=== PATIENT | male | born 1950 | race Caucasian/White ===

== ENCOUNTER 2017-07-24 17:47 | Outpatient (CLI) | payer MEDICARE, OTHER, MEDICAID | END 2017-07-24 17:48 | disposition critical access hospital (66) | LOC: EMS 17:47 | PROVIDERS: ATTEND Surgery | DX: R40.20 Unspecified coma (principal); S01.111A Laceration without foreign body of right eyelid and periocular area, initial encounter; M54.2 Cervicalgia; W19.XXXA Unspecified fall, initial encounter; Y92.009 Unspecified place in unspecified non-institutional (private) residence as the place of occurrence of the external cause | CPT/HCPCS: A0425; A0427 ==

== ENCOUNTER 2017-07-24 18:22 | Emergency (ER) | payer MEDICARE, OTHER, MEDICAID ==
--- NOTE | 2017-07-24 18:46 | ED Physician Documentation ---
PD HPI HEAD INJURY - Stated complaint Stated Complaint: OD - Chief complaint Chief Complaint: Trauma Hd/Nk - History obtained from History obtained from: Patient - History of Present Illness Mechanism of head injury: Fell (he had a friend inject him with heroin (this was first time used this way, had smoked it in the past and was clean off drugs for several months, then started back up this past week). He got very sedated with the IV dose, was standing up at the time, and passed out, falling forward. He did not stop breathing but was unresponsive. 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 No: Nausea / vomiting, Neck pain, Paresthesias Contributing factors: No: Anticoagulated Similar symptoms before: Has not had sx before Recently seen: Not recently seen Review of Systems Constitutional: denies: Fever, Chills Nose: denies: Rhinorrhea / runny nose, Congestion Throat: denies: Sore throat Respiratory: denies: Cough GI: denies: Vomiting, Diarrhea Skin: reports: Laceration (s) (upper lip and forehead) Musculoskeletal: denies: Neck pain, Back pain Neurologic: reports: Head injury. denies: Headache Psychiatric: denies: Depressed, Suicidal PD PAST MEDICAL HISTORY - Past Medical History Cardiovascular: High cholesterol Respiratory: COPD, Sleep apnea, CPAP use Endocrine/Autoimmune: None GI: None : None HEENT: Chronic hearing loss Psych: None Musculoskeletal: None Derm: Other - Past Surgical History Past Surgical History: Yes Ortho: Other - Present Medications Home Medications: Ambulatory Orders Medication Instructions Recorded Confirmed No Known Home Medications [No 07/24/17 07/24/17 Known Home Medications] - Allergies Allergies/Adverse Reactions: Allergies Allergy/AdvReac Type Severity Reaction Status Date / Time No Known Drug Allergies Allergy Verified 07/24/17 18:31 - Social History Does the pt smoke?: No Smoking Status: Never smoker Does the pt drink ETOH?: No Does the pt have substance abuse?: Yes Substance Use and Type: Heroin - Immunizations Immunizations are current?: Yes PD ED PE NORMAL - Vitals Vital signs reviewed: Yes - General General: Well developed/nourished, Other (partial thickness lac left upper lip not crossing francis border. Teeth intact. Forehead with superficial lac as well. 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 ) PD MEDICAL DECISION MAKING - ED course Complexity details: reviewed results, re-evaluated patient (he is still alert and conversant after CT and time in the ED. The peak effect of the heroin is over and should not have further deep sedation. Discharged home. He says he has info on drug treatment programs and NA groups. ), considered differential, d/w patient Departure - Departure Disposition: 01 Home, Self Care Clinical Impression: Fall Qualifiers: Encounter type: initial encounter Qualified Code(s): W19.XXXA - Unspecified fall, initial encounter Facial laceration Qualifiers: Encounter type: initial encounter Qualified Code(s): S01.81XA - Laceration without foreign body of other part of head, initial encounter Accidental heroin overdose Qualifiers: Encounter type: initial encounter Qualified Code(s): T40.1X1A - Poisoning by heroin, accidental (unintentional), initial encounter Condition: Stable Record reviewed to determine appropriate education?: Yes Instructions: ED Laceration Facial Sutr Tape Follow-Up: Sli Montenegro ARNP [Primary Care Provider] - Comments: No recreational drugs and avoid heroin. Resume your narcotic anonymous meetings and seek help at drug treatment programs. For the facial lacerations, allow the Steri-Strips to stay on and dry and fall off on their own after 5 or 6 days. Tylenol or ibuprofen if needed for pains. Recheck if signs of infection. There are no signs of fractures or bleeding on your head and neck CAT scans. He will be sore and stiff through those areas. Discharge Date/Time: 07/24/17 20:35
[2017-07-24] MEDS ORDERED: KETOROLAC 60 MG/2 ML VIAL IVP STA (19:07)
--- NOTE | 2017-07-24 19:47 | CT Report ---
EXAM: CT HEAD EXAM DATE: 07/24/2017 07:30 PM. CLINICAL HISTORY: Fall with head/neck pain. COMPARISON: None. TECHNIQUE: Multiaxial CT images were obtained from the foramen magnum to the vertex. Reformats: Coron al. IV contrast: None. In accordance with CT protocol optimization, one or more of the following dose reduction techniques w ere utilized for this exam: automated exposure control, adjustment of mA and/or KV based on patient s ize, or use of iterative reconstructive technique. FINDINGS: Parenchyma: No intraparenchymal hemorrhage. No evidence of mass, midline shift, or CT findings of inf arction. Chun-white differentiation is distinct. Extraaxial Spaces: Normal for age. No subdural or epidural collections identified. Ventricles: Normal in size and position. Sinuses and Orbits: Imaged paranasal sinuses, orbits, and mastoids show no significant abnormality. Bones: No evidence of fracture or calvarial defect. Other: None. IMPRESSION: Negative head CT. [facility] Referring Provider Line: [phone] SITE ID: [id number]
--- NOTE | 2017-07-24 19:47 | CT Preliminary Report ---
Exam: CT HEAD W/O IMPRESSION: Negative head CT. [facility] SITE ID: [id number]
--- NOTE | 2017-07-24 19:54 | CT Preliminary Report ---
Exam: CT CERVICAL SPINE W/O IMPRESSION: 1. Negative for an acute fracture and subluxation. 2. Multilevel whde-kj-tjqrytcb degenerative disk disease in the lower lumbar spine. C5-C6 vertebral b royer fusion. [facility] SITE ID: [id number]
--- NOTE | 2017-07-24 19:54 | CT Report ---
EXAM: CT CERVICAL SPINE WITHOUT CONTRAST DATE: 07/24/2017 07:31 PM. HISTORY: Fall with face injury. COMPARISONS: None. TECHNIQUE: Thin-section axial images were acquired of the cervical spine without contrast. Post-proce ssing: Coronal and sagittal reformats. Other: None. In accordance with CT protocol optimization, one or more of the following dose reduction techniques w ere utilized for this exam: automated exposure control, adjustment of mA and/or KV based on patient s ize, or use of iterative reconstructive technique. FINDINGS: Alignment: No scoliosis or spondylolisthesis. Bones: Negative for an acute fracture. There is bony bridging of the C5 and C6 vertebral bodies. Ther e is a corticated ossification located anterior to the C7 superior endplate. Interspace Levels/Facets: There is mild disk height loss at C6-C7 and capm-rx-sjbqheew disk height loss at C7-T1. The facet pamela nts appear in satisfactory alignment with mild degenerative disease. No significant central spinal ca nal stenosis. There is degenerative disease and spurring of the anterior C1 and C2 articulation. Musculature: Normal. No fatty atrophy. Other: The paravertebral and prevertebral soft tissues are unremarkable. No apical pneumothorax. Ther e is bilateral apical pleural-parenchymal scarring. IMPRESSION: 1. Negative for an acute fracture and subluxation. 2. Multilevel ykwv-vq-flekfson degenerative disk disease in the lower lumbar spine. C5-C6 vertebral b royer fusion. [facility] Referring Provider Line: [phone] SITE ID: [id number]
[2017-07-24 20:36] VITALS: BP 126/70
== END 2017-07-24 20:35 | disposition home or self-care (01) ==
LOC: EDUNIT# → ED 18:22
DX: S01.81XA Laceration without foreign body of other part of head, initial encounter (principal); S01.511A Laceration without foreign body of lip, initial encounter; W19.XXXA Unspecified fall, initial encounter; T40.1X1A Poisoning by heroin, accidental (unintentional), initial encounter; E78.00 Pure hypercholesterolemia, unspecified
CPT/HCPCS: 70450; 72125; 96374; 99283; 99284

== ENCOUNTER 2017-08-09 09:49 | Emergency (ER) | payer MEDICARE, OTHER, MEDICAID ==
[2017-08-09] MEDS ORDERED: SODIUM CHLORIDE 0.9% 1,000 ML IV ONE (10:05)
--- NOTE | 2017-08-09 10:58 | XRAY Report ---
EXAM: CHEST RADIOGRAPHY EXAM DATE: 08/09/2017 10:51 AM. CLINICAL HISTORY: Cough tachycardia. COMPARISON: 04/05/2015. TECHNIQUE: 2 views. FINDINGS: Lungs/Pleura: Infiltrate or atelectasis right lung base. New small bilateral pleural effusions. Chron ic parenchymal reticular densities in the bilateral upper lung hickey right greater than left and rig ht lower lobe. 8 mm nodular density in the left upper lung laterally. Mediastinum: Mild cardiomegaly Other: None. IMPRESSION: 1. Infiltrate or atelectasis right lung base. 2. New small bilateral effusions. 3. 8mm nodule left upper lobe further evaluation could be with CT. 4. Chronic parenchymal changes bilateral upper lungs, right lower lung [facility] Referring Provider Line: [phone] SITE ID: [id number]
[2017-08-09 11:01] LABS: BASOPHILS # (AUTO) 0.1 10^3/uL (0.0-0.1); BASOPHILS % (AUTO) 0.5 %; EOSINOPHILS # (AUTO) 0.1 10^3/uL (0.0-0.7); EOSINOPHILS % (AUTO) 0.7 %; HGB - HEMOGLOBIN 15.6 g/dL (14.0-18.0); LYMPHOCYTES # (AUTO) 1.2 10^3/uL (1.5-3.5); LYMPHOCYTES % (AUTO) 11.2 %; MEAN CORPUSCULAR HEMOGLOBIN 31.3 pg (27.0-31.0); MEAN CORPUSCULAR HGB CONC 33.8 g/dL (32.0-36.0); MEAN CORPUSCULAR VOLUME 92.7 fL (80.0-94.0); MEAN PLATELET VOLUME 9.5 fL (7.4-11.4); MONOCYTES # (AUTO) 1.1 10^3/uL (0.0-1.0); MONOCYTES % (AUTO) 10.1 %; NEUTROPHILS # (AUTO) 8.6 10^3/uL (1.5-6.6); NEUTROPHILS % (AUTO) 77.5 %; PLT - PLATELET COUNT 314 10^3/uL (130-450); RED BLOOD COUNT 4.97 10^6/uL (4.70-6.10); RED CELL DISTRIBUTION WIDTH 13.7 % (12.0-15.0); WHITE BLOOD COUNT 11.1 x10^3/uL (4.8-10.8)
[2017-08-09 11:03] LABS: CALCIUM 9.1 mg/dL (8.5-10.3); CREATININE 0.9 mg/dL (0.6-1.2)
--- NOTE | 2017-08-09 11:43 | ED Physician Documentation ---
History of Present Illness - Stated complaint Stated Complaint: BODY ACHES,COUGH,SWEATING - Chief complaint Chief Complaint: General - Additonal information Additional information: hx from pt 67 male mostly healthy hx drug use but sober now prior smoker has COPD and freq pna has been sick for a week with cough SOA sweats fatigue no GI sx Review of Systems Constitutional: reports: Myalgias, Sweats. denies: Fever, Chills Cardiac: denies: Chest pain / pressure Respiratory: reports: Dyspnea, Cough GI: denies: Vomiting, Diarrhea Endocrine: denies: Easy bruising / bleeding Immunocompromised: denies: Immunocompromised PD PAST MEDICAL HISTORY - Past Medical History Cardiovascular: High cholesterol Respiratory: COPD, Sleep apnea, CPAP use Endocrine/Autoimmune: None GI: None : None HEENT: Chronic hearing loss Psych: None Musculoskeletal: None Derm: Other - Past Surgical History Past Surgical History: Yes Ortho: Other - Present Medications Home Medications: Ambulatory Orders Medication Instructions Recorded Confirmed Azithromycin [Zithromax] 250 mg PO DAILY #4 tablet 08/09/17 Benzonatate [Tessalon] 100 mg PO TID PRN #20 capsule 08/09/17 guaiFENesin/DEXTROMETHORPHAN 10 ml PO Q6H PRN #120 ml 08/09/17 [Robitussin Dm] - Allergies Allergies/Adverse Reactions: Allergies Allergy/AdvReac Type Severity Reaction Status Date / Time No Known Drug Allergies Allergy Verified 07/24/17 18:31 - Social History Does the pt smoke?: No Smoking Status: Never smoker Does the pt drink ETOH?: No Does the pt have substance abuse?: Yes - Immunizations Immunizations are current?: Yes PD ED PE NORMAL - Vitals Vital signs reviewed: Yes - General General: Alert and oriented X 3 - HEENT HEENT: PERRL - Neck Neck: Supple, no meningeal sign - Cardiac Cardiac: RRR - Respiratory Respiratory: Other (slightly coarse vern no wheeze) - Abdomen Abdomen: Soft, Non tender - Extremities Extremities: No deformity - Neuro Neuro: Alert and oriented X 3 Results - Vitals Vitals: Vital Signs - 24 hr 08/09/17 08/09/17 09:55 11:50 Temperature 36.4 C L Heart Rate 133 H 121 H Respiratory 17 18 Rate Blood Pressure 119/94 H 135/111 H O2 Saturation 98 100 Oxygen O2 Source Room air - Labs Labs: Laboratory Tests 08/09/17 08/09/17 08/09/17 10:25 10:25 10:59 WBC 11.1 H RBC 4.97 Hgb 15.6 Hct 46.1 MCV 92.7 MCH 31.3 H MCHC 33.8 RDW 13.7 Plt Count 314 MPV 9.5 Neut # 8.6 H Lymph # 1.2 L Forrest # 1.1 H Eos # 0.1 Baso # 0.1 Absolute Nucleated RBC 0.00 Nucleated RBC % 0.0 Sodium 136 Potassium 4.0 Chloride 96 L Carbon Dioxide 29 Anion Gap 11.0 BUN 19 Creatinine 0.9 Estimated GFR (MDRD) 84 L Glucose 100 Lactic Acid Calcium 9.1 Influenza A (Rapid) Negative Influenza B (Rapid) Negative Influenza Types A,B Ag - 08/09/17 11:10 WBC RBC Hgb Hct MCV MCH MCHC RDW Plt Count MPV Neut # Lymph # Forrest # Eos # Baso # Absolute Nucleated RBC Nucleated RBC % Sodium Potassium Chloride Carbon Dioxide Anion Gap BUN Creatinine Estimated GFR (MDRD) Glucose Lactic Acid 1.2 Calcium Influenza A (Rapid) Influenza B (Rapid) Influenza Types A,B Ag - Rads (name of study) CXR Radiology: See rad report (infiltrate R lung base, vern small effusions, 8 [address] nodule rec CT) PD MEDICAL DECISION MAKING - ED course ED course: after IVF resting HR is < 100 but 120s with exertion lactate neg blood c pending advised pt I recommend admit he states he cannot be admitted today though he understands my concerns so will dc and pt promises to return to see me tomorrow for a recheck (since he has no PMD) and sooner if worse Departure - Departure Disposition: 01 Home, Self Care Clinical Impression: Pneumonia Condition: Good Instructions: ED Pneumonia Adult Prescriptions: Azithromycin [Zithromax] 250 mg PO DAILY #4 tablet Benzonatate [Tessalon] 100 mg PO TID PRN #20 capsule PRN Reason: to ease cough guaiFENesin/DEXTROMETHORPHAN [Robitussin Dm] 10 ml PO Q6H PRN #120 ml PRN Reason: Cough Comments: You have a right sided pneumonia and a small amount of fluid in both lungs. The radiologist also saw a small nodule in your upper left lung and recommends that you get a CT scan to further evaluate that. We cannot do the CT today in the ER - you will need to follow up with a local clinic to get that arranged. I recommend that you stay in the hospital for this pneumonia but you have declined for today because you have other business to take care of Please please come back and see me for a recheck tomorrow -return sooner if you are worse or change your mind In the mean time take the antibiotics as prescribed and the cough medications as needed.
[2017-08-09] MEDS ORDERED: cefTRIAXone 1 GM in SODIUM CHLORIDE 0.9% MINIBAG 100 ML IV STA (11:47)
[2017-08-09] MEDS ORDERED: AZITHROMYCIN 250 MG TABLET PO STA (11:47)
[2017-08-09 12:36] VITALS: BP 159/99
== END 2017-08-09 12:37 | disposition home or self-care (01) ==
LOC: ED 09:49
DX: J18.9 Pneumonia, unspecified organism (principal); R91.1 Solitary pulmonary nodule; J44.9 Chronic obstructive pulmonary disease, unspecified; E78.00 Pure hypercholesterolemia, unspecified; G47.30 Sleep apnea, unspecified; Z87.891 Personal history of nicotine dependence
CPT/HCPCS: 36415; 71046; 80048; 83605; 85025; 87040; 87275; 87276; 96361; 96365; 99283; 99284; A9270

== ENCOUNTER 2017-08-10 12:31 | Inpatient (IN) | payer MEDICARE, OTHER, MEDICAID ==
[2017-08-10] MEDS ORDERED: SODIUM CHLORIDE 0.9% 1,000 ML IV ONE (12:55)
[2017-08-10] MEDS ORDERED: AZITHROMYCIN 250 MG TABLET PO STA (12:55)
[2017-08-10] MEDS ORDERED: cefTRIAXone 1 GM in SODIUM CHLORIDE 0.9% MINIBAG 100 ML IV STA (12:55)
--- NOTE | 2017-08-10 13:03 | ED Physician Documentation ---
History of Present Illness - Stated complaint Stated Complaint: COUGH - Chief complaint Chief Complaint: Resp - Additonal information Additional information: pt seen yesterday dx with pna and small pleural effusion was persistently tachycardic and admission was recommended but he declined admit 2/2 having business to attend to was given IV ab and dc with precautions feels worse - more sweats severe body aches profound fatigue, continued coughing also some diarrhea so returned to be admitted after all arrives tachy and hypoxic Review of Systems Constitutional: reports: Fever, Chills, Sweats Throat: denies: Sore throat Cardiac: denies: Chest pain / pressure Respiratory: reports: Dyspnea, Cough GI: reports: Diarrhea. denies: Nausea : denies: Dysuria Musculoskeletal: denies: Extremity pain, Extremity swelling Endocrine: denies: Easy bruising / bleeding Immunocompromised: denies: Immunocompromised PD PAST MEDICAL HISTORY - Past Medical History Past Medical History: Yes Cardiovascular: High cholesterol Respiratory: COPD, Pneumonia, Sleep apnea, CPAP use Endocrine/Autoimmune: None GI: None : None HEENT: Chronic hearing loss Psych: None Musculoskeletal: None Derm: Other - Past Surgical History Past Surgical History: Yes Ortho: Other - Present Medications Home Medications: Ambulatory Orders Medication Instructions Recorded Confirmed Multivitamin [Theragran] 1 tab PO DAILY 08/10/17 08/10/17 - Allergies Allergies/Adverse Reactions: Allergies Allergy/AdvReac Type Severity Reaction Status Date / Time No Known Drug Allergies Allergy Verified 07/24/17 18:31 - Social History Does the pt smoke?: No Smoking Status: Never smoker Does the pt drink ETOH?: No Does the pt have substance abuse?: Yes - Immunizations Immunizations are current?: Yes PD ED PE NORMAL - Vitals Vital signs reviewed: Yes - General General: Alert and oriented X 3 - HEENT HEENT: PERRL - Neck Neck: Supple, no meningeal sign - Cardiac Cardiac: RRR (tachy) - Respiratory Respiratory: No respiratory distress, Other (coarse vern) - Abdomen Abdomen: Soft, Non tender - Derm Derm: Other (small abscess posterior L neck and a small subcut nodule l ant neck that feels like a lipoma) - Extremities Extremities: No deformity, No edema, No calf tenderness / cord - Neuro Neuro: Alert and oriented X 3, No motor deficit, No sensory deficit Results - Vitals Vitals: Vital Signs - 24 hr 08/10/17 12:34 Temperature 36.2 C L Heart Rate 121 H Respiratory 24 Rate Blood Pressure 116/79 O2 Saturation 90 L Oxygen O2 Source Room air - EKG (time done) 1419 Rate: Rate (enter#) (122) Rhythm: Atrial fibrillation Rhome: Normal Intervals: RBBB Ischemia: Non specific changes (ST depression laterally) - Labs Labs: Laboratory Tests 08/10/17 08/10/17 08/10/17 13:05 13:05 13:05 WBC 10.9 H RBC 4.42 L Hgb 13.8 L Hct 40.4 L MCV 91.5 MCH 31.1 H MCHC 34.0 RDW 13.3 Plt Count 296 MPV 8.9 Neut # 8.5 H Lymph # 1.2 L Craig # 1.1 H Eos # 0.1 Baso # 0.1 Absolute Nucleated RBC 0.00 Nucleated RBC % 0.0 D-Dimer Sodium 138 Potassium 3.8 Chloride 97 L Carbon Dioxide 28 Anion Gap 13.0 BUN 17 Creatinine 0.9 Estimated GFR (MDRD) 84 L Glucose 100 Lactic Acid 1.3 Calcium 8.8 Troponin I 08/10/17 08/10/17 13:05 13:05 WBC RBC Hgb Hct MCV MCH MCHC RDW Plt Count MPV Neut # Lymph # Craig # Eos # Baso # Absolute Nucleated RBC Nucleated RBC % D-Dimer 423.1 H Sodium Potassium Chloride Carbon Dioxide Anion Gap BUN Creatinine Estimated GFR (MDRD) Glucose Lactic Acid Calcium Troponin I < 0.04 PD MEDICAL DECISION MAKING - ED course ED course: pt retuerned as requested for pna and was hypoxic and tachy - given IV ab and fluids EKG ordered per protocol and I was ot aware and EKG was given to other EMP on duty - I am not given the EKG and it shows a fib RBB - will advise hospitalist also pt has the small abscess on his l nbeck that i was going to drain for him in the ER but I got pulled away for another critical pt and so it did not get lanced in ER - defer to hospitalist as well Departure - Departure Disposition: 66 [facility] DC/Xfer Clinical Impression: Hypoxia, Atrial fibrillation, RBBB Pneumonia Qualifiers: Pneumonia type: due to unspecified organism Laterality: right Lung location: unspecified part of lung Qualified Code(s): J18.9 - Pneumonia, unspecified organism Condition: Fair Discharge Date/Time: 08/10/17 15:15
[2017-08-10 13:23] LABS: BASOPHILS # (AUTO) 0.1 10^3/uL (0.0-0.1); BASOPHILS % (AUTO) 1.1 %; EOSINOPHILS # (AUTO) 0.1 10^3/uL (0.0-0.7); EOSINOPHILS % (AUTO) 0.6 %; HGB - HEMOGLOBIN 13.8 g/dL (14.0-18.0); LYMPHOCYTES # (AUTO) 1.2 10^3/uL (1.5-3.5); LYMPHOCYTES % (AUTO) 10.7 %; MEAN CORPUSCULAR HEMOGLOBIN 31.1 pg (27.0-31.0); MEAN CORPUSCULAR VOLUME 91.5 fL (80.0-94.0); MEAN PLATELET VOLUME 8.9 fL (7.4-11.4); MONOCYTES # (AUTO) 1.1 10^3/uL (0.0-1.0); MONOCYTES % (AUTO) 9.9 %; NEUTROPHILS # (AUTO) 8.5 10^3/uL (1.5-6.6); NEUTROPHILS % (AUTO) 77.7 %; PLT - PLATELET COUNT 296 10^3/uL (130-450); RED BLOOD COUNT 4.42 10^6/uL (4.70-6.10); RED CELL DISTRIBUTION WIDTH 13.3 % (12.0-15.0); WHITE BLOOD COUNT 10.9 x10^3/uL (4.8-10.8)
[2017-08-10 13:34] LABS: CALCIUM 8.8 mg/dL (8.5-10.3); CREATININE 0.9 mg/dL (0.6-1.2)
[2017-08-10] MEDS ORDERED: ONDANSETRON 4 MG/2 ML VIAL IVP PRN (14:21)
--- NOTE | 2017-08-10 14:33 | HISTORY & PHYSICAL EXAMINATION ---
Chief Complaint - Chief Complaint Chief Complaint: cough, fever History of Present Illness - Admitted From Admitted From:: ER - History Obtained From History obtained from: Pt - History of Present Illness HPI Comment/Other: is 67-year-old male with a past medical history of recurrent pneumonia, drug abuse, COPD, Sleep Apnea with CPAP, hyperlipidemia, who present ER complaint of fever, chill, night sweating. Pt state he came yesterday but had some business to go. He report he fever, cough, and night sweating on last night. Pt report he had 15 times of pneumonia recently. He smoked cigarette for 35 years, and quit cigarette smoking for 8 years. Today pt is afebrile, with tachycardia at ER. EKG reveals Afib with RVR. Pt denies chest pain, headache, abdominal pain, nausea, vomiting, vision changing. The lab test reveals slight elevated WBC, and elevated D-Dimer. CXR on 08/09/17 reveals infiltrate or atelectasis right lung base, new small bilateral effusion, 8 mm nodule left upper lobe, chronic parenchymal changes bilateral upper lungs and right lower lung. The radiologist call pt had PE on CT chest today. History - Past Medical History Cardiovascular: reports: High cholesterol Respiratory: reports: COPD, Pneumonia, Sleep apnea, CPAP use Endocrine/Autoimmune: reports: None GI: reports: None : reports: None HEENT: reports: Chronic hearing loss Psych: reports: None Musculoskeletal: reports: None Derm: reports: Other MRSA Hx?: No - Past Surgical History Ortho: reports: Other - Family & Social History Family History Comment/Other: pt is living [facility], single with girlfriend. Pt is working for [employer] business. Living arrangement: At home Living Situation: With spouse/s.o. - Substance History Use: Uses substance without health or social issues: Tobacco Abuse: Recurrent use of substance despite neg consequences: NONE Dependence: Experiences withdrawal or developed tolerances: NONE - POLST Patient has POLST: No POLST Status: Full Code Meds/Allgy - Home Medications Home Medications: Ambulatory Orders Medication Instructions Recorded Confirmed Multivitamin [Theragran] 1 tab PO DAILY 08/10/17 08/10/17 - Allergies Allergies/Adverse Reactions: Allergies Allergy/AdvReac Type Severity Reaction Status Date / Time No Known Drug Allergies Allergy Verified 07/24/17 18:31 Review of Systems - Constitutional Constitutional: reports: Fatigue, Fever, Chills, Night sweats. denies: Malaise , Poor appetite, Diaphoresis, Weight gain, Weight loss - Eyes Eyes: denies: Pain, Irritation, Amaurosis, Blurred vision, Spots in vision, Field loss, Vision loss, Dipolpia - Ears, Nose & Throat Ears, Nose & Throat: denies: Ear pain, Hearing loss, Hearing aids, Tinnitus, Nasal pain, Nosebleeds, Nasal congestion, Sore throat, Bleeding gums - Cardiovascular Cariovascular: denies: Irregular heart rate, Palpitations, Chest pain, Edema, Lightheadedness, Syncope, Exertional dyspnea, Decr. exercise tolerance - Respiratory Respiratory: reports: Cough, Sputum production, SOB with exertion. denies: Wheezing, Snoring, Hemoptysis, Orthopnea, SOB at rest, Apnea, Pleuritic pain - Gastrointestinal Gastrointestinal: denies: Abdominal pain, Abdominal distention, Constipation, Diarrhea, Change in bowel habits, Rectal bleeding, Black stools, Bloody stools, Nausea, Vomiting, Bile emesis, Coffee grounds emesis - Genitourinary Genitourinary: denies: Dysuria, Frequency, Urgency, Hematuria, Incontinence, Flank pain, Nocturia, Urethral discharge - Musculoskeletal Musculoskeletal: denies: Muscle pain, Back pain, Muscle aches, Stiffness, Limited range of motion, Muscle weakness, Gout, Joint pain - Integumentary Integumentary: denies: Rash, Pruritis, Lesions, Dryness, Lumps, Acne, Pigment changes, Nail changes - Neurological Neurological: denies: General weakness, Focal weakness, Headache, Dizziness, Numbness, Memory problems, Pre-existing deficit, Abnormal gait, Seizures, Incoordination, Slurred speech - Psychiatric Psychiatric: denies: Depression, Anxiety, Suicidal, Delusions, Hallucinations, Homicidal - Endocrine Endocrine: denies: Polyuria, Polydypsia, Polyphagia, Intolerance to cold - Hematologic/Lymphatic Hematologic/Lymphatic: denies: Anemia, Bruising, Petechiae, Blood clots, Lymphadenopathy, Bleeding tendencies, Recurrent infections Exam - Vital Signs Reviewed Vital Signs: Yes Vital Signs: Vital Signs x48h Temp Pulse Resp BP Pulse Ox 08/10/17 14:29 114 H 115/83 H 100 08/10/17 12:34 36.2 C L 121 H 24 116/79 90 L - Physical Exam General Appearance: positive: No acute distress, Alert. negative: Lethargic Eyes Bilateral: positive: Normal inspection, PERRL, No lid inflammation, Conjunctivae nml ENT: positive: ENT inspection nml, Pharynx nml, No signs of dehydration. negative: Purulent nasal drainage, Pharyngeal erythema, Oral lesions Neck: positive: Nml inspection, Thyroid nml, No JVD, Trachea midline. negative : Thyromegaly, Lymphadenopathy (R), Lymphadenopathy (L), Stiff neck, Carotid bruit, Swelling/bruising, Tracheal deviation Respiratory: positive: Chest non-tender, No respiratory distress, Breath sounds nml. negative: Wheezes, Rales, Rhonchi Cardiovascular: positive: Regular rate & rhythm, No murmur, No gallop, Tachycardia. negative: Irregularly irregular, Extrasystoles, Bradycardia, JVD present, Systolic murmur, Diastolic murmur Peripheral Pulses: positive: 2+ Abdomen: positive: Non-tender, No organomegaly, Nml bowel sounds, No distention. negative: Tenderness, Guarding, Rebound Back: positive: Nml inspection. negative: CVA tenderness (R), CVA tenderness (L ) Skin: positive: Color nml, No rash, Warm, Dry. negative: Cyanosis, Diaphoresis , Pallor Extremities: positive: Non-tender, Full ROM, Nml appearance. negative: Calf tenderness, Joint swelling, Dolly's sign/cords Neurologic/Psychiatric: positive: Oriented x3, Motor nml, Sensation nml, Mood/ affect nml. negative: Sensory loss, Facial droop, Slurred/abnml speech, Depressed mood/affect Conclusion/Plan - Problem List (1) Pneumonia Conclusion/Plan: CXR reveals pneumonia, clinically pt complains of fever, cough, night sweating. Lab test reveals slight elevated WBC. 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 Treat with Rocephin Azithyromycine sputum culture, blood culture tele, vital monitor Qualifiers: Pneumonia type: due to unspecified organism Laterality: right Lung location: unspecified part of lung Qualified Code(s): J18.9 - Pneumonia, unspecified organism (2) Pulmonary thromboembolism Conclusion/Plan: Radiologist call pt had PE bilateral on tele Lovenox 90mg Bid will switch PO meds, to Coumadin check PT/INR (3) Afib Conclusion/Plan: pt is afib with RVR at HR 120, denies chest pain, palpitation, pre-syncope/ syncope. Pt is unknown afib. Pt's CHADS2 was lower until today is 2, because of new diagnosis of PE. Cardizem control tele monitor vital monitor (4) History of COPD Conclusion/Plan: stable, no shortness of breathing. Duoneb PRN O2 supplement PRN (5) Hyperlipidemia Conclusion/Plan: pt did not have any statin or meds at home meds list check lipid panel, follow up (6) DVT prophylaxis Conclusion/Plan: SCD, pt is on Lovenox Bid (7) Full code status Conclusion/Plan: pt request a full code status - Lab Results Fish Bones: 08/10/17 13:05 08/10/17 13:05 Core Measures - Anticipated LOS I expect patient to be DC'd or transferred within 96 hours.: Yes - DVT/VTE - Prophylaxis VTE/DVT Device ordered at admit?: Yes VTE/DVT Prophylaxis med ordered at admit?: Yes - Stroke - Rehab Assessment Rehab services assessment to be ordered?: No - AMI - Statin at Admit Aspirin Prescribed on Admit: No
[2017-08-10] MEDS ORDERED: IOPAMIDOL-300 100 ML VIAL ONE ×2 (14:56→14:57)
[2017-08-10] MEDS ORDERED: IOPAMIDOL-300 100 ML VIAL IVP ONE ×3 (15:20→15:36)
[2017-08-10] MEDS ORDERED: ENOXAPARIN 80 MG/0.8 ML SYRINGE SUBQ SCH (16:00)
[2017-08-10] MEDS: SODIUM CHLORIDE 0.9% 1,000 ML IV SCH (16:18)
[2017-08-10] MEDS: SODIUM CHLORIDE FLUSH 0.9% 10 ML SYRINGE IVP PRN (16:19)
[2017-08-10] MEDS: ENOXAPARIN 100 MG/ML SYRINGE SUBQ SCH (16:19)
[2017-08-10] MEDS: SODIUM CHLORIDE FLUSH 0.9% 10 ML SYRINGE IVP SCH (16:51)
[2017-08-10] MEDS: diltiaZEM 30 MG TABLET PO SCH ×2 (17:05→22:11)
[2017-08-10] MEDS ORDERED: IPRATROPIUM/ALBUTEROL 3 ML NEB INH PRN (19:00)
--- NOTE | 2017-08-10 19:27 | CT Report ---
DATE OF SERVICE: 08/10/2017 CT CHEST WITH CONTRAST: 08/10/2017 CLINICAL INDICATION: Left lung nodule, smoking history, weakness, tired. TECHNIQUE: Axial CT images of the chest were obtained with 80 mL Isovue 300 intravenously. In accordance with CT protocol optimization, one or more of the following dose reduction techniques were utilized for this exam: Automated exposure control, adjustment of mA and/or KV based on patient size, or use of iterative reconstructive technique. COMPARISON: Chest x-ray 08/09/2017. FINDINGS: The heart and great vessels demonstrate minimal atherosclerotic calcification. There are filling defects in bilateral lower lobe segmental and subsegmental pulmonary arteries as well as subsegmental upper lobe pulmonary arteries, compatible with small pulmonary emboli. No hilar or mediastinal lymphadenopathy is appreciated. The nodule noted on the plain film in the lateral left upper lobe is calcified, compatible with an old granuloma. The lungs also demonstrate patchy bilateral infiltrates, worse in the anterior right middle lobe and lingula, and small pleural effusions with associated basilar atelectasis. Limited evaluation of upper abdominal structures demonstrates normal adrenal glands. Osseous structures demonstrate degenerative changes. IMPRESSION: BILATERAL SEGMENTAL AND SUBSEGMENTAL PULMONARY EMBOLI. PATCHY BILATERAL INFILTRATES AND EFFUSIONS. CALCIFIED GRANULOMA IN THE LEFT UPPER LOBE, ACCOUNTING FOR THE PLAIN FILM NODULE. CRITICAL RESULT: Results called to JOE Rice on 08/10/2017 at 1535 hours. TD: 08/10/2017 19:25
[2017-08-11] MEDS ORDERED: SODIUM CHLORIDE 0.9% 300 ML IV ONE (03:55)
[2017-08-11] MEDS: diltiaZEM 30 MG TABLET PO SCH ×4 (04:10→21:55)
[2017-08-11] MEDS: SODIUM CHLORIDE 0.9% 1,000 ML IV SCH ×2 (04:12→14:22)
[2017-08-11] MEDS: SODIUM CHLORIDE FLUSH 0.9% 10 ML SYRINGE IVP SCH ×3 (04:14→20:10)
[2017-08-11 06:26] LABS: BASOPHILS # (AUTO) 0.1 10^3/uL (0.0-0.1); BASOPHILS % (AUTO) 0.9 %; EOSINOPHILS # (AUTO) 0.1 10^3/uL (0.0-0.7); EOSINOPHILS % (AUTO) 0.6 %; HGB - HEMOGLOBIN 13.1 g/dL (14.0-18.0); LYMPHOCYTES # (AUTO) 1.3 10^3/uL (1.5-3.5); LYMPHOCYTES % (AUTO) 12.3 %; MEAN CORPUSCULAR HEMOGLOBIN 30.4 pg (27.0-31.0); MONOCYTES # (AUTO) 1.1 10^3/uL (0.0-1.0); MONOCYTES % (AUTO) 10.2 %; NEUTROPHILS # (AUTO) 8.3 10^3/uL (1.5-6.6); PLT - PLATELET COUNT 292 10^3/uL (130-450); RED BLOOD COUNT 4.32 10^6/uL (4.70-6.10); RED CELL DISTRIBUTION WIDTH 13.5 % (12.0-15.0); WHITE BLOOD COUNT 10.9 x10^3/uL (4.8-10.8)
[2017-08-11 06:32] LABS: INR 1.5 (0.8-1.2); PT - PROTHROMBIN TIME 16.8 secs (9.9-12.6)
[2017-08-11 06:35] LABS: ALBUMIN 2.9 g/dL (3.2-5.5); ALBUMIN/GLOBULIN RATIO 0.9 (1.0-2.2); BILIRUBIN,TOTAL 0.8 mg/dL (0.2-1.0); CALCIUM 8.3 mg/dL (8.5-10.3); CREATININE 0.8 mg/dL (0.6-1.2); MAGNESIUM 1.9 mg/dL (1.7-2.8)
[2017-08-11 06:39] LABS: CHOL/HDL RATIO 3.6 (<5.0); CHOLESTEROL 116 mg/dL; HDL CHOLESTEROL 32 mg/dL; LDL CHOLESTEROL,CALCULATED 75 mg/dL; LDL/HDL RATIO 2.3 (<3.6); VLDL CHOLESTEROL 9 mg/dL
[2017-08-11] MEDS: ENOXAPARIN 100 MG/ML SYRINGE SUBQ SCH ×2 (08:57→20:10)
[2017-08-11] MEDS: cefTRIAXone 1 GM in SODIUM CHLORIDE 0.9% MINIBAG 100 ML IV SCH (08:57)
[2017-08-11] MEDS: POLYETHYLENE GLYCOL 3350 17 GM PACKET PO SCH (08:58)
[2017-08-11] MEDS: FAMOTIDINE 20 MG TABLET PO SCH (08:58)
[2017-08-11] MEDS: WARFARIN 5 MG TABLET PO SCH (08:58)
[2017-08-11] MEDS ORDERED: cefTRIAXone 1 GM VIAL IVP SCH (09:00)
[2017-08-11] MEDS ORDERED: ENOXAPARIN 40 MG/0.4 ML SYRINGE SUBQ SCH (09:00)
[2017-08-11] MEDS: ACETAMINOPHEN 325 MG TABLET PO PRN ×2 (09:02→21:59)
[2017-08-11] MEDS: AZITHROMYCIN INJ 500 MG in SODIUM CHLORIDE 0.9% 250 ML IV SCH (10:32)
[2017-08-11] MEDS ORDERED: IPRATROPIUM 0.2 MG/ML NEB INH PRN (12:16)
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
[2017-08-11 16:09] LABS: AMPHETAMINE SCREEN,URINE NEGATIVE (NEGATIVE); BENZODIAZEPINES SCREEN, URINE NEGATIVE (NEGATIVE); COCAINE SCREEN URINE NEGATIVE (NEGATIVE); METHADONE SCREEN, URINE NEGATIVE (NEGATIVE); METHAMPHETAMINES SCREEN, URINE NEGATIVE (NEGATIVE); MUDS CUTOFF CONCENTRATIONS CUTOFF CONC BELOW:; OPIATE SCREEN, URINE NEGATIVE (NEGATIVE); OXYCODONE SCREEN, URINE NEGATIVE (NEGATIVE); PROPOXYPHENE SCREEN, URINE NEGATIVE (NEGATIVE); TRICYCLIC ANTIDEPRESSANT,URINE NEGATIVE (NEGATIVE)
[2017-08-11] MEDS: LEVALBUTEROL 1.25 MG/3 ML NEB INH PRN (17:59)
[2017-08-12] MEDS: SODIUM CHLORIDE 0.9% 1,000 ML IV SCH (01:52)
[2017-08-12] MEDS: LEVALBUTEROL 1.25 MG/3 ML NEB INH PRN (03:05)
[2017-08-12] MEDS: diltiaZEM 30 MG TABLET PO SCH (05:03)
[2017-08-12] MEDS: SODIUM CHLORIDE FLUSH 0.9% 10 ML SYRINGE IVP SCH ×3 (05:09→20:00)
[2017-08-12 05:30] LABS: BASOPHILS # (AUTO) 0.1 10^3/uL (0.0-0.1); BASOPHILS % (AUTO) 0.9 %; EOSINOPHILS # (AUTO) 0.1 10^3/uL (0.0-0.7); EOSINOPHILS % (AUTO) 0.6 %; HGB - HEMOGLOBIN 12.8 g/dL (14.0-18.0); LYMPHOCYTES # (AUTO) 1.4 10^3/uL (1.5-3.5); LYMPHOCYTES % (AUTO) 15.8 %; MEAN CORPUSCULAR HEMOGLOBIN 30.7 pg (27.0-31.0); MEAN CORPUSCULAR HGB CONC 33.7 g/dL (32.0-36.0); MEAN CORPUSCULAR VOLUME 91.1 fL (80.0-94.0); MEAN PLATELET VOLUME 8.3 fL (7.4-11.4); MONOCYTES # (AUTO) 0.9 10^3/uL (0.0-1.0); MONOCYTES % (AUTO) 10.4 %; NEUTROPHILS # (AUTO) 6.4 10^3/uL (1.5-6.6); NEUTROPHILS % (AUTO) 72.3 %; PLT - PLATELET COUNT 276 10^3/uL (130-450); RED BLOOD COUNT 4.18 10^6/uL (4.70-6.10); RED CELL DISTRIBUTION WIDTH 13.5 % (12.0-15.0); WHITE BLOOD COUNT 8.9 x10^3/uL (4.8-10.8)
[2017-08-12 05:34] LABS: INR 1.6 (0.8-1.2); PT - PROTHROMBIN TIME 17.9 secs (9.9-12.6)
[2017-08-12 05:38] LABS: ALBUMIN 2.9 g/dL (3.2-5.5); ALBUMIN/GLOBULIN RATIO 0.9 (1.0-2.2); BILIRUBIN,TOTAL 0.7 mg/dL (0.2-1.0); CALCIUM 8.1 mg/dL (8.5-10.3); CREATININE 0.7 mg/dL (0.6-1.2)
[2017-08-12] MEDS ORDERED: SODIUM CHLORIDE 0.9% 1,000 ML IV SCH (07:42)
[2017-08-12] MEDS: ENOXAPARIN 100 MG/ML SYRINGE SUBQ SCH ×2 (10:48→19:59)
[2017-08-12] MEDS: ACETAMINOPHEN 325 MG TABLET PO PRN ×2 (10:48→22:44)
[2017-08-12] MEDS: diltiaZEM CD 120 MG CAPSULE PO SCH (10:49)
[2017-08-12] MEDS: WARFARIN 5 MG TABLET PO SCH (10:49)
[2017-08-12] MEDS: cefTRIAXone 1 GM in SODIUM CHLORIDE 0.9% MINIBAG 100 ML IV SCH (10:49)
[2017-08-12] MEDS: FAMOTIDINE 20 MG TABLET PO SCH (10:49)
[2017-08-12] MEDS: POLYETHYLENE GLYCOL 3350 17 GM PACKET PO SCH (10:49)
[2017-08-12] MEDS: AZITHROMYCIN INJ 500 MG in SODIUM CHLORIDE 0.9% 250 ML IV SCH (11:26)
--- NOTE | 2017-08-12 14:22 | PROVIDER PROGRESS NOTE ---
Subjective - Prog Note Date Prog Note Date: 08/12/17 - Subjective Pt reports feeling: Improved Subjective: pt state he feel better. No fever, chill, cough, chest pain, shortness of breath , headache. Current Medications - Current Medications Current Medications: Active Medications Acetaminophen (Tylenol) 650 mg PO Q4HR PRN PRN Reason: Pain 1 to 4 Last Admin: 08/12/17 10:48 Dose: 650 mg Diltiazem HCl (Cardizem Cd) 120 mg PO DAILY [facility] Last Admin: 08/12/17 10:49 Dose: 120 mg Enoxaparin Sodium (Lovenox) 90 mg SUBQ BID [facility] Last Admin: 08/12/17 10:48 Dose: 90 mg Famotidine (Pepcid) 20 mg PO DAILY [facility] Last Admin: 08/12/17 10:49 Dose: 20 mg Guaifenesin (Robitussin Dm) 10 ml PO Q6HR PRN PRN Reason: Cough Azithromycin 500 mg/ Sodium (Chloride) 250 mls @ 250 mls/hr IV DAILY@1000 [facility] Last Infusion: 08/12/17 13:14 Dose: Infused Ceftriaxone Sodium 1 gm/ (Sodium Chloride) 100 mls @ 200 mls/hr IV DAILY [facility] Last Infusion: 08/12/17 11:26 Dose: Infused Ipratropium [place] (Atrovent) 0.5 mg INH RTQ4H PRN PRN Reason: Wheezing Levalbuterol HCl (Xopenex) 1.25 mg INH RTQ4H PRN PRN Reason: SHORTNESS OF AIR Last Admin: 08/12/17 03:05 Dose: 1.25 mg Ondansetron HCl (Zofran Inj) 4 mg IVP Q6HR PRN PRN Reason: Nausea / Vomiting Polyethylene Glycol (Miralax) 17 gm PO DAILY [facility] Last Admin: 08/12/17 10:49 Dose: Not Given Sodium Chloride (Normal Saline Flush 0.9%) 10 ml IVP PRN PRN PRN Reason: NEEDED PER PROVIDER ORDERS Last Admin: 08/10/17 16:19 Dose: 10 ml Sodium Chloride (Normal Saline Flush 0.9%) 10 ml IVP Q8HR [facility] Last Admin: 08/12/17 11:47 Dose: Not Given Warfarin Sodium (Coumadin) 5 mg PO DAILY [facility] Last Admin: 08/12/17 10:49 Dose: 5 mg Multivitamin [Theragran] 1 tab PO DAILY 08/10/17 Objective - Vital Signs/Intake & Output Reviewed Vital Signs: Yes Vital Signs: Vital Signs x48h Temp Pulse Resp BP Pulse Ox 08/12/17 07:44 36.9 C 52 L 18 130/103 H 92 Intake & Output: Intake & Output 08/09/17 08/10/17 08/11/17 08/12/17 23:59 23:59 23:59 23:59 Intake Total 2300 4644.916 2797.5 Balance 2300 4644.916 2797.5 - Objective General Appearance: positive: No acute distress, Alert, Moderate distress, Severe distress Eyes Bilateral: positive: Normal inspection, PERRL, No lid inflammation, Conjunctivae nml ENT: positive: ENT inspection nml, Pharynx nml, No signs of dehydration. negative: Purulent nasal drainage, Pharyngeal erythema, Oral lesions Neck: positive: Nml inspection, Thyroid nml, No JVD, Trachea midline. negative : Thyromegaly, Lymphadenopathy (R), Lymphadenopathy (L), Stiff neck, Carotid bruit, Swelling/bruising, Tracheal deviation Respiratory: positive: Chest non-tender, No respiratory distress, Breath sounds nml. negative: Wheezes, Rales, Rhonchi Cardiovascular: positive: Regular rate & rhythm, No murmur, No gallop. negative : Irregularly irregular, Extrasystoles, Tachycardia, Bradycardia, Systolic murmur, Diastolic murmur Peripheral Pulses: 2+ Radial (R), 2+ Radial (L), 2+ Dorsalis pedis (R), 2+ Dorsalis pedis (L) Abdomen: positive: Non-tender, No organomegaly, Nml bowel sounds, No distention. negative: Tenderness, Guarding, Rebound Back: positive: Nml inspection. negative: CVA tenderness (R), CVA tenderness (L ) Skin: positive: Color nml, No rash, Warm, Dry. negative: Cyanosis, Diaphoresis , Pallor Extremities: positive: Non-tender, Full ROM, Nml appearance. negative: Calf tenderness, Joint swelling, Dolly's sign/cords Neurologic/Psychiatric: positive: Oriented x3, Motor nml, Sensation nml, Mood/ affect nml. negative: Sensory loss, Facial droop, Slurred/abnml speech - Lab Results Fish Bones: 08/12/17 05:20 08/12/17 05:20 Other Labs: Lab Results x24hrs 08/12/17 08/12/17 08/12/17 Range/Units 05:20 05:20 05:20 WBC 8.9 (4.8-10.8) x10^3/uL RBC 4.18 L (4.70-6.10) 10^6/uL Hgb 12.8 L (14.0-18.0) g/dL Hct 38.1 L (42.0-52.0) % MCV 91.1 (80.0-94.0) fL MCH 30.7 (27.0-31.0) pg MCHC 33.7 (32.0-36.0) g/dL RDW 13.5 (12.0-15.0) % Plt Count 276 (130-450) 10^3/uL MPV 8.3 (7.4-11.4) fL Neut # 6.4 (1.5-6.6) 10^3/uL Lymph # 1.4 L (1.5-3.5) 10^3/uL Person # 0.9 (0.0-1.0) 10^3/uL Eos # 0.1 (0.0-0.7) 10^3/uL Baso # 0.1 (0.0-0.1) 10^3/uL Absolute Nucleated RBC 0.00 x10^3/uL Nucleated RBC % 0.0 /100WBC PT 17.9 H (9.9-12.6) secs INR 1.6 H (0.8-1.2) Sodium 139 (135-145) mmol/L Potassium 3.5 (3.5-5.0) mmol/L Chloride 107 (101-111) mmol/L Carbon Dioxide 25 (21-32) mmol/L Anion Gap 7.0 (6-13) BUN 14 (6-20) mg/dL Creatinine 0.7 (0.6-1.2) mg/dL Estimated GFR (MDRD) 113 (>89) Glucose 105 H (70-100) mg/dL Calcium 8.1 L (8.5-10.3) mg/dL Total Bilirubin 0.7 (0.2-1.0) mg/dL AST 27 (10-42) IU/L ALT 24 (10-60) IU/L Alkaline Phosphatase 89 (42-121) IU/L Total Protein 6.0 L (6.7-8.2) g/dL Albumin 2.9 L (3.2-5.5) g/dL Globulin 3.1 (2.1-4.2) g/dL Albumin/Globulin Ratio 0.9 L (1.0-2.2) Urine Opiates Screen (NEGATIVE) Ur Oxycodone Screen (NEGATIVE) Urine Methadone Screen (NEGATIVE) Ur Propoxyphene Screen (NEGATIVE) Ur Barbiturates Screen (NEGATIVE) Ur Tricyclics Screen (NEGATIVE) Ur Phencyclidine Scrn (NEGATIVE) Ur Amphetamine Screen (NEGATIVE) U Methamphetamines Scrn (NEGATIVE) U Benzodiazepines Scrn (NEGATIVE) Urine Cocaine Screen (NEGATIVE) U Cannabinoids Screen (NEGATIVE) 08/11/17 Range/Units 15:30 WBC (4.8-10.8) x10^3/uL RBC (4.70-6.10) 10^6/uL Hgb (14.0-18.0) g/dL Hct (42.0-52.0) % MCV (80.0-94.0) fL MCH (27.0-31.0) pg MCHC (32.0-36.0) g/dL RDW (12.0-15.0) % Plt Count (130-450) 10^3/uL MPV (7.4-11.4) fL Neut # (1.5-6.6) 10^3/uL Lymph # (1.5-3.5) 10^3/uL Person # (0.0-1.0) 10^3/uL Eos # (0.0-0.7) 10^3/uL Baso # (0.0-0.1) 10^3/uL Absolute Nucleated RBC x10^3/uL Nucleated RBC % /100WBC PT (9.9-12.6) secs INR (0.8-1.2) Sodium (135-145) mmol/L Potassium (3.5-5.0) mmol/L Chloride (101-111) mmol/L Carbon Dioxide (21-32) mmol/L Anion Gap (6-13) BUN (6-20) mg/dL Creatinine (0.6-1.2) mg/dL Estimated GFR (MDRD) (>89) Glucose (70-100) mg/dL Calcium (8.5-10.3) mg/dL Total Bilirubin (0.2-1.0) mg/dL AST (10-42) IU/L ALT (10-60) IU/L Alkaline Phosphatase (42-121) IU/L Total Protein (6.7-8.2) g/dL Albumin (3.2-5.5) g/dL Globulin (2.1-4.2) g/dL Albumin/Globulin Ratio (1.0-2.2) Urine Opiates Screen NEGATIVE (NEGATIVE) Ur Oxycodone Screen NEGATIVE (NEGATIVE) Urine Methadone Screen NEGATIVE (NEGATIVE) Ur Propoxyphene Screen NEGATIVE (NEGATIVE) Ur Barbiturates Screen NEGATIVE (NEGATIVE) Ur Tricyclics Screen NEGATIVE (NEGATIVE) Ur Phencyclidine Scrn NEGATIVE (NEGATIVE) Ur Amphetamine Screen NEGATIVE (NEGATIVE) U Methamphetamines Scrn NEGATIVE (NEGATIVE) U Benzodiazepines Scrn NEGATIVE (NEGATIVE) Urine Cocaine Screen NEGATIVE (NEGATIVE) U Cannabinoids Screen POSITIVE H (NEGATIVE) Assessment/Plan - Problem List (1) Pneumonia Impression: (1) Pneumonia Conclusion/Plan: blood culture preliminary negative sputum preliminary many bacterial, few yeast continue antibiotics continue vital, tele monitor blood and sputum culture are pending continue antibiotics continue vital, tele monitor CXR reveals pneumonia, clinically pt complains of fever, cough, night sweating. Lab test reveals slight elevated WBC. Pt is with hx of recurrent pneumonia, with correction cigarette smoking. Treat with Rocephin Azithyromycine sputum culture, blood culture tele, vital monitor (2) Pulmonary thromboembolism Conclusion/Plan: INR 1.6 today continue Coumadin continue check PT/INR continue Lovenox add Coumadin check PT/INR daily Radiologist call pt had PE bilateral on tele Lovenox 90mg Bid will switch PO meds, to Coumadin check PT/INR (3) Afib Conclusion/Plan: switch daily 120 mg Cardizem tele, and vital monitor pt's HR 73, pt tolerate the new meds continue Cardizem vital, tele monitor pt has Coumadin and Lovenox for PE now pt is afib with RVR at HR 120, denies chest pain, palpitation, pre-syncope/ syncope. Pt is unknown afib. Pt's CHADS2 was lower until today is 2, because of new diagnosis of PE. Cardizem control tele monitor vital monitor (4) History of COPD Conclusion/Plan: D/C Duoneb, switch to Xopenex and IPR PRN stable, no shortness of breathing. Duoneb PRN O2 supplement PRN (5) Hyperlipidemia Conclusion/Plan: test Lipid panel is unremarkable pt did not have any statin or meds at home meds list check lipid panel, follow up (6) accidence of illicit drug usage UDS is positive for Marijuana, advise pt avoid illicit drug order ECHO, R/O Endocarditis check UDS (7) impaired systolic and diastolic heart failure discuss with pt's finding, advise pt's life style change, reduce the salt intake , closely watch fluid overload D/C IVF will consider beta-black, TOLU inhibitor and Dig if pt's pause is still under control (8) elevated RVSP RVSP is 67 in ECHO, this can explain pt state he consistently feel some kind of shortness of breath vital monitor, closely monitor pt's fluid loaded, support Qualifiers: Pneumonia type: due to unspecified organism Laterality: right Lung location: unspecified part of lung Qualified Code(s): J18.9 - Pneumonia, unspecified organism
[2017-08-12] MEDS: guaiFENesin/DEXTROMETHORPHAN 10 ML UDC PO PRN (22:44)
[2017-08-13] MEDS: LEVALBUTEROL 1.25 MG/3 ML NEB INH PRN ×2 (04:40→11:01)
[2017-08-13] MEDS: SODIUM CHLORIDE FLUSH 0.9% 10 ML SYRINGE IVP SCH ×3 (05:25→20:14)
[2017-08-13] MEDS ORDERED: LORazepam 0.5 MG TABLET PO SCH (06:00)
[2017-08-13 06:46] LABS: BASOPHILS # (AUTO) 0.1 10^3/uL (0.0-0.1); BASOPHILS % (AUTO) 0.5 %; EOSINOPHILS # (AUTO) 0.1 10^3/uL (0.0-0.7); EOSINOPHILS % (AUTO) 0.6 %; HGB - HEMOGLOBIN 12.6 g/dL (14.0-18.0); LYMPHOCYTES # (AUTO) 0.9 10^3/uL (1.5-3.5); LYMPHOCYTES % (AUTO) 9.2 %; MEAN CORPUSCULAR HEMOGLOBIN 30.7 pg (27.0-31.0); MEAN CORPUSCULAR HGB CONC 33.4 g/dL (32.0-36.0); MEAN CORPUSCULAR VOLUME 91.7 fL (80.0-94.0); MONOCYTES # (AUTO) 0.9 10^3/uL (0.0-1.0); MONOCYTES % (AUTO) 9.3 %; NEUTROPHILS # (AUTO) 7.7 10^3/uL (1.5-6.6); NEUTROPHILS % (AUTO) 80.4 %; PLT - PLATELET COUNT 284 10^3/uL (130-450); RED BLOOD COUNT 4.12 10^6/uL (4.70-6.10); RED CELL DISTRIBUTION WIDTH 13.4 % (12.0-15.0); WHITE BLOOD COUNT 9.5 x10^3/uL (4.8-10.8)
[2017-08-13 06:50] LABS: INR 1.7 (0.8-1.2); PT - PROTHROMBIN TIME 19.2 secs (9.9-12.6)
[2017-08-13 06:54] LABS: ALBUMIN 2.9 g/dL (3.2-5.5); BILIRUBIN,TOTAL 1.1 mg/dL (0.2-1.0); CALCIUM 8.3 mg/dL (8.5-10.3); CREATININE 0.7 mg/dL (0.6-1.2); TOTAL PROTEIN 5.9 g/dL (6.7-8.2)
[2017-08-13] MEDS ORDERED: METOPROLOL SUCCINATE 25 MG TABLET PO SCH (08:00)
[2017-08-13] MEDS: diltiaZEM CD 120 MG CAPSULE PO SCH (09:44)
[2017-08-13] MEDS: cefTRIAXone 1 GM in SODIUM CHLORIDE 0.9% MINIBAG 100 ML IV SCH (09:44)
[2017-08-13] MEDS: ENOXAPARIN 100 MG/ML SYRINGE SUBQ SCH ×2 (09:44→20:14)
[2017-08-13] MEDS: FAMOTIDINE 20 MG TABLET PO SCH (09:45)
[2017-08-13] MEDS: WARFARIN 5 MG TABLET PO SCH (09:45)
[2017-08-13] MEDS: POLYETHYLENE GLYCOL 3350 17 GM PACKET PO SCH (09:45)
[2017-08-13] MEDS: AZITHROMYCIN INJ 500 MG in SODIUM CHLORIDE 0.9% 250 ML IV SCH (10:49)
[2017-08-13] MEDS ORDERED: LORazepam 2 MG/ML VIAL IVP PRN (11:42)
--- NOTE | 2017-08-13 13:42 | PROVIDER PROGRESS NOTE ---
Subjective - Prog Note Date Prog Note Date: 08/13/17 - Subjective Pt reports feeling: Improved Subjective: pt state he is doing fine. No chest pain, fever, chill, cough, shortness of breath. plan to be d/c tomorrow if INR reach the therapeutic level, and HR is better controlled Current Medications - Current Medications Current Medications: Active Medications Acetaminophen (Tylenol) 650 mg PO Q4HR PRN PRN Reason: Pain 1 to 4 Last Admin: 08/12/17 22:44 Dose: 650 mg Diltiazem HCl (Cardizem Cd) 120 mg PO DAILY [facility] Last Admin: 08/13/17 09:44 Dose: 120 mg Enoxaparin Sodium (Lovenox) 90 mg SUBQ BID [facility] Last Admin: 08/13/17 09:44 Dose: 90 mg Famotidine (Pepcid) 20 mg PO DAILY [facility] Last Admin: 08/13/17 09:45 Dose: 20 mg Guaifenesin (Robitussin Dm) 10 ml PO Q6HR PRN PRN Reason: Cough Last Admin: 08/12/17 22:44 Dose: 10 ml Azithromycin 500 mg/ Sodium (Chloride) 250 mls @ 250 mls/hr IV DAILY@1000 [facility] Last Infusion: 08/13/17 11:12 Dose: Infused Ceftriaxone Sodium 1 gm/ (Sodium Chloride) 100 mls @ 200 mls/hr IV DAILY [facility] Last Admin: 08/13/17 09:44 Dose: 200 mls/hr Levalbuterol HCl (Xopenex) 1.25 mg INH RTQ4H PRN PRN Reason: SHORTNESS OF AIR Last Admin: 08/13/17 11:01 Dose: 1.25 mg Lorazepam (Ativan Inj (Vial)) 0.5 mg IVP Q2H PRN PRN Reason: Anxiety Metoprolol Succinate (Toprol Xl) 25 mg PO DAILY [facility] Last Admin: 08/13/17 09:44 Dose: 25 mg Ondansetron HCl (Zofran Inj) 4 mg IVP Q6HR PRN PRN Reason: Nausea / Vomiting Polyethylene Glycol (Miralax) 17 gm PO DAILY [facility] Last Admin: 08/13/17 09:45 Dose: Not Given Sodium Chloride (Normal Saline Flush 0.9%) 10 ml IVP PRN PRN PRN Reason: NEEDED PER PROVIDER ORDERS Last Admin: 08/10/17 16:19 Dose: 10 ml Sodium Chloride (Normal Saline Flush 0.9%) 10 ml IVP Q8HR [facility] Last Admin: 08/13/17 05:25 Dose: 10 ml Warfarin Sodium (Coumadin) 5 mg PO DAILY [facility] Last Admin: 08/13/17 09:45 Dose: 5 mg Multivitamin [Theragran] 1 tab PO DAILY 08/10/17 Objective - Vital Signs/Intake & Output Reviewed Vital Signs: Yes Vital Signs: Vital Signs x48h Temp Pulse Pulse Resp BP Pulse Ox 08/13/17 13:09 36.6 C 70 20 117/90 H 98 08/13/17 11:01 76 20 08/13/17 10:02 36.6 C 139 H 24 108/94 H 95 Intake & Output: Intake & Output 08/10/17 08/11/17 08/12/17 08/13/17 23:59 23:59 23:59 23:59 Intake Total 2300 4644.916 4847.5 950 Balance 2300 4644.916 4847.5 950 - Objective General Appearance: positive: No acute distress, Alert. negative: Lethargic Eyes Bilateral: positive: Normal inspection, PERRL, No lid inflammation, Conjunctivae nml ENT: positive: ENT inspection nml, Pharynx nml, No signs of dehydration. negative: Purulent nasal drainage, Pharyngeal erythema, Oral lesions Neck: positive: Nml inspection, Thyroid nml, No JVD, Trachea midline. negative : Thyromegaly, Lymphadenopathy (R), Lymphadenopathy (L), Stiff neck, Carotid bruit, Swelling/bruising, Tracheal deviation Cardiovascular: positive: Regular rate & rhythm, No murmur, No gallop. negative : Irregularly irregular, Extrasystoles, Tachycardia, Bradycardia, Systolic murmur, Diastolic murmur Peripheral Pulses: 2+ Radial (R), 2+ Radial (L), 2+ Dorsalis pedis (R), 2+ Dorsalis pedis (L) Abdomen: positive: Non-tender, No organomegaly, Nml bowel sounds, No distention. negative: Tenderness, Guarding, Rebound Back: positive: Nml inspection. negative: CVA tenderness (R), CVA tenderness (L ) Skin: positive: Color nml, No rash, Warm, Dry. negative: Cyanosis, Diaphoresis , Pallor Extremities: positive: Non-tender, Full ROM, Nml appearance. negative: Calf tenderness, Joint swelling, Dolly's sign/cords Neurologic/Psychiatric: positive: Oriented x3, Motor nml, Sensation nml. negative: Sensory loss, Facial droop, Slurred/abnml speech, Depressed mood/ affect - Lab Results Fish Bones: 08/13/17 06:08 08/13/17 06:08 Other Labs: Lab Results x24hrs 08/13/17 08/13/17 08/13/17 Range/Units 06:08 06:08 06:08 WBC 9.5 (4.8-10.8) x10^3/uL RBC 4.12 L (4.70-6.10) 10^6/uL Hgb 12.6 L (14.0-18.0) g/dL Hct 37.7 L (42.0-52.0) % MCV 91.7 (80.0-94.0) fL MCH 30.7 (27.0-31.0) pg MCHC 33.4 (32.0-36.0) g/dL RDW 13.4 (12.0-15.0) % Plt Count 284 (130-450) 10^3/uL MPV 9.0 (7.4-11.4) fL Neut # 7.7 H (1.5-6.6) 10^3/uL Lymph # 0.9 L (1.5-3.5) 10^3/uL [place] # 0.9 (0.0-1.0) 10^3/uL Eos # 0.1 (0.0-0.7) 10^3/uL Baso # 0.1 (0.0-0.1) 10^3/uL Absolute Nucleated RBC 0.00 x10^3/uL Nucleated RBC % 0.0 /100WBC PT 19.2 H (9.9-12.6) secs INR 1.7 H (0.8-1.2) Sodium 139 (135-145) mmol/L Potassium 3.6 (3.5-5.0) mmol/L Chloride 104 (101-111) mmol/L Carbon Dioxide 25 (21-32) mmol/L Anion Gap 10.0 (6-13) BUN 16 (6-20) mg/dL Creatinine 0.7 (0.6-1.2) mg/dL Estimated GFR (MDRD) 113 (>89) Glucose 105 H (70-100) mg/dL Calcium 8.3 L (8.5-10.3) mg/dL Total Bilirubin 1.1 H (0.2-1.0) mg/dL AST 36 (10-42) IU/L ALT 30 (10-60) IU/L Alkaline Phosphatase 94 (42-121) IU/L Total Protein 5.9 L (6.7-8.2) g/dL Albumin 2.9 L (3.2-5.5) g/dL Globulin 3.0 (2.1-4.2) g/dL Albumin/Globulin Ratio 1.0 (1.0-2.2) Assessment/Plan - Problem List (1) Pneumonia Impression: (1) Pneumonia Conclusion/Plan: blood culture preliminary negative sputum preliminary many bacterial, few yeast continue antibiotics continue vital, tele monitor blood and sputum culture are pending continue antibiotics continue vital, tele monitor CXR reveals pneumonia, clinically pt complains of fever, cough, night sweating. Lab test reveals slight elevated WBC. 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 Treat with Rocephin Azithyromycine sputum culture, blood culture tele, vital monitor (2) Pulmonary thromboembolism Conclusion/Plan: INR 1.7 today, continue Coumadin continue check PT/INR INR 1.6 today continue Coumadin continue check PT/INR continue Lovenox add Coumadin check PT/INR daily Radiologist call pt had PE bilateral on tele Lovenox 90mg Bid will switch PO meds, to Coumadin check PT/INR (3) Afib Conclusion/Plan: add Metoprolol, consideration of afib RVR better control, and CHF switch daily 120 mg Cardizem tele, and vital monitor pt's HR 73, pt tolerate the new meds continue Cardizem vital, tele monitor pt has Coumadin and Lovenox for PE now pt is afib with RVR at HR 120, denies chest pain, palpitation, pre-syncope/ syncope. Pt is unknown afib. Pt's CHADS2 was lower until today is 2, because of new diagnosis of PE. Cardizem control tele monitor vital monitor (4) History of COPD Conclusion/Plan: D/C Ipr, because pt state he is allergy for that continue Xopenex PRN D/C Duoneb, switch to Xopenex and IPR PRN stable, no shortness of breathing. Duoneb PRN O2 supplement PRN (5) Hyperlipidemia Conclusion/Plan: test Lipid panel is unremarkable pt did not have any statin or meds at home meds list check lipid panel, follow up (6) accidence of illicit drug usage UDS is positive for Marijuana, advise pt avoid illicit drug order ECHO, R/O Endocarditis check UDS (7) impaired systolic and diastolic heart failure add Metoprolol continue tele, vital monitor discuss with pt's finding, advise pt's life style change, reduce the salt intake , closely watch fluid overload D/C IVF will consider beta-black, TOLU inhibitor and Dig if pt's pause is still under control (8) elevated RVSP RVSP is 67 in ECHO, this can explain pt state he consistently feel some kind of shortness of breath vital monitor, closely monitor pt's fluid loaded, support Qualifiers: Pneumonia type: due to unspecified organism Laterality: right Lung location: unspecified part of lung Qualified Code(s): J18.9 - Pneumonia, unspecified organism
[2017-08-13] MEDS: SODIUM CHLORIDE FLUSH 0.9% 10 ML SYRINGE IVP PRN ×2 (16:19→17:42)
[2017-08-13] MEDS ORDERED: METOPROLOL 5 MG/5 ML VIAL IVP SCH (17:34)
[2017-08-13] MEDS: ACETAMINOPHEN 325 MG TABLET PO PRN (17:51)
[2017-08-13] MEDS ORDERED: METOPROLOL SUCCINATE 50 MG TABLET PO SCH (21:00)
[2017-08-14] MEDS: ACETAMINOPHEN 325 MG TABLET PO PRN (00:26)
[2017-08-14] MEDS: SODIUM CHLORIDE FLUSH 0.9% 10 ML SYRINGE IVP SCH ×3 (05:11→18:18)
[2017-08-14] MEDS: guaiFENesin/DEXTROMETHORPHAN 10 ML UDC PO PRN ×2 (05:11→17:59)
[2017-08-14 05:45] LABS: BASOPHILS % (AUTO) 0.7 %; EOSINOPHILS # (AUTO) 0.1 10^3/uL (0.0-0.7); EOSINOPHILS % (AUTO) 0.8 %; HGB - HEMOGLOBIN 13.3 g/dL (14.0-18.0); LYMPHOCYTES # (AUTO) 0.9 10^3/uL (1.5-3.5); MEAN CORPUSCULAR HEMOGLOBIN 30.4 pg (27.0-31.0); MEAN CORPUSCULAR HGB CONC 32.9 g/dL (32.0-36.0); MEAN CORPUSCULAR VOLUME 92.4 fL (80.0-94.0); MEAN PLATELET VOLUME 9.1 fL (7.4-11.4); MONOCYTES # (AUTO) 0.8 10^3/uL (0.0-1.0); MONOCYTES % (AUTO) 12.7 %; NEUTROPHILS # (AUTO) 4.5 10^3/uL (1.5-6.6); NEUTROPHILS % (AUTO) 71.8 %; PLT - PLATELET COUNT 304 10^3/uL (130-450); RED BLOOD COUNT 4.37 10^6/uL (4.70-6.10); RED CELL DISTRIBUTION WIDTH 13.7 % (12.0-15.0); WHITE BLOOD COUNT 6.3 x10^3/uL (4.8-10.8)
[2017-08-14 05:55] LABS: ALBUMIN 3.2 g/dL (3.2-5.5); BILIRUBIN,TOTAL 0.8 mg/dL (0.2-1.0); CALCIUM 8.4 mg/dL (8.5-10.3); CREATININE 0.8 mg/dL (0.6-1.2); TOTAL PROTEIN 6.5 g/dL (6.7-8.2)
[2017-08-14 05:58] LABS: INR 1.8 (0.8-1.2); PT - PROTHROMBIN TIME 19.6 secs (9.9-12.6)
--- NOTE | 2017-08-14 07:17 | PROVIDER PROGRESS NOTE ---
Subjective - Prog Note Date Prog Note Date: 08/14/17 Prog Note Time: 07:17 - Subjective Pt reports feeling: No change Subjective: Blake complains about his continued cough and increased need for CPAP use. He denies chest pain, N/V or dizziness. Current Medications - Current Medications Current Medications: Active Medications Acetaminophen (Tylenol) 650 mg PO Q4HR PRN PRN Reason: Pain 1 to 4 Last Admin: 08/14/17 00:26 Dose: 650 mg Diltiazem HCl (Cardizem Cd) 360 mg PO DAILY [facility] Last Admin: 08/14/17 08:16 Dose: 360 mg Enoxaparin Sodium (Lovenox) 90 mg SUBQ BID [facility] Last Admin: 08/14/17 08:17 Dose: 90 mg Famotidine (Pepcid) 20 mg PO DAILY [facility] Last Admin: 08/14/17 08:17 Dose: 20 mg Guaifenesin (Robitussin Dm) 10 ml PO Q6HR PRN PRN Reason: Cough Last Admin: 08/14/17 05:11 Dose: 10 ml Ceftriaxone Sodium 2 gm/ (Sodium Chloride) 100 mls @ 200 mls/hr IV DAILY [facility] Levofloxacin (Levaquin 500 Mg/100 Ml) 500 mg in 100 mls @ 100 mls/hr IV Q24H [facility] Levalbuterol HCl (Xopenex) 1.25 mg INH RTQ4H PRN PRN Reason: SHORTNESS OF AIR Last Admin: 08/13/17 11:01 Dose: 1.25 mg Levalbuterol HCl (Xopenex) 1.25 mg INH BID [facility] Lorazepam (Ativan Inj (Vial)) 0.5 mg IVP Q2H PRN PRN Reason: Anxiety Last Admin: 08/13/17 16:19 Dose: 0.5 mg Methylprednisolone (Solu-Medrol (40mg Vial)) 40 mg IVP TID [facility] Metoprolol Succinate (Toprol Xl) 100 mg PO BID [facility] Last Admin: 08/14/17 09:17 Dose: 100 mg Ondansetron HCl (Zofran Inj) 4 mg IVP Q6HR PRN PRN Reason: Nausea / Vomiting Polyethylene Glycol (Miralax) 17 gm PO DAILY [facility] Last Admin: 08/14/17 08:19 Dose: 17 gm Sodium Chloride (Normal Saline Flush 0.9%) 10 ml IVP PRN PRN PRN Reason: NEEDED PER PROVIDER ORDERS Last Admin: 08/14/17 09:27 Dose: 10 ml Sodium Chloride (Normal Saline Flush 0.9%) 10 ml IVP Q8HR [facility] Last Admin: 08/14/17 05:11 Dose: 10 ml Warfarin Sodium (Coumadin) 5 mg PO DAILY [facility] Last Admin: 08/14/17 08:17 Dose: 5 mg Multivitamin [Theragran] 1 tab PO DAILY 08/10/17 Objective - Vital Signs/Intake & Output Reviewed Vital Signs: Yes Vital Signs: Vital Signs x48h Temp Pulse Resp BP Pulse Ox 08/14/17 05:48 36.6 C 137 H 20 129/93 H 98 08/14/17 00:17 37.2 C 132 H 20 122/101 H 93 Intake & Output: Intake & Output 08/11/17 08/12/17 08/13/17 08/14/17 23:59 23:59 23:59 23:59 Intake Total 4644.916 4847.5 1890 250 Balance 4644.916 4847.5 1890 250 - Objective General Appearance: positive: Alert, Moderate distress, Anxious Eyes Bilateral: positive: Normal inspection, PERRL ENT: positive: ENT inspection nml, Pharynx nml, Dry mucous membranes Neck: positive: Nml inspection, Thyroid nml, No JVD, Stiff neck Respiratory: positive: Chest non-tender, No respiratory distress, Wheezes, Rhonchi Cardiovascular: positive: No gallop, Tachycardia, Systolic murmur, Decreased pulse(s) Peripheral Pulses: 2+ Radial (R), 2+ Radial (L) Abdomen: positive: Non-tender, No organomegaly, Nml bowel sounds, No distention Back: positive: Nml inspection Skin: positive: No rash, Warm, Dry Extremities: positive: Non-tender, Full ROM, Nml appearance, No pedal edema Neurologic/Psychiatric: positive: Oriented x3, CN's nml (2-12), Motor nml, Sensation nml, Depressed mood/affect Reflexes: Bicep (R): 3+, Bicep (L): 3+ - Lab Results Fish Bones: 08/14/17 05:20 08/14/17 05:20 Other Labs: Lab Results x24hrs 08/14/17 08/14/17 08/14/17 Range/Units 05:20 05:20 05:20 WBC 6.3 (4.8-10.8) x10^3/uL RBC 4.37 L (4.70-6.10) 10^6/uL Hgb 13.3 L (14.0-18.0) g/dL Hct 40.4 L (42.0-52.0) % MCV 92.4 (80.0-94.0) fL MCH 30.4 (27.0-31.0) pg MCHC 32.9 (32.0-36.0) g/dL RDW 13.7 (12.0-15.0) % Plt Count 304 (130-450) 10^3/uL MPV 9.1 (7.4-11.4) fL Neut # 4.5 (1.5-6.6) 10^3/uL Lymph # 0.9 L (1.5-3.5) 10^3/uL [place] # 0.8 (0.0-1.0) 10^3/uL Eos # 0.1 (0.0-0.7) 10^3/uL Baso # 0.0 (0.0-0.1) 10^3/uL Absolute Nucleated RBC 0.00 x10^3/uL Nucleated RBC % 0.1 /100WBC PT 19.6 H (9.9-12.6) secs INR 1.8 H (0.8-1.2) Sodium 135 (135-145) mmol/L Potassium 3.5 (3.5-5.0) mmol/L Chloride 100 L (101-111) mmol/L Carbon Dioxide 27 (21-32) mmol/L Anion Gap 8.0 (6-13) BUN 19 (6-20) mg/dL Creatinine 0.8 (0.6-1.2) mg/dL Estimated GFR (MDRD) 97 (>89) Glucose 113 H (70-100) mg/dL Calcium 8.4 L (8.5-10.3) mg/dL Total Bilirubin 0.8 (0.2-1.0) mg/dL AST 67 H (10-42) IU/L ALT 53 (10-60) IU/L Alkaline Phosphatase 103 (42-121) IU/L Total Protein 6.5 L (6.7-8.2) g/dL Albumin 3.2 (3.2-5.5) g/dL Globulin 3.3 (2.1-4.2) g/dL Albumin/Globulin Ratio 1.0 (1.0-2.2) - Diagnostic Imaging Diagnostic Imaging Results: positive: Final report reviewed Diagnostic Imaging Comments: FINDINGS: The heart and great vessels demonstrate minimal atherosclerotic calcification. There are filling defects in bilateral lower lobe segmental and subsegmental pulmonary arteries as well as subsegmental upper lobe pulmonary arteries, compatible with small pulmonary emboli. No hilar or mediastinal lymphadenopathy is appreciated. The nodule noted on the plain film in the lateral left upper lobe is calcified, compatible with an old granuloma. The lungs also demonstrate patchy bilateral infiltrates, worse in the anterior right middle lobe and lingula, and small pleural effusions with associated basilar atelectasis. Limited evaluation of upper abdominal structures demonstrates normal adrenal glands. Osseous structures demonstrate degenerative changes. IMPRESSION: BILATERAL SEGMENTAL AND SUBSEGMENTAL PULMONARY EMBOLI. PATCHY BILATERAL INFILTRATES AND EFFUSIONS. CALCIFIED GRANULOMA IN THE LEFT UPPER LOBE , ACCOUNTING FOR THE PLAIN FILM NODULE. Assessment/Plan - Problem List (1) Afib Impression: Patient was found to be in uncontrolled atrial fibrillation upon presentation to ED. He denies chest pain, palpitations, pre-syncope/syncope. Patient cannot recall a history of previous arrhythmias. Patient will require life- long anticoagulation for this point forward. Patient has recieved low dose diltiazem, with little effect. Today, dose was increased from 120mg to 360mg CD daily. An afternoon dose was added for a total of 480mg (max daily dose). Metoprolol PO was also doubled from 50mg BID to 100mg BID. Patient has been monitored on telemetry and staying well above 100. Plan: Continue to monitor and make medication adjustments as needed. (2) Pneumonia Impression: A chest x-ray was completed followed by a chest CT and revealed pneumonia. Plan: Continue with IV antibiotics, nebulizers. IV steroids started today due to impaired airway clearance. Qualifiers: Pneumonia type: due to unspecified organism Laterality: right Lung location: unspecified part of lung Qualified Code(s): J18.9 - Pneumonia, unspecified organism (3) Pulmonary thromboembolism Impression: A chest CT was completed at the time of admission and showed +PE. Plan: Lovenox BID 1mg/1kg dosing per pharmacy, then plan on termite control representative anticoagulation due to increased CHADS vasc score. (4) History of COPD Impression: Patient as a remote history of tobacco, marijuana and crack cocaine use. Patient demonstrates poor airway clearance upon exam today and later in the day by continuous CPAP use, productive cough and the need for supplemental O2, so patient was placed on IV steroids- low dose scheduled. Plan: RT per home CPAP management and nebulizer treatments using Xopenex. (5) Hyperlipidemia Impression: Patient is noted to have a low HDL upon lipid panel check, all other labs normal. Plan: Consider starting statin to be prescribed upon discharge home. (6) KATIE on CPAP Impression: Patient brought in home CPAP and has been utilizing this. RT was asked to evaluate for cleanliness. Plan: Patient can continue to use home unit with necessary oxygen bleed in.
[2017-08-14] MEDS: diltiaZEM CD 120 MG CAPSULE PO SCH (08:16)
[2017-08-14] MEDS: WARFARIN 5 MG TABLET PO SCH (08:17)
[2017-08-14] MEDS: ENOXAPARIN 100 MG/ML SYRINGE SUBQ SCH ×2 (08:17→20:25)
[2017-08-14] MEDS: FAMOTIDINE 20 MG TABLET PO SCH (08:17)
[2017-08-14] MEDS: POLYETHYLENE GLYCOL 3350 17 GM PACKET PO SCH (08:19)
[2017-08-14] MEDS: cefTRIAXone 1 GM in SODIUM CHLORIDE 0.9% MINIBAG 100 ML IV SCH (09:15)
[2017-08-14] MEDS: METOPROLOL SUCCINATE 50 MG TABLET PO SCH ×2 (09:17→20:26)
[2017-08-14] MEDS: SODIUM CHLORIDE FLUSH 0.9% 10 ML SYRINGE IVP PRN ×3 (09:27→21:04)
[2017-08-14] MEDS: AZITHROMYCIN INJ 500 MG in SODIUM CHLORIDE 0.9% 250 ML IV SCH (10:19)
[2017-08-14] MEDS ORDERED: diltiaZEM CD 120 MG CAPSULE PO ONE (16:39)
[2017-08-14] MEDS ORDERED: cefTRIAXone 2 GM in SODIUM CHLORIDE 0.9% MINIBAG 100 ML IV SCH (16:45)
[2017-08-14] MEDS ORDERED: levoFLOXacin 500 MG/100 ML 500 MG/100 ML BAG IV SCH (17:00)
[2017-08-14] MEDS: methylPREDNISolone SUCCINATE 40 MG/ML VIAL IVP SCH ×2 (17:04→21:05)
[2017-08-14] MEDS: LEVALBUTEROL 1.25 MG/3 ML NEB INH SCH (17:26)
[2017-08-15] MEDS: methylPREDNISolone SUCCINATE 40 MG/ML VIAL IVP SCH (04:52)
[2017-08-15] MEDS: SODIUM CHLORIDE FLUSH 0.9% 10 ML SYRINGE IVP SCH (04:53)
[2017-08-15 05:05] LABS: BASOPHILS % (AUTO) 1.1 %; HGB - HEMOGLOBIN 13.2 g/dL (14.0-18.0); LYMPHOCYTES # (AUTO) 0.5 10^3/uL (1.5-3.5); LYMPHOCYTES % (AUTO) 13.2 %; MEAN CORPUSCULAR HEMOGLOBIN 30.3 pg (27.0-31.0); MEAN CORPUSCULAR HGB CONC 33.2 g/dL (32.0-36.0); MEAN CORPUSCULAR VOLUME 91.2 fL (80.0-94.0); MEAN PLATELET VOLUME 9.2 fL (7.4-11.4); MONOCYTES # (AUTO) 0.1 10^3/uL (0.0-1.0); MONOCYTES % (AUTO) 3.7 %; NEUTROPHILS # (AUTO) 3.3 10^3/uL (1.5-6.6); PLT - PLATELET COUNT 255 10^3/uL (130-450); RED BLOOD COUNT 4.34 10^6/uL (4.70-6.10); RED CELL DISTRIBUTION WIDTH 13.3 % (12.0-15.0)
[2017-08-15 05:16] LABS: ALBUMIN 2.9 g/dL (3.2-5.5); ALBUMIN/GLOBULIN RATIO 0.9 (1.0-2.2); BILIRUBIN,TOTAL 0.6 mg/dL (0.2-1.0); CALCIUM 8.3 mg/dL (8.5-10.3); CREATININE 0.7 mg/dL (0.6-1.2); TOTAL PROTEIN 6.1 g/dL (6.7-8.2)
[2017-08-15 05:41] LABS: INR 2.4 (0.8-1.2)
[2017-08-15] MEDS: FAMOTIDINE 20 MG TABLET PO SCH (09:40)
[2017-08-15] MEDS: diltiaZEM CD 120 MG CAPSULE PO SCH (09:40)
[2017-08-15] MEDS: SODIUM CHLORIDE FLUSH 0.9% 10 ML SYRINGE IVP PRN (09:40)
[2017-08-15] MEDS: POLYETHYLENE GLYCOL 3350 17 GM PACKET PO SCH (09:41)
[2017-08-15] MEDS: METOPROLOL SUCCINATE 50 MG TABLET PO SCH (09:41)
[2017-08-15] MEDS: LEVALBUTEROL 1.25 MG/3 ML NEB INH SCH (09:45)
[2017-08-15] MEDS ORDERED: diltiaZEM CD 120 MG CAPSULE PO ONE (11:47)
--- NOTE | 2017-08-15 12:03 | Discharge Plan ---
Discharge Plan Disposition: Home, Self Care Condition: Good Prescriptions: Albuterol Sulfate [Proventil Hfa Inhaler] 1 - 2 puffs INH Q4H PRN #1 inhaler PRN Reason: Shortness Of Air/Wheezing Apixaban [Eliquis] 10 mg PO BID 7 Days #28 tablet Budesonide/Formoterol Fumarate [Symbicort 80-4.5 Mcg Inhaler] 10.2 gm IH BID #3 hfa.aer.ad diltiaZEM CD [Cardizem Cd] 480 mg PO DAILY #60 capsule Inhaler, Assist Devices [Optichamber Alexia] 1 each MC BID #1 spacer Levofloxacin [Levaquin] 750 mg PO DAILY 10 Days #10 tablet Metoprolol Succinate [Toprol Xl] 200 mg PO DAILY #30 tab.er.24h Prednisone 10 mg PO DAILY 6 Days #18 tab.ds.pk Saccharomyces Boulardii [Florastor] 250 mg PO BID 20 Days #40 capsule Diet: Cardiac Activity Restrictions: No Restrictions Shower Restrictions: No Driving Restrictions: No Instruction Topics: Warfarin tablets, Embolism Pulmonary, ED Pneumonia Adult Additional Instructions or Follow Up instructions: You were admitted to the hospital and found to have pulmonary emboli, which you were given blood thinners that were injectable, and changed to pill for on the day of discharge. You need to keep taking this medication at a higher dose for the next 7 days, then decrease the dose by 1/2. Your heart rates were very high and you also had an arrhythmia called atrial fibrillation which means there is an interruption in the electrical system of your heart muscle. This is the second reason you will need to be on a blood thinner. You also need help with controlling the rate, so you need to take 2 different kinds of rate control medications until you follow up with a admission nurse coordinator. [facility] comes to our out patient [facility] clinic each week , so this may be more convenient for you. Your breathing should improve slowly, but in the mean time, you need to continue a small dose of steroids and take a daily long acting inhaler. Please rest when you are tired. One of your first priorities is to set up a PCP. He or she needs to see you within a week of this hospital stay to ensure your body is doing well with your recent illness and new medications. As your pulmonary emboli improve, your heart will likely need less medication! It is imperative that you follow up as indicated. Follow-Up Care: [facility] - Pulmonary No Smoking: If you smoke, Please STOP! Call for help.
[2017-08-15 12:15] VITALS: BP 112/88
--- NOTE | 2017-08-15 12:25 | DISCHARGE SUMMARY ---
Discharge Summary Admit Date: 08/10/17 Discharge Date: 08/15/17 Discharging Provider: JOE Krishnamurthy Primary Care Provider: none Code Status: Attempt Resuscitation Condition at Discharge: Good Discharge Disposition: 01 Home, Self Care - DIAGNOSES Admission Diagnoses: Pneumonia, unspecified organism (J18.9) Other pulmonary embolism without acute cor pulmonale (I26.99) Unspecified atrial fibrillation (I48.91) Tachycardia, unspecified (R00.0) Hyperlipidemia, unspecified (E78.5) Discharge Diagnoses with Status of Each Condition: Pneumonia (J18.9) ongoing, treatment to continue. Pulmonary thromboembolism (I26.99) ongoing, improved. Afib (I48.91) new on this admit, ongoing treatment. Hyperlipidemia (E78.5) chronic,stable. KATIE on CPAP (G47.33) chronic, stable. History of COPD (Z87.09) chronic, stable. - HPI History of Present Illness: Blake Hoffman is 67-year-old white male with a past medical history of recurrent pneumonia, drug abuse, COPD, KATIE with CPAP, and hyperlipidemia. He presented to the ER with a primary complaint of fever, chills, and night sweating. Patient states that he came yesterday, "but had some business to go to". Patient admits to at least 15 times of pneumonia recently. He has smoked cigarettes for 35 years, claims that he quit smoking x 8 years. Today patient is noted to be afebrile, with tachycardia, EKG reveals Afib with RVR. Patient denies chest pain, headache, abdominal pain, nausea, vomiting, vision changes. Lab tests reveal a slightly elevated WBC, and elevated D-Dimer. A chest x-ray completed on 08/09/17 reveals infiltrates or atelectasis right lung base, new small bilateral effusion, 8 mm nodule left upper lobe, chronic parenchymal changes to bilateral upper lungs and right lower lung. A chest CT to rule out PE is still in process. Patient will be admitted to inpatient for further treatment of pneumonia. - HOSPITAL COURSE Hospital Course: The following problems/diagnoses were prevalent during this stay: (1) Afib- Patient was found to be in uncontrolled atrial fibrillation upon presentation to ED. He denies chest pain, palpitations, pre-syncope/syncope. Patient cannot recall a history of previous arrhythmias. Patient will require life-long anticoagulation for this point forward. Patient has recieved low dose diltiazem, with little effect. The dose was increased from 120mg to 360mg CD, and finally to 480mg CD on the day of discharge. Metoprolol PO was also doubled from 50mg BID to 100mg BID. Patient was monitored on telemetry and staying well above 100. Patient was continuously monitored for his stay. (2) Pneumonia- A chest x-ray was completed followed by a chest CT and revealed pneumonia. Patient was continued on IV antibiotics, nebulizers, and IV steroids were started due to impaired airway clearance. Patient was placed on a steroid taper and continuing antibiotics at the time of discharge. (3) Pulmonary thromboembolism- A chest CT was completed at the time of admission and showed +PE. Patient was started on coumadin, then changed to Apixiban at the time of discharge due to the patient's history of lack of healthcare, as he would likely not allow for frequent INR checks. He will need to stay on blood thinners for the remainder of his life for +PE, and atrial fibrillation. (4) History of COPD- Patient as a remote history of tobacco, marijuana and crack cocaine use. Patient demonstrates poor airway clearance upon exam today and later in the day by continuous CPAP use, productive cough and the need for supplemental O2, so patient was placed on IV steroids- low dose scheduled. Patient continued to have respiratory care, the use of his home CPAP management and nebulizer treatments using Xopenex during his stay. (5) Hyperlipidemia- Patient is noted to have a low HDL upon lipid panel check, all other labs normal. Patient may benefit from a statin to be prescribed in the future. (6) KATIE on CPAP- Patient brought in home CPAP and has been utilizing this. RT was asked to evaluate for cleanliness. Patient continued to use his home unit with necessary oxygen bleed in. Disposition: Patient was transported home via private car, requiring no oxygen. Prescriptions were sent to desired pharmacy. Patient was counseled on the necessity of obtaining a PCP given his complex medical conditions and to see him/her within a week. - ALLERGIES Allergies/Adverse Reactions: Allergies Allergy/AdvReac Type Severity Reaction Status Date / Time No Known Drug Allergies Allergy Verified 07/24/17 18:31 - MEDICATIONS Home Medications: Ambulatory Orders Medication Instructions Recorded Confirmed Multivitamin [Theragran] 1 tab PO DAILY 08/10/17 08/10/17 Albuterol Sulfate [Proventil Hfa 1 - 2 puffs INH Q4H PRN #1 inhaler 08/15/17 Inhaler] Apixaban [Eliquis] 10 mg PO BID 7 Days #28 tablet 08/15/17 Budesonide/Formoterol Fumarate 10.2 gm IH BID #3 hfa.aer.ad 08/15/17 [Symbicort 80-4.5 Mcg Inhaler] Inhaler, Assist Devices 1 each MC BID #1 spacer 08/15/17 [Optichamber Alexia] Levofloxacin [Levaquin] 750 mg PO DAILY 10 Days #10 tablet 08/15/17 Metoprolol Succinate [Toprol Xl] 200 mg PO DAILY #30 tab.er.24h 08/15/17 Prednisone 10 mg PO DAILY 6 Days #18 tab.ds.pk 08/15/17 Saccharomyces Boulardii [Florastor] 250 mg PO BID 20 Days #40 capsule 08/15/17 diltiaZEM CD [Cardizem Cd] 480 mg PO DAILY #60 capsule 08/15/17 - PHYSICAL EXAM AT DISCHARGE General Appearance: positive: No acute distress, Alert Eyes Bilateral: positive: Normal inspection, PERRL ENT: positive: ENT inspection nml, Pharynx nml, No signs of dehydration Neck: positive: Nml inspection, Thyroid nml, No JVD Respiratory: positive: Chest non-tender, No respiratory distress, Wheezes, Other (diminished with crackles.) Cardiovascular: positive: No gallop, Irregularly irregular, Tachycardia, Systolic murmur, Decreased pulse(s) Peripheral Pulses: positive: 1+ Abdomen: positive: Non-tender, No organomegaly, Nml bowel sounds, No distention Back: positive: Nml inspection Skin: positive: No rash, Warm, Dry Extremities: positive: Non-tender, Full ROM, Nml appearance, No pedal edema Neurologic/Psychiatric: positive: Oriented x3, CN's nml (2-12), Motor nml, Sensation nml, Depressed mood/affect Reflexes: Bicep (R): 2+, Bicep (L): 2+ - LABS Result Diagrams: 08/15/17 04:45 08/15/17 04:45 - DIAGNOSTIC IMAGING Diagnostic Imaging Results: Prelim report reviewed, Final report reviewed Diagnostic Imaging Results Comments: Head CT: FINDINGS: Parenchyma: No intraparenchymal hemorrhage. No evidence of mass, midline shift, or CT findings of infarction. Chun-white differentiation is distinct. Extraaxial Spaces: Normal for age. No subdural or epidural collections identified. Ventricles: Normal in size and position. Sinuses and Orbits: Imaged paranasal sinuses, orbits, and mastoids show no significant abnormality. Bones: No evidence of fracture or calvarial defect. Other: None. IMPRESSION: Negative head CT. Cervical spine CT: FINDINGS: Alignment: No scoliosis or spondylolisthesis. Bones: Negative for an acute fracture. There is bony bridging of the C5 and C6 vertebral bodies. There is a corticated ossification located anterior to the C7 superior endplate. Interspace Levels/Facets: There is mild disk height loss at C6-C7 and mild-to- moderate disk height loss at C7-T1. The facet joints appear in satisfactory alignment with mild degenerative disease. No significant central spinal canal stenosis. There is degenerative disease and spurring of the anterior C1 and C2 articulation. Musculature: Normal. No fatty atrophy. Other: The paravertebral and prevertebral soft tissues are unremarkable. No apical pneumothorax. There is bilateral apical pleural-parenchymal scarring. IMPRESSION: 1. Negative for an acute fracture and subluxation. 2. Multilevel ania-za-zywhtykg degenerative disk disease in the lower lumbar spine. C5-C6 vertebral body fusion. Chest x-ray: FINDINGS: Lungs/Pleura: Infiltrate or atelectasis right lung base. New small bilateral pleural effusions. Chronic parenchymal reticular densities in the bilateral upper lung hickey right greater than left and right lower lobe. 8 mm nodular density in the left upper lung laterally. Mediastinum: Mild cardiomegaly Other: None. IMPRESSION: 1. Infiltrate or atelectasis right lung base. 2. New small bilateral effusions. 3. 8mm nodule left upper lobe further evaluation could be with CT. 4. Chronic parenchymal changes bilateral upper lungs, right lower lung Chest CT: FINDINGS: The heart and great vessels demonstrate minimal atherosclerotic calcification. There are filling defects in bilateral lower lobe segmental and subsegmental pulmonary arteries as well as subsegmental upper lobe pulmonary arteries, compatible with small pulmonary emboli. No hilar or mediastinal lymphadenopathy is appreciated. The nodule noted on the plain film in the lateral left upper lobe is calcified, compatible with an old granuloma. The lungs also demonstrate patchy bilateral infiltrates, worse in the anterior right middle lobe and lingula, and small pleural effusions with associated basilar atelectasis. Limited evaluation of upper abdominal structures demonstrates normal adrenal glands. Osseous structures demonstrate degenerative changes. IMPRESSION: BILATERAL SEGMENTAL AND SUBSEGMENTAL PULMONARY EMBOLI. PATCHY BILATERAL INFILTRATES AND EFFUSIONS. CALCIFIED GRANULOMA IN THE LEFT UPPER LOBE , ACCOUNTING FOR THE PLAIN FILM NODULE. - FOLLOW UP Follow Up: Disposition: 01 Home, Self Care Condition: Good Prescriptions: Albuterol Sulfate [Proventil Hfa Inhaler] 1 - 2 puffs INH Q4H PRN #1 inhaler PRN Reason: Shortness Of Air/Wheezing Apixaban [Eliquis] 10 mg PO BID 7 Days #28 tablet Budesonide/Formoterol Fumarate [Symbicort 80-4.5 Mcg Inhaler] 10.2 gm IH BID #3 hfa.aer.ad diltiaZEM CD [Cardizem Cd] 480 mg PO DAILY #60 capsule Inhaler, Assist Devices [Optichamber Alexia] 1 each MC BID #1 spacer Levofloxacin [Levaquin] 750 mg PO DAILY 10 Days #10 tablet Metoprolol Succinate [Toprol Xl] 200 mg PO DAILY #30 tab.er.24h Prednisone 10 mg PO DAILY 6 Days #18 tab.ds.pk Saccharomyces Boulardii [Florastor] 250 mg PO BID 20 Days #40 capsule Diet: Cardiac Activity Restrictions: No Restrictions Shower Restrictions: No Driving Restrictions: No Instruction Topics: Warfarin tablets, Embolism Pulmonary, ED Pneumonia Adult Additional Instructions or Follow Up instructions: You were admitted to the hospital and found to have pulmonary emboli, which you were given blood thinners that were injectable, and changed to pill for on the day of discharge. You need to keep taking this medication at a higher dose for the next 7 days, then decrease the dose by 1/2. Your heart rates were very high and you also had an arrhythmia called atrial fibrillation which means there is an interruption in the electrical system of your heart muscle. This is the second reason you will need to be on a blood thinner. You also need help with controlling the rate, so you need to take 2 different kinds of rate control medications until you follow up with a manager philosophy. [facility] comes to our out patient [facility] clinic each week , so this may be more convenient for you. Your breathing should improve slowly, but in the mean time, you need to continue a small dose of steroids and take a daily long acting inhaler. Please rest when you are tired. One of your first priorities is to set up a PCP. He or she needs to see you within a week of this hospital stay to ensure your body is doing well with your recent illness and new medications. As your pulmonary emboli improve, your heart will likely need less medication! It is imperative that you follow up as indicated. - TIME SPENT Time Spent in Discharge (Minutes): 45
[2017-08-15] MEDS ORDERED: APIXABAN 2.5 MG TABLET PO SCH (21:00)
[2017-08-22] MEDS ORDERED: APIXABAN 2.5 MG TABLET PO SCH (21:00)
== END 2017-08-15 14:35 | disposition home or self-care (01) | DRG 193 ==
LOC: ED 12:31 → MS2 14:21
PROVIDERS: ADMIT Nurse Practitioner Gerontology; ATTEND Nurse Practitioner
DX: J18.9 Pneumonia, unspecified organism (principal); I26.99 Other pulmonary embolism without acute cor pulmonale; J44.0 Chronic obstructive pulmonary disease with (acute) lower respiratory infection; I45.10 Unspecified right bundle-branch block; R09.02 Hypoxemia; L02.11 Cutaneous abscess of neck; G47.30 Sleep apnea, unspecified; I50.40 Unspecified combined systolic (congestive) and diastolic (congestive) heart failure; I48.91 Unspecified atrial fibrillation; E78.5 Hyperlipidemia, unspecified; G47.33 Obstructive sleep apnea (adult) (pediatric); Z88.8 Allergy status to other drugs, medicaments and biological substances; Z87.891 Personal history of nicotine dependence
CPT/HCPCS: 36415; 71260; 80048; 80053; 80061; 80306; 80307; 80320; 83605; 83721; 83735; 84484; 85025; 85379; 85610; 87040; 87070; 87205; 93306; 94640; 94664; 96365; 99283; 99284

== ENCOUNTER 2017-09-13 12:03 | Inpatient (IN) | payer MEDICARE, OTHER, MEDICAID ==
[2017-09-13 12:45] LABS: BASOPHILS # (AUTO) 0.1 10^3/uL (0.0-0.1); BASOPHILS % (AUTO) 0.6 %; EOSINOPHILS # (AUTO) 0.2 10^3/uL (0.0-0.7); HGB - HEMOGLOBIN 12.7 g/dL (14.0-18.0); LYMPHOCYTES # (AUTO) 1.2 10^3/uL (1.5-3.5); LYMPHOCYTES % (AUTO) 6.5 %; MEAN CORPUSCULAR HEMOGLOBIN 29.9 pg (27.0-31.0); MEAN CORPUSCULAR HGB CONC 33.9 g/dL (32.0-36.0); MEAN CORPUSCULAR VOLUME 88.3 fL (80.0-94.0); MEAN PLATELET VOLUME 7.7 fL (7.4-11.4); MONOCYTES # (AUTO) 1.5 10^3/uL (0.0-1.0); NEUTROPHILS # (AUTO) 15.2 10^3/uL (1.5-6.6); NEUTROPHILS % (AUTO) 83.9 %; PLT - PLATELET COUNT 549 10^3/uL (130-450); RED BLOOD COUNT 4.26 10^6/uL (4.70-6.10); RED CELL DISTRIBUTION WIDTH 13.9 % (12.0-15.0); WHITE BLOOD COUNT 18.2 x10^3/uL (4.8-10.8)
[2017-09-13 12:53] LABS: ALBUMIN 2.6 g/dL (3.2-5.5); ALBUMIN/GLOBULIN RATIO 0.7 (1.0-2.2); BILIRUBIN,TOTAL 0.5 mg/dL (0.2-1.0); CALCIUM 8.2 mg/dL (8.5-10.3); CREATININE 0.7 mg/dL (0.6-1.2); TOTAL PROTEIN 6.6 g/dL (6.7-8.2)
--- NOTE | 2017-09-13 13:11 | XRAY Report ---
EXAM: CHEST RADIOGRAPHY EXAM DATE: 09/13/2017 12:56 PM. CLINICAL HISTORY: Productive cough. COMPARISON: 08/09/2017. TECHNIQUE: 2 views. FINDINGS: Lungs/Pleura: There is increased blunting of the left costophrenic angle consistent with an enlarging pleural effusion. There is a left lower lobe retrocardiac density which obscures the contour of the left hemidiaphragm. There are bilateral interstitial densities which appear similar. Mediastinum: Heart size is borderline. Trachea is midline. Other: None. IMPRESSION: 1. Small to moderate left pleural effusion has increased in size. 2. New left lower lobe atelectasis versus pneumonia. [facility] Referring Provider Line: [phone] SITE ID: [id number]
--- NOTE | 2017-09-13 13:11 | XRAY Preliminary Report ---
Exam: XR CHEST 2 VIEW X-RAY IMPRESSION: 1. Small to moderate left pleural effusion has increased in size. 2. New left lower lobe atelectasis versus pneumonia. [facility] SITE ID: [id number]
[2017-09-13] MEDS ORDERED: cefTRIAXone 1 GM in SODIUM CHLORIDE 0.9% MINIBAG 100 ML IV STA (15:07)
[2017-09-13] MEDS ORDERED: AZITHROMYCIN 250 MG TABLET PO STA (15:07)
[2017-09-13] MEDS ORDERED: guaiFENesin/DEXTROMETHORPHAN 10 ML UDC PO STA (15:08)
[2017-09-13] MEDS ORDERED: BENZONATATE 100 MG CAPSULE PO STA (15:08)
--- NOTE | 2017-09-13 15:17 | ED Physician Documentation ---
History of Present Illness - Stated complaint Stated Complaint: COUGH/FATIGUE/WEAK - Chief complaint Chief Complaint: Resp - Additonal information Additional information: hx from pt and friend 67 male admitetd a month ago for pna PE and new a fib was txed with levaquin and now on eliquis was better for 2 weeks now worsening for two weeks wekaness fatigue myalgias cough soa is exhausted by a car ride now which is unusual as he normally quite energetic and vibrant to weak to walk to the bathroom so urinates in a bucket at night some hemotptysis fell against a wall a week ago no head injury Review of Systems Constitutional: reports: Chills, Myalgias, Fatigue Throat: denies: Sore throat Cardiac: reports: Chest pain / pressure (where fell vs wall, l side) Respiratory: reports: Dyspnea, Cough, Hemoptysis GI: denies: Abdominal Pain, Nausea, Vomiting Neurologic: reports: Generalized weakness Endocrine: reports: Easy bruising / bleeding Immunocompromised: denies: Immunocompromised PD PAST MEDICAL HISTORY - Past Medical History Cardiovascular: High cholesterol Respiratory: COPD, Pneumonia, Sleep apnea, CPAP use Neuro: None Endocrine/Autoimmune: None GI: None : None HEENT: Chronic hearing loss Psych: None Musculoskeletal: None Derm: Other - Past Surgical History Past Surgical History: Yes Ortho: Other - Present Medications Home Medications: Ambulatory Orders Medication Instructions Recorded Confirmed Multivitamin [Theragran] 1 tab PO DAILY 08/10/17 09/13/17 Albuterol Sulfate [Proventil Hfa 1 - 2 puffs INH Q4H PRN #1 inhaler 08/15/1706/21 Inhaler] diltiaZEM CD [Cardizem Cd] 480 mg PO DAILY #60 capsule 08/15/17 09/13/17 Apixaban [Eliquis] 5 mg PO BID 09/13/17 09/13/17 Budesonide/Formoterol Fumarate 1 puffs INH BID 09/13/17 09/13/17 [Symbicort 80-4.5 Mcg Inhaler] Metoprolol Succinate [Toprol Xl] 100 mg PO DAILY 09/13/17 09/13/17 - Allergies Allergies/Adverse Reactions: Allergies Allergy/AdvReac Type Severity Reaction Status Date / Time No Known Drug Allergies Allergy Verified 09/13/17 12:20 - Social History Does the pt smoke?: No Smoking Status: Never smoker Does the pt drink ETOH?: No Does the pt have substance abuse?: Yes - Immunizations Immunizations are current?: Yes - POLST Patient has POLST: No POLST Status: Full Code PD ED PE NORMAL - Vitals Vital signs reviewed: Yes - General General: Alert and oriented X 3 - Neck Neck: Supple, no meningeal sign - Cardiac Cardiac: RRR, Other (no vis bruising to L chest wall) - Respiratory Respiratory: Other (coarse vern) - Abdomen Abdomen: Soft - Derm Derm: Normal color - Extremities Extremities: No edema, No calf tenderness / cord - Neuro Neuro: Alert and oriented X 3 Results - Vitals Vitals: Vital Signs - 24 hr 09/13/17 09/13/17 09/13/17 12:13 16:52 17:26 Temperature 37.7 C H Heart Rate 91 73 69 Respiratory 20 16 20 Rate Blood Pressure 106/68 96/67 96/71 O2 Saturation 95 94 97 Oxygen O2 Source Room air - Labs Labs: Laboratory Tests 09/13/17 09/13/17 09/13/17 12:35 12:35 15:25 WBC 18.2 H RBC 4.26 L Hgb 12.7 L Hct 37.6 L MCV 88.3 MCH 29.9 MCHC 33.9 RDW 13.9 Plt Count 549 H MPV 7.7 Neut # 15.2 H Lymph # 1.2 L [place] # 1.5 H Eos # 0.2 Baso # 0.1 Absolute Nucleated RBC 0.00 Nucleated RBC % 0.0 Sodium 132 L Potassium 3.2 L Chloride 90 L Carbon Dioxide 30 Anion Gap 12.0 BUN 16 Creatinine 0.7 Estimated GFR (MDRD) 113 Glucose 143 H Calcium 8.2 L Total Bilirubin 0.5 AST 30 ALT 27 Alkaline Phosphatase 125 H Total Protein 6.6 L Albumin 2.6 L Globulin 4.0 Albumin/Globulin Ratio 0.7 L Lipase 25 Urine Color Urine Clarity Urine pH Ur Specific [place] Urine Protein Urine Glucose (UA) Urine Ketones Urine Occult Blood Urine Nitrite Urine Bilirubin Urine Urobilinogen Ur Leukocyte Esterase Ur Microscopic Review Urine Culture Comments Influenza A (Rapid) Negative Influenza B (Rapid) Negative Influenza Types A,B Ag - 09/13/17 16:30 WBC RBC Hgb Hct MCV MCH MCHC RDW Plt Count MPV Neut # Lymph # [place] # Eos # Baso # Absolute Nucleated RBC Nucleated RBC % Sodium Potassium Chloride Carbon Dioxide Anion Gap BUN Creatinine Estimated GFR (MDRD) Glucose Calcium Total Bilirubin AST ALT Alkaline Phosphatase Total Protein Albumin Globulin Albumin/Globulin Ratio Lipase Urine Color YELLOW Urine Clarity CLEAR Urine pH 5.0 Ur Specific [place] 1.010 Urine Protein TRACE Urine Glucose (UA) NEGATIVE Urine Ketones NEGATIVE Urine Occult Blood NEGATIVE Urine Nitrite NEGATIVE Urine Bilirubin NEGATIVE Urine Urobilinogen 0.2 (NORMAL) Ur Leukocyte Esterase NEGATIVE Ur Microscopic Review NOT INDICATED Urine Culture Comments NOT INDICATED Influenza A (Rapid) Influenza B (Rapid) Influenza Types A,B Ag - Rads (name of study) CXR Radiology: See rad report (pna and effusion) CTPA Radiology: See rad report (no PE, multifocal LLL consolidation, inc mild patchy right lower lobe consolidation, dec RUL and UZAIR consolidation from prior, improved R pleural effusion, worse L pleural effusion, suhhests infection, adenopathy and cardiomegaly as before) PD MEDICAL DECISION MAKING - ED course ED course: given rocpehin and zmax and sympotmatic meds CTPA to be sure not another PE no PE but shows vern pna despite tx pt is very weak, BP < 100 HR > 100 with ambulation, describes being too weak to safely walk even to the bathroom at home and falling agianst monsalve while on eliquis will admit note prior echo did not show valve vegetations Departure - Departure Disposition: 67 [facility] DC/Xfer Clinical Impression: Bilateral pneumonia Qualifiers: Pneumonia type: due to unspecified organism Lung location: unspecified part of lung Qualified Code(s): J18.9 - Pneumonia, unspecified organism Condition: Good Discharge Date/Time: 09/13/17 18:19
[2017-09-13] MEDS ORDERED: POTASSIUM CHLORIDE 20 MEQ TABLET PO STA (15:18)
[2017-09-13] MEDS ORDERED: IOPAMIDOL-300 100 ML VIAL ONE ×2 (15:38→15:48)
[2017-09-13] MEDS ORDERED: IOPAMIDOL-300 100 ML VIAL IVP ONE (15:59)
[2017-09-13] MEDS ORDERED: ACETAMINOPHEN 325 MG TABLET PO STA (16:07)
--- NOTE | 2017-09-13 16:33 | CT Report ---
EXAM: CT ANGIOGRAM CHEST EXAM DATE: 09/13/2017 03:59 PM. CLINICAL HISTORY: Shortness of breath, recent hx PE. COMPARISON: Chest radiograph today, CT chest 08/10/2017. TECHNIQUE: Routine helical imaging was performed through the chest in the pulmonary arterial phase. I V Contrast: 80 cc Isovue 300. Reconstructions: Coronal 3-D MIP reconstructions.Sagittal and coronal. In accordance with CT protocol optimization, one or more of the following dose reduction techniques w ere utilized for this exam: automated exposure control, adjustment of mA and/or KV based on patient s ize, or use of iterative reconstructive technique. FINDINGS: Pulmonary Arteries: Diagnostic quality: Adequate through the segmental arteries. No pulmonary arterial filling defects, e jorge truncation, or wall thickening. RV/LV is within normal limits. There is no interventricular septal bowing. There is no reflux of cont rast material in the IVC. Lungs/Pleura: Tiny right pleural effusion, decreased from before. Moderate left pleural effusion, inc reased from before. Mild patchy peripheral right upper lobe airspace opacities, decreased from before . Increased patchy mild peribronchial consolidation in the right lower lobe greatest anterolaterally. Mild patchy peripheral densities in the left upper lobe which may be atelectatic, mildly increased f rom before. Marked multifocal consolidation in the left lower lobe, increased from before. Mediastinum: Mild generalized cardiomegaly, as before. Lower thyroid gland and esophagus unremarkable . Mild left hilar lymphadenopathy, unchanged. Shotty mediastinal lymph nodes, unchanged. Lower thyroi d gland unremarkable. Thoracic Aorta: Unopacified but unremarkable. Upper Abdomen: Unremarkable. Other: Moderate to severe multilevel cervical degenerative disk disease. No lytic or sclerotic lesion s are identified. Chest wall is unremarkable. IMPRESSION: 1. No pulmonary embolism. 2. Increased marked multifocal left lower lobe consolidation. Increased mild patchy right lower lobe consolidation. Decreased mild patchy right upper lobe consolidation. Near-complete resolution of cons olidation seen before medially in the anterior segment right upper lobe and left upper lobe. Near-com plete resolution of right pleural effusion. Increased moderate left pleural effusion. The appearance is unusual but suggesting waxing and waning areas of infectious pneumonitis. A noninfectious inflamma tory process seems less likely given the rapid evolution. 3. Mild right hilar lymphadenopathy, unchanged. 4. Mild cardiomegaly, as before. [facility] Referring Provider Line: [phone] SITE ID: [id number]
[2017-09-13 16:37] LABS: BILIRUBIN,URINE NEGATIVE (NEGATIVE); GLUCOSE, URINE (UA) NEGATIVE (NEGATIVE); KETONES,URINE (UA) NEGATIVE (NEGATIVE); LEUKOCYTE ESTERASE, URINE NEGATIVE (NEGATIVE); NITRITE,URINE NEGATIVE (NEGATIVE); OCCULT BLOOD,URINE NEGATIVE (NEGATIVE); PROTEIN,URINE TRACE mg/dL (NEGATIVE); UROBILINOGEN,URINE 0.2 (NORMAL) E.U./dL (NORMAL)
[2017-09-13 16:38] LABS: CLARITY,URINE CLEAR (CLEAR)
[2017-09-13] MEDS ORDERED: SODIUM CHLORIDE 0.9% 1,000 ML IV ONE (17:02)
[2017-09-13] MEDS ORDERED: ONDANSETRON ODT 4 MG TABLET TL PRN (17:29)
[2017-09-13] MEDS ORDERED: ONDANSETRON 4 MG/2 ML VIAL IVP PRN (17:29)
[2017-09-13] MEDS ORDERED: SODIUM CHLORIDE FLUSH 0.9% 10 ML SYRINGE IVP PRN (17:29)
[2017-09-13] MEDS ORDERED: LEVALBUTEROL 1.25 MG/3 ML NEB INH PRN (17:33)
[2017-09-13] MEDS ORDERED: SODIUM CHLORIDE 0.9% 1,000 ML IV SCH (18:00)
[2017-09-13] MEDS: PIPERACILLIN/TAZOBACTAM 3.375 GM in SODIUM CHLORIDE 0.9% MINIBAG 100 ML IV SCH (19:31)
[2017-09-13] MEDS: SACCHAROMYCES BOULARDII 250 MG CAPSULE PO SCH (19:48)
[2017-09-13] MEDS: APIXABAN 2.5 MG TABLET PO SCH (20:53)
[2017-09-13] MEDS: levoFLOXacin 750 MG/150 ML 750 MG/150 ML BAG IV SCH (20:53)
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
[2017-09-14] MEDS: NS W/20 MEQ KCL 1,000 ML IV SCH ×3 (00:01→17:43)
[2017-09-14] MEDS: PIPERACILLIN/TAZOBACTAM 3.375 GM in SODIUM CHLORIDE 0.9% MINIBAG 100 ML IV SCH ×4 (00:08→18:28)
[2017-09-14 06:05] LABS: HGB - HEMOGLOBIN 12.5 g/dL (14.0-18.0); MEAN CORPUSCULAR HEMOGLOBIN 29.1 pg (27.0-31.0); MEAN CORPUSCULAR HGB CONC 32.8 g/dL (32.0-36.0); MEAN CORPUSCULAR VOLUME 88.9 fL (80.0-94.0); RED BLOOD COUNT 4.28 10^6/uL (4.70-6.10); RED CELL DISTRIBUTION WIDTH 13.8 % (12.0-15.0); WHITE BLOOD COUNT 17.7 x10^3/uL (4.8-10.8)
[2017-09-14 06:19] LABS: CREATININE 0.6 mg/dL (0.6-1.2)
[2017-09-14] MEDS: SODIUM CHLORIDE FLUSH 0.9% 10 ML SYRINGE IVP SCH ×3 (06:23→18:28)
[2017-09-14] MEDS: METOPROLOL SUCCINATE 50 MG TABLET PO SCH (08:39)
[2017-09-14] MEDS: MULTIVITAMIN TABLET PO SCH (08:40)
[2017-09-14] MEDS: diltiaZEM CD 240 MG CAPSULE PO SCH (08:40)
[2017-09-14] MEDS: SACCHAROMYCES BOULARDII 250 MG CAPSULE PO SCH ×2 (08:40→18:27)
[2017-09-14] MEDS: APIXABAN 2.5 MG TABLET PO SCH ×2 (08:40→21:37)
[2017-09-14] MEDS: POLYETHYLENE GLYCOL 3350 17 GM PACKET PO SCH (09:05)
--- NOTE | 2017-09-14 12:13 | PROVIDER PROGRESS NOTE ---
Subjective - Prog Note Date Prog Note Date: 09/14/17 Prog Note Time: 10:00 - Subjective Pt reports feeling: Improved (The patient is breathing easier. He is not requiring supplemental oxygen all the time, and is having less dyspnea with exertion. He is sleeping on and off throughout the day and night, and denies any significant pain.) Subjective: The patient is breathing easier. His dyspnea on exertion is less and he is able to spend time on room air. He denies any fever or chills or new pain. Current Medications - Current Medications Current Medications: Acetaminophen, apixaban, diltiazem, Xopenex, Levaquin, metoprolol, metoprolol multivitamin, Zofran, oxycodone,Zosyn, polyethylene glycol, Florastor, normal saline Objective - Vital Signs/Intake & Output Reviewed Vital Signs: Yes Vital Signs: Vital Signs x48h Temp Pulse Pulse Pulse Resp BP BP 09/14/17 11:45 82 18 09/14/17 10:20 105 H 133/71 H 09/14/17 08:00 37.6 C H 61 18 133/71 H Pulse Ox 09/14/17 11:45 09/14/17 10:20 09/14/17 08:00 93 Intake & Output: Intake & Output 09/11/17 09/12/17 09/13/17 09/14/17 22:59 23:59 23:59 23:59 Intake Total 750 1910.000 Output Total 550 Balance 750 1360.000 - Objective General Appearance: positive: No acute distress, Alert Eyes Bilateral: positive: Normal inspection, PERRL, EOMI, No lid inflammation, Conjunctivae nml, No scleral icterus ENT: positive: ENT inspection nml, Pharynx nml, No signs of dehydration Neck: positive: Nml inspection, Thyroid nml, No JVD, Trachea midline. negative : Thyromegaly Respiratory: positive: Chest non-tender, No respiratory distress, Rales. negative: Wheezes, Rhonchi Cardiovascular: positive: Regular rate & rhythm, No murmur, No gallop Abdomen: positive: Non-tender, No organomegaly, Nml bowel sounds, No distention. negative: Guarding, Rebound Back: positive: Nml inspection. negative: CVA tenderness (R), CVA tenderness (L ) Skin: positive: Color nml, No rash, Warm, Dry. negative: Cyanosis Extremities: positive: Non-tender, Full ROM, Nml appearance Neurologic/Psychiatric: positive: Oriented x3, CN's nml (2-12), Motor nml, Sensation nml, Mood/affect nml - Lab Results Fish Bones: 09/14/17 05:38 09/14/17 05:38 Other Labs: Lab Results x24hrs 09/14/17 09/14/17 Range/Units 05:38 05:38 WBC 17.7 H (4.8-10.8) x10^3/uL RBC 4.28 L (4.70-6.10) 10^6/uL Hgb 12.5 L (14.0-18.0) g/dL Hct 38.0 L (42.0-52.0) % MCV 88.9 (80.0-94.0) fL MCH 29.1 (27.0-31.0) pg MCHC 32.8 (32.0-36.0) g/dL RDW 13.8 (12.0-15.0) % Plt Count 582 H (130-450) 10^3/uL MPV 8.0 (7.4-11.4) fL Sodium 134 L (135-145) mmol/L Potassium 3.3 L (3.5-5.0) mmol/L Chloride 93 L (101-111) mmol/L Carbon Dioxide 31 (21-32) mmol/L Anion Gap 10.0 (6-13) BUN 12 (6-20) mg/dL Creatinine 0.6 (0.6-1.2) mg/dL Estimated GFR (MDRD) 135 (>89) Glucose 103 H (70-100) mg/dL Calcium 8.0 L (8.5-10.3) mg/dL - Diagnostic Imaging Diagnostic Imaging Results: positive: Final report reviewed Diagnostic Imaging Comments: EXAM: CT ANGIOGRAM CHEST EXAM DATE: 09/13/2017 03:59 PM. CLINICAL HISTORY: Shortness of breath, recent hx PE. COMPARISON: Chest radiograph today, CT chest 08/10/2017. TECHNIQUE: Routine helical imaging was performed through the chest in the pulmonary arterial phase. IV Contrast: 80 cc Isovue 300. Reconstructions: Coronal 3-D MIP reconstructions.Sagittal and coronal. In accordance with CT protocol optimization, one or more of the following dose reduction techniques were utilized for this exam: automated exposure control, adjustment of mA and/or KV based on patient size, or use of iterative reconstructive technique. FINDINGS: Pulmonary Arteries: Diagnostic quality: Adequate through the segmental arteries. No pulmonary arterial filling defects , early truncation, or wall thickening. RV/LV is within normal limits. There is no interventricular septal bowing. There is no reflux of contrast material in the IVC. Lungs/Pleura: Tiny right pleural effusion, decreased from before. Moderate left pleural effusion, increased from before. Mild patchy peripheral right upper lobe airspace opacities, decreased from before. Increased patchy mild peribronchial consolidation in the right lower lobe greatest anterolaterally. Mild patchy peripheral densities in the left upper lobe which may be atelectatic, mildly increased from before. Marked multifocal consolidation in the left lower lobe, increased from before. Mediastinum: Mild generalized cardiomegaly, as before. Lower thyroid gland and esophagus unremarkable. Mild left hilar lymphadenopathy, unchanged. Shotty mediastinal lymph nodes, unchanged. Lower thyroid gland unremarkable. Thoracic Aorta: Unopacified but unremarkable. Upper Abdomen: Unremarkable. Other: Moderate to severe multilevel cervical degenerative disk disease. No lytic or sclerotic lesions are identified. Chest wall is unremarkable. IMPRESSION: 1. No pulmonary embolism. 2. Increased marked multifocal left lower lobe consolidation. Increased mild patchy right lower lobe consolidation. Decreased mild patchy right upper lobe consolidation. Near- complete resolution of consolidation seen before medially in the anterior segment right upper lobe and left upper lobe. Near-complete resolution of right pleural effusion. Increased moderate left pleural effusion. The appearance is unusual but suggesting waxing and waning areas of infectious pneumonitis. A noninfectious inflammatory process seems less likely given the rapid evolution. 3. Mild right hilar lymphadenopathy, unchanged. 4. Mild cardiomegaly, as before. Assessment/Plan - Problem List (1) Bilateral pneumonia Impression: A CT angiogram shows resolving areas with newly evolving areas as well. I will Continue the patient on Zosyn and Levaquin. Patient's white blood cell count has come down marginally from 18,000-17,000. Qualifiers: Pneumonia type: due to unspecified organism Lung location: unspecified part of lung Qualified Code(s): J18.9 - Pneumonia, unspecified organism (2) Chronic systolic (congestive) heart failure Impression: No evidence that this is an acute exacerbation at this time. Continue Cardizem and metoprolol. (3) Sleep apnea Impression: The patient has brought in his home CPAP machine will continue to use it while he is in the hospital. (4) History of COPD Impression: Well-managed, continue Xopenex as needed. (5) Chronic atrial fibrillation Impression: Continue apixaban.
[2017-09-14] MEDS: ACETAMINOPHEN 325 MG TABLET PO PRN (15:46)
[2017-09-14] MEDS: levoFLOXacin 750 MG/150 ML 750 MG/150 ML BAG IV SCH (20:47)
[2017-09-15] MEDS: FORMOTEROL FUMARATE NEB 20 MCG/2 ML INH SCH ×4 (00:09→20:01)
[2017-09-15] MEDS: BUDESONIDE 0.5 MG/2 ML NEB INH SCH ×4 (00:09→20:01)
[2017-09-15] MEDS: oxyCODONE 5 MG TABLET PO PRN ×2 (01:09→18:40)
[2017-09-15] MEDS: ACETAMINOPHEN 325 MG TABLET PO PRN ×4 (01:09→19:20)
[2017-09-15] MEDS: PIPERACILLIN/TAZOBACTAM 3.375 GM in SODIUM CHLORIDE 0.9% MINIBAG 100 ML IV SCH ×4 (01:10→18:23)
[2017-09-15] MEDS: NS W/20 MEQ KCL 1,000 ML IV SCH ×3 (04:36→14:14)
[2017-09-15 05:27] LABS: HGB - HEMOGLOBIN 12.4 g/dL (14.0-18.0); MEAN CORPUSCULAR HEMOGLOBIN 29.5 pg (27.0-31.0); MEAN CORPUSCULAR HGB CONC 33.2 g/dL (32.0-36.0); MEAN CORPUSCULAR VOLUME 88.9 fL (80.0-94.0); RED BLOOD COUNT 4.21 10^6/uL (4.70-6.10); RED CELL DISTRIBUTION WIDTH 13.9 % (12.0-15.0); WHITE BLOOD COUNT 17.8 x10^3/uL (4.8-10.8)
[2017-09-15 05:45] LABS: CREATININE 0.7 mg/dL (0.6-1.2)
[2017-09-15] MEDS: SODIUM CHLORIDE FLUSH 0.9% 10 ML SYRINGE IVP SCH ×3 (06:05→16:39)
[2017-09-15] MEDS: APIXABAN 2.5 MG TABLET PO SCH ×2 (08:20→21:11)
[2017-09-15] MEDS: SACCHAROMYCES BOULARDII 250 MG CAPSULE PO SCH ×2 (08:20→15:59)
[2017-09-15] MEDS: METOPROLOL SUCCINATE 50 MG TABLET PO SCH (08:20)
[2017-09-15] MEDS: POLYETHYLENE GLYCOL 3350 17 GM PACKET PO SCH (08:21)
[2017-09-15] MEDS: diltiaZEM CD 240 MG CAPSULE PO SCH (08:21)
[2017-09-15] MEDS: MULTIVITAMIN TABLET PO SCH (08:21)
--- NOTE | 2017-09-15 14:16 | PROVIDER PROGRESS NOTE ---
Subjective - Prog Note Date Prog Note Date: 09/15/17 Prog Note Time: 11:00 - Subjective Pt reports feeling: Improved (The patient feels a little better today. His breathing continues to improve slightly daily. He is not showing any signs of any discomfort and denies any pain. He says he is sleeping better and eating better. He denies any fever or chills. He last moved his bowels yesterday.) Current Medications - Current Medications Current Medications: Acetaminophen, apixaban, diltiazem, Xopenex, Levaquin, metoprolol, metoprolol multivitamin, Zofran, oxycodone,Zosyn, polyethylene glycol, Florastor, normal saline Objective - Vital Signs/Intake & Output Reviewed Vital Signs: Yes Vital Signs: Vital Signs x48h Temp Pulse Pulse Resp BP Pulse Ox 09/15/17 08:42 115 H 20 09/15/17 07:38 36.4 C L 71 16 132/74 H 98 Intake & Output: Intake & Output 09/12/17 09/13/17 09/14/17 09/15/17 23:59 23:59 23:59 23:59 Intake Total 750 3810.000 2407.500 Output Total 1150 1000 Balance 750 2660.000 1407.500 - Objective General Appearance: positive: No acute distress, Alert Eyes Bilateral: positive: Normal inspection, PERRL, EOMI, No lid inflammation, Conjunctivae nml, No scleral icterus ENT: positive: ENT inspection nml, Pharynx nml, No signs of dehydration Neck: positive: Nml inspection, Thyroid nml, No JVD, Trachea midline. negative : Thyromegaly Respiratory: positive: Chest non-tender, No respiratory distress, Breath sounds nml. negative: Wheezes, Rales, Rhonchi Cardiovascular: positive: Regular rate & rhythm, No murmur, No gallop Abdomen: positive: Non-tender, No organomegaly, Nml bowel sounds, No distention. negative: Guarding, Rebound Back: positive: Nml inspection. negative: CVA tenderness (R), CVA tenderness (L ) Skin: positive: Color nml, No rash, Warm, Dry. negative: Cyanosis Extremities: positive: Non-tender, Full ROM, Nml appearance, No pedal edema Neurologic/Psychiatric: positive: Oriented x3, CN's nml (2-12), Motor nml, Sensation nml, Mood/affect nml - Lab Results Fish Bones: 09/15/17 04:37 09/15/17 04:37 Other Labs: Lab Results x24hrs 09/15/17 09/15/17 Range/Units 04:37 04:37 WBC 17.8 H (4.8-10.8) x10^3/uL RBC 4.21 L (4.70-6.10) 10^6/uL Hgb 12.4 L (14.0-18.0) g/dL Hct 37.5 L (42.0-52.0) % MCV 88.9 (80.0-94.0) fL MCH 29.5 (27.0-31.0) pg MCHC 33.2 (32.0-36.0) g/dL RDW 13.9 (12.0-15.0) % Plt Count 544 H (130-450) 10^3/uL MPV 8.0 (7.4-11.4) fL Sodium 134 L (135-145) mmol/L Potassium 3.7 (3.5-5.0) mmol/L Chloride 95 L (101-111) mmol/L Carbon Dioxide 29 (21-32) mmol/L Anion Gap 10.0 (6-13) BUN 11 (6-20) mg/dL Creatinine 0.7 (0.6-1.2) mg/dL Estimated GFR (MDRD) 113 (>89) Glucose 115 H (70-100) mg/dL Calcium 8.0 L (8.5-10.3) mg/dL - Diagnostic Imaging Diagnostic Imaging Results: positive: Final report reviewed Diagnostic Imaging Comments: EXAM: CT ANGIOGRAM CHEST EXAM DATE: 09/13/2017 03:59 PM. CLINICAL HISTORY: Shortness of breath, recent hx PE. COMPARISON: Chest radiograph today, CT chest 08/10/2017. TECHNIQUE: Routine helical imaging was performed through the chest in the pulmonary arterial phase. IV Contrast: 80 cc Isovue 300. Reconstructions: Coronal 3-D MIP reconstructions.Sagittal and coronal. In accordance with CT protocol optimization, one or more of the following dose reduction techniques were utilized for this exam: automated exposure control, adjustment of mA and/or KV based on patient size, or use of iterative reconstructive technique. FINDINGS: Pulmonary Arteries: Diagnostic quality: Adequate through the segmental arteries. No pulmonary arterial filling defects , early truncation, or wall thickening. RV/LV is within normal limits. There is no interventricular septal bowing. There is no reflux of contrast material in the IVC. Lungs/Pleura: Tiny right pleural effusion, decreased from before. Moderate left pleural effusion, increased from before. Mild patchy peripheral right upper lobe airspace opacities, decreased from before. Increased patchy mild peribronchial consolidation in the right lower lobe greatest anterolaterally. Mild patchy peripheral densities in the left upper lobe which may be atelectatic, mildly increased from before. Marked multifocal consolidation in the left lower lobe, increased from before. Mediastinum: Mild generalized cardiomegaly, as before. Lower thyroid gland and esophagus unremarkable. Mild left hilar lymphadenopathy, unchanged. Shotty mediastinal lymph nodes, unchanged. Lower thyroid gland unremarkable. Thoracic Aorta: Unopacified but unremarkable. Upper Abdomen: Unremarkable. Other: Moderate to severe multilevel cervical degenerative disk disease. No lytic or sclerotic lesions are identified. Chest wall is unremarkable. IMPRESSION: 1. No pulmonary embolism. 2. Increased marked multifocal left lower lobe consolidation. Increased mild patchy right lower lobe consolidation. Decreased mild patchy right upper lobe consolidation. Near- complete resolution of consolidation seen before medially in the anterior segment right upper lobe and left upper lobe. Near-complete resolution of right pleural effusion. Increased moderate left pleural effusion. The appearance is unusual but suggesting waxing and waning areas of infectious pneumonitis. A noninfectious inflammatory process seems less likely given the rapid evolution. 3. Mild right hilar lymphadenopathy, unchanged. 4. Mild cardiomegaly, as before. Assessment/Plan - Problem List (1) Bilateral pneumonia Impression: The patient is improving clinically however still has an elevated leukocyte count at 17.8 thousand. He is on 2 different inhaled steroids and one oral steroid which explains the elevated leukocytes however we will continue to monitor the patient closely. Qualifiers: Pneumonia type: due to unspecified organism Lung location: unspecified part of lung Qualified Code(s): J18.9 - Pneumonia, unspecified organism (2) Chronic systolic (congestive) heart failure Impression: No evidence that this is an acute exacerbation at this time. Continue Cardizem and metoprolol. (3) Sleep apnea Impression: The patient has brought in his home CPAP machine will continue to use it while he is in the hospital. (4) History of COPD Impression: Well-managed, no evidence of COPD component to this hospitalization. Continue Xopenex as needed. (5) Chronic atrial fibrillation Impression: Rate controlled, continue apixaban daily.
[2017-09-15] MEDS: levoFLOXacin 750 MG/150 ML 750 MG/150 ML BAG IV SCH (19:21)
[2017-09-16] MEDS: ACETAMINOPHEN 325 MG TABLET PO PRN (00:06)
[2017-09-16] MEDS: PIPERACILLIN/TAZOBACTAM 3.375 GM in SODIUM CHLORIDE 0.9% MINIBAG 100 ML IV SCH ×3 (00:06→13:08)
[2017-09-16] MEDS: SODIUM CHLORIDE FLUSH 0.9% 10 ML SYRINGE IVP SCH ×2 (00:13→09:15)
[2017-09-16] MEDS: NS W/20 MEQ KCL 1,000 ML IV SCH ×2 (01:35→10:23)
[2017-09-16 05:19] LABS: HGB - HEMOGLOBIN 12.4 g/dL (14.0-18.0); MEAN CORPUSCULAR HEMOGLOBIN 29.4 pg (27.0-31.0); MEAN CORPUSCULAR HGB CONC 32.9 g/dL (32.0-36.0); MEAN CORPUSCULAR VOLUME 89.5 fL (80.0-94.0); MEAN PLATELET VOLUME 7.6 fL (7.4-11.4); RED BLOOD COUNT 4.21 10^6/uL (4.70-6.10); RED CELL DISTRIBUTION WIDTH 14.1 % (12.0-15.0)
[2017-09-16 05:25] LABS: CALCIUM 8.2 mg/dL (8.5-10.3); CREATININE 0.6 mg/dL (0.6-1.2)
[2017-09-16] MEDS: FORMOTEROL FUMARATE NEB 20 MCG/2 ML INH SCH (08:22)
[2017-09-16] MEDS: BUDESONIDE 0.5 MG/2 ML NEB INH SCH (08:22)
[2017-09-16 08:34] VITALS: BP 153/77
[2017-09-16] MEDS: METOPROLOL SUCCINATE 50 MG TABLET PO SCH (09:14)
[2017-09-16] MEDS: APIXABAN 2.5 MG TABLET PO SCH (09:14)
[2017-09-16] MEDS: SACCHAROMYCES BOULARDII 250 MG CAPSULE PO SCH (09:15)
[2017-09-16] MEDS: diltiaZEM CD 240 MG CAPSULE PO SCH (09:15)
[2017-09-16] MEDS: POLYETHYLENE GLYCOL 3350 17 GM PACKET PO SCH (09:15)
[2017-09-16] MEDS: MULTIVITAMIN TABLET PO SCH (09:15)
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
--- NOTE | 2017-09-16 10:43 | Discharge Plan ---
Discharge Plan Disposition: 01 Home, Self Care Condition: Good Prescriptions: Levofloxacin [Levaquin] 500 mg PO DAILY #7 tablet No Smoking: If you smoke, Please STOP! Call for help. Follow-up with: Letty Geronimo ARNP [Primary Care Provider] -
== END 2017-09-16 14:29 | disposition home or self-care (01) | DRG 194 ==
LOC: ED 12:03 → MS2 17:29
PROVIDERS: ADMIT Specialist; ATTEND Hospitalist
DX: J18.9 Pneumonia, unspecified organism (principal); I50.22 Chronic systolic (congestive) heart failure; G47.30 Sleep apnea, unspecified; E78.00 Pure hypercholesterolemia, unspecified; J44.9 Chronic obstructive pulmonary disease, unspecified; G47.33 Obstructive sleep apnea (adult) (pediatric); I48.2 Chronic atrial fibrillation; H91.90 Unspecified hearing loss, unspecified ear; F11.11 Opioid abuse, in remission; F10.11 Alcohol abuse, in remission; I08.1 Rheumatic disorders of both mitral and tricuspid valves; E78.5 Hyperlipidemia, unspecified; H90.A21 Sensorineural hearing loss, unilateral, right ear, with restricted hearing on the contralateral side; L72.3 Sebaceous cyst; Z99.81 Dependence on supplemental oxygen; Z79.01 Long term (current) use of anticoagulants; Z79.51 Long term (current) use of inhaled steroids; Z79.899 Other long term (current) drug therapy; Z87.828 Personal history of other (healed) physical injury and trauma; Z87.01 Personal history of pneumonia (recurrent); Z86.12 Personal history of poliomyelitis; Z91.419 Personal history of unspecified adult abuse; Z86.711 Personal history of pulmonary embolism; Z87.891 Personal history of nicotine dependence
CPT/HCPCS: 36415; 71046; 71275; 80048; 80053; 81001; 81003; 83690; 85025; 87040; 87070; 87086; 87205; 87275; 87276; 94640; 96365; 99283; 99284

== ENCOUNTER 2017-10-25 13:50 | Outpatient (CLI) | payer MEDICAID, MEDICARE, OTHER ==
[2017-10-25 17:31] LABS: BASOPHILS # (AUTO) 0.1 10^3/uL (0.0-0.1); BASOPHILS % (AUTO) 0.4 %; CALCIUM 8.1 mg/dL (8.5-10.3); CREATININE 0.7 mg/dL (0.6-1.2); EOSINOPHILS % (AUTO) 0.2 %; HGB - HEMOGLOBIN 10.4 g/dL (14.0-18.0); LYMPHOCYTES # (AUTO) 1.2 10^3/uL (1.5-3.5); LYMPHOCYTES % (AUTO) 8.1 %; MEAN CORPUSCULAR HEMOGLOBIN 27.4 pg (27.0-31.0); MEAN CORPUSCULAR VOLUME 85.5 fL (80.0-94.0); MEAN PLATELET VOLUME 8.3 fL (7.4-11.4); MONOCYTES # (AUTO) 1.1 10^3/uL (0.0-1.0); MONOCYTES % (AUTO) 7.3 %; NEUTROPHILS # (AUTO) 12.3 10^3/uL (1.5-6.6); PLT - PLATELET COUNT 765 10^3/uL (130-450); RED CELL DISTRIBUTION WIDTH 15.9 % (12.0-15.0); WHITE BLOOD COUNT 14.6 x10^3/uL (4.8-10.8)
== END 2017-10-25 13:51 | disposition home or self-care (01) ==
LOC: LAB.R 13:50
DX: E87.1 Hypo-osmolality and hyponatremia (principal); D72.829 Elevated white blood cell count, unspecified
CPT/HCPCS: 80048; 85025

== ENCOUNTER 2017-11-18 10:39 | Outpatient (CLI) | payer MEDICARE, OTHER, MEDICAID ==
[2017-11-18 18:10] LABS: BASOPHILS # (AUTO) 0.1 10^3/uL (0.0-0.1); BASOPHILS % (AUTO) 0.7 %; EOSINOPHILS # (AUTO) 0.2 10^3/uL (0.0-0.7); EOSINOPHILS % (AUTO) 1.8 %; LYMPHOCYTES # (AUTO) 1.3 10^3/uL (1.5-3.5); LYMPHOCYTES % (AUTO) 10.4 %; MEAN CORPUSCULAR HEMOGLOBIN 26.7 pg (27.0-31.0); MEAN CORPUSCULAR HGB CONC 31.9 g/dL (32.0-36.0); MEAN CORPUSCULAR VOLUME 83.7 fL (80.0-94.0); MEAN PLATELET VOLUME 7.9 fL (7.4-11.4); MONOCYTES # (AUTO) 1.1 10^3/uL (0.0-1.0); MONOCYTES % (AUTO) 8.4 %; NEUTROPHILS # (AUTO) 9.9 10^3/uL (1.5-6.6); NEUTROPHILS % (AUTO) 78.7 %; PLT - PLATELET COUNT 496 10^3/uL (130-450); RED BLOOD COUNT 3.76 10^6/uL (4.70-6.10); RED CELL DISTRIBUTION WIDTH 17.2 % (12.0-15.0); WHITE BLOOD COUNT 12.6 x10^3/uL (4.8-10.8)
[2017-11-18 20:24] LABS: BUN - BLOOD UREA NITROGEN 19 mg/dL (6-20); CALCIUM 8.8 mg/dL (8.5-10.3); CARBON DIOXIDE - CO2 31 mmol/L (21-32); CHLORIDE 95 mmol/L (101-111); CREATININE 0.7 mg/dL (0.6-1.2); GFR - MDRD 113 (>89); GLUCOSE 114 mg/dL (70-100); SODIUM 135 mmol/L (135-145)
[2017-11-18 20:38] LABS: DIGOXIN < 0.2 ng/mL
== END 2017-11-18 10:40 | disposition home or self-care (01) ==
LOC: LAB.F 10:39
PROVIDERS: ATTEND Internal Medicine Cardiovascular Disease
DX: J18.9 Pneumonia, unspecified organism (principal); I50.21 Acute systolic (congestive) heart failure; I26.99 Other pulmonary embolism without acute cor pulmonale; I48.0 Paroxysmal atrial fibrillation
CPT/HCPCS: 36415; 80048; 80162; 85025

== ENCOUNTER 2017-12-13 12:19 | Outpatient (CLI) | payer MEDICARE, OTHER, MEDICAID ==
[2017-12-13 18:30] LABS: BASOPHILS % (AUTO) 0.2 %; EOSINOPHILS # (AUTO) 0.1 10^3/uL (0.0-0.7); EOSINOPHILS % (AUTO) 0.5 %; HGB - HEMOGLOBIN 10.6 g/dL (14.0-18.0); LYMPHOCYTES # (AUTO) 1.1 10^3/uL (1.5-3.5); LYMPHOCYTES % (AUTO) 6.7 %; MEAN CORPUSCULAR HEMOGLOBIN 26.5 pg (27.0-31.0); MEAN CORPUSCULAR HGB CONC 32.2 g/dL (32.0-36.0); MEAN CORPUSCULAR VOLUME 82.4 fL (80.0-94.0); MEAN PLATELET VOLUME 7.5 fL (7.4-11.4); MONOCYTES # (AUTO) 1.2 10^3/uL (0.0-1.0); MONOCYTES % (AUTO) 7.5 %; NEUTROPHILS # (AUTO) 13.7 10^3/uL (1.5-6.6); NEUTROPHILS % (AUTO) 85.1 %; PLT - PLATELET COUNT 548 10^3/uL (130-450); RED BLOOD COUNT 3.99 10^6/uL (4.70-6.10); RED CELL DISTRIBUTION WIDTH 17.3 % (12.0-15.0); WHITE BLOOD COUNT 16.1 x10^3/uL (4.8-10.8)
[2017-12-13 18:51] LABS: CALCIUM 8.9 mg/dL (8.5-10.3); CREATININE 0.7 mg/dL (0.6-1.2)
== END 2017-12-13 12:20 | disposition home or self-care (01) ==
LOC: LAB.S 12:19
PROVIDERS: ATTEND Internal Medicine Cardiovascular Disease
DX: I50.21 Acute systolic (congestive) heart failure (principal); I42.0 Dilated cardiomyopathy; E78.00 Pure hypercholesterolemia, unspecified; I48.0 Paroxysmal atrial fibrillation; Z82.49 Family history of ischemic heart disease and other diseases of the circulatory system; R07.89 Other chest pain; R00.2 Palpitations
CPT/HCPCS: 36415; 80048; 85025

== ENCOUNTER 2017-12-29 17:10 | Inpatient (IN) | payer MEDICARE, OTHER, MEDICAID ==
--- NOTE | 2017-12-29 18:46 | XRAY Report ---
Procedure Date: 12/29/2017 Accession Number: [id number] / [id number] Procedure: XR - Chest 2 View X-Ray CPT Code: 75986 FULL RESULT: EXAM: CHEST RADIOGRAPHY EXAM DATE: 12/29/2017 06:03 PM. CLINICAL HISTORY: Cough, h/o pneumonia. COMPARISON: CHEST 2 VIEW 09/13/2017. TECHNIQUE: 2 views. FINDINGS: Lungs/Pleura: Small left pleural effusion, portions appear loculated laterally. This effusion appears mildly decreased from the prior. Biapical scarring. Right lateral pleural thickening appears unchanged. Probable chronic interstitial markings appear unchanged. No pneumothorax. Mild left base consolidation, decreased. Mediastinum: Heart and mediastinal contours are unremarkable. IMPRESSION: Small left pleural effusion, portions appear loculated laterally. This effusion appears mildly decreased from the prior. Biapical scarring. Right lateral pleural thickening appears unchanged. Probable chronic interstitial markings appear unchanged. No pneumothorax. Mild left base consolidation, decreased. RADIA
[2017-12-29] MEDS ORDERED: levoFLOXacin 250 MG TABLET PO STA (19:53)
--- NOTE | 2017-12-29 20:18 | ED Physician Documentation ---
History of Present Illness - Stated complaint Stated Complaint: GREEN PLEGM/POST PNEUMONIA - Chief complaint Chief Complaint: General - History obtained from History obtained from: Patient - History of Present Illness Timing: How many days ago (3) Pain level max: 0 Pain level now: 0 - Additonal information Additional information: Patient is a 67-year-old male who presents to the emergency department with a cough and subjective fevers for the past 4 days. Has been having chills as well. States has had pneumonia multiple times. Nothing makes it better or worse. No rhinorrhea or congestion. Review of Systems Ten Systems: 10 systems reviewed and negative Constitutional: reports: Fever, Chills Nose: denies: Rhinorrhea / runny nose, Congestion Throat: denies: Sore throat Cardiac: denies: Chest pain / pressure Respiratory: reports: Cough. denies: Dyspnea, Hemoptysis, Wheezing GI: denies: Abdominal Pain, Nausea, Vomiting, Diarrhea Skin: denies: Rash Musculoskeletal: denies: Neck pain, Back pain Neurologic: denies: Headache PD PAST MEDICAL HISTORY - Past Medical History Cardiovascular: High cholesterol Respiratory: COPD, Pneumonia, Sleep apnea, CPAP use Endocrine/Autoimmune: None GI: None : None HEENT: Chronic hearing loss Psych: None Musculoskeletal: None Derm: Other - Past Surgical History Past Surgical History: Yes Ortho: Other - Present Medications Home Medications: Ambulatory Orders Medication Instructions Recorded Confirmed Multivitamin [Theragran] 1 tab PO DAILY 08/10/17 09/13/17 Albuterol Sulfate [Proventil Hfa 1 - 2 puffs INH Q4H PRN #1 inhaler 08/15/1706/21 Inhaler] [id number] CD [Cardizem Cd] 480 mg PO DAILY #60 capsule 08/15/17 09/13/17 Apixaban [Eliquis] 5 mg PO BID 09/13/17 09/13/17 Budesonide/Formoterol Fumarate 1 puffs INH BID 09/13/17 09/13/17 [Symbicort 80-4.5 Mcg Inhaler] Metoprolol Succinate [Toprol Xl] 100 mg PO DAILY 09/13/17 09/13/17 Levofloxacin [Levaquin] 500 mg PO DAILY #7 tablet 09/16/17 - Allergies Allergies/Adverse Reactions: Allergies Allergy/AdvReac Type Severity Reaction Status Date / Time No Known Drug Allergies Allergy Verified 09/13/17 12:20 - Social History Does the pt smoke?: No Smoking Status: Never smoker Does the pt drink ETOH?: No Does the pt have substance abuse?: Yes - Immunizations Immunizations are current?: Yes - POLST Patient has POLST: No POLST Status: Full Code PD ED PE NORMAL - Vitals Vital signs reviewed: Yes - General General: Alert and oriented X 3, No acute distress - HEENT HEENT: Moist mucous membranes - Neck Neck: Supple, no meningeal sign - Cardiac Cardiac: RRR - Respiratory Respiratory: No respiratory distress, Other (Diminished breath sounds in the left lower lung) - Abdomen Abdomen: Soft, Non tender, Non distended - Derm Derm: Warm and dry - Extremities Extremities: No edema, No calf tenderness / cord - Neuro Neuro: Alert and oriented X 3 - Psych Psych: Normal mood, Normal affect Results - Vitals Vitals: Vital Signs - 24 hr 12/29/17 12/29/17 12/29/17 17:37 19:29 19:36 Temperature 36.8 C 37.3 C Heart Rate 82 75 Respiratory 18 17 Rate Blood Pressure 98/55 L 141/61 H O2 Saturation 100 100 Oxygen O2 Source Room air - Labs Labs: Laboratory Tests 12/29/17 12/29/17 12/29/17 20:45 20:45 20:45 WBC 15.7 H RBC 3.86 L Hgb 10.0 L Hct 30.9 L MCV 80.3 MCH 26.0 L MCHC 32.4 RDW 17.1 H Plt Count 621 H MPV 6.6 L Neut # (Auto) 12.9 H Lymph # (Auto) 1.2 L [place] # (Auto) 1.3 H Eos # (Auto) 0.2 Baso # (Auto) 0.1 Absolute Nucleated RBC 0.01 Nucleated RBC % 0.0 Sodium 130 L Potassium 3.6 Chloride 89 L Carbon Dioxide 32 Anion Gap 9.0 BUN 15 Creatinine 0.6 Estimated GFR (MDRD) 135 Glucose 95 Lactic Acid 0.9 Calcium 8.5 Total Bilirubin 0.6 AST 32 ALT 31 Alkaline Phosphatase 194 H Total Protein 7.3 Albumin 2.6 L Globulin 4.7 H Albumin/Globulin Ratio 0.6 L Lipase 27 - Rads (name of study) CXR Radiology: Prelim report reviewed, EMP read contemporaneously, See rad report ( Small left pleural effusion, portions appear loculated laterally. This effusion appears mildly decreased from the prior. Biapical scarring. Right lateral pleural thickening appears unchanged. Probable chronic interstitial markings appear unchanged. No pneumothorax. Mild left base consolidation, decreased. ) CT chest Radiology: Prelim report reviewed, EMP read contemporaneously, See rad report ( There is a peripherally enhancing fluid collection measuring 12 x 6 x 10 cm within the left lung base. This is suspicious for empyema. 2. No evidence of lobar infiltrate. 3. No pneumothorax. ) PD MEDICAL DECISION MAKING - ED course Complexity details: reviewed results, re-evaluated patient, considered differential, d/w patient, d/w [employer] identity management consultant ED course: Patient is a 67-year-old male who presents to the emergency department with coughing for the past 4 days. Chest x-ray obtained which showed a left lower lobe possible effusion. He initially wanted to leave AGAINST MEDICAL ADVICE and states that he just wants antibiotics and will follow up with his doctor in the morning. We had a long discussion and eventually he consented to blood work and a CT of the chest. This revealed leukocytosis and a likely empyema. Discussed the case with Dr. Guerrero, general surgery on-call who will plan to place a chest tube. Also discussed the case with Dr. aPula, hospitalist who accepts. This document was made in part using voice recognition software. While efforts are made to proofread this document, sound alike and grammatical errors may occur. - Sepsis Event Vital Signs: Vital Signs - 24 hr 12/29/17 12/29/17 12/29/17 17:37 19:29 19:36 Temperature 36.8 C 37.3 C Heart Rate 82 75 Respiratory 18 17 Rate Blood Pressure 98/55 L 141/61 H O2 Saturation 100 100 Oxygen O2 Source Room air Departure - Departure Disposition: 67 [facility] DC/Xfer Clinical Impression: Empyema Condition: Stable
[2017-12-29] MEDS ORDERED: SODIUM CHLORIDE 0.9% 1,000 ML IV ONE ×2 (20:29)
[2017-12-29] MEDS ORDERED: IOPAMIDOL-300 100 ML VIAL ONE (20:44)
[2017-12-29 20:57] LABS: BASOPHILS # (AUTO) 0.1 10^3/uL (0.0-0.1); BASOPHILS % (AUTO) 0.7 %; EOSINOPHILS # (AUTO) 0.2 10^3/uL (0.0-0.7); EOSINOPHILS % (AUTO) 1.1 %; LYMPHOCYTES # (AUTO) 1.2 10^3/uL (1.5-3.5); LYMPHOCYTES % (AUTO) 7.5 %; MEAN CORPUSCULAR HGB CONC 32.4 g/dL (32.0-36.0); MEAN CORPUSCULAR VOLUME 80.3 fL (80.0-94.0); MEAN PLATELET VOLUME 6.6 fL (7.4-11.4); MONOCYTES # (AUTO) 1.3 10^3/uL (0.0-1.0); MONOCYTES % (AUTO) 8.5 %; NEUTROPHILS # (AUTO) 12.9 10^3/uL (1.5-6.6); NEUTROPHILS % (AUTO) 82.2 %; PLT - PLATELET COUNT 621 10^3/uL (130-450); RED BLOOD COUNT 3.86 10^6/uL (4.70-6.10); RED CELL DISTRIBUTION WIDTH 17.1 % (12.0-15.0); WHITE BLOOD COUNT 15.7 x10^3/uL (4.8-10.8)
[2017-12-29 21:07] LABS: ALBUMIN 2.6 g/dL (3.2-5.5); ALBUMIN/GLOBULIN RATIO 0.6 (1.0-2.2); BILIRUBIN,TOTAL 0.6 mg/dL (0.2-1.0); CALCIUM 8.5 mg/dL (8.5-10.3); CREATININE 0.6 mg/dL (0.6-1.2); TOTAL PROTEIN 7.3 g/dL (6.7-8.2)
[2017-12-29] MEDS ORDERED: IOPAMIDOL-300 100 ML VIAL IVP ONE (21:35)
--- NOTE | 2017-12-29 22:16 | CT Report ---
Procedure Date: 12/29/2017 Accession Number: [id number] / [id number] Procedure: CT - Chest W/ CPT Code: FULL RESULT: EXAM: CT CHEST EXAM DATE: 12/29/2017 09:37 PM. CLINICAL HISTORY: Pleural effusion COMPARISONS: 09/13/2017. TECHNIQUE: Routine helical CT imaging was performed through the chest. IV contrast: 80 cc Isovue 300. Reconstructions: Coronal and sagittal. In accordance with CT protocol optimization, one or more of the following dose reduction techniques were utilized for this exam: automated exposure control, adjustment of mA and/or KV based on patient size, or use of iterative reconstructive technique. FINDINGS: Lungs/Pleura: There is a peripheral enhancing fluid collection measuring 12 x 6 x 10 cm within the left lung base. There is a small free left pleural effusion. This likely represents empyema. Stable juxtapleural nodular densities within the lung apices. No evidence of lobar infiltrate. There is some architectural distortion within the right lung base. There is no pneumothorax. Mediastinum: Heart size is normal. There are no enlarged axillary, supraclavicular, mediastinal, or hilar lymph nodes. Aortic contour is within normal limits. Bones: Unremarkable. Visualized Abdomen: Unremarkable. Other: None. IMPRESSION: 1. There is a peripherally enhancing fluid collection measuring 12 x 6 x 10 cm within the left lung base. This is suspicious for empyema. 2. No evidence of lobar infiltrate. 3. No pneumothorax. RAD[facility]
[2017-12-29] MEDS ORDERED: IPRATROPIUM 0.2 MG/ML NEB INH PRN (23:26)
[2017-12-29] MEDS ORDERED: ONDANSETRON 4 MG/2 ML VIAL IVP PRN (23:26)
[2017-12-29] MEDS ORDERED: ZOLPIDEM 5 MG TABLET PO PRN (23:26)
[2017-12-29] MEDS ORDERED: oxyCODONE 5 MG TABLET PO PRN ×2 (23:26)
[2017-12-29] MEDS ORDERED: ACETAMINOPHEN 325 MG TABLET PO PRN (23:26)
[2017-12-29] MEDS ORDERED: PROCHLORPERAZINE 10 MG/2 ML VIAL IVP PRN (23:26)
[2017-12-29] MEDS ORDERED: PROMETHAZINE 25 MG/1 ML VIAL IM PRN (23:26)
[2017-12-29] MEDS ORDERED: MORPHINE 2 MG/ML SYRINGE IVP PRN (23:26)
--- NOTE | 2017-12-29 23:34 | HISTORY & PHYSICAL EXAMINATION ---
Chief Complaint - Chief Complaint Chief Complaint: Cough History of Present Illness - Admitted From Admitted From:: Emergency Department - History Obtained From Records Reviewed: Yes History obtained from: Patient Exam Limitations: None - History of Present Illness HPI Comment/Other: Patient is a very pleasant 67-year-old gentleman with a past medical history significant for COPD, obstructive sleep apnea on CPAP, hyperlipidemia, chronic deafness, chronic systolic congestive heart failure, atrial fibrillation, tobacco abuse, recurrent pneumonia and history of crack cocaine and heroin abuse who presented to the emergency department with a chief complaint of cough. The patient states that he was diagnosed with pneumonia in August of this year and was hospitalized for 6 days. He states that at that time he was also found to have a pulmonary embolism and was found to have a decreased ejection fraction down to 25%. The patient states that his pneumonia improved but he continued to have very low energy and was very fatigued. He states that since July he has lost 35 pounds. He states that he was again hospitalized at [facility] in September as he was having shortness of breath. At that time he states he was found to have bilateral pleural effusions the pneumonia and CHF exacerbation. The patient was also in atrial fibrillation with a rapid ventricular rate. He states that he was hospitalized there for 3 weeks. He states that he had fluid removed from both of his lungs by a thoracentesis. He states that after that hospitalization he was so weak that he had to be placed at [facility] for physical therapy and rehab. He states that he did undergo a cardiac cath by his presentation designer which showed clean coronary arteries. The patient states that 10 days ago he went to see his presentation designer and was told to stop all of his medications as his ejection fraction had improved back to normal. He states he was told to continue on his Eliquis but he stopped this as well. He states that he continues to have low energy and over the last 2 days he is began to develop chills, cough with sputum production has become mildly short of breath with continued fatigue and generalized weakness. The patient states that given his cough with sputum production that was progressively getting worse over the last day he decided he needed to come to the emergency department. The patient denies any headaches, blurred vision, runny nose, sore throat, nasal congestion, difficulty swallowing, chest pain, orthopnea, PND, increased lower extremity swelling, abdominal pain, nausea, vomiting, diarrhea, constipation, urinary urgency, urinary frequency, dysuria, joint swelling, joint pain, muscle aches, back pain, neck stiffness, fevers, changes in his appetite, hair loss, skin changes, night sweats or any focal neurologic deficits. On presentation to the emergency department the patient was afebrile and mildly hypotensive with a blood pressure of 98/55. Patient's heart rate was within normal limits and he was not in any respiratory distress and saturating 100% on room air. The patient underwent routine lab work which did reveal a leukocytosis of 15.7 and an anemia with a hemoglobin of 10.0 which appears to be chronic. The patient's sodium was low at 130 and alk phos was elevated at 194. The patient underwent a chest x-ray in the emergency department which revealed small left pleural effusion with portions that appeared loculated laterally. Given this finding the patient then underwent a CT of his chest which revealed a peripherally enhancing fluid collection measuring 12 x 6 x 10 cm within the left lung base suspicious for empyema. The emergency room physician spoke with the surgeon concrete products machine operator who saw the patient in the emergency department and attempted to drain the fluid collection. He was able to get his needle to the fluid collection and appeared to drain pus. The surgeon was concerned for possible empyema and felt that a chest tube was needed. He asked for the patient to be transferred for thoracic surgery however all hospitals were full and therefore patient was admitted to [facility] for IV antibiotics and will be reevaluated by surgery in the morning. History - Past Medical History Cardiovascular: reports: Congestive heart failure, High cholesterol, Atrial fibrillation Respiratory: reports: COPD, Pneumonia, Sleep apnea, CPAP use Endocrine/Autoimmune: reports: None GI: reports: None : reports: None HEENT: reports: Chronic hearing loss Psych: reports: None Musculoskeletal: reports: None Derm: reports: Other MRSA Hx?: No - Past Surgical History Ortho: reports: Other - Family & Social History Family History: Father: CAD (Father had heart attack and in his 50s, grandfather had a heart attack and in his 50s, sister had a heart attack in her 50s.), Sister: CAD, Other family: CAD Living arrangement: At home Living Situation: Alone Social History Notes: Patient states he was born in [place] but grew up in [place] with his mom and stepfather. 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 He states recently he has not been able to participate much in painting due to his illness. He states that he has been living on [facility] for the last 8 years. He has never been and does not have any children. The patient smoked cigarettes for 37 years. He states he smoked about a pack a day. He states that he does drink beer occasionally but is not a heavy drinker. He states that for 15 years he used crack cocaine and quit 8 years ago. He also did use heroin in the past. He states that he was also a heavy user of marijuana but has quit using all illicit drugs. - Substance History Use: Uses substance without health or social issues: Tobacco - POLST Patient has POLST: No POLST Status: Full Code Meds/Allgy - Home Medications Home Medications: Ambulatory Orders Medication Instructions Recorded Confirmed Multivitamin [Theragran] 1 tab PO DAILY 08/10/17 09/13/17 Albuterol Sulfate [Proventil Hfa 1 - 2 puffs INH Q4H PRN #1 inhaler 08/15/1706/21 Inhaler] diltiaZEM CD [Cardizem Cd] 480 mg PO DAILY #60 capsule 08/15/17 09/13/17 Apixaban [Eliquis] 5 mg PO BID 09/13/17 09/13/17 Budesonide/Formoterol Fumarate 1 puffs INH BID 09/13/17 09/13/17 [Symbicort 80-4.5 Mcg Inhaler] Metoprolol Succinate [Toprol Xl] 100 mg PO DAILY 09/13/17 09/13/17 Levofloxacin [Levaquin] 500 mg PO DAILY #7 tablet 09/16/17 - Allergies Allergies/Adverse Reactions: Allergies Allergy/AdvReac Type Severity Reaction Status Date / Time No Known Drug Allergies Allergy Verified 09/13/17 12:20 Review of Systems - Other Findings Other Findings: A comprehensive review of systems was performed the pertinent positives and negatives are stated above in the HPI and the remainder of the review of systems is negative. Exam - Vital Signs Reviewed Vital Signs: Yes Vital Signs: Vital Signs x48h Temp Pulse Resp BP Pulse Ox 12/29/17 19:36 37.3 C 12/29/17 19:29 75 17 141/61 H 100 12/29/17 17:37 36.8 C 82 18 98/55 L 100 - Physical Exam General Appearance: positive: No acute distress, Alert, Other (Cachectic appearing) Eyes Bilateral: positive: Normal inspection, PERRL, EOMI, No lid inflammation, Conjunctivae nml, No scleral icterus ENT: positive: ENT inspection nml, Pharynx nml, Dry mucous membranes. negative : Purulent nasal drainage, Pharyngeal erythema, Oral lesions Neck: positive: Nml inspection, Thyroid nml, No JVD, Trachea midline. negative : Thyromegaly, Lymphadenopathy (R), Lymphadenopathy (L), Stiff neck, Carotid bruit, Tracheal deviation Respiratory: positive: Chest non-tender, Rales (Mild rales the left side of the lung), Rhonchi (Diffuse rhonchi on the left and mild rhonchi of the right), Other (Decreased lung sounds at the left base) Cardiovascular: positive: No murmur, No gallop, Irregularly irregular Peripheral Pulses: positive: 2+ Abdomen: positive: Non-tender, No organomegaly, Nml bowel sounds, No distention. negative: Guarding, Rebound, Hepatomegaly Back: positive: Nml inspection. negative: CVA tenderness (R), CVA tenderness (L ) Skin: positive: Color nml, No rash, Warm. negative: Cyanosis, Diaphoresis, Pallor, Skin rash Extremities: positive: Non-tender, Full ROM, Nml appearance, No pedal edema Neurologic/Psychiatric: positive: Oriented x3, CN's nml (2-12), Motor nml, Sensation nml, Mood/affect nml Conclusion/Plan - Problem List (1) Empyema Conclusion/Plan: Patient has a left lateral empyema which was drained partially by surgery in the emergency department. There is still concern that there is more pus in the lung. Surgery is unsure if they can get to the rest of the pus pocket and recommended that the patient be transferred to a facility with thoracic surgery however no facilities with thoracic surgery had beds tonight. Therefore patient will be admitted to the medical [facility] and placed on IV antibiotics. Surgery will reevaluate the patient in the morning and we may need to consider transfer. Plan: IV Zosyn and clindamycin to treat for empyema Drainage from empyema sent for culture and other studies Blood cultures Consider transfer for thoracic surgery and chest tube placement if general surgery unable to perform Monitor (2) HCAP (healthcare-associated pneumonia) Conclusion/Plan: Patient was hospitalized in September less than 3 months ago therefore needs to be treated for healthcare associated pneumonia. Given that the patient has empyema he will be treated with Zosyn and clindamycin. Plan: IV clindamycin and IV Zosyn Drainage of empyema Surgery consult Follow-up cultures from empyema and blood cultures Consider transfer for thoracic surgery (3) COPD exacerbation Conclusion/Plan: Patient presented with cough and shortness of breath. Found to have pneumonia and empyema. Patient does have wheezing on examination. Patient likely has COPD exacerbation secondary to pneumonia. Plan: Duo nebs around the clock and as needed IV antibiotics We will hold off on treating with steroids given empyema Supplemental oxygen as needed Monitor (4) Chronic atrial fibrillation Conclusion/Plan: Patient is a history of chronic atrial fibrillation. The patient is on Eliquis however has stopped taking it about 10 days ago. Patient is also on metoprolol and diltiazem for rate control which she is also stopped taking 10 days ago. Patient's heart rate is controlled and he is in atrial fibrillation. Plan: We will hold off on restarting Eliquis as patient may need further procedures Patient's rate is controlled so we will hold off placing him back on diltiazem and metoprolol for now. (5) Chronic systolic (congestive) heart failure Conclusion/Plan: Patient has a history of chronic systolic heart failure. Patient's ejection fraction on echocardiogram in August 2017 was 30-35%. Patient states that most recent echo his EF was up to 50%. Patient currently does not appear to be in CHF exacerbation. Plan: We will repeat an echocardiogram Patient stopped taking metoprolol 10 days ago we will hold off on restarting metoprolol for now until we have echocardiogram results. (6) KATIE on CPAP Conclusion/Plan: Patient has his history of obstructive sleep apnea is on CPAP at home. Patient will be continued on his home CPAP machine as needed while he is hospitalized. - Lab Results Lab results reviewed: Yes Fish Bones: 12/29/17 20:45 12/29/17 20:45 Other Lab Results: Laboratory Results WBC 15.7 x10^3/uL (4.8-10.8) H 12/29/17 20:45 RBC 3.86 10^6/uL (4.70-6.10) L 12/29/17 20:45 Hgb 10.0 g/dL (14.0-18.0) L 12/29/17 20:45 Hct 30.9 % (42.0-52.0) L 12/29/17 20:45 MCV 80.3 fL (80.0-94.0) 12/29/17 20:45 MCH 26.0 pg (27.0-31.0) L 12/29/17 20:45 MCHC 32.4 g/dL (32.0-36.0) 12/29/17 20:45 RDW 17.1 % (12.0-15.0) H 12/29/17 20:45 Plt Count 621 10^3/uL (130-450) H 12/29/17 20:45 MPV 6.6 fL (7.4-11.4) L 12/29/17 20:45 Neut # (Auto) 12.9 10^3/uL (1.5-6.6) H 12/29/17 20:45 Lymph # (Auto) 1.2 10^3/uL (1.5-3.5) L 12/29/17 20:45 [place] # (Auto) 1.3 10^3/uL (0.0-1.0) H 12/29/17 20:45 Eos # (Auto) 0.2 10^3/uL (0.0-0.7) 12/29/17 20:45 Baso # (Auto) 0.1 10^3/uL (0.0-0.1) 12/29/17 20:45 Absolute Nucleated RBC 0.01 x10^3/uL 12/29/17 20:45 Nucleated RBC % 0.0 /100WBC 12/29/17 20:45 Sodium 132 mmol/L (135-145) L 12/30/17 04:20 Potassium 3.4 mmol/L (3.5-5.0) L 12/30/17 04:20 Chloride 96 mmol/L (101-111) L 12/30/17 04:20 Carbon Dioxide 29 mmol/L (21-32) 12/30/17 04:20 Anion Gap 7.0 (6-13) 12/30/17 04:20 BUN 14 mg/dL (6-20) 12/30/17 04:20 Creatinine 0.7 mg/dL (0.6-1.2) 12/30/17 04:20 Estimated GFR (MDRD) 113 (>89) 12/30/17 04:20 Glucose 137 mg/dL (70-100) H 12/30/17 04:20 Lactic Acid 0.9 mmol/L (0.5-2.2) 12/29/17 20:45 Calcium 8.2 mg/dL (8.5-10.3) L 12/30/17 04:20 Phosphorus 3.2 mg/dL (2.5-4.6) 12/30/17 04:20 Magnesium 2.0 mg/dL (1.7-2.8) 12/30/17 04:20 Total Bilirubin 0.5 mg/dL (0.2-1.0) 12/30/17 04:20 AST 27 IU/L (10-42) 12/30/17 04:20 ALT 27 IU/L (10-60) 12/30/17 04:20 Alkaline Phosphatase 168 IU/L (42-121) H 12/30/17 04:20 Total Protein 6.1 g/dL (6.7-8.2) L 12/30/17 04:20 Albumin 2.3 g/dL (3.2-5.5) L 12/30/17 04:20 Globulin 3.8 g/dL (2.1-4.2) 12/30/17 04:20 Albumin/Globulin Ratio 0.6 (1.0-2.2) L 12/30/17 04:20 Lipase 27 U/L (22-51) 12/29/17 20:45 - Diagnostic Imaging Results Diagnostic Imaging Results: positive: Final report reviewed Diagnostic Imaging Results Comments: EXAM: [id number] XR/CXR2VW ([id number]) Procedure Date: 12/29/2017 Accession Number: [id number] / [id number] Procedure: XR - Chest 2 View X-Ray CPT Code: 29682 FULL RESULT: EXAM: CHEST RADIOGRAPHY EXAM DATE: 12/29/2017 06:03 PM. CLINICAL HISTORY: Cough, h/o pneumonia. COMPARISON: CHEST 2 VIEW 09/13/2017. TECHNIQUE: 2 views. FINDINGS: Lungs/Pleura: Small left pleural effusion, portions appear loculated laterally. This effusion appears mildly decreased from the prior. Biapical scarring. Right lateral pleural thickening appears unchanged. Probable chronic interstitial markings appear unchanged. No pneumothorax. Mild left base consolidation, decreased. Mediastinum: Heart and mediastinal contours are unremarkable. IMPRESSION: Small left pleural effusion, portions appear loculated laterally. This effusion appears mildly decreased from the prior. Biapical scarring. Right lateral pleural thickening appears unchanged. Probable chronic interstitial markings appear unchanged. No pneumothorax. Mild left base consolidation, decreased. EXAM: [id number] CT/CHTW ([id number]) Procedure Date: 12/29/2017 Accession Number: [id number] / [id number] Procedure: CT - Chest W/ CPT Code: FULL RESULT: EXAM: CT CHEST EXAM DATE: 12/29/2017 09:37 PM. CLINICAL HISTORY: Pleural effusion COMPARISONS: 09/13/2017. TECHNIQUE: Routine helical CT imaging was performed through the chest. IV contrast: 80 cc Isovue 300. Reconstructions: Coronal and sagittal. In accordance with CT protocol optimization, one or more of the following dose reduction techniques were utilized for this exam: automated exposure control, adjustment of mA and/or KV based on patient size, or use of iterative reconstructive technique. FINDINGS: Lungs/Pleura: There is a peripheral enhancing fluid collection measuring 12 x 6 x 10 cm within the left lung base. There is a small free left pleural effusion. This likely represents empyema. Stable juxtapleural nodular densities within the lung apices. No evidence of lobar infiltrate. There is some architectural distortion within the right lung base. There is no pneumothorax. Mediastinum: Heart size is normal. There are no enlarged axillary, supraclavicular, mediastinal, or hilar lymph nodes. Aortic contour is within normal limits. Bones: Unremarkable. Visualized Abdomen: Unremarkable. Other: None. IMPRESSION: 1. There is a peripherally enhancing fluid collection measuring 12 x 6 x 10 cm within the left lung base. This is suspicious for empyema. 2. No evidence of lobar infiltrate. 3. No pneumothorax. EXAM: [id number] XR/CXR1VW ([id number]) Procedure Date: 12/30/2017 Accession Number: [id number] / [id number] Procedure: XR - Chest 1 View X-Ray CPT Code: 31060 FULL RESULT: EXAM: CHEST RADIOGRAPHY EXAM DATE: 12/30/2017 12:55 AM. CLINICAL HISTORY: Status post drainage of empyema. COMPARISON: CHEST 2 VIEW 12/29/2017 CHEST W/ 12/29/2017. TECHNIQUE: 1 view. FINDINGS: Lungs/Pleura: Slight decrease in the loculated left pleural effusion post drainage. No gross pneumothorax seen. Emphysematous lungs with scarring. Mediastinum: Within exam limitations, the cardiomediastinal contour is normal. Other: None. IMPRESSION: 1. Slight decrease in the loculated left pleural effusion post drainage. No gross pneumothorax seen. 2. Emphysematous lungs with scarring. - EKG Results EKG Interpreted Independently: No Core Measures - Anticipated LOS I expect patient to be DC'd or transferred within 96 hours.: Yes - DVT/VTE - Prophylaxis VTE/DVT Device ordered at admit?: Yes
[2017-12-29] MEDS ORDERED: CLINDAMYCIN 900 MG/50 ML 50 ML IV SCH (23:45)
[2017-12-29] MEDS ORDERED: IPRATROPIUM/ALBUTEROL 3 ML NEB INH SCH (23:45)
[2017-12-30] MEDS ORDERED: PIPERACILLIN/TAZOBACTAM 4.5 GM in SODIUM CHLORIDE 0.9% MINIBAG 100 ML IV SCH ×2
--- NOTE | 2017-12-30 01:32 | XRAY Report ---
Procedure Date: 12/30/2017 Accession Number: [id number] / [id number] Procedure: XR - Chest 1 View X-Ray CPT Code: 47780 FULL RESULT: EXAM: CHEST RADIOGRAPHY EXAM DATE: 12/30/2017 12:55 AM. CLINICAL HISTORY: Status post drainage of empyema. COMPARISON: CHEST 2 VIEW 12/29/2017 CHEST W/ 12/29/2017. TECHNIQUE: 1 view. FINDINGS: Lungs/Pleura: Slight decrease in the loculated left pleural effusion post drainage. No gross pneumothorax seen. Emphysematous lungs with scarring. Mediastinum: Within exam limitations, the cardiomediastinal contour is normal. Other: None. IMPRESSION: 1. Slight decrease in the loculated left pleural effusion post drainage. No gross pneumothorax seen. 2. Emphysematous lungs with scarring. RADIA
[2017-12-30] MEDS ORDERED: CLINDAMYCIN 900 MG/50 ML 50 ML IV ONE (02:50)
[2017-12-30] MEDS ORDERED: PANTOPRAZOLE 40 MG VIAL ONE (02:51)
[2017-12-30] MEDS ORDERED: SODIUM CHLORIDE FLUSH 0.9% 10 ML SYRINGE ONE ×3 (02:52→18:03)
[2017-12-30] MEDS: SODIUM CHLORIDE FLUSH 0.9% 10 ML SYRINGE IVP SCH ×3 (04:14→17:57)
[2017-12-30 04:47] LABS: ALBUMIN 2.3 g/dL (3.2-5.5); ALBUMIN/GLOBULIN RATIO 0.6 (1.0-2.2); BILIRUBIN,TOTAL 0.5 mg/dL (0.2-1.0); CALCIUM 8.2 mg/dL (8.5-10.3); CREATININE 0.7 mg/dL (0.6-1.2); PHOSPHORUS 3.2 mg/dL (2.5-4.6); TOTAL PROTEIN 6.1 g/dL (6.7-8.2)
[2017-12-30 04:55] LABS: BASOPHILS # (AUTO) 0.1 10^3/uL (0.0-0.1); BASOPHILS % (AUTO) 0.3 %; EOSINOPHILS # (AUTO) 0.2 10^3/uL (0.0-0.7); EOSINOPHILS % (AUTO) 0.9 %; HGB - HEMOGLOBIN 9.2 g/dL (14.0-18.0); LYMPHOCYTES # (AUTO) 1.1 10^3/uL (1.5-3.5); LYMPHOCYTES % (AUTO) 6.6 %; MEAN CORPUSCULAR HEMOGLOBIN 28.1 pg (27.0-31.0); MEAN CORPUSCULAR VOLUME 80.3 fL (80.0-94.0); MEAN PLATELET VOLUME 7.4 fL (7.4-11.4); MONOCYTES # (AUTO) 1.3 10^3/uL (0.0-1.0); MONOCYTES % (AUTO) 7.3 %; NEUTROPHILS # (AUTO) 14.6 10^3/uL (1.5-6.6); NEUTROPHILS % (AUTO) 84.9 %; PLT - PLATELET COUNT 566 10^3/uL (130-450); RED BLOOD COUNT 3.28 10^6/uL (4.70-6.10); RED CELL DISTRIBUTION WIDTH 17.4 % (12.0-15.0); WHITE BLOOD COUNT 17.2 x10^3/uL (4.8-10.8)
[2017-12-30] MEDS ORDERED: POTASSIUM CHLORIDE 20 MEQ TABLET PO ONE ×2 (05:04→08:18)
[2017-12-30 05:17] LABS: PT - PROTHROMBIN TIME 21.5 secs (9.9-12.6)
[2017-12-30] MEDS: SODIUM CHLORIDE 0.9% 1,000 ML IV SCH ×2 (06:06→17:55)
[2017-12-30] MEDS ORDERED: SODIUM CHLORIDE 0.9% 1,000 ML IV ONE (06:12)
[2017-12-30] MEDS: PANTOPRAZOLE 40 MG VIAL IVP SCH (06:27)
--- NOTE | 2017-12-30 07:57 | PROCEDURE REPORT ---
DATE OF SERVICE: 12/30/2017 Physician: Joel Guerrero MD PREOPERATIVE DIAGNOSIS: Left pleural effusion. POSTOPERATIVE DIAGNOSIS: Left empyema. PROCEDURE: Left thoracentesis. DESCRIPTION OF PROCEDURE: After informed consent was obtained, the patient's left chest was examined with ultrasound. The fluid collection was then localized on ultrasound and the area marked on the skin. This was low posteriorly. I carefully made sure where the spleen was located in order to avoid any injury to intra-abdominal structures. The back area was then prepped and draped in usual sterile fashion. The skin where I had marked was injected with local anesthesia. A small incision was then made in the skin. The thoracentesis needle and catheter was then inserted through this incision over the rib and into the fluid collection. There was aspiration of purulent fluid. The catheter was then advanced into the chest and hooked to the collecting bottle. Approximately 75 mL of purulent fluid was then aspirated. The catheter was then withdrawn. A Band-Aid was then placed upon the incision site. Stat chest x-ray was ordered. No immediate complications. TD: 12/30/2017 07:11
[2017-12-30] MEDS ORDERED: IPRATROPIUM 0.2 MG/ML NEB INH PRN (08:10)
[2017-12-30] MEDS ORDERED: SODIUM CHLORIDE 0.9% 500 ML IV ONE (08:17)
[2017-12-30] MEDS ORDERED: diltiaZEM CD 120 MG CAPSULE PO ONE (08:20)
[2017-12-30] MEDS: IPRATROPIUM/ALBUTEROL 3 ML NEB INH SCH ×4 (08:38→21:38)
[2017-12-30] MEDS ORDERED: diltiaZEM CD 240 MG CAPSULE PO SCH (09:00)
[2017-12-30] MEDS ORDERED: METOPROLOL SUCCINATE 50 MG TABLET PO SCH (09:00)
[2017-12-30] MEDS ORDERED: MULTIVITAMIN TABLET PO SCH (09:00)
--- NOTE | 2017-12-30 09:31 | CONSULTATION NOTE ---
DATE OF SERVICE: 12/29/2017 Physician: Joel Guerrero MD REFERRING PHYSICIAN: Dr. Colvin, Emergency Room. REASON FOR REFERRAL: Left chest fluid. HISTORY OF PRESENT ILLNESS: The patient is a 67-year-old male with a very complicated medical history. He has history of COPD, sleep apnea on CPAP, congestive heart failure, atrial fibrillation, tobacco abuse and drug abuse. He was seen in the hospital in the recent past having a pulmonary embolism. He was then transferred to another facility due to his atrial fibrillation. He underwent a cardiac catheterization, in which the patient states that he had no significant coronary artery disease. He had bilateral pleural effusions and underwent thoracentesis. He was then discharged. He has been having cough and increased sputum production recently, and therefore came to the emergency room to be evaluated. PAST MEDICAL HISTORY 1. Congestive heart failure. 2. Hypercholesterolemia. 3. Atrial fibrillation. 4. COPD. 5. Sleep apnea. 6. Pulmonary embolism. 7. Chronic substance abuse. FAMILY HISTORY: Coronary artery disease. SOCIAL HISTORY: Patient lives alone. HABITS: Patient occasionally uses alcohol, has been a smoker, and used illicit drugs in the past. MEDICATIONS Patient states that he has stopped all of his medications, but in the recent past, he has been on: 1. Levaquin. 2. Toprol. 3. Symbicort. 4. Eliquis. 5. Cardizem. 6. Proventil. ALLERGIES TO MEDICATIONS: NONE. REVIEW OF SYSTEMS PULMONARY: Cough and mild shortness of breath. A 12-point review of systems was obtained, with pertinent positives discussed and all others being negative. PHYSICAL EXAMINATION VITAL SIGNS: Temperature 36.8, pulse 82, respiration 18, blood pressure is 141/ 61. GENERAL: The patient is lying in bed. He is cooperative and hard of hearing. HEENT: Hard of hearing. Eyes nonicteric. NECK: No lymphadenopathy. HEART: Irregular. LUNGS: Diminished, especially on the left side. ABDOMEN: Soft, nontender. EXTREMITIES: No edema or cyanosis. NEUROLOGICAL: Patient appears to be neurologically intact, other than decreased hearing. PSYCHOLOGICAL: Patient is coherent, cooperative, and appears to answer questions fully. DIAGNOSTIC DATA Patient has a chest x-ray and CT scan which show a fluid collection in the left chest, of unknown etiology. White blood cell count of 16, hemoglobin of 10. INR of 2. ASSESSMENT 1. Left chest fluid collection: It is unknown whether this is a pleural effusion versus empyema. He has had recent aspirations in the past without showing any infection. He does have elevated white blood cell count. I have recommended he undergo thoracentesis to identify the type of fluid collection, and then, based on this, make further recommendations. The risks and possible complications of left thoracentesis have been explained to the patient. He accepts the risks and would like to proceed with the procedure. 2. Elevated INR: This is unknown, but could be due to Eliquis. He stated he has stopped his Eliquis more than 5 days ago. I would recommend repeating this. If he has any further procedures, other than the thoracentesis, then this would need to be corrected. 3. History of pulmonary embolism: Has been on Eliquis in the past, but states that he has stopped it. 4. Anemia of unknown etiology: He would need to undergo upper and lower endoscopy at some point in order to try and identify why he is anemic. This could be chronic disease, however. I would also recommend checking his stool for any occult blood. PLAN 1. Left chest thoracentesis. 2. Check stool for occult blood. 3. Correction of his INR, if further intervention is needed. TD: 12/30/2017 07:41 MYLENE
[2017-12-30] MEDS: SACCHAROMYCES BOULARDII 250 MG CAPSULE PO SCH ×2 (09:42→17:47)
[2017-12-30] MEDS: PIPERACILLIN/TAZOBACTAM 4.5 GM in SODIUM CHLORIDE 0.9% MINIBAG 100 ML IV SCH ×2 (09:57→16:20)
[2017-12-30] MEDS: CLINDAMYCIN 900 MG/50 ML 50 ML IV SCH ×2 (11:36→18:48)
[2017-12-30 12:08] LABS: INR 1.7 (0.8-1.2); PT - PROTHROMBIN TIME 19.3 secs (9.9-12.6)
[2017-12-30] MEDS: MULTIVITAMIN TABLET PO SCH (12:23)
[2017-12-30 13:53] LABS: INR 1.8 (0.8-1.2); PT - PROTHROMBIN TIME 19.4 secs (9.9-12.6)
[2017-12-30] MEDS ORDERED: BUPIVACAINE 0.5%-EPI 1:200000 PF 10 ML VIAL ONE (15:29)
[2017-12-30 16:32] LABS: INR 1.8 (0.8-1.2); PT - PROTHROMBIN TIME 19.5 secs (9.9-12.6)
--- NOTE | 2017-12-30 18:36 | PROVIDER PROGRESS NOTE ---
Subjective - Prog Note Date Prog Note Date: 12/30/17 - Subjective Pt reports feeling: Improved Subjective: pt report he feel better, breathing is better, no fever, chill, CP. Dr. Eliud Guerrero state he will try to drainage pt's emphyema on today afternoon, and request FFP to pt to reduce PT/INR to prevent bleeding. Pt report he did not take his metoprolol and cardizem at home for long time per his manager [employer] to tell him, and decline to take these meds. Current Medications - Current Medications Current Medications: Active Medications Generic Name Dose Route Start Last Admin Trade Name Freq PRN Reason Stop Dose Admin Acetaminophen 650 mg 12/29/17 23:26 Tylenol PO Q4HR PRN Pain 1 to 4 Albuterol/Ipratropium 3 ml 12/30/17 11:00 12/30/17 17:05 Duoneb INH 3 ml RTQID DEBORAH Administration Sodium Chloride 1,000 mls @ 100 mls/hr 12/29/17 23:45 12/30/17 17:55 Normal Saline 0.9% IV 12/30/17 19:44 100 mls/hr .Q10H DEBORAH Administration Piperacillin Sod/Tazobactam 100 mls @ 100 mls/hr 12/30/17 04:09 12/30/17 17: 25 Sod 4.5 gm/ Sodium Chloride IV Infused 0400,1000,1600,2200 DEBORAH Infusion Clindamycin Phosphate 50 mls @ 50 mls/hr 12/30/17 04:11 12/30/17 12:35 Cleocin 900 Mg/50 Ml IV Infused 0300,1100,1900 DEBORAH Infusion Ipratropium [place] 0.5 mg 12/30/17 08:10 Atrovent INH Q6HR PRN Wheezing Morphine Sulfate 2 mg 12/29/17 23:26 Morphine IVP Q2H PRN Pain 8 to 10 Multivitamins 1 tab 12/30/17 09:00 12/30/17 12:23 Theragran PO 1 tab DAILY DEBORAH Administration Ondansetron HCl 4 mg 12/29/17 23:26 Zofran Inj IVP Q6HR PRN Nausea / Vomiting Oxycodone HCl 5 mg 12/29/17 23:26 Roxicodone PO Q4HR PRN Pain 5 to 7 Oxycodone HCl 10 mg 12/29/17 23:26 Roxicodone PO Q4HR PRN Pain 8 to 10 Pantoprazole Sodium 40 mg 12/30/17 07:00 12/30/17 06:27 Protonix IVP Not Given QDAC DEBORAH Prochlorperazine Edisylate 10 mg 12/29/17 23:26 Compazine Inj IVP Q6HR PRN Nausea / Vomiting Promethazine HCl 25 mg 12/29/17 23:26 Phenergan Inj IM Q6HR PRN Nausea / Vomiting Saccharomyces Boulardii 250 mg 12/30/17 08:00 12/30/17 17:47 Florastor PO Not Given BIDWM DEBORAH Sodium Chloride 10 ml 12/30/17 01:00 12/30/17 17:57 Normal Saline Flush 0.9% IVP Not Given 0100,0900,1700 DEBORAH Sodium Chloride 10 ml 12/29/17 23:26 Normal Saline Flush 0.9% IVP PRN PRN NEEDED PER PROVIDER ORDERS Zolpidem Tartrate 5 mg 12/29/17 23:26 Ambien PO QPM PRN Insomnia Multivitamin [Theragran] 1 tab PO DAILY 08/10/17 Apixaban [Eliquis] 5 mg PO BID 09/13/17 Albuterol Sulfate [Proventil Hfa Inhaler] 1 - 2 puffs INH Q4H PRN 12/30/17 Amiodarone HCl 200 mg PO DAILY 12/30/17 Digoxin 250 mcg PO DAILY 12/30/17 Furosemide 10 mg PO DAILY 12/30/17 Potassium Chloride 10 meq PO DAILY 12/30/17 Objective - Vital Signs/Intake & Output Reviewed Vital Signs: Yes Vital Signs: Vital Signs x48h Temp Pulse Pulse Resp BP BP Pulse Ox 12/30/17 17:05 70 14 12/30/17 17:00 71 21 100/60 12/30/17 14:30 36.6 C 68 15 106/60 12/30/17 14:15 36.7 C 69 18 99/68 12/30/17 14:00 70 15 99/68 100 12/30/17 13:00 37.1 C 62 12 97/66 12/30/17 12:57 64 14 12/30/17 12:46 73 16 115/61 100 12/30/17 12:45 36.4 C L 62 19 115/61 12/30/17 11:45 36.9 C 62 16 102/54 L 12/30/17 11:30 36.4 C L 68 14 136/83 H 12/30/17 11:14 36.4 C L 68 17 110/64 12/30/17 11:00 36.4 C L 71 16 110/64 100 12/30/17 10:55 36.4 C L 69 16 110/64 12/30/17 10:45 36.6 C 68 17 101/52 L Intake & Output: Intake & Output 12/27/17 12/28/17 12/29/17 12/30/17 23:59 23:59 23:59 23:59 Intake Total 5157 Output Total 1425 Balance 3732 - Objective General Appearance: positive: No acute distress, Alert. negative: Lethargic Eyes Bilateral: positive: Normal inspection, PERRL, No lid inflammation, Conjunctivae nml ENT: positive: ENT inspection nml, Pharynx nml, No signs of dehydration. negative: Oral lesions, Dry mucous membranes Neck: positive: Nml inspection, Thyroid nml, No JVD, Trachea midline. negative : Thyromegaly, Lymphadenopathy (R), Lymphadenopathy (L), Stiff neck, Swelling/ bruising, Tracheal deviation Respiratory: positive: Chest non-tender, No respiratory distress, Rales, Rhonchi. negative: Wheezes Cardiovascular: positive: Regular rate & rhythm, No murmur, No gallop. negative : Irregularly irregular, Extrasystoles, Tachycardia, Bradycardia, JVD present, Systolic murmur, Diastolic murmur Peripheral Pulses: 2+ Radial (R), 2+ Radial (L), 2+ Dorsalis pedis (R), 2+ Dorsalis pedis (L) Abdomen: positive: Non-tender, No organomegaly, Nml bowel sounds, No distention. negative: Tenderness, Guarding, Rebound Back: positive: Nml inspection. negative: CVA tenderness (R), CVA tenderness (L ) Skin: positive: Color nml, No rash, Warm, Dry. negative: Cyanosis, Diaphoresis , Pallor Extremities: positive: Non-tender, Full ROM, Nml appearance. negative: Calf tenderness, Joint swelling, Dolly's sign/cords Neurologic/Psychiatric: positive: Oriented x3, Motor nml, Sensation nml. negative: Weakness, Sensory loss, Facial droop, Slurred/abnml speech, Depressed mood/affect - Lab Results Fish Bones: 12/30/17 04:20 12/30/17 04:20 Other Labs: Lab Results x24hrs 12/30/17 12/30/17 12/30/17 Range/Units 16:34 16:21 13:42 WBC (4.8-10.8) x10^3/uL RBC (4.70-6.10) 10^6/uL Hgb (14.0-18.0) g/dL Hct (42.0-52.0) % MCV (80.0-94.0) fL MCH (27.0-31.0) pg MCHC (32.0-36.0) g/dL RDW (12.0-15.0) % Plt Count (130-450) 10^3/uL MPV (7.4-11.4) fL Neut # (Auto) (1.5-6.6) 10^3/uL Lymph # (Auto) (1.5-3.5) 10^3/uL [place] # (Auto) (0.0-1.0) 10^3/uL Eos # (Auto) (0.0-0.7) 10^3/uL Baso # (Auto) (0.0-0.1) 10^3/uL Absolute Nucleated RBC x10^3/uL Nucleated RBC % /100WBC PT 19.5 H 19.4 H (9.9-12.6) secs INR 1.8 H 1.8 H (0.8-1.2) Sodium (135-145) mmol/L Potassium (3.5-5.0) mmol/L Chloride (101-111) mmol/L Carbon Dioxide (21-32) mmol/L Anion Gap (6-13) BUN (6-20) mg/dL Creatinine (0.6-1.2) mg/dL Estimated GFR (MDRD) (>89) Glucose (70-100) mg/dL POC Whole Bld Glucose 139 H (70 - 100) mg/dL Calcium (8.5-10.3) mg/dL Phosphorus (2.5-4.6) mg/dL Magnesium (1.7-2.8) mg/dL Total Bilirubin (0.2-1.0) mg/dL AST (10-42) IU/L ALT (10-60) IU/L Alkaline Phosphatase (42-121) IU/L Total Protein (6.7-8.2) g/dL Albumin (3.2-5.5) g/dL Globulin (2.1-4.2) g/dL Albumin/Globulin Ratio (1.0-2.2) Blood Type Blood Type Recheck Antibody Screen 12/30/17 12/30/17 12/30/17 Range/Units 11:50 09:00 05:00 WBC (4.8-10.8) x10^3/uL RBC (4.70-6.10) 10^6/uL Hgb (14.0-18.0) g/dL Hct (42.0-52.0) % MCV (80.0-94.0) fL MCH (27.0-31.0) pg MCHC (32.0-36.0) g/dL RDW (12.0-15.0) % Plt Count (130-450) 10^3/uL MPV (7.4-11.4) fL Neut # (Auto) (1.5-6.6) 10^3/uL Lymph # (Auto) (1.5-3.5) 10^3/uL [place] # (Auto) (0.0-1.0) 10^3/uL Eos # (Auto) (0.0-0.7) 10^3/uL Baso # (Auto) (0.0-0.1) 10^3/uL Absolute Nucleated RBC x10^3/uL Nucleated RBC % /100WBC PT 19.3 H (9.9-12.6) secs INR 1.7 H (0.8-1.2) Sodium (135-145) mmol/L Potassium (3.5-5.0) mmol/L Chloride (101-111) mmol/L Carbon Dioxide (21-32) mmol/L Anion Gap (6-13) BUN (6-20) mg/dL Creatinine (0.6-1.2) mg/dL Estimated GFR (MDRD) (>89) Glucose (70-100) mg/dL POC Whole Bld Glucose (70 - 100) mg/dL Calcium (8.5-10.3) mg/dL Phosphorus (2.5-4.6) mg/dL Magnesium (1.7-2.8) mg/dL Total Bilirubin (0.2-1.0) mg/dL AST (10-42) IU/L ALT (10-60) IU/L Alkaline Phosphatase (42-121) IU/L Total Protein (6.7-8.2) g/dL Albumin (3.2-5.5) g/dL Globulin (2.1-4.2) g/dL Albumin/Globulin Ratio (1.0-2.2) Blood Type O POSITIVE Blood Type Recheck O POSITIVE Antibody Screen NEGATIVE 12/30/17 12/30/17 12/30/17 Range/Units 04:20 04:20 04:20 WBC 17.2 H (4.8-10.8) x10^3/uL RBC 3.28 L (4.70-6.10) 10^6/uL Hgb 9.2 L (14.0-18.0) g/dL Hct 26.3 L (42.0-52.0) % MCV 80.3 (80.0-94.0) fL MCH 28.1 (27.0-31.0) pg MCHC 35.0 (32.0-36.0) g/dL RDW 17.4 H (12.0-15.0) % Plt Count 566 H (130-450) 10^3/uL MPV 7.4 (7.4-11.4) fL Neut # (Auto) 14.6 H (1.5-6.6) 10^3/uL Lymph # (Auto) 1.1 L (1.5-3.5) 10^3/uL [place] # (Auto) 1.3 H (0.0-1.0) 10^3/uL Eos # (Auto) 0.2 (0.0-0.7) 10^3/uL Baso # (Auto) 0.1 (0.0-0.1) 10^3/uL Absolute Nucleated RBC 0.00 x10^3/uL Nucleated RBC % 0.0 /100WBC PT 21.5 H (9.9-12.6) secs INR 2.0 H (0.8-1.2) Sodium 132 L (135-145) mmol/L Potassium 3.4 L (3.5-5.0) mmol/L Chloride 96 L (101-111) mmol/L Carbon Dioxide 29 (21-32) mmol/L Anion Gap 7.0 (6-13) BUN 14 (6-20) mg/dL Creatinine 0.7 (0.6-1.2) mg/dL Estimated GFR (MDRD) 113 (>89) Glucose 137 H (70-100) mg/dL POC Whole Bld Glucose (70 - 100) mg/dL Calcium 8.2 L (8.5-10.3) mg/dL Phosphorus 3.2 (2.5-4.6) mg/dL Magnesium 2.0 (1.7-2.8) mg/dL Total Bilirubin 0.5 (0.2-1.0) mg/dL AST 27 (10-42) IU/L ALT 27 (10-60) IU/L Alkaline Phosphatase 168 H (42-121) IU/L Total Protein 6.1 L (6.7-8.2) g/dL Albumin 2.3 L (3.2-5.5) g/dL Globulin 3.8 (2.1-4.2) g/dL Albumin/Globulin Ratio 0.6 L (1.0-2.2) Blood Type Blood Type Recheck Antibody Screen ABX Reporting Has patient been on IV antibiotics over the past 48 hours?: Yes Assessment/Plan - Problem List (1) Empyema Impression: Conclusion/Plan: follow up surgeon, Dr. Guerrero will drainage of empyema and request FFP. pt's INR is 2.0 today continue Zosyn and clindamycin to treat for empyema follow up blood culture and drainage fluid culture Patient has a left lateral empyema which was drained partially by surgery in the emergency department. There is still concern that there is more pus in the lung. Surgery is unsure if they can get to the rest of the pus pocket and recommended that the patient be transferred to a facility with thoracic surgery however no facilities with thoracic surgery had beds tonight. Therefore patient will be admitted to the medical [facility] and placed on IV antibiotics. Surgery will reevaluate the patient in the morning and we may need to consider transfer. Plan: IV Zosyn and clindamycin to treat for empyema Drainage from empyema sent for culture and other studies Blood cultures Consider transfer for thoracic surgery and chest tube placement if general surgery unable to perform Monitor (2) HCAP (healthcare-associated pneumonia) Conclusion/Plan: continue to treat with IV clindamycin and IV Zosyn daily lab monitor, vital monitor Follow-up cultures from empyema and blood cultures Patient was hospitalized in September less than 3 months ago therefore needs to be treated for healthcare associated pneumonia. Given that the patient has empyema he will be treated with Zosyn and clindamycin. Plan: IV clindamycin and IV Zosyn Drainage of empyema Surgery consult Follow-up cultures from empyema and blood cultures Consider transfer for thoracic surgery (3) COPD exacerbation Conclusion/Plan: pt has 100% sats on room air continue breath treatment as needed Patient presented with cough and shortness of breath. Found to have pneumonia and empyema. Patient does have wheezing on examination. Patient likely has COPD exacerbation secondary to pneumonia. Plan: Duo nebs around the clock and as needed IV antibiotics We will hold off on treating with steroids given empyema Supplemental oxygen as needed Monitor (4) Chronic atrial fibrillation Conclusion/Plan: will restart Eliquis after procedure Patient is a history of chronic atrial fibrillation. The patient is on Eliquis however has stopped taking it about 10 days ago. Patient is also on metoprolol and diltiazem for rate control which she is also stopped taking 10 days ago. Patient's heart rate is controlled and he is in atrial fibrillation. Plan: We will hold off on restarting Eliquis as patient may need further procedures Patient's rate is controlled so we will hold off placing him back on diltiazem and metoprolol for now. (5) Chronic systolic (congestive) heart failure Conclusion/Plan: EF is 45-50%. pt refuse to take his home meds. pt state his manager [employer] sales told him, he does not need his home meds except Eliquis Patient has a history of chronic systolic heart failure. Patient's ejection fraction on echocardiogram in August 2017 was 30-35%. Patient states that most recent echo his EF was up to 50%. Patient currently does not appear to be in CHF exacerbation. Plan: We will repeat an echocardiogram Patient stopped taking metoprolol 10 days ago we will hold off on restarting metoprolol for now until we have echocardiogram results. (6) KATIE on CPAP Conclusion/Plan: Patient has his history of obstructive sleep apnea is on CPAP at home. Patient will be continued on his home CPAP machine as needed while he is hospitalized.
[2017-12-31] MEDS: PIPERACILLIN/TAZOBACTAM 4.5 GM in SODIUM CHLORIDE 0.9% MINIBAG 100 ML IV SCH ×5 (05:04→21:40)
[2017-12-31] MEDS: CLINDAMYCIN 900 MG/50 ML 50 ML IV SCH ×3 (05:05→19:05)
[2017-12-31 05:26] LABS: BASOPHILS % (AUTO) 0.4 %; EOSINOPHILS # (AUTO) 0.2 10^3/uL (0.0-0.7); EOSINOPHILS % (AUTO) 1.6 %; HGB - HEMOGLOBIN 8.8 g/dL (14.0-18.0); LYMPHOCYTES % (AUTO) 8.8 %; MEAN CORPUSCULAR HEMOGLOBIN 25.9 pg (27.0-31.0); MEAN PLATELET VOLUME 7.2 fL (7.4-11.4); MONOCYTES # (AUTO) 0.9 10^3/uL (0.0-1.0); NEUTROPHILS # (AUTO) 9.1 10^3/uL (1.5-6.6); NEUTROPHILS % (AUTO) 81.2 %; PLT - PLATELET COUNT 532 10^3/uL (130-450); RED BLOOD COUNT 3.39 10^6/uL (4.70-6.10); RED CELL DISTRIBUTION WIDTH 16.8 % (12.0-15.0); WHITE BLOOD COUNT 11.2 x10^3/uL (4.8-10.8)
[2017-12-31 05:27] LABS: ALBUMIN 2.4 g/dL (3.2-5.5); ALBUMIN/GLOBULIN RATIO 0.6 (1.0-2.2); BILIRUBIN,TOTAL 0.4 mg/dL (0.2-1.0); CALCIUM 8.4 mg/dL (8.5-10.3); CREATININE 0.6 mg/dL (0.6-1.2); PHOSPHORUS 3.6 mg/dL (2.5-4.6); TOTAL PROTEIN 6.3 g/dL (6.7-8.2)
[2017-12-31] MEDS: SODIUM CHLORIDE FLUSH 0.9% 10 ML SYRINGE IVP SCH ×3 (05:39→17:46)
[2017-12-31 05:52] LABS: HB2 TOTAL 9.3 g/dL; HEMOGLOBIN A1C 0.36 g/dL; HEMOGLOBIN A1C % 5.7 % (4.6-6.2)
[2017-12-31] MEDS: PANTOPRAZOLE 40 MG VIAL IVP SCH (08:26)
[2017-12-31] MEDS: SODIUM CHLORIDE FLUSH 0.9% 10 ML SYRINGE IVP PRN (08:27)
[2017-12-31] MEDS: SACCHAROMYCES BOULARDII 250 MG CAPSULE PO SCH ×3 (08:34→21:46)
[2017-12-31] MEDS ORDERED: D5.45NS W/20 MEQ KCL 1,000 ML IV SCH (09:00)
[2017-12-31] MEDS ORDERED: BUPIVACAINE 0.5%-EPI 1:200000 PF 30 ML VIAL ONE (09:10)
[2017-12-31 09:41] LABS: INR 1.7 (0.8-1.2); PT - PROTHROMBIN TIME 18.4 secs (9.9-12.6)
[2017-12-31] MEDS: FERROUS SULFATE 325 MG TABLET PO SCH (11:01)
[2017-12-31] MEDS: MULTIVITAMIN TABLET PO SCH (11:01)
[2017-12-31] MEDS ORDERED: LACTATED RINGERS 1,000 ML IV ONE (11:18)
[2017-12-31] MEDS ORDERED: MIDAZOLAM 2 MG/2 ML VIAL IVP ONE (11:30)
[2017-12-31] MEDS ORDERED: fentaNYL 100 MCG/2 ML VIAL IVP ONE (11:30)
[2017-12-31] MEDS ORDERED: PROPOFOL 200 MG/20 ML VIAL IVP ONE (11:30)
[2017-12-31] MEDS ORDERED: BUPIVACAINE 0.5%-EPI 1:200000 PF 30 ML VIAL SUBQ ONE (11:39)
--- NOTE | 2017-12-31 12:09 | XRAY Report ---
Procedure Date: 12/31/2017 Accession Number: [id number] / [id number] Procedure: XR - Chest 1 View X-Ray CPT Code: 89413 FULL RESULT: EXAM: Chest 1 View X-Ray DATE: 12/31/2017 12:01 PM CLINICAL HISTORY: OR COMPARISON: 12/30/2017, CT 12/29/2017 TECHNIQUE: Single view of the chest. FINDINGS: Lungs/Pleura: Left basilar consolidation. Decrease in left effusion. No pneumothorax. Mediastinum: Cardiomegaly. Other: None. IMPRESSION: Decreasing left effusion. Left basilar consolidation. Stable cardiomegaly. RADIA
[2017-12-31] MEDS ORDERED: SODIUM CHLORIDE FLUSH 0.9% 10 ML SYRINGE ONE (12:35)
--- NOTE | 2017-12-31 14:43 | PROVIDER PROGRESS NOTE ---
Subjective - Prog Note Date Prog Note Date: 12/31/17 - Subjective Pt reports feeling: Improved Subjective: pt state he feel better, breath has no problem. Dr. Eliud Guerrero state he troed to drainage by chest tube but did not come out more pus. He recommend pt may have CT on tomorrow, then follow up. Current Medications - Current Medications Current Medications: Active Medications Acetaminophen (Tylenol) 650 mg PO Q4HR PRN PRN Reason: Pain 1 to 4 Albuterol/Ipratropium (Duoneb) 3 ml INH RTQID [facility] Last Admin: 12/31/17 15:00 Dose: 3 ml Apixaban (Eliquis) 5 mg PO BID [facility] Ferrous Sulfate (Feosol) 325 mg PO DAILYWM [facility] Last Admin: 12/31/17 11:01 Dose: Not Given Piperacillin Sod/Tazobactam (Sod 4.5 gm/ Sodium Chloride) 100 mls @ 100 mls/hr IV 0400,1000,1600,2200 [facility] Last Infusion: 12/31/17 12:21 Dose: Infused Clindamycin Phosphate (Cleocin 900 Mg/50 Ml) 50 mls @ 50 mls/hr IV 0300,1100, 1900 [facility] Last Infusion: 12/31/17 13:24 Dose: Infused Potassium Chloride/Dextrose/Sod Cl (D5.45ns W/20 Meq Kcl) 1,000 mls @ 85 mls/ hr IV .[id number] [facility] Last Infusion: 12/31/17 15:31 Dose: 85 mls/hr Ipratropium [place] (Atrovent) 0.5 mg INH Q6HR PRN PRN Reason: Wheezing Morphine Sulfate (Morphine) 2 mg IVP Q2H PRN PRN Reason: Pain 8 to 10 Multivitamins (Theragran) 1 tab PO DAILY [facility] Last Admin: 12/31/17 11:01 Dose: Not Given Ondansetron HCl (Zofran Inj) 4 mg IVP Q6HR PRN PRN Reason: Nausea / Vomiting Oxycodone HCl (Roxicodone) 5 mg PO Q4HR PRN PRN Reason: Pain 5 to 7 Oxycodone HCl (Roxicodone) 10 mg PO Q4HR PRN PRN Reason: Pain 8 to 10 Pantoprazole Sodium (Protonix) 40 mg IVP QDAC [facility] Last Admin: 12/31/17 08:26 Dose: 40 mg Prochlorperazine Edisylate (Compazine Inj) 10 mg IVP Q6HR PRN PRN Reason: Nausea / Vomiting Promethazine HCl (Phenergan Inj) 25 mg IM Q6HR PRN PRN Reason: Nausea / Vomiting Saccharomyces Boulardii (Florastor) 250 mg PO BIDWM [facility] Last Admin: 12/31/17 08:34 Dose: Not Given Sodium Chloride (Normal Saline Flush 0.9%) 10 ml IVP 0100,0900,1700 [facility] Last Admin: 12/31/17 11:02 Dose: Not Given Sodium Chloride (Normal Saline Flush 0.9%) 10 ml IVP PRN PRN PRN Reason: NEEDED PER PROVIDER ORDERS Last Admin: 12/31/17 08:27 Dose: 20 ml Zolpidem Tartrate (Ambien) 5 mg PO QPM PRN PRN Reason: Insomnia Multivitamin [Theragran] 1 tab PO DAILY 08/10/17 Apixaban [Eliquis] 5 mg PO BID 09/13/17 Objective - Vital Signs/Intake & Output Reviewed Vital Signs: Yes Vital Signs: Vital Signs x48h Temp Pulse Resp BP Pulse Ox 12/31/17 12:10 97.6 C H 69 20 103/66 98 12/31/17 12:01 98 12/31/17 11:03 37.2 C 66 24 126/64 97 12/31/17 08:40 37.1 C 12/31/17 08:31 67 19 105/56 L 100 Intake & Output: Intake & Output 12/28/17 12/29/17 12/30/17 12/31/17 23:59 23:59 23:59 23:59 Intake Total 5207 384.084 Output Total 1425 1125 Balance 3782 -740.916 - Objective General Appearance: positive: No acute distress, Alert. negative: Lethargic Eyes Bilateral: positive: Normal inspection, PERRL, No lid inflammation, Conjunctivae nml ENT: positive: ENT inspection nml, Pharynx nml, No signs of dehydration. negative: Purulent nasal drainage, Pharyngeal erythema, Oral lesions Neck: positive: Nml inspection, Thyroid nml, No JVD, Trachea midline. negative : Thyromegaly, Lymphadenopathy (R), Lymphadenopathy (L), Stiff neck, Swelling/ bruising, Tracheal deviation Respiratory: positive: Chest non-tender, No respiratory distress, Breath sounds nml. negative: Wheezes, Rales, Rhonchi Cardiovascular: positive: Regular rate & rhythm, No murmur, No gallop. negative : Irregularly irregular, Extrasystoles, Tachycardia, Bradycardia, JVD present, Systolic murmur, Diastolic murmur Peripheral Pulses: 2+ Radial (R), 2+ Radial (L), 2+ Dorsalis pedis (R), 2+ Dorsalis pedis (L) Abdomen: positive: Non-tender, No organomegaly, Nml bowel sounds, No distention. negative: Tenderness, Guarding, Rebound Back: positive: Nml inspection. negative: CVA tenderness (R), CVA tenderness (L ) Skin: positive: Color nml, No rash, Warm, Dry. negative: Cyanosis, Diaphoresis , Pallor Extremities: positive: Non-tender, Full ROM, Nml appearance. negative: Calf tenderness, Joint swelling, Dolly's sign/cords Neurologic/Psychiatric: positive: Oriented x3, Motor nml, Sensation nml, Mood/ affect nml. negative: Sensory loss, Facial droop, Slurred/abnml speech, Depressed mood/affect - Lab Results Fish Bones: 12/31/17 04:45 12/31/17 04:45 Other Labs: Lab Results x24hrs 12/31/17 12/31/17 12/31/17 Range/Units 09:25 04:45 04:45 WBC (4.8-10.8) x10^3/uL RBC (4.70-6.10) 10^6/uL Hgb (14.0-18.0) g/dL Hct (42.0-52.0) % MCV (80.0-94.0) fL MCH (27.0-31.0) pg MCHC (32.0-36.0) g/dL RDW (12.0-15.0) % Plt Count (130-450) 10^3/uL MPV (7.4-11.4) fL Neut # (Auto) (1.5-6.6) 10^3/uL Lymph # (Auto) (1.5-3.5) 10^3/uL [place] # (Auto) (0.0-1.0) 10^3/uL Eos # (Auto) (0.0-0.7) 10^3/uL Baso # (Auto) (0.0-0.1) 10^3/uL Absolute Nucleated RBC x10^3/uL Nucleated RBC % /100WBC PT 18.4 H (9.9-12.6) secs INR 1.7 H (0.8-1.2) Sodium 135 (135-145) mmol/L Potassium 3.6 (3.5-5.0) mmol/L Chloride 99 L (101-111) mmol/L Carbon Dioxide 29 (21-32) mmol/L Anion Gap 7.0 (6-13) BUN 11 (6-20) mg/dL Creatinine 0.6 (0.6-1.2) mg/dL Estimated GFR (MDRD) 135 (>89) Glucose 98 (70-100) mg/dL POC Whole Bld Glucose (70 - 100) mg/dL Glycated Hemoglobin 5.7 (4.6-6.2) % Estim Average Glucose 117 H (70-100) Calcium 8.4 L (8.5-10.3) mg/dL Phosphorus 3.6 (2.5-4.6) mg/dL Magnesium 2.0 (1.7-2.8) mg/dL Total Bilirubin 0.4 (0.2-1.0) mg/dL AST 20 (10-42) IU/L ALT 23 (10-60) IU/L Alkaline Phosphatase 156 H (42-121) IU/L Total Protein 6.3 L (6.7-8.2) g/dL Albumin 2.4 L (3.2-5.5) g/dL Globulin 3.9 (2.1-4.2) g/dL Albumin/Globulin Ratio 0.6 L (1.0-2.2) 12/31/17 12/30/17 12/30/17 Range/Units 04:45 16:34 16:21 WBC 11.2 H (4.8-10.8) x10^3/uL RBC 3.39 L (4.70-6.10) 10^6/uL Hgb 8.8 L (14.0-18.0) g/dL Hct 27.4 L (42.0-52.0) % MCV 81.0 (80.0-94.0) fL MCH 25.9 L (27.0-31.0) pg MCHC 32.0 (32.0-36.0) g/dL RDW 16.8 H (12.0-15.0) % Plt Count 532 H (130-450) 10^3/uL MPV 7.2 L (7.4-11.4) fL Neut # (Auto) 9.1 H (1.5-6.6) 10^3/uL Lymph # (Auto) 1.0 L (1.5-3.5) 10^3/uL [place] # (Auto) 0.9 (0.0-1.0) 10^3/uL Eos # (Auto) 0.2 (0.0-0.7) 10^3/uL Baso # (Auto) 0.0 (0.0-0.1) 10^3/uL Absolute Nucleated RBC 0.00 x10^3/uL Nucleated RBC % 0.0 /100WBC PT 19.5 H (9.9-12.6) secs INR 1.8 H (0.8-1.2) Sodium (135-145) mmol/L Potassium (3.5-5.0) mmol/L Chloride (101-111) mmol/L Carbon Dioxide (21-32) mmol/L Anion Gap (6-13) BUN (6-20) mg/dL Creatinine (0.6-1.2) mg/dL Estimated GFR (MDRD) (>89) Glucose (70-100) mg/dL POC Whole Bld Glucose 139 H (70 - 100) mg/dL Glycated Hemoglobin (4.6-6.2) % Estim Average Glucose (70-100) Calcium (8.5-10.3) mg/dL Phosphorus (2.5-4.6) mg/dL Magnesium (1.7-2.8) mg/dL Total Bilirubin (0.2-1.0) mg/dL AST (10-42) IU/L ALT (10-60) IU/L Alkaline Phosphatase (42-121) IU/L Total Protein (6.7-8.2) g/dL Albumin (3.2-5.5) g/dL Globulin (2.1-4.2) g/dL Albumin/Globulin Ratio (1.0-2.2) ABX Reporting Has patient been on IV antibiotics over the past 48 hours?: Yes Assessment/Plan - Problem List (1) Empyema Impression: Conclusion/Plan: 12/31 Dr. Guerrero tried to drainage more pus by chest tube but no more to come out per Dr. Guerrero state Gram stain of previous aspiration pus reveals many positive cocci in clusters. pt had Zosyn and Clindymycin continue antibiotics plan to have CT on tomorrow by per Dr. Guerrero, follow up follow up surgeon, Dr. Guerrero will drainage of empyema and request FFP. pt's INR is 2.0 today continue Zosyn and clindamycin to treat for empyema follow up blood culture and drainage fluid culture Patient has a left lateral empyema which was drained partially by surgery in the emergency department. There is still concern that there is more pus in the lung. Surgery is unsure if they can get to the rest of the pus pocket and recommended that the patient be transferred to a facility with thoracic surgery however no facilities with thoracic surgery had beds tonight. Therefore patient will be admitted to the medical [facility] and placed on IV antibiotics. Surgery will reevaluate the patient in the morning and we may need to consider transfer. Plan: IV Zosyn and clindamycin to treat for empyema Drainage from empyema sent for culture and other studies Blood cultures Consider transfer for thoracic surgery and chest tube placement if general surgery unable to perform Monitor (2) HCAP (healthcare-associated pneumonia) Conclusion/Plan: continue to treat with IV clindamycin and IV Zosyn, pt report breath is better. continue to treat with IV clindamycin and IV Zosyn daily lab monitor, vital monitor Follow-up cultures from empyema and blood cultures Patient was hospitalized in September less than 3 months ago therefore needs to be treated for healthcare associated pneumonia. Given that the patient has empyema he will be treated with Zosyn and clindamycin. Plan: IV clindamycin and IV Zosyn Drainage of empyema Surgery consult Follow-up cultures from empyema and blood cultures Consider transfer for thoracic surgery (3) COPD exacerbation Conclusion/Plan: pt has 100% sats on room air continue breath treatment as needed Patient presented with cough and shortness of breath. Found to have pneumonia and empyema. Patient does have wheezing on examination. Patient likely has COPD exacerbation secondary to pneumonia. Plan: Duo nebs around the clock and as needed IV antibiotics We will hold off on treating with steroids given empyema Supplemental oxygen as needed Monitor (4) Chronic atrial fibrillation Conclusion/Plan: restart Eliquis will restart Eliquis after procedure Patient is a history of chronic atrial fibrillation. The patient is on Eliquis however has stopped taking it about 10 days ago. Patient is also on metoprolol and diltiazem for rate control which she is also stopped taking 10 days ago. Patient's heart rate is controlled and he is in atrial fibrillation. Plan: We will hold off on restarting Eliquis as patient may need further procedures Patient's rate is controlled so we will hold off placing him back on diltiazem and metoprolol for now. (5) Chronic systolic (congestive) heart failure Conclusion/Plan: EF is 45-50%. pt refuse to take his home meds. pt state his electrical and instrument technician told him, he does not need his home meds except Eliquis Patient has a history of chronic systolic heart failure. Patient's ejection fraction on echocardiogram in August 2017 was 30-35%. Patient states that most recent echo his EF was up to 50%. Patient currently does not appear to be in CHF exacerbation. Plan: We will repeat an echocardiogram Patient stopped taking metoprolol 10 days ago we will hold off on restarting metoprolol for now until we have echocardiogram results. (6) KATIE on CPAP Conclusion/Plan: Patient has his history of obstructive sleep apnea is on CPAP at home. Patient will be continued on his home CPAP machine as needed while he is hospitalized.
[2017-12-31] MEDS: IPRATROPIUM/ALBUTEROL 3 ML NEB INH SCH ×2 (15:00→21:32)
[2017-12-31] MEDS: APIXABAN 2.5 MG TABLET PO SCH (21:36)
[2018-01-01] MEDS: SODIUM CHLORIDE FLUSH 0.9% 10 ML SYRINGE IVP SCH ×2 (01:06→09:50)
[2018-01-01] MEDS ORDERED: oxyCODONE 5 MG TABLET ONE (01:17)
[2018-01-01] MEDS: CLINDAMYCIN 900 MG/50 ML 50 ML IV SCH ×3 (02:55→19:16)
[2018-01-01] MEDS: PIPERACILLIN/TAZOBACTAM 4.5 GM in SODIUM CHLORIDE 0.9% MINIBAG 100 ML IV SCH ×3 (04:10→15:56)
[2018-01-01 05:44] LABS: BASOPHILS # (AUTO) 0.1 10^3/uL (0.0-0.1); BASOPHILS % (AUTO) 0.6 %; EOSINOPHILS # (AUTO) 0.2 10^3/uL (0.0-0.7); EOSINOPHILS % (AUTO) 1.7 %; HGB - HEMOGLOBIN 9.4 g/dL (14.0-18.0); LYMPHOCYTES # (AUTO) 1.2 10^3/uL (1.5-3.5); LYMPHOCYTES % (AUTO) 8.3 %; MEAN CORPUSCULAR HEMOGLOBIN 25.9 pg (27.0-31.0); MEAN CORPUSCULAR HGB CONC 32.2 g/dL (32.0-36.0); MEAN CORPUSCULAR VOLUME 80.6 fL (80.0-94.0); MEAN PLATELET VOLUME 7.3 fL (7.4-11.4); MONOCYTES # (AUTO) 1.2 10^3/uL (0.0-1.0); MONOCYTES % (AUTO) 7.9 %; NEUTROPHILS % (AUTO) 81.5 %; PLT - PLATELET COUNT 606 10^3/uL (130-450); RED BLOOD COUNT 3.61 10^6/uL (4.70-6.10); RED CELL DISTRIBUTION WIDTH 17.3 % (12.0-15.0); WHITE BLOOD COUNT 14.7 x10^3/uL (4.8-10.8)
[2018-01-01 05:54] LABS: INR 2.1 (0.8-1.2); PT - PROTHROMBIN TIME 22.7 secs (9.9-12.6)
[2018-01-01 06:01] LABS: ALBUMIN 2.3 g/dL (3.2-5.5); ALBUMIN/GLOBULIN RATIO 0.5 (1.0-2.2); BILIRUBIN,TOTAL 0.4 mg/dL (0.2-1.0); CALCIUM 8.5 mg/dL (8.5-10.3); MAGNESIUM 1.9 mg/dL (1.7-2.8); PHOSPHORUS 3.4 mg/dL (2.5-4.6); TOTAL PROTEIN 6.6 g/dL (6.7-8.2)
[2018-01-01] MEDS: PANTOPRAZOLE 40 MG VIAL IVP SCH (06:30)
[2018-01-01] MEDS: SODIUM CHLORIDE FLUSH 0.9% 10 ML SYRINGE IVP PRN ×5 (06:30→19:17)
[2018-01-01] MEDS ORDERED: SODIUM CHLORIDE FLUSH 0.9% 10 ML SYRINGE ONE ×2 (06:38→09:53)
[2018-01-01] MEDS ORDERED: PANTOPRAZOLE 40 MG VIAL ONE (06:38)
[2018-01-01] MEDS: IPRATROPIUM/ALBUTEROL 3 ML NEB INH SCH ×6 (07:11→20:03)
[2018-01-01] MEDS ORDERED: ACETAMINOPHEN 325 MG TABLET PO PRN (07:36)
[2018-01-01] MEDS ORDERED: MORPHINE 2 MG/ML SYRINGE IVP PRN (07:38)
[2018-01-01] MEDS ORDERED: ONDANSETRON 4 MG/2 ML VIAL IVP PRN (07:38)
[2018-01-01] MEDS ORDERED: PROCHLORPERAZINE 10 MG/2 ML VIAL IVP PRN (07:39)
[2018-01-01] MEDS ORDERED: oxyCODONE 5 MG TABLET PO PRN ×2 (07:39)
--- NOTE | 2018-01-01 08:40 | OPERATIVE REPORT ---
DATE OF SERVICE: 12/31/2017 Physician: Joel Guerrero MD PREOPERATIVE DIAGNOSIS: Left empyema, status post thoracentesis. POSTOPERATIVE DIAGNOSIS: History of left empyema status post left thoracentesis with no obvious abscess encountered on exploration of the left chest. PROCEDURE PERFORMED: Exploration of pleural space place, left chest. OPERATING SURGEON: Joel Guerrero MD ANESTHESIA: Monitored anesthesia care. INDICATIONS FOR PROCEDURE: The patient is a 67-year-old male who presents with a complicated history of pneumonia, pulmonary embolism, and history of left chest trauma. He has been having a cough and came to the emergency room. This showed a chest x-ray with fluid collection on the left side. CT scan confirmed a fluid collection on the left side. He had underwent thoracentesis with 100 mL of purulent fluid being drained. He is needing to have the area fully drained in order to try and resolve his situation. FINDINGS AT SURGERY: Incision was made in the space where the thoracentesis needle had been inserted. I then entered the pleural space. There were multiple adhesions. I did not enter any abscess cavity. PROCEDURE: After informed consent was obtained, the patient was taken to the operating room and placed in the right lateral decubitus position. The patient's left side of his chest was then prepped and draped in the usual sterile fashion. The skin overlying the intercostal space where I had inserted the thoracentesis needle previously was then injected with local anesthesia. Incision was then made through this area and carried down to the rib. An opening was then made through the intercostal muscle and pleura, entering the chest cavity. There were multiple adhesions in this area. I had broken up some of the adhesions gently with the finger. I did not encounter any abscess or purulent fluid. There was scarring inferiorly, but I could not tell whether this is diaphragm or abscess cavity. At this time, the procedure concluded. A Red Carreon catheter was then placed into the pleural space. The intercostal muscles were then approximated using 3-0 Vicryl suture. Upon aspirating the red Corona catheter, it was then removed with the sutures having been tied. Subcutaneous tissue was closed using interrupted 3-0 Vicryl suture. Skin incision was closed using 4-0 Monocryl subcuticular stitch. Dermabond was then applied. The patient was then awakened, extubated, and taken from the operating room in stable condition. ESTIMATED BLOOD LOSS: Minimal. COMPLICATIONS: None. CONDITION OF THE PATIENT AT END OF PROCEDURE: Stable. SPECIMENS: None. DRAINS/PACKS: None. CLASSIFICATION OF WOUND: Clean/contaminated. TD: 01/01/2018 07:55 [email or web address]
[2018-01-01] MEDS ORDERED: IOPAMIDOL-300 100 ML VIAL ONE (08:41)
[2018-01-01] MEDS ORDERED: IOPAMIDOL-300 100 ML VIAL IVP ONE (09:16)
--- NOTE | 2018-01-01 09:31 | CT Report ---
Procedure Date: 01/01/2018 Accession Number: [id number] / [id number] Procedure: CT - Chest W/ CPT Code: FULL RESULT: EXAM: CT CHEST EXAM DATE: 01/01/2018 09:14 AM. CLINICAL HISTORY: F/u drainage of empyema. COMPARISONS: Chest radiograph dated 12/30/2017. TECHNIQUE: Routine helical CT imaging was performed through the chest. IV contrast: None. Reconstructions: Coronal and sagittal. In accordance with CT protocol optimization, one or more of the following dose reduction techniques were utilized for this exam: automated exposure control, adjustment of mA and/or KV based on patient size, or use of iterative reconstructive technique. FINDINGS: Lungs/Pleura: There is a subpulmonic loculated pleural fluid collection of predominantly mildly complex fluid and air on the left measuring up to 14.3 x 6.3 x 10.5 cm. Irregular consolidation in the left lung base adjacent to this fluid collection. Atelectatic changes in the right lung base. Apical scarring bilaterally. Small pleural effusion. Mediastinum: The heart is enlarged. No pericardial effusion. No lymphadenopathy. Retained secretions in the upper esophagus. Bones: Unremarkable. Visualized Abdomen: Unremarkable. Other: Subcutaneous gas along the left lower chest wall. IMPRESSION: 1. No pneumothorax. 2. Left-sided subpulmonic loculated mildly complex pleural fluid collection measures 14.3 x 10.5 6.3 cm consistent with empyema. Air within the fluid collection is thought to be postprocedural. Subcutaneous air along the left lower chest wall is also thought to be post procedural. 3. Irregular consolidation in the left lung base with small pleural effusion. 4. Cardiomegaly with no lymphadenopathy. RADIA
[2018-01-01] MEDS: SACCHAROMYCES BOULARDII 250 MG CAPSULE PO SCH ×2 (09:49→17:16)
[2018-01-01] MEDS: MULTIVITAMIN TABLET PO SCH (09:49)
[2018-01-01] MEDS: FERROUS SULFATE 325 MG TABLET PO SCH (09:49)
[2018-01-01] MEDS: APIXABAN 2.5 MG TABLET PO SCH ×2 (09:49→20:25)
[2018-01-01] MEDS ORDERED: ZOLPIDEM 5 MG TABLET PO PRN (10:26)
--- NOTE | 2018-01-01 13:39 | PROVIDER PROGRESS NOTE ---
Assessment/Plan - Problem List (1) Empyema Assessment/Plan: Likely multiloculated and unlikely to be well managed with simple chest tube ( attempted unsuccessfully by Dr. Joel Guerrero yesterday). Rec: transfer to facility capable of either IR or VATS exploration and drainage of empyema. - Current Meds Current Meds: Current Medications Generic Name Dose Route Start Last Admin Trade Name Freq PRN Reason Stop Dose Admin Albuterol/Ipratropium 3 ml 12/30/17 11:00 01/01/18 11:18 Duoneb INH 3 ml RTQID DEBORAH Administration Apixaban 5 mg 12/31/17 21:00 01/01/18 09:49 Eliquis PO 5 mg BID DEBORAH Administration Ferrous Sulfate 325 mg 12/31/17 09:00 01/01/18 09:49 Feosol PO 325 mg DAILYWM DEBORAH Administration Piperacillin Sod/Tazobactam 100 mls @ 100 mls/hr 12/30/17 04:09 01/01/18 11: 16 Sod 4.5 gm/ Sodium Chloride IV Infused 0400,1000,1600,2200 DEBORAH Infusion Clindamycin Phosphate 50 mls @ 50 mls/hr 12/30/17 04:11 01/01/18 11:37 Cleocin 900 Mg/50 Ml IV 50 mls/hr 0300,1100,1900 DEBORAH Administration Multivitamins 1 tab 12/30/17 09:00 01/01/18 09:49 Theragran PO 1 tab DAILY DEBORAH Administration Pantoprazole Sodium 40 mg 12/30/17 07:00 01/01/18 06:30 Protonix IVP 40 mg QDAC DEBORAH Administration Saccharomyces Boulardii 250 mg 12/31/17 18:00 01/01/18 09:49 Florastor PO 250 mg BIDWM DEBORAH Administration Sodium Chloride 10 ml 01/01/18 10:26 01/01/18 12:42 Normal Saline Flush 0.9% IVP 10 ml PRN PRN Administration NEEDED PER PROVIDER ORDERS - Lab Result Lab results reviewed: Yes Fish Bone Diagrams: 01/01/18 04:55 01/01/18 04:55 - Diagnostic Imaging Results Diagnostic Imaging Results: Final report reviewed, Read independently Diagnostic Imaging Results Comments: large complex loculated fluid collection in left pleural base. - Additional Planning Condition/Complexity: Stable Plan Discussed with:: Patient Subjective - Subjective Patient Reports: Resting Comfortably, No Complaints (denies chest pain, dyspnea , fever, chills) Nursing Reports: No Complaints Objective Vital Signs: Vital Signs - 24 hr 12/31/17 12/31/17 12/31/17 15:00 16:42 17:30 Temperature 36.8 C 36.2 C L Heart Rate 731 H Heart Rate [ 81 Brachial] Heart Rate [ 80 Radial] Respiratory 16 24 20 Rate Blood Pressure 107/54 L [Left Brachial artery] Blood Pressure 121/74 [Right Brachial artery] O2 Saturation 99 100 12/31/17 12/31/17 12/31/17 20:05 21:32 21:45 Temperature 38.9 C H 37.7 C H Heart Rate 89 Heart Rate [ 78 Brachial] Heart Rate [ Radial] Respiratory 20 12 Rate Blood Pressure 126/55 L [Left Brachial artery] Blood Pressure [Right Brachial artery] O2 Saturation 99 01/01/18 01/01/18 01/01/18 01:04 04:45 07:14 Temperature 36.9 C 36.8 C Heart Rate 84 Heart Rate [ 77 80 Brachial] Heart Rate [ Radial] Respiratory 18 18 14 Rate Blood Pressure 110/57 L 115/66 [Left Brachial artery] Blood Pressure [Right Brachial artery] O2 Saturation 97 97 01/01/18 01/01/18 08:03 11:19 Temperature 36.6 C Heart Rate 70 Heart Rate [ 72 Brachial] Heart Rate [ Radial] Respiratory 20 14 Rate Blood Pressure 119/62 [Left Brachial artery] Blood Pressure [Right Brachial artery] O2 Saturation 99 Oxygen O2 Source Room air I&O (Last 24 Hrs): Intake and Output Totals x24h 12/30/17 12/31/17 01/01/18 23:59 23:59 23:59 Intake Total 5207 3308.167 1518.5 Output Total 1425 1475 2450 Balance 3782 1833.167 -931.5 General: Alert, Oriented x3, Cooperative Neck: Supple, No JVD Neuro: Alert Cardiovascular: Regular rate, Normal S1, Normal S2, No murmurs, Gallops Respiratory: No respiratory distress, Other (dry rales bibasilarly; diminished breath sounds in left base; healing surgical incision in lower left posterolateral chest wall without drainage or signs of infection.) - Results Results: Laboratory Results WBC 14.7 x10^3/uL (4.8-10.8) H 01/01/18 04:55 RBC 3.61 10^6/uL (4.70-6.10) L 01/01/18 04:55 Hgb 9.4 g/dL (14.0-18.0) L 01/01/18 04:55 Hct 29.1 % (42.0-52.0) L 01/01/18 04:55 MCV 80.6 fL (80.0-94.0) 01/01/18 04:55 MCH 25.9 pg (27.0-31.0) L 01/01/18 04:55 MCHC 32.2 g/dL (32.0-36.0) 01/01/18 04:55 RDW 17.3 % (12.0-15.0) H 01/01/18 04:55 Plt Count 606 10^3/uL (130-450) H 01/01/18 04:55 MPV 7.3 fL (7.4-11.4) L 01/01/18 04:55 Neut # (Auto) 12.0 10^3/uL (1.5-6.6) H 01/01/18 04:55 Lymph # (Auto) 1.2 10^3/uL (1.5-3.5) L 01/01/18 04:55 [place] # (Auto) 1.2 10^3/uL (0.0-1.0) H 01/01/18 04:55 Eos # (Auto) 0.2 10^3/uL (0.0-0.7) 01/01/18 04:55 Baso # (Auto) 0.1 10^3/uL (0.0-0.1) 01/01/18 04:55 Absolute Nucleated RBC 0.00 x10^3/uL 01/01/18 04:55 Nucleated RBC % 0.0 /100WBC 01/01/18 04:55 PT 22.7 secs (9.9-12.6) H 01/01/18 04:55 INR 2.1 (0.8-1.2) H 01/01/18 04:55 Sodium 133 mmol/L (135-145) L 01/01/18 04:55 Potassium 3.9 mmol/L (3.5-5.0) 01/01/18 04:55 Chloride 95 mmol/L (101-111) L 01/01/18 04:55 Carbon Dioxide 29 mmol/L (21-32) 01/01/18 04:55 Anion Gap 9.0 (6-13) 01/01/18 04:55 BUN 10 mg/dL (6-20) 01/01/18 04:55 Creatinine 1.0 mg/dL (0.6-1.2) 01/01/18 04:55 Estimated GFR (MDRD) 75 (>89) L 01/01/18 04:55 Glucose 131 mg/dL (70-100) H 01/01/18 04:55 POC Whole Bld Glucose 139 mg/dL (70 - 100) H 12/30/17 16:34 Glycated Hemoglobin 5.7 % (4.6-6.2) 12/31/17 04:45 Estim Average Glucose 117 (70-100) H 12/31/17 04:45 Lactic Acid 0.9 mmol/L (0.5-2.2) 12/29/17 20:45 Calcium 8.5 mg/dL (8.5-10.3) 01/01/18 04:55 Phosphorus 3.4 mg/dL (2.5-4.6) 01/01/18 04:55 Magnesium 1.9 mg/dL (1.7-2.8) 01/01/18 04:55 Total Bilirubin 0.4 mg/dL (0.2-1.0) 01/01/18 04:55 AST 30 IU/L (10-42) 01/01/18 04:55 ALT 27 IU/L (10-60) 01/01/18 04:55 Alkaline Phosphatase 179 IU/L (42-121) H 01/01/18 04:55 Total Protein 6.6 g/dL (6.7-8.2) L 01/01/18 04:55 Albumin 2.3 g/dL (3.2-5.5) L 01/01/18 04:55 Globulin 4.3 g/dL (2.1-4.2) H 01/01/18 04:55 Albumin/Globulin Ratio 0.5 (1.0-2.2) L 01/01/18 04:55 Lipase 27 U/L (22-51) 12/29/17 20:45 Blood Type O POSITIVE 12/30/17 09:00 Blood Type Recheck O POSITIVE 12/30/17 05:00 Antibody Screen NEGATIVE 12/30/17 09:00 - Procedures Procedures: Procedures EXCISION OF NECK SKIN, EXTERNAL APPROACH (06/03/15) EXCISION OF RECTUM, ENDO, DIAGN (06/03/15) EXCISION OF RIGHT UPPER ARM SKIN, EXTERNAL APPROACH (06/03/15) ABX Reporting Has patient been on IV antibiotics over the past 48 hours?: Yes
[2018-01-01] MEDS ORDERED: SODIUM CHLORIDE FLUSH 0.9% 10 ML SYRINGE IVP SCH (17:00)
--- NOTE | 2018-01-01 20:05 | DISCHARGE SUMMARY ---
"Discharge Summary Admit Date: 12/29/17 Discharge Date: 01/01/18 Discharging Provider: Robles Paula MD Primary Care Provider: Letty DIAZ Code Status: Attempt Resuscitation Condition at Discharge: Fair Discharge Disposition: 02 Transfer Acute Care Hosp Discharge Facility Name: [facility] Accepting Physician: Osmani Aguayo ThoracicSx - DIAGNOSES Admission Diagnoses: 1. Empyema 2. Healthcare associated pneumonia 3. COPD exacerbation 4. Chronic atrial fibrillation 5. Chronic systolic congestive heart failure 6. Obstructive sleep apnea on CPAP Discharge Diagnoses with Status of Each Condition: 1. Empyema: Worsening 2. Healthcare associated pneumonia: Stable 3. COPD exacerbation: Stable 4. Chronic atrial fibrillation: Stable 5. Chronic systolic congestive heart failure: Stable 6. Obstructive sleep apnea on CPAP: Stable - HPI History of Present Illness: Patient is a very pleasant 67-year-old gentleman with a past medical history significant for COPD, obstructive sleep apnea on CPAP, hyperlipidemia, chronic deafness, chronic systolic congestive heart failure, atrial fibrillation, tobacco abuse, recurrent pneumonia and history of crack cocaine and heroin abuse who presented to the emergency department with a chief complaint of cough. The patient states that he was diagnosed with pneumonia in August of this year and was hospitalized for 6 days. He states that at that time he was also found to have a pulmonary embolism and was found to have a decreased ejection fraction down to 25%. The patient states that his pneumonia improved but he continued to have very low energy and was very fatigued. He states that since July he has lost 35 pounds. He states that he was again hospitalized at [facility] in September as he was having shortness of breath. At that time he states he was found to have bilateral pleural effusions the pneumonia and CHF exacerbation. The patient was also in atrial fibrillation with a rapid ventricular rate. He states that he was hospitalized there for 3 weeks. He states that he had fluid removed from both of his lungs by a thoracentesis. He states that after that hospitalization he was so weak that he had to be placed at [facility] for physical therapy and rehab. He states that he did undergo a cardiac cath by his culture media laboratory assistant which showed clean coronary arteries. The patient states that 10 days ago he went to see his culture media laboratory assistant and was told to stop all of his medications as his ejection fraction had improved back to normal. He states he was told to continue on his Eliquis but he stopped this as well. He states that he continues to have low energy and over the last 2 days he is began to develop chills, cough with sputum production has become mildly short of breath with continued fatigue and generalized weakness. The patient states that given his cough with sputum production that was progressively getting worse over the last day he decided he needed to come to the emergency department. The patient denies any headaches, blurred vision, runny nose, sore throat, nasal congestion, difficulty swallowing, chest pain, orthopnea, PND, increased lower extremity swelling, abdominal pain, nausea, vomiting, diarrhea, constipation, urinary urgency, urinary frequency, dysuria, joint swelling, joint pain, muscle aches, back pain, neck stiffness, fevers, changes in his appetite, hair loss, skin changes, night sweats or any focal neurologic deficits. On presentation to the emergency department the patient was afebrile and mildly hypotensive with a blood pressure of 98/55. Patient's heart rate was within normal limits and he was not in any respiratory distress and saturating 100% on room air. The patient underwent routine lab work which did reveal a leukocytosis of 15.7 and an anemia with a hemoglobin of 10.0 which appears to be chronic. The patient's sodium was low at 130 and alk phos was elevated at 194. The patient underwent a chest x-ray in the emergency department which revealed small left pleural effusion with portions that appeared loculated laterally. Given this finding the patient then underwent a CT of his chest which revealed a peripherally enhancing fluid collection measuring 12 x 6 x 10 cm within the left lung base suspicious for empyema. The emergency room physician spoke with the surgeon relays draftsperson who saw the patient in the emergency department and attempted to drain the fluid collection. He was able to get his needle to the fluid collection and appeared to drain pus. The surgeon was concerned for possible empyema and felt that a chest tube was needed. He asked for the patient to be transferred for thoracic surgery however all hospitals were full and therefore patient was admitted to [facility] for IV antibiotics and will be reevaluated by surgery in the morning. - CONSULTS | PROCEDURES Consultations: General Surgery Procedures: Left thoracentesis 12/29/2017: Approximately 75 mL's of purulent fluid was aspirated. Exploration of pleural space, left chest with attempt of placing chest tube : History of left empyema status post left thoracentesis with no obvious abscess encountered on expiration of the left chest. - HOSPITAL COURSE Hospital Course: The patient was admitted to the hospital and started on broad-spectrum antibiotics for empyema with IV Zosyn and IV clindamycin. Prior to admission the general surgeon on-call performed a thoracentesis and removed 75 mL's of purulent pus from the patient's left chest wall. This fluid was sent for culture and is growing many gram-positive cocci in clusters. The patient remained in stable condition with improvement in his breathing and oxygenation. The general surgeon attempted to place a chest tube on 12/31/2017 but was unsuccessful and felt that there was no longer any fluid collection. On 2017 the patient underwent a CT of his chest to be sure there was no longer any fluid collection however the CT showed a subpulmonic loculated pleural collection of predominantly mildly complex fluid and air on the left measuring up to 14.3 x 6.3 x 10.5 cm. Irregular consolidation in the left lung base adjacent to this fluid collection. The general surgeon suggested that the patient be transferred to a facility with cardiothoracic surgery as the patient would need surgical intervention at this point and unfortunately he did not have the equipment in order to treat this patient. I called over to [facility] on 01/01/[address] Osmani Aguayo thoracic surgery who kindly accepted the patient in transfer. Patient was in stable condition at the time of transfer but is at risk of decompensating given the empyema. The patient does have atrial fibrillation and was on Eliquis prior to hospitalization but this was stopped given need for surgical intervention. He has not received any Eliquis while he has been hospitalized. The patient also told us that his cardiac meds had been stopped due to improvement in his ejection fraction we did perform an echocardiogram while the patient was hospitalized which showed that his ejection fraction is still impaired at 35-40% . - ALLERGIES Allergies/Adverse Reactions: Allergies Allergy/AdvReac Type Severity Reaction Status Date / Time No Known Drug Allergies Allergy Verified 09/13/17 12:20 - MEDICATIONS Home Medications: Ambulatory Orders Medication Instructions Recorded Confirmed Multivitamin [Theragran] 1 tab PO DAILY 08/10/17 12/30/17 Apixaban [Eliquis] 5 mg PO BID 09/13/17 12/30/17 - PHYSICAL EXAM AT DISCHARGE General Appearance: positive: No acute distress, Alert Eyes Bilateral: positive: Normal inspection, PERRL, EOMI, No lid inflammation, Conjunctivae nml, No scleral icterus ENT: positive: ENT inspection nml, Pharynx nml, No signs of dehydration. negative: Purulent nasal drainage, Pharyngeal erythema, Oral lesions Neck: positive: Nml inspection, Thyroid nml, No JVD, Trachea midline. negative : Thyromegaly, Lymphadenopathy (R), Lymphadenopathy (L), Carotid bruit, Tracheal deviation Respiratory: positive: Chest non-tender, No respiratory distress, Rhonchi (Left lower lung), Other (Decreased breath sounds at the left base) Cardiovascular: positive: No murmur, No gallop, Irregularly irregular Peripheral Pulses: positive: 2+ Abdomen: positive: Non-tender, No organomegaly, Nml bowel sounds, No distention. negative: Guarding, Rebound, Hepatomegaly Back: positive: Nml inspection. negative: CVA tenderness (R), CVA tenderness (L ) Skin: positive: Color nml, No rash, Warm. negative: Diaphoresis, Pallor, Skin rash Extremities: positive: Non-tender, Full ROM, Nml appearance, No pedal edema Neurologic/Psychiatric: positive: Oriented x3, CN's nml (2-12), Motor nml, Sensation nml, Mood/affect nml - LABS Result Diagrams: 01/01/18 04:55 01/01/18 04:55 Other Lab Results: Laboratory Results WBC 14.7 x10^3/uL (4.8-10.8) H 01/01/18 04:55 RBC 3.61 10^6/uL (4.70-6.10) L 01/01/18 04:55 Hgb 9.4 g/dL (14.0-18.0) L 01/01/18 04:55 Hct 29.1 % (42.0-52.0) L 01/01/18 04:55 MCV 80.6 fL (80.0-94.0) 01/01/18 04:55 MCH 25.9 pg (27.0-31.0) L 01/01/18 04:55 MCHC 32.2 g/dL (32.0-36.0) 01/01/18 04:55 RDW 17.3 % (12.0-15.0) H 01/01/18 04:55 Plt Count 606 10^3/uL (130-450) H 01/01/18 04:55 MPV 7.3 fL (7.4-11.4) L 01/01/18 04:55 Neut # (Auto) 12.0 10^3/uL (1.5-6.6) H 01/01/18 04:55 Lymph # (Auto) 1.2 10^3/uL (1.5-3.5) L 01/01/18 04:55 [place] # (Auto) 1.2 10^3/uL (0.0-1.0) H 01/01/18 04:55 Eos # (Auto) 0.2 10^3/uL (0.0-0.7) 01/01/18 04:55 Baso # (Auto) 0.1 10^3/uL (0.0-0.1) 01/01/18 04:55 Absolute Nucleated RBC 0.00 x10^3/uL 01/01/18 04:55 Nucleated RBC % 0.0 /100WBC 01/01/18 04:55 PT 22.7 secs (9.9-12.6) H 01/01/18 04:55 INR 2.1 (0.8-1.2) H 01/01/18 04:55 Sodium 133 mmol/L (135-145) L 01/01/18 04:55 Potassium 3.9 mmol/L (3.5-5.0) 01/01/18 04:55 Chloride 95 mmol/L (101-111) L 01/01/18 04:55 Carbon Dioxide 29 mmol/L (21-32) 01/01/18 04:55 Anion Gap 9.0 (6-13) 01/01/18 04:55 BUN 10 mg/dL (6-20) 01/01/18 04:55 Creatinine 1.0 mg/dL (0.6-1.2) 01/01/18 04:55 Estimated GFR (MDRD) 75 (>89) L 01/01/18 04:55 Glucose 131 mg/dL (70-100) H 01/01/18 04:55 POC Whole Bld Glucose 139 mg/dL (70 - 100) H 12/30/17 16:34 Glycated Hemoglobin 5.7 % (4.6-6.2) 12/31/17 04:45 Estim Average Glucose 117 (70-100) H 12/31/17 04:45 Lactic Acid 0.9 mmol/L (0.5-2.2) 12/29/17 20:45 Calcium 8.5 mg/dL (8.5-10.3) 01/01/18 04:55 Phosphorus 3.4 mg/dL (2.5-4.6) 01/01/18 04:55 Magnesium 1.9 mg/dL (1.7-2.8) 01/01/18 04:55 Total Bilirubin 0.4 mg/dL (0.2-1.0) 01/01/18 04:55 AST 30 IU/L (10-42) 01/01/18 04:55 ALT 27 IU/L (10-60) 01/01/18 04:55 Alkaline Phosphatase 179 IU/L (42-121) H 01/01/18 04:55 Total Protein 6.6 g/dL (6.7-8.2) L 01/01/18 04:55 Albumin 2.3 g/dL (3.2-5.5) L 01/01/18 04:55 Globulin 4.3 g/dL (2.1-4.2) H 01/01/18 04:55 Albumin/Globulin Ratio 0.5 (1.0-2.2) L 01/01/18 04:55 Lipase 27 U/L (22-51) 12/29/17 20:45 Blood Type O POSITIVE 12/30/17 09:00 Blood Type Recheck O POSITIVE 12/30/17 05:00 Antibody Screen NEGATIVE 12/30/17 09:00 - DIAGNOSTIC IMAGING Diagnostic Imaging Results: Final report reviewed Diagnostic Imaging Results Comments: EXAM: [id number] CT/CHTW ([id number]) Procedure Date: 12/29/2017 Accession Number: [id number] / [id number] Procedure: CT - Chest W/ CPT Code: FULL RESULT: EXAM: CT CHEST EXAM DATE: 12/29/2017 09:37 PM. CLINICAL HISTORY: Pleural effusion COMPARISONS: 09/13/2017. TECHNIQUE: Routine helical CT imaging was performed through the chest. IV contrast: 80 cc Isovue 300. Reconstructions: Coronal and sagittal. In accordance with CT protocol optimization, one or more of the following dose reduction techniques were utilized for this exam: automated exposure control, adjustment of mA and/or KV based on patient size, or use of iterative reconstructive technique. FINDINGS: Lungs/Pleura: There is a peripheral enhancing fluid collection measuring 12 x 6 x 10 cm within the left lung base. There is a small free left pleural effusion. This likely represents empyema. Stable juxtapleural nodular densities within the lung apices. No evidence of lobar infiltrate. There is some architectural distortion within the right lung base. There is no pneumothorax. Mediastinum: Heart size is normal. There are no enlarged axillary, supraclavicular, mediastinal, or hilar lymph nodes. Aortic contour is within normal limits. Bones: Unremarkable. Visualized Abdomen: Unremarkable. Other: None. IMPRESSION: 1. There is a peripherally enhancing fluid collection measuring 12 x 6 x 10 cm within the left lung base. This is suspicious for empyema. 2. No evidence of lobar infiltrate. 3. No pneumothorax. EXAM: [id number] XR/CXR1VW ([id number]) Procedure Date: 12/30/2017 Accession Number: [id number] / [id number] Procedure: XR - Chest 1 View X-Ray CPT Code: 09776 FULL RESULT: EXAM: CHEST RADIOGRAPHY EXAM DATE: 12/30/2017 12:55 AM. CLINICAL HISTORY: Status post drainage of empyema. COMPARISON: CHEST 2 VIEW 12/29/2017 CHEST W/ 12/29/2017. TECHNIQUE: 1 view. FINDINGS: Lungs/Pleura: Slight decrease in the loculated left pleural effusion post drainage. No gross pneumothorax seen. Emphysematous lungs with scarring. Mediastinum: Within exam limitations, the cardiomediastinal contour is normal. Other: None. IMPRESSION: 1. Slight decrease in the loculated left pleural effusion post drainage. No gross pneumothorax seen. 2. Emphysematous lungs with scarring. EXAM: [id number] XR/CXR1VW ([id number]) Procedure Date: 12/31/2017 Accession Number: [id number] / [id number] Procedure: XR - Chest 1 View X-Ray CPT Code: 55125 FULL RESULT: EXAM: Chest 1 View X-Ray DATE: 12/31/2017 12:01 PM CLINICAL HISTORY: OR COMPARISON: 12/30/2017, CT 12/29/2017 TECHNIQUE: Single view of the chest. FINDINGS: Lungs/Pleura: Left basilar consolidation. Decrease in left effusion. No pneumothorax. Mediastinum: Cardiomegaly. Other: None. IMPRESSION: Decreasing left effusion. Left basilar consolidation. Stable cardiomegaly. EXAM: CT CHEST EXAM DATE: 01/01/2018 09:14 AM. CLINICAL HISTORY: F/u drainage of empyema. COMPARISONS: Chest radiograph dated 12/30/2017. TECHNIQUE: Routine helical CT imaging was performed through the chest. IV contrast: None. Reconstructions: Coronal and sagittal. In accordance with CT protocol optimization, one or more of the following dose reduction techniques were utilized for this exam: automated exposure control, adjustment of mA and/or KV based on patient size, or use of iterative reconstructive technique. FINDINGS: Lungs/Pleura: There is a subpulmonic loculated pleural fluid collection of predominantly mildly complex fluid and air on the left measuring up to 14.3 x 6.3 x 10.5 cm. Irregular consolidation in the left lung base adjacent to this fluid collection. Atelectatic changes in the right lung base. Apical scarring bilaterally. Small pleural effusion. Mediastinum: The heart is enlarged. No pericardial effusion. No lymphadenopathy. Retained secretions in the upper esophagus. Bones: Unremarkable. Visualized Abdomen: Unremarkable. Other: Subcutaneous gas along the left lower chest wall. IMPRESSION: 1. No pneumothorax. 2. Left-sided subpulmonic loculated mildly complex pleural fluid collection measures 14.3 x 10.5 6.3 cm consistent with empyema. Air within the fluid collection is thought to be postprocedural. Subcutaneous air along the left lower chest wall is also thought to be post procedural. 3. Irregular consolidation in the left lung base with small pleural effusion. 4. Cardiomegaly with no lymphadenopathy. Echocardiogram Pression 1. The left ventricular size is normal. Prominent trabeculation in the apical segments noted. Overall left ventricular systolic function is moderately impaired with an ejection fraction of 35-40%. There is mild global hypokinesis of left ventricular contractility. 2. Moderate right ventricular enlargement. The right ventricular systolic function is normal. 3. Mild to moderate tricuspid regurgitation. Mildly abnormal right heart pressures. The right ventricular systolic pressure at rest is 38 mmHg - FOLLOW UP Follow Up: Patient is being transferred to [facility] in the care of Dr. Osmani Aguayo thoracic surgery for surgical treatment of a loculated empyema. - TIME SPENT Time Spent in Discharge (Minutes): 55"
[2018-01-01 21:44] VITALS: BP 114/93
== END 2018-01-01 22:00 | disposition short-term general hospital (02) | DRG 163 ==
LOC: ED 17:10 → ICU 23:27 → UNDOADMIN 23:27 → ICU 12-30 01:40 → MS2 12-31 17:38
PROVIDERS: ADMIT Internal Medicine; ATTEND Internal Medicine
PROC: 0W9B3ZZ Drainage of Left Pleural Cavity, Percutaneous Approach (ICD-10-PCS; 2017-12-30)
PROC: 30233K1 Transfusion of Nonautologous Frozen Plasma into Peripheral Vein, Percutaneous Approach (ICD-10-PCS; 2017-12-30)
PROC: 0WJ Anatomical Regions, General, Inspection (ICD-10-PCS; principal; 2017-12-31 11:15)
DX: J86.9 Pyothorax without fistula (principal); J44.9 Chronic obstructive pulmonary disease, unspecified; G47.30 Sleep apnea, unspecified; Z87.01 Personal history of pneumonia (recurrent); Z79.01 Long term (current) use of anticoagulants; J18.1 Lobar pneumonia, unspecified organism; I50.22 Chronic systolic (congestive) heart failure; J43.9 Emphysema, unspecified; Y95 Nosocomial condition; I48.2 Chronic atrial fibrillation; G47.33 Obstructive sleep apnea (adult) (pediatric); E78.5 Hyperlipidemia, unspecified; H91.90 Unspecified hearing loss, unspecified ear; I95.9 Hypotension, unspecified; D64.9 Anemia, unspecified; Z87.891 Personal history of nicotine dependence; Z86.711 Personal history of pulmonary embolism; Z91.14 Patient's other noncompliance with medication regimen
CPT/HCPCS: 36415; 71045; 71046; 71260; 80053; 83036; 83605; 83690; 83735; 84100; 85025; 85610; 86850; 86900; 86901; 87040; 87150; 89051; 93306; 94640; 96360; 99283; 99284

== ENCOUNTER 2018-01-29 21:21 | Outpatient (CLI) | payer MEDICARE, OTHER, MEDICAID | END 2018-01-29 21:22 | disposition critical access hospital (66) | LOC: EMS 21:21 | PROVIDERS: ATTEND Surgery | DX: R46.4 Slowness and poor responsiveness (principal) | CPT/HCPCS: A0425; A0433 ==

== ENCOUNTER 2018-01-29 21:56 | Emergency (ER) | payer MEDICARE, OTHER, MEDICAID ==
--- NOTE | 2018-01-29 22:04 | ED Physician Documentation ---
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 per medic report, patient had returned from getting food at 8 PM tonight, and family found that he was confused, diaphoretic, disoriented, increasingly lethargic. given total of 2.3 mg Narcan en route with minimal response. arrives obtunded, although medics report that they had been able to get him to follow commands enough to determine that there did not appear to be focal neurologic deficits ( specifically, arms and legs normal and equal strength, no facial asymmetry). medics were preparing to intubate patient for airway protection but held off due to imminent ED arrival Review of Systems Unable to obtain: Unresponsive, AMS PD PAST MEDICAL HISTORY - Past Medical History Cardiovascular: Congestive heart failure, High cholesterol, Atrial fibrillation Respiratory: COPD, Pneumonia, Sleep apnea, CPAP use Endocrine/Autoimmune: None GI: None : None HEENT: Chronic hearing loss Psych: None Musculoskeletal: None Derm: Other - Past Surgical History Past Surgical History: Yes Ortho: Other - Present Medications Home Medications: Ambulatory Orders Medication Instructions Recorded Confirmed Multivitamin [Theragran] 1 tab PO DAILY 08/10/17 12/30/17 Apixaban [Eliquis] 5 mg PO BID 09/13/17 12/30/17 - Allergies Allergies/Adverse Reactions: Allergies Allergy/AdvReac Type Severity Reaction Status Date / Time No Known Drug Allergies Allergy Verified 01/29/18 22:04 - Social History Does the pt smoke?: No Smoking Status: Never smoker Does the pt drink ETOH?: No Does the pt have substance abuse?: Yes - Immunizations Immunizations are current?: Yes - POLST Patient has POLST: No POLST Status: Full Code PD ED PE NORMAL - Vitals Vital signs reviewed: Yes - General General: No acute distress, Well developed/nourished, Other (unconscious, localizes to pain but GCS 7) - HEENT HEENT: Atraumatic, PERRL (5-> 3 bilaterally and consensually), Other (dry mucous membranes) - Cardiac Cardiac: RRR, No murmur, No gallop, No rub - Respiratory Respiratory: No respiratory distress, Clear bilaterally - Abdomen Abdomen: Normal bowel sounds, Soft, Non distended - Derm Derm: Normal color, Warm and dry, No rash - Extremities Extremities: No edema - Neuro Eye Opening: None Motor: Localizes to Pain Verbal: None GCS Score: 7 PD ED PE EXPANDED - Neuro Neuro: Unresponsive, Other (gag reflex, corneal reflexes intact. follows no commands. minimal response to sternal rub, although localizes to IV placement and blood draws. when I hold eyes open, there is no purposeful gaze) Results - Vitals Vitals: Vital Signs - 24 hr 01/29/18 01/29/18 01/30/18 23:33 23:45 00:18 Temperature Heart Rate 67 67 62 Respiratory 13 18 12 Rate Blood Pressure 133/75 H 134/78 H 133/74 H O2 Saturation 96 95 96 01/30/18 01/30/18 01/30/18 00:49 01:30 02:29 Temperature 36.0 C L 36.7 C Heart Rate 64 65 67 Respiratory 12 12 12 Rate Blood Pressure 140/75 H 120/70 125/72 O2 Saturation 94 95 99 01/30/18 01/30/18 01/30/18 03:06 03:26 04:08 Temperature 36.7 C 36.1 C L Heart Rate 62 63 67 Respiratory 12 12 12 Rate Blood Pressure 122/92 H 138/83 H 140/78 H O2 Saturation 122 H 100 97 01/30/18 01/30/18 01/30/18 05:09 06:16 08:47 Temperature 36.2 C L Heart Rate 68 66 71 Respiratory 13 13 16 Rate Blood Pressure 137/89 H 132/84 H 135/92 H O2 Saturation 97 100 98 Oxygen O2 Source Room air Oxygen Flow Rate 15 - EKG (time done) No standard instances Rate: Rate (enter#) (64) Rhythm: NSR [place]: Normal Intervals: RBBB QRS: Normal Ischemia: Normal ST segments Other comments: Other comments (PVC) - Labs Labs: Laboratory Tests 01/29/18 01/29/18 01/29/18 22:26 22:26 22:26 WBC 6.6 RBC 4.64 L Hgb 12.9 L Hct 39.7 L MCV 85.4 MCH 27.9 MCHC 32.6 RDW 22.3 H Plt Count 301 MPV 7.6 Neut # (Auto) 4.7 Lymph # (Auto) 1.1 L [place] # (Auto) 0.7 Eos # (Auto) 0.2 Baso # (Auto) 0.1 Absolute Nucleated RBC 0.00 Nucleated RBC % 0.0 PT 14.8 H INR 1.3 H APTT 31.3 Sodium 135 Potassium 3.6 Chloride 99 L Carbon Dioxide 30 Anion Gap 6.0 BUN 12 Creatinine 0.7 Estimated GFR (MDRD) 113 Glucose 100 Lactic Acid Calcium 8.7 Total Bilirubin 0.8 AST 26 ALT 17 Alkaline Phosphatase 107 Troponin I B-Natriuretic Peptide Total Protein 7.1 Albumin 3.6 Globulin 3.5 Albumin/Globulin Ratio 1.0 Lipase 22 Urine Color Urine Clarity Urine pH Ur Specific [place] Urine Protein Urine Glucose (UA) Urine Ketones Urine Occult Blood Urine Nitrite Urine Bilirubin Urine Urobilinogen Ur Leukocyte Esterase Ur Microscopic Review Urine Culture Comments Urine Opiates Screen Ur Oxycodone Screen Urine Methadone Screen Ur Propoxyphene Screen Acetaminophen < 10 L Ur Barbiturates Screen Ur Tricyclics Screen Ur Phencyclidine Scrn Ur Amphetamine Screen U Methamphetamines Scrn U Benzodiazepines Scrn Urine Cocaine Screen U Cannabinoids Screen Ethyl Alcohol < 5.0 01/29/18 01/29/18 01/29/18 22:26 22:26 22:26 WBC RBC Hgb Hct MCV MCH MCHC RDW Plt Count MPV Neut # (Auto) Lymph # (Auto) [place] # (Auto) Eos # (Auto) Baso # (Auto) Absolute Nucleated RBC Nucleated RBC % PT INR APTT Sodium Potassium Chloride Carbon Dioxide Anion Gap BUN Creatinine Estimated GFR (MDRD) Glucose Lactic Acid 0.9 Calcium Total Bilirubin AST ALT Alkaline Phosphatase Troponin I < 0.04 B-Natriuretic Peptide 264 H Total Protein Albumin Globulin Albumin/Globulin Ratio Lipase Urine Color Urine Clarity Urine pH Ur Specific [place] Urine Protein Urine Glucose (UA) Urine Ketones Urine Occult Blood Urine Nitrite Urine Bilirubin Urine Urobilinogen Ur Leukocyte Esterase Ur Microscopic Review Urine Culture Comments Urine Opiates Screen Ur Oxycodone Screen Urine Methadone Screen Ur Propoxyphene Screen Acetaminophen Ur Barbiturates Screen Ur Tricyclics Screen Ur Phencyclidine Scrn Ur Amphetamine Screen U Methamphetamines Scrn U Benzodiazepines Scrn Urine Cocaine Screen U Cannabinoids Screen Ethyl Alcohol 01/29/18 23:00 WBC RBC Hgb Hct MCV MCH MCHC RDW Plt Count MPV Neut # (Auto) Lymph # (Auto) [place] # (Auto) Eos # (Auto) Baso # (Auto) Absolute Nucleated RBC Nucleated RBC % PT INR APTT Sodium Potassium Chloride Carbon Dioxide Anion Gap BUN Creatinine Estimated GFR (MDRD) Glucose Lactic Acid Calcium Total Bilirubin AST ALT Alkaline Phosphatase Troponin I B-Natriuretic Peptide Total Protein Albumin Globulin Albumin/Globulin Ratio Lipase Urine Color YELLOW Urine Clarity CLEAR Urine pH 7.0 Ur Specific [place] 1.010 Urine Protein NEGATIVE Urine Glucose (UA) NEGATIVE Urine Ketones NEGATIVE Urine Occult Blood NEGATIVE Urine Nitrite NEGATIVE Urine Bilirubin NEGATIVE Urine Urobilinogen 0.2 (NORMAL) Ur Leukocyte Esterase NEGATIVE Ur Microscopic Review NOT INDICATED Urine Culture Comments NOT INDICATED Urine Opiates Screen POSITIVE H Ur Oxycodone Screen NEGATIVE Urine Methadone Screen NEGATIVE Ur Propoxyphene Screen NEGATIVE Acetaminophen Ur Barbiturates Screen NEGATIVE Ur Tricyclics Screen NEGATIVE Ur Phencyclidine Scrn NEGATIVE Ur Amphetamine Screen NEGATIVE U Methamphetamines Scrn NEGATIVE U Benzodiazepines Scrn POSITIVE H Urine Cocaine Screen NEGATIVE U Cannabinoids Screen NEGATIVE Ethyl Alcohol - Rads (name of study) CT head Radiology: Prelim report reviewed, See rad report chest xray Radiology: Prelim report reviewed, See rad report PD MEDICAL DECISION MAKING - ED course Complexity details: reviewed results, re-evaluated patient, considered differential, d/w patient ED course: No significant response to 0.4 mg narcan in ED, followed by 0.8 mg narcan. medics note there was an empty bottle of oxycodone in house, and someone on scene indicated there had been 9 tablets in the bottle earlier today. patient did have mild improvement after nearly 2 hours in ED, with GCS 9 ( briefly opens eyes to repeated verbal, although still no intentional gaze, nonverbal, not following commands). plan was to admit, and Dr. Paula evaluated patient in ED. Per my subsequent discussion with Dr. Paula, on Dr. Rodriguez exam , patient was arousable to voice/tactile, and was answering questions and following simple commands. family then arrived and Dr. Paula involved them in the discussion. I was not present for this discussion nor for Dr. Rodriguez evaluation of patient, but per my subsequent discussion with Dr. Paula, it remained unclear as to cause of patients AMS: patient indicated he had taken some type of pills for tension earlier tonight, and family also notes there are benzodiazepines in the house (although not his prescription). because patient was demonstrating significant improvement, plan now was to hold patient in ED and discharge once he is able to ambulate and is more awake. patient slept for several more hours in ED, and family left. On reevaluation in AM, approximately 7:15 AM, patient was asleep but awakens to voice and gentle tactile stimulus. he is now conversant, appropriate, oriented x 3. he says he does not know why he was unconscious last night but says he feels well at this time. denies taking any illicit drugs, denies taking extra amounts of any prescribed medication, denies taking medication not prescribed for him. he expressed comfort with plan to discharge from ED, will f/u with PMD, return if worse in any way - Sepsis Event Vital Signs: Vital Signs - 24 hr 01/29/18 01/29/18 01/30/18 23:33 23:45 00:18 Temperature Heart Rate 67 67 62 Respiratory 13 18 12 Rate Blood Pressure 133/75 H 134/78 H 133/74 H O2 Saturation 96 95 96 01/30/18 01/30/18 01/30/18 00:49 01:30 02:29 Temperature 36.0 C L 36.7 C Heart Rate 64 65 67 Respiratory 12 12 12 Rate Blood Pressure 140/75 H 120/70 125/72 O2 Saturation 94 95 99 01/30/18 01/30/18 01/30/18 03:06 03:26 04:08 Temperature 36.7 C 36.1 C L Heart Rate 62 63 67 Respiratory 12 12 12 Rate Blood Pressure 122/92 H 138/83 H 140/78 H O2 Saturation 122 H 100 97 01/30/18 01/30/18 01/30/18 05:09 06:16 08:47 Temperature 36.2 C L Heart Rate 68 66 71 Respiratory 13 13 16 Rate Blood Pressure 137/89 H 132/84 H 135/92 H O2 Saturation 97 100 98 Oxygen O2 Source Room air Oxygen Flow Rate 15 Departure - Departure Disposition: 01 Home, Self Care Clinical Impression: Altered mental status Qualifiers: Altered mental status type: unspecified Qualified Code(s): R41.82 - Altered mental status, unspecified Condition: Good Instructions: ED Altered Loc Follow-Up: Letty Geronimo ARNP [Primary Care Provider] - (Call tomorrow morning (Wednesday , January 31, 2018) to arrange for next available appointment) Discharge Date/Time: 01/30/18 08:47
[2018-01-29] MEDS ORDERED: MIDAZOLAM 2 MG/2 ML VIAL ONE (22:11)
[2018-01-29] MEDS ORDERED: PROPOFOL 1000 MG/100 ML 0 ML IV ONE (22:11)
[2018-01-29] MEDS ORDERED: KETAMINE 500 MG/10 ML VIAL ONE (22:11)
[2018-01-29] MEDS ORDERED: ETOMIDATE 40 MG/20 ML VIAL IVP ONE (22:11)
[2018-01-29] MEDS ORDERED: PROPOFOL 200 MG/20 ML VIAL IVP ONE (22:12)
[2018-01-29] MEDS ORDERED: SUCCINYLCHOLINE 200 MG/10 ML VIAL ONE (22:12)
[2018-01-29] MEDS ORDERED: ROCURONIUM 50 MG/5 ML VIAL IVP ONE (22:12)
[2018-01-29 22:35] LABS: BASOPHILS # (AUTO) 0.1 10^3/uL (0.0-0.1); BASOPHILS % (AUTO) 1.1 %; EOSINOPHILS # (AUTO) 0.2 10^3/uL (0.0-0.7); EOSINOPHILS % (AUTO) 2.7 %; HGB - HEMOGLOBIN 12.9 g/dL (14.0-18.0); LYMPHOCYTES # (AUTO) 1.1 10^3/uL (1.5-3.5); LYMPHOCYTES % (AUTO) 15.9 %; MEAN CORPUSCULAR HEMOGLOBIN 27.9 pg (27.0-31.0); MEAN CORPUSCULAR HGB CONC 32.6 g/dL (32.0-36.0); MEAN CORPUSCULAR VOLUME 85.4 fL (80.0-94.0); MEAN PLATELET VOLUME 7.6 fL (7.4-11.4); MONOCYTES # (AUTO) 0.7 10^3/uL (0.0-1.0); MONOCYTES % (AUTO) 10.1 %; NEUTROPHILS # (AUTO) 4.7 10^3/uL (1.5-6.6); NEUTROPHILS % (AUTO) 70.2 %; PLT - PLATELET COUNT 301 10^3/uL (130-450); RED BLOOD COUNT 4.64 10^6/uL (4.70-6.10); RED CELL DISTRIBUTION WIDTH 22.3 % (12.0-15.0); WHITE BLOOD COUNT 6.6 x10^3/uL (4.8-10.8)
[2018-01-29 22:38] LABS: INR 1.3 (0.8-1.2); PT - PROTHROMBIN TIME 14.8 secs (9.9-12.6)
[2018-01-29 22:47] LABS: ALBUMIN 3.6 g/dL (3.2-5.5); ALKALINE PHOSPHATASE 107 IU/L (42-121); ALT ALANINE AMINOTRANSFERASE 17 IU/L (10-60); AST ASPARTATE AMINOTRANSFERASE 26 IU/L (10-42); BILIRUBIN,TOTAL 0.8 mg/dL (0.2-1.0); BUN - BLOOD UREA NITROGEN 12 mg/dL (6-20); CALCIUM 8.7 mg/dL (8.5-10.3); CARBON DIOXIDE - CO2 30 mmol/L (21-32); CHLORIDE 99 mmol/L (101-111); CREATININE 0.7 mg/dL (0.6-1.2); GFR - MDRD 113 (>89); GLUCOSE 100 mg/dL (70-100); LIPASE 22 U/L (22-51); SODIUM 135 mmol/L (135-145); TOTAL PROTEIN 7.1 g/dL (6.7-8.2)
--- NOTE | 2018-01-29 22:47 | CT Report ---
Procedure Date: 01/29/2018 Accession Number: [id number] / [id number] Procedure: CT - Head W/O CPT Code: FULL RESULT: EXAM: CT HEAD EXAM DATE: 01/29/2018 10:31 PM. CLINICAL HISTORY: AMS. COMPARISON: HEAD W/O 07/24/2017. TECHNIQUE: Multiaxial CT images were obtained from the foramen magnum to the vertex. Reformats: Coronal.. IV contrast: None. In accordance with CT protocol optimization, one or more of the following dose reduction techniques were utilized for this exam: automated exposure control, adjustment of mA and/or KV based on patient size, or use of iterative reconstructive technique. FINDINGS: Parenchyma: No intraparenchymal hemorrhage. No evidence of mass, midline shift, or CT findings of infarction. Cuhn-white differentiation is distinct. Extraaxial Spaces: Normal for age. No subdural or epidural collections identified. Ventricles: Normal in size and position. Sinuses and Orbits: Imaged paranasal sinuses, orbits, and mastoids show no significant abnormality. Bones: No evidence of fracture or calvarial defect. Other: None. IMPRESSION: Negative CT head without contrast. No change compared to 07/24/2017. RADIA
--- NOTE | 2018-01-29 22:53 | XRAY Report ---
Procedure Date: 01/29/2018 Accession Number: [id number] / [id number] Procedure: XR - Chest 1 View X-Ray CPT Code: 47072 FULL RESULT: EXAM: CHEST RADIOGRAPHY EXAM DATE: 01/29/2018 10:43 PM. CLINICAL HISTORY: Altered mental status. COMPARISON: 01/28/2018. TECHNIQUE: 1 view. FINDINGS: Lungs/Pleura: Small bilateral left greater than right pleural effusions. Bibasilar opacities are noted. Additional right upper lobe opacities are unchanged. Biapical pleural thickening noted. No pneumothorax. Mediastinum: Stable cardiac silhouette. Other: None. IMPRESSION: 1. Small stable bilateral effusions. Bibasilar and right upper lobe opacities unchanged. 2. Mild cardiac enlargement. 3. No pneumothorax. RADIA
[2018-01-29 23:02] LABS: MUDS CUTOFF CONCENTRATIONS CUTOFF CONC BELOW:
[2018-01-29 23:02] LABS: ACETAMINOPHEN < 10 ug/mL (10-30)
[2018-01-29 23:04] LABS: BILIRUBIN,URINE NEGATIVE (NEGATIVE); GLUCOSE, URINE (UA) NEGATIVE (NEGATIVE); KETONES,URINE (UA) NEGATIVE (NEGATIVE); LEUKOCYTE ESTERASE, URINE NEGATIVE (NEGATIVE); NITRITE,URINE NEGATIVE (NEGATIVE); OCCULT BLOOD,URINE NEGATIVE (NEGATIVE); PROTEIN,URINE NEGATIVE (NEGATIVE); UROBILINOGEN,URINE 0.2 (NORMAL) E.U./dL (NORMAL)
[2018-01-29 23:05] LABS: CLARITY,URINE CLEAR (CLEAR)
[2018-01-29 23:14] LABS: AMPHETAMINE SCREEN,URINE NEGATIVE (NEGATIVE); BENZODIAZEPINES SCREEN, URINE POSITIVE (NEGATIVE); COCAINE SCREEN URINE NEGATIVE (NEGATIVE); METHADONE SCREEN, URINE NEGATIVE (NEGATIVE); METHAMPHETAMINES SCREEN, URINE NEGATIVE (NEGATIVE); OPIATE SCREEN, URINE POSITIVE (NEGATIVE); OXYCODONE SCREEN, URINE NEGATIVE (NEGATIVE); PROPOXYPHENE SCREEN, URINE NEGATIVE (NEGATIVE); TRICYCLIC ANTIDEPRESSANT,URINE NEGATIVE (NEGATIVE)
[2018-01-29] MEDS ORDERED: NALOXONE 0.4 MG/ML VIAL IVP STA ×2 (23:27)
[2018-01-29] MEDS ORDERED: SODIUM CHLORIDE 0.9% 1,000 ML IV STA (23:38)
[2018-01-30] MEDS ORDERED: SODIUM CHLORIDE FLUSH 0.9% 10 ML SYRINGE IVP PRN (01:40)
[2018-01-30] MEDS ORDERED: PROCHLORPERAZINE 10 MG/2 ML VIAL IVP PRN (01:40)
[2018-01-30] MEDS ORDERED: ONDANSETRON 4 MG/2 ML VIAL IVP PRN (01:40)
[2018-01-30] MEDS ORDERED: PROMETHAZINE 25 MG/1 ML VIAL IM PRN (01:40)
[2018-01-30] MEDS ORDERED: SODIUM CHLORIDE 0.9% 1,000 ML IV SCH (02:00)
[2018-01-30 08:49] VITALS: BP 135/92
[2018-01-30] MEDS ORDERED: FAMOTIDINE 20 MG/50 ML 50 ML IV SCH (09:00)
[2018-01-30] MEDS ORDERED: APIXABAN 2.5 MG TABLET PO SCH (09:00)
[2018-01-30] MEDS ORDERED: POLYETHYLENE GLYCOL 3350 17 GM PACKET PO SCH (09:00)
[2018-01-30] MEDS ORDERED: SODIUM CHLORIDE FLUSH 0.9% 10 ML SYRINGE IVP SCH (09:00)
== END 2018-01-30 08:47 | disposition home or self-care (01) ==
LOC: EDBD → EDUNIT# → ED 21:56 → UNDOADMOB 01-30 01:40 → MS2 01-30 01:40 → ED 01-30 08:47
DX: R41.82 Altered mental status, unspecified (principal); I50.9 Heart failure, unspecified; E78.00 Pure hypercholesterolemia, unspecified; I48.91 Unspecified atrial fibrillation; J44.9 Chronic obstructive pulmonary disease, unspecified; G47.30 Sleep apnea, unspecified; Z79.01 Long term (current) use of anticoagulants
CPT/HCPCS: 36415; 70450; 71045; 80053; 80306; 80307; 80320; 81001; 81003; 83605; 83690; 83735; 83880; 84100; 84484; 85025; 85610; 85730; 87086; 93005; 96361; 96374; 99284; 99285

== ENCOUNTER 2018-03-27 02:12 | Outpatient (CLI) | payer MEDICARE, OTHER, MEDICAID | END 2018-03-27 02:13 | disposition critical access hospital (66) | LOC: EMS 02:12 | PROVIDERS: ATTEND Surgery | DX: R40.20 Unspecified coma (principal) | CPT/HCPCS: A0425; A0427 ==

== ENCOUNTER 2018-03-27 02:47 | Emergency (ER) | payer MEDICARE, OTHER, MEDICAID ==
--- NOTE | 2018-03-27 04:12 | ED Physician Documentation ---
History of Present Illness - Stated complaint Stated Complaint: OD - Chief complaint Chief Complaint: MHE - Additonal information Additional information: 68-year-old male presents the emergency department after an accidental overdose of heroin. The patient has been clean for 7 years and recently resumed using heroin. This evening the patient took more than normal. EMS was called and the patient was given 1 mg of Narcan. Now, the patient is back to his baseline. The patient has no other acute complaints Review of Systems Constitutional: denies: Fatigue Eyes: denies: Discharge Cardiac: denies: Chest pain / pressure Respiratory: denies: Dyspnea Skin: denies: Rash Psychiatric: denies: Suicidal, Homicidal PD PAST MEDICAL HISTORY - Past Medical History Past Medical History: Yes Cardiovascular: Congestive heart failure, High cholesterol, Atrial fibrillation Respiratory: COPD, Pneumonia, Sleep apnea, CPAP use Endocrine/Autoimmune: None GI: None : None HEENT: Chronic hearing loss Psych: None Musculoskeletal: None Derm: Other - Past Surgical History Past Surgical History: Yes Ortho: Other - Present Medications Home Medications: Ambulatory Orders Medication Instructions Recorded Confirmed No Known Home Medications 03/27/18 03/27/18 - Allergies Allergies/Adverse Reactions: Allergies Allergy/AdvReac Type Severity Reaction Status Date / Time No Known Drug Allergies Allergy Verified 03/27/18 02:53 - Social History Does the pt smoke?: No Smoking Status: Former smoker Does the pt drink ETOH?: No Does the pt have substance abuse?: Yes Substance Use and Type: Marijuana, Heroin - Immunizations Immunizations are current?: Yes - POLST Patient has POLST: No POLST Status: Full Code PD ED PE NORMAL - General General: Alert and oriented X 3, No acute distress - HEENT HEENT: Atraumatic, PERRL, EOMI, Ears normal - Cardiac Cardiac: RRR, Strong equal pulses - Respiratory Respiratory: No respiratory distress - Extremities Extremities: No deformity - Neuro Neuro: Alert and oriented X 3, Normal speech - Psych Psych: Normal mood Results - Vitals Vitals: Vital Signs - 24 hr 03/27/18 03/27/18 02:49 03:14 Temperature 36 C L Heart Rate 82 88 Respiratory 17 14 Rate Blood Pressure 174/110 H 168/110 H O2 Saturation 100 99 Oxygen O2 Source Room air PD MEDICAL DECISION MAKING - ED course ED course: The patient used the heroin over 5 hours ago. The patient has been observed in the emergency department has had no recurrence of signs of acute heroin overdose. Presently, the patient appears appropriate for discharge. I discussed warning signs and recommended returning to the emergency department immediately for any worsening or any concerns. - Sepsis Event Vital Signs: Vital Signs - 24 hr 03/27/18 03/27/18 02:49 03:14 Temperature 36 C L Heart Rate 82 88 Respiratory 17 14 Rate Blood Pressure 174/110 H 168/110 H O2 Saturation 100 99 Oxygen O2 Source Room air Departure - Departure Disposition: 01 Home, Self Care Clinical Impression: Overdose Qualifiers: Encounter type: initial encounter Injury intent: accidental or unintentional Qualified Code(s): T50.901A - Poisoning by unspecified drugs, medicaments and biological substances, accidental (unintentional), initial encounter Condition: Good Instructions: ED Overdose Accidental, ED Narcotic Abuse, Addiction Heroin Tx Comments: Please follow-up with primary care. Please return to the emergency department for worsening symptoms and concern
[2018-03-27 04:48] VITALS: BP 150/95
== END 2018-03-27 04:57 | disposition home or self-care (01) ==
LOC: EDUNIT# → ED 02:47
DX: T40.1X1A Poisoning by heroin, accidental (unintentional), initial encounter (principal); I45.10 Unspecified right bundle-branch block; E78.00 Pure hypercholesterolemia, unspecified; Z87.891 Personal history of nicotine dependence
CPT/HCPCS: 93005; 99283

== ENCOUNTER 2018-06-22 16:26 | Emergency (ER) | payer MEDICARE, OTHER, MEDICAID ==
[2018-06-22 17:27] LABS: BASOPHILS # (AUTO) 0.1 10^3/uL (0.0-0.1); EOSINOPHILS # (AUTO) 0.1 10^3/uL (0.0-0.7); EOSINOPHILS % (AUTO) 1.4 %; HGB - HEMOGLOBIN 12.7 g/dL (14.0-18.0); LYMPHOCYTES # (AUTO) 1.1 10^3/uL (1.5-3.5); LYMPHOCYTES % (AUTO) 15.6 %; MEAN CORPUSCULAR VOLUME 91.1 fL (80.0-94.0); MEAN PLATELET VOLUME 8.3 fL (7.4-11.4); MONOCYTES # (AUTO) 0.6 10^3/uL (0.0-1.0); MONOCYTES % (AUTO) 8.4 %; NEUTROPHILS # (AUTO) 5.2 10^3/uL (1.5-6.6); NEUTROPHILS % (AUTO) 73.6 %; PLT - PLATELET COUNT 251 10^3/uL (130-450); RED BLOOD COUNT 4.21 10^6/uL (4.70-6.10); RED CELL DISTRIBUTION WIDTH 14.7 % (12.0-15.0)
[2018-06-22 17:42] LABS: ALBUMIN 3.4 g/dL (3.2-5.5); ALBUMIN/GLOBULIN RATIO 1.2 (1.0-2.2); CALCIUM 8.7 mg/dL (8.5-10.3); CREATININE 1.1 mg/dL (0.6-1.2); TOTAL PROTEIN 6.3 g/dL (6.7-8.2)
--- NOTE | 2018-06-22 20:00 | ED Physician Documentation ---
PD HPI DYSPNEA - Stated complaint Stated Complaint: SOA - Chief complaint Chief Complaint: Resp - History obtained from History obtained from: Patient - History of Present Illness Timing - onset: How many weeks ago (2-3) Timing - onset during: Light activity Timing - duration: Weeks (2-3) Timing - details: Gradual onset, Still present, Waxing and waning Inciting event(s): Out of meds Improved by: Rest. No: Sitting up Worsened by: Exertion, Coughing. No: Laying flat Associated symptoms: Cough, Wheezing. No: Fever, Hemoptysis, Chest pain / discomfort Similar symptoms before: Diagnosis (copd, and has had empyema requiring pleural drainage in the past.) Review of Systems Constitutional: reports: Myalgias. denies: Fever, Chills Nose: reports: Congestion. denies: Rhinorrhea / runny nose Throat: denies: Sore throat Cardiac: denies: Chest pain / pressure Respiratory: reports: Dyspnea, Cough, Wheezing GI: reports: Nausea. denies: Abdominal Pain, Vomiting, Constipation : denies: Dysuria Skin: denies: Rash Musculoskeletal: reports: Back pain, Joint pain. denies: Neck pain Neurologic: reports: Generalized weakness Immunocompromised: denies: Immunocompromised PD PAST MEDICAL HISTORY - Past Medical History Cardiovascular: Congestive heart failure, High cholesterol, Atrial fibrillation Respiratory: COPD, Pneumonia, Sleep apnea, CPAP use Endocrine/Autoimmune: None GI: None : None HEENT: Chronic hearing loss Psych: None Musculoskeletal: None Derm: Other - Past Surgical History Past Surgical History: Yes Ortho: Other - Present Medications Home Medications: Ambulatory Orders Medication Instructions Recorded Confirmed Albuterol Sulfate [Proair Hfa 2 puffs INH Q4H PRN 06/24/18 06/24/18 Inhaler] Albuterol Sulf [Ventolin Hfa 1 - 2 puffs INH Q4HR PRN #1 inhaler 06/25/18 Inhaler] Aspirin [Aspirin EC] 81 mg PO DAILY #90 tablet. 06/25/18 Dexamethasone [Decadron] 4 mg PO DAILY #5 tablet 06/25/18 Metoprolol Tartrate 50 mg PO DAILY #30 tablet 06/25/18 - Allergies Allergies/Adverse Reactions: Allergies Allergy/AdvReac Type Severity Reaction Status Date / Time No Known Drug Allergies Allergy Verified 03/27/18 02:53 - Social History Does the pt smoke?: No Smoking Status: Former smoker Does the pt drink ETOH?: No Does the pt have substance abuse?: Yes - Immunizations Immunizations are current?: Yes - POLST Patient has POLST: No POLST Status: Full Code PD ED PE NORMAL - Vitals Vital signs reviewed: Yes - General General: Alert and oriented X 3, Well developed/nourished - HEENT HEENT: Pharynx benign - Neck Neck: Supple, no meningeal sign, No adenopathy - Cardiac Cardiac: No murmur, No rub. No: RRR - Respiratory Respiratory: No respiratory distress. No: Clear bilaterally (some fine wet sounds left base. mild. Has expiratory wheezing diffusely.) - Abdomen Abdomen: Soft, Non tender Results - Vitals Vitals: Oxygen O2 Source Room air - EKG (time done) 17:13 Rate: Rate (enter#) (106) Rhythm: Atrial fibrillation [place]: Normal Intervals: Wide QRS, RBBB QRS: Normal Ischemia: Normal ST segments, ST depression (c/w the block pattern), Non specific changes. No: ST elevation c/w ischemia - Labs Labs: Laboratory Tests 06/22/18 06/22/18 06/22/18 17:21 17:21 17:21 WBC 7.0 RBC 4.21 L Hgb 12.7 L Hct 38.4 L MCV 91.1 MCH 30.0 MCHC 33.0 RDW 14.7 Plt Count 251 MPV 8.3 Neut # (Auto) 5.2 Lymph # (Auto) 1.1 L [place] # (Auto) 0.6 Eos # (Auto) 0.1 Baso # (Auto) 0.1 Absolute Nucleated RBC 0.01 Nucleated RBC % 0.1 D-Dimer Sodium 139 Potassium 4.3 Chloride 105 Carbon Dioxide 28 Anion Gap 6.0 BUN 23 H Creatinine 1.1 Estimated GFR (MDRD) 67 L Glucose 114 H Calcium 8.7 Total Bilirubin 1.0 AST 180 H ALT 174 H Alkaline Phosphatase 117 Troponin I < 0.04 B-Natriuretic Peptide Total Protein 6.3 L Albumin 3.4 Globulin 2.9 Albumin/Globulin Ratio 1.2 Lipase 47 06/22/18 06/22/18 17:21 17:21 WBC RBC Hgb Hct MCV MCH MCHC RDW Plt Count MPV Neut # (Auto) Lymph # (Auto) [place] # (Auto) Eos # (Auto) Baso # (Auto) Absolute Nucleated RBC Nucleated RBC % D-Dimer 684.5 H Sodium Potassium Chloride Carbon Dioxide Anion Gap BUN Creatinine Estimated GFR (MDRD) Glucose Calcium Total Bilirubin AST ALT Alkaline Phosphatase Troponin I B-Natriuretic Peptide 630 H Total Protein Albumin Globulin Albumin/Globulin Ratio Lipase - Rads (name of study) chest xray Radiology: Prelim report reviewed, EMP read contemporaneously (no infiltrates; has left effusion. ) chest CT-A Radiology: Prelim report reviewed (no emboli; has scarring and some effusion. ) PD MEDICAL DECISION MAKING - ED course Complexity details: considered differential (has atrail fib without current medications. Rate is mildly/moderate fast, and slows with IV meds. His breathing improves with neb treatment.), d/w patient Departure - Departure Disposition: 01 Home, Self Care Clinical Impression: COPD exacerbation Afib Qualifiers: Atrial fibrillation type: unspecified Qualified Code(s): I48.91 - Unspecified atrial fibrillation Clinical Impression: (Ruled Out): Pulmonary thromboembolism Condition: Stable Record reviewed to determine appropriate education?: Yes Instructions: ED Afib, ED COPD Flare Prescriptions: Albuterol Sulf [Ventolin Hfa Inhaler] 1 - 2 puffs INH Q4HR PRN #1 inhaler PRN Reason: Shortness Of Air/Wheezing Aspirin [Aspirin EC] 81 mg PO DAILY #90 tablet. Dexamethasone [Decadron] 4 mg PO DAILY #5 tablet Metoprolol Tartrate 50 mg PO DAILY #30 tablet Comments: I think your trouble breathing is mostly from lung related COPD. Use albuterol inhaler 2 puffs 4 times a day. You can add Atrovent inhaler 1 puff twice daily as well. Decadron steroid for inflammation of the airways daily for the next week. You also have atrial fibrillation which is slightly fast and may be contributing to some of the dyspnea. Take a baby aspirin encourage enteric- coated daily. Metoprolol daily to reduce the heart rate and keep her from going too fast. There are no signs of blood clots on your scan. You did have some fluid collection around the outside of the left lung and some scarring in that area which had a more chronic appearance according to the radiologist. Follow- up with your primary care in the next week or so and call for an appointment. Discharge Date/Time: 06/22/18 23:51
[2018-06-22] MEDS: IPRATROPIUM/ALBUTEROL 3 ML NEB INH STA (20:43)
--- NOTE | 2018-06-22 20:50 | XRAY Report ---
Reason: SOA Procedure Date: 06/22/2018 Accession Number: [id number] / [id number] Procedure: XR - Chest 2 View X-Ray CPT Code: 87840 FULL RESULT: EXAM: CHEST RADIOGRAPHY EXAM DATE: 06/22/2018 08:09 PM. CLINICAL HISTORY: Shortness of air. COMPARISON: CHEST 1 VIEW 01/29/2018 10:33 PM CHEST W/ 01/01/2018 9:06 AM CHEST 1 VIEW 12/31/2017 11:42 AM. TECHNIQUE: 2 views. FINDINGS: Right upper lobe and bibasilar lung scarring suspected. Increased mild right base airspace disease and left base consolidation. Pneumonia could be superimposed on chronic lung disease. Small bilateral pleural effusions, left greater than right, decreased. Mild cardiomegaly. IMPRESSION: Right upper lobe and bibasilar lung scarring suspected. Increased mild right base airspace disease and left base consolidation. Pneumonia could be superimposed on chronic lung disease. Small bilateral pleural effusions, left greater than right, decreased. Mild cardiomegaly. RADIA
[2018-06-22] MEDS: DEXAMETHASONE 10 MG/ML VIAL IVP STA (20:53)
[2018-06-22] MEDS: SODIUM CHLORIDE 0.9% 1,000 ML IV ONE (20:53)
[2018-06-22] MEDS: METOPROLOL 5 MG/5 ML VIAL IVP STA ×2 (20:58→22:42)
[2018-06-22] MEDS ORDERED: IOVERSOL 320 100 ML VIAL IVP ONE (21:35)
--- NOTE | 2018-06-22 22:54 | CT Report ---
Reason: dyspnea and elevated d-dimer Procedure Date: 06/22/2018 Accession Number: [id number] / [id number] Procedure: CT - Chest Angio (PE) CPT Code: FULL RESULT: EXAM: CT ANGIOGRAM CHEST EXAM DATE: 06/22/2018 10:03 PM. CLINICAL HISTORY: Dyspnea and elevated D-dimer. COMPARISON: CHEST W01/01/2018 9:06 AM. TECHNIQUE: Routine helical imaging was performed through the chest in the pulmonary arterial phase. IV Contrast: 80 mL Optiray 320. Reconstructions: Coronal 3D MIP reconstructions.Sagittal and coronal. In accordance with CT protocol optimization, one or more of the following dose reduction techniques were utilized for this exam: automated exposure control, adjustment of mA and/or KV based on patient size, or use of iterative reconstructive technique. FINDINGS: Mediastinum: Moderate motion artifact limits the evaluation especially at the lower lobe distal segmental and subsegmental pulmonary arteries were pulmonary emboli could be missed. No definite pulmonary emboli are seen. No thoracic aortic aneurysm. Mild cardiomegaly. Enlarged right atrium. Left hilar lymphadenopathy 1.1 cm, unchanged. Low right subcarinal lymphadenopathy 1.2 cm, increased. Upper Abdomen: Reflux of contrast into the hepatic veins. Calcified granuloma in the spleen. Lungs: Small bilateral pleural effusions, right greater than left, increased on the right. Portions of the right pleural effusion are loculated laterally extending into the right major fissure. Right upper lobe lateral pleural-based consolidation measures 4 x 0.9 cm and this was present on the prior. There appears to be a new tiny right upper lateral probable loculated pneumothorax, see axial image 63. Breathing motion artifact limited. Moderate bibasilar scarring with atelectasis. Interlobular septal thickening with adjacent haziness, increased, most prominent in the bilateral lower lobes, could represent pulmonary edema. Multiple small nodular opacities are seen posteriorly in the left lower lobe, new. Moderate biapical scarring and pleural thickening. Motion artifact limited. Bones: No acute bone findings. IMPRESSION: 1. Moderate motion artifact limits evaluation especially at the lower lobe distal segmental and subsegmental pulmonary arteries were pulmonary emboli could be missed. No definite pulmonary emboli are seen. 2. Mild cardiomegaly. Enlarged right atrium. 3. Mild left hilar lymphadenopathy, unchanged. Low right subcarinal lymphadenopathy, increased. 4. Small bilateral pleural effusions, increased on the right. Portions loculated laterally extending to the right major fissure. New tiny right lateral upper probable loculated pneumothorax. 5. Biapical and bibasilar scarring. Right upper lobe lateral pleural-based consolidation, probable scarring, appears similar to the prior. 6. Interlobular septal thickening and haziness of the lungs most prominent at the bilateral lower lobes, could represent pulmonary edema. New nodular opacities are seen posteriorly in the left lower lobe and could represent aspiration or pneumonia. Follow-up is recommended. 7. See above. RADIA The above findings were discussed with Garth Yip by Dr. Jennifer Irene at 22:53 hrs on 06/22/18.
[2018-06-22 23:31] VITALS: BP 120/88
[2018-06-22] MEDS: METOPROLOL TARTRATE 50 MG TABLET PO STA (23:45)
[2018-06-23] MEDS: IOVERSOL 320 100 ML VIAL IVP ONE (03:17)
[2018-06-23] MEDS ORDERED: IOVERSOL 320 100 ML VIAL IVP ONE (03:17)
== END 2018-06-22 23:51 | disposition home or self-care (01) ==
LOC: ED 16:26
DX: J44.1 Chronic obstructive pulmonary disease with (acute) exacerbation (principal); I48.91 Unspecified atrial fibrillation; I45.2 Bifascicular block; E78.00 Pure hypercholesterolemia, unspecified; Z79.82 Long term (current) use of aspirin; Z87.891 Personal history of nicotine dependence
CPT/HCPCS: 36415; 71046; 71275; 80053; 83690; 83880; 84484; 85025; 85379; 93005; 94640; 96361; 96374; 96375; 96376; 99284

== ENCOUNTER 2018-06-24 13:20 | Outpatient (CLI) | payer MEDICARE, OTHER, MEDICAID | END 2018-06-24 13:21 | disposition critical access hospital (66) | LOC: EMS 13:20 | PROVIDERS: ATTEND Surgery | DX: R06.02 Shortness of breath (principal) | CPT/HCPCS: A0425; A0427 ==

== ENCOUNTER 2018-06-24 13:56 | Inpatient (IN) | payer MEDICARE, OTHER, MEDICAID ==
--- NOTE | 2018-06-24 14:15 | ED Physician Documentation ---
PD HPI DYSPNEA - Stated complaint Stated Complaint: SOA - Chief complaint Chief Complaint: Resp - History obtained from History obtained from: Patient - History of Present Illness Timing - onset: Other (This is a 68-year-old gentleman who has COPD. He had an empyema status post thoracic surgery in January of this year. Over the last month he has had increasing shortness of breath with mild cough. He was seen here 2 days ago. He had a CT of his chest without evidence of PE but it was somewhat limited. He had small bilateral pleural effusions and was found to be in atrial fibrillation which was a new problem for him. He says he really never got better but did not fill any of the prescriptions he was discharged with because of lack of transportation. He has episodes where he is very short of breath. He denies pedal edema or chest pain. He does have a history of heroin abuse, he is a little evasive when asked him when he last used, he says it was about a month ago. He was seen here for an overdose on heroin about 3 months ago.) Review of Systems Ten Systems: 10 systems reviewed and negative Constitutional: denies: Fever, Chills Cardiac: denies: Chest pain / pressure, Palpitations Respiratory: reports: Dyspnea, Cough GI: denies: Abdominal Pain, Nausea, Vomiting PD PAST MEDICAL HISTORY - Past Medical History Cardiovascular: Congestive heart failure, High cholesterol, Atrial fibrillation Respiratory: COPD, Pneumonia, Sleep apnea, CPAP use Endocrine/Autoimmune: None GI: None : None HEENT: Chronic hearing loss Psych: None Musculoskeletal: None Derm: Other - Past Surgical History Past Surgical History: Yes Ortho: Other Cardiovascular: Other - Present Medications Home Medications: Ambulatory Orders Medication Instructions Recorded Confirmed Albuterol Sulf [Ventolin Hfa 2 - 3 puffs INH Q4HR PRN #1 inhaler 06/22/18 Inhaler] Aspirin [Aspirin EC] 81 mg PO DAILY #90 tablet. 06/22/18 Dexamethasone [Decadron] 4 mg PO DAILY #7 tablet 06/22/18 Metoprolol Tartrate 50 mg PO DAILY #30 tablet 06/22/18 - Allergies Allergies/Adverse Reactions: Allergies Allergy/AdvReac Type Severity Reaction Status Date / Time No Known Drug Allergies Allergy Verified 03/27/18 02:53 - Social History Does the pt smoke?: No Smoking Status: Former smoker Does the pt drink ETOH?: No Does the pt have substance abuse?: Yes - Immunizations Immunizations are current?: Yes - POLST Patient has POLST: No POLST Status: Full Code PD ED PE NORMAL - Vitals Vital signs reviewed: Yes - General General: Alert and oriented X 3, No acute distress - HEENT HEENT: PERRL, EOMI - Neck Neck: Supple, no meningeal sign, No bony TTP - Cardiac Cardiac: Other (Irregularly irregular without murmur) - Respiratory Respiratory: Other (Mild exp wheezes but good air movement, nonlabored.) - Abdomen Abdomen: Soft, Non tender - Back Back: No CVA TTP, No spinal TTP - Derm Derm: Normal color, Warm and dry - Extremities Extremities: No edema, No calf tenderness / cord - Neuro Neuro: Alert and oriented X 3, Normal speech - Psych Psych: Normal mood, Normal affect Results - Vitals Vitals: Vital Signs - 24 hr 06/24/18 06/24/18 06/24/18 14:01 14:30 15:00 Temperature 36.9 C Heart Rate 78 119 H 98 Respiratory 20 18 Rate Blood Pressure 121/94 H 121/94 H 134/94 H O2 Saturation 97 96 95 Oxygen O2 Source Room air - EKG (time done) 1422 Rate: Rate (enter#) (137) Rhythm: Atrial fibrillation Intervals: RBBB Ischemia: Normal ST segments. No: ST elevation c/w ischemia Computer interpretation: Agree with computer - Labs Labs: Laboratory Tests 06/24/18 06/24/18 06/24/18 14:28 14:43 14:43 WBC 12.8 H RBC 4.47 L Hgb 13.5 L Hct 39.6 L MCV 88.5 MCH 30.2 MCHC 34.1 RDW 15.1 H Plt Count 274 MPV 8.9 Neut # (Auto) 9.9 H Lymph # (Auto) 1.8 Hubbard # (Auto) 0.8 Eos # (Auto) 0.0 Baso # (Auto) 0.1 Absolute Nucleated RBC 0.00 Nucleated RBC % 0.0 PT 17.9 H INR 1.6 H Sodium 134 L Potassium 3.6 Chloride 100 L Carbon Dioxide 26 Anion Gap 8.0 BUN 22 H Creatinine 1.0 Estimated GFR (MDRD) 75 L Glucose 107 H Calcium 8.5 Total Bilirubin 1.1 H AST 165 H ALT 217 H Alkaline Phosphatase 149 H Troponin I B-Natriuretic Peptide Total Protein 7.0 Albumin 3.6 Globulin 3.4 Albumin/Globulin Ratio 1.1 Lipase 29 TSH 06/24/18 06/24/18 06/24/18 14:43 14:43 14:43 WBC RBC Hgb Hct MCV MCH MCHC RDW Plt Count MPV Neut # (Auto) Lymph # (Auto) Hubbard # (Auto) Eos # (Auto) Baso # (Auto) Absolute Nucleated RBC Nucleated RBC % PT INR Sodium Potassium Chloride Carbon Dioxide Anion Gap BUN Creatinine Estimated GFR (MDRD) Glucose Calcium Total Bilirubin AST ALT Alkaline Phosphatase Troponin I < 0.04 B-Natriuretic Peptide 1039 H Total Protein Albumin Globulin Albumin/Globulin Ratio Lipase TSH 2.62 - Rads (name of study) 2v chest Radiology: EMP read contemporaneously (I lateral CHF and worsening pleural effusions) PD MEDICAL DECISION MAKING - ED course ED course: 68-year-old gentleman with new onset A. fib with RVR and now worsening CHF over the last few days superimposed on medical history of heroin abuse and empyema is. He is afebrile without a new murmur today. He was given divided doses of diltiazem with improvement in his heart rate but needs to be admitted admitted for further evaluation and treatment and I spoke with Dr. Paula at 4:20 PM for this. Departure - Departure Disposition: 66 [facility] DC/Xfer Clinical Impression: COPD exacerbation Afib Qualifiers: Atrial fibrillation type: unspecified Qualified Code(s): I48.91 - Unspecified atrial fibrillation Congestive heart failure Qualifiers: Heart failure type: unspecified Heart failure chronicity: acute Qualified Code(s): I50.9 - Heart failure, unspecified Condition: Serious
[2018-06-24] MEDS ORDERED: diltiaZEM INJ 5 MG/ML VIAL IVP STA ×2 (14:25→16:16)
[2018-06-24 14:47] LABS: INR 1.6 (0.8-1.2); PT - PROTHROMBIN TIME 17.9 secs (9.9-12.6)
[2018-06-24 14:50] LABS: BASOPHILS # (AUTO) 0.1 10^3/uL (0.0-0.1); BASOPHILS % (AUTO) 0.9 %; EOSINOPHILS % (AUTO) 0.3 %; HGB - HEMOGLOBIN 13.5 g/dL (14.0-18.0); LYMPHOCYTES # (AUTO) 1.8 10^3/uL (1.5-3.5); LYMPHOCYTES % (AUTO) 14.4 %; MEAN CORPUSCULAR HEMOGLOBIN 30.2 pg (27.0-31.0); MEAN CORPUSCULAR HGB CONC 34.1 g/dL (32.0-36.0); MEAN CORPUSCULAR VOLUME 88.5 fL (80.0-94.0); MEAN PLATELET VOLUME 8.9 fL (7.4-11.4); MONOCYTES # (AUTO) 0.8 10^3/uL (0.0-1.0); MONOCYTES % (AUTO) 6.5 %; NEUTROPHILS # (AUTO) 9.9 10^3/uL (1.5-6.6); NEUTROPHILS % (AUTO) 77.9 %; PLT - PLATELET COUNT 274 10^3/uL (130-450); RED BLOOD COUNT 4.47 10^6/uL (4.70-6.10); RED CELL DISTRIBUTION WIDTH 15.1 % (12.0-15.0); WHITE BLOOD COUNT 12.8 x10^3/uL (4.8-10.8)
[2018-06-24 15:10] LABS: ALBUMIN 3.6 g/dL (3.2-5.5); ALBUMIN/GLOBULIN RATIO 1.1 (1.0-2.2); BILIRUBIN,TOTAL 1.1 mg/dL (0.2-1.0); CALCIUM 8.5 mg/dL (8.5-10.3)
--- NOTE | 2018-06-24 15:51 | XRAY Report ---
Reason: dyspnea Procedure Date: 06/24/2018 Accession Number: [id number] / [id number] Procedure: XR - Chest 2 View X-Ray CPT Code: 66937 FULL RESULT: EXAM: CHEST RADIOGRAPHY EXAM DATE: 06/24/2018 03:31 PM. CLINICAL HISTORY: Dyspnea. COMPARISON: CHEST 2 VIEW 06/22/2018 7:58 PM CHEST ANGIO 06/22/2018 9:38 PM CHEST 2 VIEW PA/LAT 04/05/2015 3:46 PM. TECHNIQUE: 2 views. FINDINGS: Lungs/Pleura: There is new density at the lateral right lung base with blunting of the right costophrenic angle. Mild left costophrenic angle blunting is unchanged. There are moderate bilateral irregular nodular and reticular opacities within the upper lobes which appear without significant interval change. These upper lobe densities appear chronic and were present dating back to 04/05/2015. Mediastinum: Cardiac silhouette is enlarged. There is mild aortic tortuosity and atherosclerosis. Other: None. IMPRESSION: 1. Small right pleural effusion has increased in size since 2 days earlier. 2. Increasing right basilar density, question worsening edema, organizing pneumonia or increasing atelectasis. 3. 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 RADIA
--- NOTE | 2018-06-24 16:25 | HISTORY & PHYSICAL EXAMINATION ---
Chief Complaint - Chief Complaint Chief Complaint: Shortness of breath History of Present Illness - Admitted From Admitted From:: Emergency department - History Obtained From Records Reviewed: Yes History obtained from: Patient Exam Limitations: None - History of Present Illness HPI Comment/Other: Patient is a 68-year-old gentleman with a past medical history significant for nonischemic cardiomyopathy with an ejection fraction of 25% and moderate right heart failure, atrial fibrillation, COPD, obstructive sleep apnea on CPAP, hyperlipidemia, chronic deafness, tobacco abuse, polysubstance abuse including crack cocaine, heroin and methamphetamines, with history of recurrent pneumonia with previous hospitalizations for Empyema requiring left thoracotomy with decortication on 01/04/2018 At [facility] who presented to the emergency department with a chief complaint of shortness of breath. The patient states that he has been having shortness of breath over the last week. He states that that his symptoms have been progressing to where he now feels short of breath just at rest. The patient states that he did come to the emergency department 2 days ago because he was having severe shortness of breath with exertion. He was seen at that time and thought to have a COPD exacerbation. He was treated with nebulizers in the emergency department and steroids. He was discharged home. The patient states that he felt as though he should not have been discharged home at that time. He states that even when he got up to walk out of the emergency department he was extremely short of breath. He states that when he returned home the symptoms continue to worsen and today he was short of breath just at rest. He also states that he has been having orthopnea. He does also complain of right leg and left hip pain. The patient denies any increasing lower extremity edema. He does state that he feels more short of breath when he lays on his left side which is the side that he had his radius empyema and VATS procedure. He states that he is stopped smoking cigarettes 8 years ago and stopped using meth and heroin a long time ago. However the patient does have positive methamphetamines in his urine tox screen and also has had a recent emergency room visit for heroin overdose. The patient admits to having stopped taking his meds about 4 months ago including his metoprolol and he has not taken a blood thinner for more than a year. The patient does also state that he has been having some chest tightness. He denies any wheezing. Denies any fevers or chills. He denies any worsening cough. Patient denies any headaches, blurred vision, runny nose, sore throat, nasal congestion, difficulty swallowing, palpitations, abdominal pain, nausea, vomiting, diarrhea, constipation, urinary urgency, urinary frequency, dysuria, recent unintentional weight loss or weight gain. Patient also denies any poly uria, polydipsia, dizziness, lightheadedness, skin rashes, skin changes, joint swelling, muscle aches, back pain, neck stiffness or any focal neurologic deficits. On presentation to the emergency department the patient is afebrile and initially his heart rate was 78 with a normal blood pressure although he was slightly tachypneic he was saturating well on room air. The patient then went into atrial fibrillation with a rapid ventricular rate while he was in the emergency department. The patient's heart rate jumped into the 130s. The patient required 2 doses of IV diltiazem 10 mg and then 20 mg. With this the patient's heart rate did come down to the 100s but then quickly shot back up. T he patient was admitted to the intensive care unit for a diltiazem drip and close cardiac monitoring. Patient's lab work did reveal an elevated BNP of 1039. The patient also underwent an EKG which did not reveal any ST elevations or acute ischemic changes. It did reveal atrial fibrillation with a rapid ventricular rate. The patient's chest x-ray was positive for increasing right pleural effusion and increased right basilar density likely worsening edema. The patient did appear short of breath at rest and with any minimal exertion. The patient also had elevated LFTs which are thought to likely be secondary to congestion of his liver from his congestive heart failure. The patient was ad mitted to the intensive care unit for CHF exacerbation and atrial fibrillation with rapid ventricular rate. History - Past Medical History Cardiovascular: reports: Congestive heart failure (EF 25%), Hypertension, High cholesterol, Atrial fibrillation Respiratory: reports: COPD, Pneumonia, Sleep apnea, CPAP use Neuro: reports: None Endocrine/Autoimmune: reports: None GI: reports: None : reports: None HEENT: reports: Chronic hearing loss Psych: reports: None Musculoskeletal: reports: None Derm: reports: Other MRSA Hx?: No - Past Surgical History Ortho: reports: Other Cardiovascular: reports: Other - Family & Social History Family History: Father: CAD (Father had heart attack and in his 50s, grandfather had a heart attack and in his 50s, sister had a heart attack in her 50s.), Sister: CAD, Other family: CAD Family History Comment/Other: pt is living [facility], single with girlfriend. 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 Social History Notes: Patient states he was born in [place] but grew up in [place] with his mom and stepfather. 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 He states recently he has not been able to participate much in painting due to his illness. He states that he has been living on [facility] for the last 8 years. He has never been and does not have any children. Patient states his twin sister also lives on [facility]. The patient smoked cigarettes for 37 years. He states he smoked about a pack a day. He states that he does drink beer occasionally but is not a heavy drinker. He states that for 15 years he used crack cocaine and quit 8 years ago. He also did use heroin in the past. He states that he was also a heavy user of marijuana but has quit using all illicit drugs. His Utox however is positive for Meth and Marijuana. He also has had a recent ER visit for heroin overdose. - Substance History Use: Uses substance without health or social issues: Tobacco - POLST Patient has POLST: No POLST Status: Full Code Meds/Allgy - Home Medications Home Medications: Ambulatory Orders Medication Instructions Recorded Confirmed Albuterol Sulfate [Proair Hfa 2 puffs INH Q4H PRN 06/24/18 06/24/18 Inhaler] - Allergies Allergies/Adverse Reactions: Allergies Allergy/AdvReac Type Severity Reaction Status Date / Time No Known Drug Allergies Allergy Verified 03/27/18 02:53 Review of Systems - Other Findings Other Findings: A comprehensive review of systems was performed the pertinent positives and negatives are stated above in the HPI and the remainder of the review of systems is negative. Prior Level of Functionality: Patient is completely independent with all his activities of daily living. Exam - Vital Signs Reviewed Vital Signs: Yes Vital Signs: Vital Signs x48h Temp Pulse Resp BP Pulse Ox 06/24/18 15:00 98 18 134/94 H 95 06/24/18 14:30 119 H 121/94 H 96 06/24/18 14:01 36.9 C 78 20 121/94 H 97 - Physical Exam General Appearance: positive: Alert, Moderate distress (Tachypnic, respiratory distress) Eyes Bilateral: positive: Normal inspection, PERRL, EOMI, No lid inflammation, Conjunctivae nml, No scleral icterus ENT: positive: ENT inspection nml, Pharynx nml. negative: Purulent nasal drainage, Pharyngeal erythema, Oral lesions Neck: positive: Nml inspection, Thyroid nml, Trachea midline. negative: Thyrome marisabel, Lymphadenopathy (R), Lymphadenopathy (L), Stiff neck, Carotid bruit, Tracheal deviation Respiratory: positive: Chest non-tender, No respiratory distress, Rales (Bases), Other (Coarse sounds throught the lungs) Cardiovascular: positive: Irregularly irregular, Tachycardia, JVD present Peripheral Pulses: positive: 2+ Abdomen: positive: No organomegaly, Nml bowel sounds, No distention, Other (RUQ tenderness). negative: Tenderness, Guarding, Rebound Back: positive: Nml inspection. negative: CVA tenderness (R), CVA tenderness (L) Skin: positive: Color nml, No rash, Warm, Dry. negative: Cyanosis, Diaphoresis, Pallor Extremities: positive: Non-tender, Full ROM, Nml appearance, Pedal edema (Mild bilateral) Neurologic/Psychiatric: positive: Oriented x3, CN's nml (2-12), Motor nml, Sensation nml, Mood/affect nml Conclusion/Plan - Problem List (1) Atrial fibrillation with RVR Conclusion/Plan: Patient presents with atrial fibrillation and a rapid ventricular response. The patient's heart rate was up in the 130s in the emergency department when he received 2 doses of IV diltiazem. The patient's heart rate did improve but then went back up into the 130s. The patient has been having worsening shortness of breath over the last week which is led to a CHF exacerbation. Likely the cause of the CHF exacerbation is his worsening A. fib with RVR and poor compliance to his medications. The patient did receive an echocardiogram in the emergency department which does show an ejection fraction of 25% with moderate right heart failure. Patient's TSH was normal. Plan: Admit to the ICU with diltiazem drip P.o. diltiazem 30 mg every 6 hours Resume metoprolol Monitor on telemetry Troponins x3 Restart anticoagulation and discuss need for adequate regulation with the patient. (2) CHF exacerbation Conclusion/Plan: The patient has a history of systolic heart failure. The patient's echocardiogram today shows that his EF is 25% and he has moderate right-sided heart failure. The patient does have an elevated BNP of 1039 which is elevated from his baseline of around 200. The patient appears to be congested on examination as well as on his chest x-ray. The patient also appears to have hepatic congestion with an elevated bilirubin, AST, ALT and alk phos. patient also has crackles on examination and an elevated JVD. His CHF exacerbation is likely secondary to noncompliance with medication and A. fib with RVR. Plan: IV Lasix twice daily 40 mg Fluid restriction 2 L Sodium restriction Strict I's and O's Metoprolol and lisinopril Daily weights Telemetry monitoring Monitor BNP daily Troponin x3 Qualifiers: Heart failure type: systolic Qualified Code(s): I50.23 - Acute on chronic systolic (congestive) heart failure (3) COPD (chronic obstructive pulmonary disease) Conclusion/Plan: Patient is a history of COPD and is on albuterol inhaler at home. Patient has been noncompliant with treatment. Patient does not appear to be in a COPD exacerbation rather he appears to be in CHF exacerbation at this time. Patient will be continued on nebulizers as needed. If the patient does develop wheezing or we noticed that he is having a COPD exacerbation the patient will be started on steroids. Patient is not febrile nor does he have signs of pneumonia theref ore we will not start antibiotics at this time. Qualifiers: COPD type: emphysema (4) Polysubstance abuse Conclusion/Plan: Patient has a history of crack cocaine, methamphetamine and heroin abuse. The patient states he does not do these drugs anymore but has recently been hospitalized for heroin overdose and does have positive methamphetamine in his urine tox screen. Although the patient denies using drugs it is obvious that he still does I did vocational guidance counselor him on the need to stop. It is likely that the patient's cardiomyopathy and reduced ejection fraction is secondary to his abuse of methamphetamine and heroin. Consult social work.. (5) KATIE on CPAP Conclusion/Plan: Patient has a history of obstructive sleep apnea and is on CPAP but has been noncompliant recently. The patient can be continued on his CPAP machine if he brings it in from home. (6) Elevated LFTs Conclusion/Plan: Likely secondary to liver congestion from right-sided heart failure. We will continue to monitor LFTs and continue to give patient Lasix as likely with resolution of CHF exacerbation his LFTs will improve. (7) Hyponatremia Conclusion/Plan: Patient has mild hyponatremia with a sodium of 134 on presentation. Patient appears to have hypervolemic hyponatremia secondary to CHF. The patient will be given IV Lasix and will continue to monitor his sodium. - Lab Results Lab results reviewed: Yes Fish Bones: 06/24/18 14:43 06/24/18 14:43 Other Lab Results: Laboratory Results WBC 12.8 x10^3/uL (4.8-10.8) H 06/24/18 14:43 RBC 4.47 10^6/uL (4.70-6.10) L 06/24/18 14:43 Hgb 13.5 g/dL (14.0-18.0) L 06/24/18 14:43 Hct 39.6 % (42.0-52.0) L 06/24/18 14:43 MCV 88.5 fL (80.0-94.0) 06/24/18 14:43 MCH 30.2 pg (27.0-31.0) 06/24/18 14:43 MCHC 34.1 g/dL (32.0-36.0) 06/24/18 14:43 RDW 15.1 % (12.0-15.0) H 06/24/18 14:43 Plt Count 274 10^3/uL (130-450) 06/24/18 14:43 MPV 8.9 fL (7.4-11.4) 06/24/18 14:43 Neut # (Auto) 9.9 10^3/uL (1.5-6.6) H 06/24/18 14:43 Lymph # (Auto) 1.8 10^3/uL (1.5-3.5) 06/24/18 14:43 [place] # (Auto) 0.8 10^3/uL (0.0-1.0) 06/24/18 14:43 Eos # (Auto) 0.0 10^3/uL (0.0-0.7) 06/24/18 14:43 Baso # (Auto) 0.1 10^3/uL (0.0-0.1) 06/24/18 14:43 Absolute Nucleated RBC 0.00 x10^3/uL 06/24/18 14:43 Nucleated RBC % 0.0 /100WBC 06/24/18 14:43 PT 17.9 secs (9.9-12.6) H 06/24/18 14:28 INR 1.6 (0.8-1.2) H 06/24/18 14:28 Sodium 134 mmol/L (135-145) L 06/24/18 14:43 Potassium 3.6 mmol/L (3.5-5.0) 06/24/18 14:43 Chloride 100 mmol/L (101-111) L 06/24/18 14:43 Carbon Dioxide 26 mmol/L (21-32) 06/24/18 14:43 Anion Gap 8.0 (6-13) 06/24/18 14:43 BUN 22 mg/dL (6-20) H 06/24/18 14:43 Creatinine 1.0 mg/dL (0.6-1.2) 06/24/18 14:43 Estimated GFR (MDRD) 75 (>89) L 06/24/18 14:43 Glucose 107 mg/dL (70-100) H 06/24/18 14:43 Calcium 8.5 mg/dL (8.5-10.3) 06/24/18 14:43 Total Bilirubin 1.1 mg/dL (0.2-1.0) H 06/24/18 14:43 AST 165 IU/L (10-42) H 06/24/18 14:43 ALT 217 IU/L (10-60) H 06/24/18 14:43 Alkaline Phosphatase 149 IU/L (42-121) H 06/24/18 14:43 Troponin I < 0.04 ng/mL (<0.49) 06/24/18 14:43 B-Natriuretic Peptide 1039 pg/mL (5-100) H 06/24/18 14:43 Total Protein 7.0 g/dL (6.7-8.2) 06/24/18 14:43 Albumin 3.6 g/dL (3.2-5.5) 06/24/18 14:43 Globulin 3.4 g/dL (2.1-4.2) 06/24/18 14:43 Albumin/Globulin Ratio 1.1 (1.0-2.2) 06/24/18 14:43 Lipase 29 U/L (22-51) 06/24/18 14:43 TSH 2.62 uIU/mL (0.34-5.60) 06/24/18 14:43 - Diagnostic Imaging Results Diagnostic Imaging Results: positive: Final report reviewed Diagnostic Imaging Results Comments: Chest x-ray Impression: 1. Small right pleural effusion has increased in size since 2 days ago. 2. Increasing right basilar density, question worsening edema, organizing pneumonia or increased atelectasis. 3. 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 - EKG Results EKG Interpreted Independently: Yes EKG Findings: A fib with RVR Core Measures - Anticipated LOS I expect patient to be DC'd or transferred within 96 hours.: Yes - DVT/VTE - Prophylaxis VTE/DVT Prophylaxis med ordered at admit?: Yes
[2018-06-24] MEDS ORDERED: ONDANSETRON 4 MG/2 ML VIAL IVP PRN (16:26)
[2018-06-24] MEDS ORDERED: ACETAMINOPHEN 325 MG TABLET PO PRN (16:26)
[2018-06-24] MEDS ORDERED: oxyCODONE 5 MG TABLET PO PRN ×2 (16:26)
[2018-06-24] MEDS ORDERED: IBUPROFEN 600 MG TABLET PO PRN (16:26)
[2018-06-24] MEDS ORDERED: PROMETHAZINE 25 MG/1 ML VIAL IM PRN (16:26)
[2018-06-24 17:30] LABS: MUDS CUTOFF CONCENTRATIONS CUTOFF CONC BELOW:
[2018-06-24 17:44] LABS: AMPHETAMINE SCREEN,URINE POSITIVE (NEGATIVE); BENZODIAZEPINES SCREEN, URINE POSITIVE (NEGATIVE); COCAINE SCREEN URINE NEGATIVE (NEGATIVE); METHADONE SCREEN, URINE NEGATIVE (NEGATIVE); METHAMPHETAMINES SCREEN, URINE POSITIVE (NEGATIVE); OPIATE SCREEN, URINE NEGATIVE (NEGATIVE); OXYCODONE SCREEN, URINE NEGATIVE (NEGATIVE); PROPOXYPHENE SCREEN, URINE NEGATIVE (NEGATIVE); TRICYCLIC ANTIDEPRESSANT,URINE NEGATIVE (NEGATIVE)
[2018-06-24] MEDS ORDERED: diltiaZEM 30 MG TABLET PO SCH (18:00)
[2018-06-24] MEDS: SODIUM CHLORIDE FLUSH 0.9% 10 ML SYRINGE IVP SCH ×2 (18:36→19:53)
[2018-06-24] MEDS ORDERED: FUROSEMIDE 40 MG/4 ML VIAL ONE (19:46)
[2018-06-24] MEDS: diltiaZEM INJ 125 MG in DEXTROSE 5% 100 ML IV SCH (19:53)
[2018-06-24] MEDS: FUROSEMIDE 40 MG/4 ML VIAL IVP SCH (19:53)
[2018-06-24] MEDS ORDERED: FAMOTIDINE 20 MG TABLET ONE (19:54)
[2018-06-24] MEDS: FAMOTIDINE 20 MG TABLET PO SCH (21:45)
[2018-06-24 22:27] LABS: MAGNESIUM 2.2 mg/dL (1.7-2.8); PHOSPHORUS 3.4 mg/dL (2.5-4.6)
[2018-06-25] MEDS: ENOXAPARIN 40 MG/0.4 ML SYRINGE SUBQ SCH ×3 (00:05→20:18)
[2018-06-25] MEDS: METOPROLOL SUCCINATE 50 MG TABLET PO SCH ×3 (00:05→20:18)
[2018-06-25 03:44] LABS: EOSINOPHILS % (AUTO) 0.1 %; LYMPHOCYTES % (AUTO) 8.7 %; MEAN CORPUSCULAR HEMOGLOBIN 30.2 pg (27.0-31.0); MEAN CORPUSCULAR VOLUME 88.7 fL (80.0-94.0); MEAN PLATELET VOLUME 9.1 fL (7.4-11.4); MONOCYTES # (AUTO) 0.8 10^3/uL (0.0-1.0); NEUTROPHILS # (AUTO) 9.5 10^3/uL (1.5-6.6); NEUTROPHILS % (AUTO) 84.2 %; PLT - PLATELET COUNT 315 10^3/uL (130-450); RED BLOOD COUNT 4.65 10^6/uL (4.70-6.10); RED CELL DISTRIBUTION WIDTH 14.9 % (12.0-15.0); WHITE BLOOD COUNT 11.2 x10^3/uL (4.8-10.8)
[2018-06-25 03:47] LABS: INR 1.7 (0.8-1.2); PT - PROTHROMBIN TIME 19.4 secs (9.9-12.6)
[2018-06-25 03:53] LABS: D-DIMER 622.6 ng/mL (200.0-255.0)
[2018-06-25 03:54] LABS: ALBUMIN 3.8 g/dL (3.2-5.5); ALBUMIN/GLOBULIN RATIO 1.1 (1.0-2.2); BILIRUBIN,TOTAL 1.9 mg/dL (0.2-1.0); CALCIUM 8.6 mg/dL (8.5-10.3); CREATININE 0.9 mg/dL (0.6-1.2); PHOSPHORUS 3.9 mg/dL (2.5-4.6); TOTAL PROTEIN 7.4 g/dL (6.7-8.2)
--- NOTE | 2018-06-25 08:24 | PROVIDER PROGRESS NOTE ---
Assessment/Plan - Problem List (1) Atrial fibrillation with RVR Assessment/Plan: Patient presents with atrial fibrillation and a rapid ventricular response. The patient's heart rate was up in the 130s in the emergency department when he received 2 doses of IV diltiazem. The patient's heart rate did improve but then went back up into the 130s. The patient has been having worsening shortness of breath over the last week which is led to a CHF exacerbation. Likely the cause of the CHF exacerbation is his worsening A. fib with RVR and poor compliance to his medications. The patient did receive an echocardiogram in the emergency department which does show an ejection fraction of 25% with moderate right heart failure. Patient's TSH was normal. Trop negative x3 Patient now off of Dilt drip Will transfer to med/surg Continue metoprolol and titrate if needed Started on coumadin (2) CHF exacerbation Conclusion/Plan: The patient has a history of systolic heart failure. The patient's echocardiogram today shows that his EF is 25% and he has moderate right-sided heart failure. The patient does have an elevated BNP of 1039 which is elevated from his baseline of around 200. The patient appears to be congested on examination as well as on his chest x-ray. The patient also appears to have hepatic congestion with an elevated bilirubin, AST, ALT and alk phos. patient also has crackles on examination and an elevated JVD. His CHF exacerbation is likely secondary to noncompliance with medication and A. fib with RVR. Improving -5L since admission and BNP 663 down from 1039 Continue IV Lasix twice daily 40 mg Fluid restriction 2 L Strict I's and O's Metoprolol and lisinopril Daily weights Telemetry monitoring Monitor BNP daily Qualifiers: Heart failure type: systolic Qualified Code(s): I50.23 - Acute on chronic systolic (congestive) heart failure (3) COPD (chronic obstructive pulmonary disease) Conclusion/Plan: Patient is a history of COPD and is on albuterol inhaler at home. Patient has been noncompliant with treatment. Patient does not appear to be in a COPD exacerbation rather he appears to be in CHF exacerbation at this time. Patient will be continued on nebulizers as needed. If the patient does develop wheezing or we noticed that he is having a COPD exacerbation the patient will be started on steroids. Patient is not febrile nor does he have signs of pneumonia therefore we will not start antibiotics at this time. Stable Qualifiers: COPD type: emphysema (4) Polysubstance abuse Conclusion/Plan: Patient has a history of crack cocaine, methamphetamine and heroin abuse. The patient states he does not do these drugs anymore but has recently been hospital ized for heroin overdose and does have positive methamphetamine in his urine tox screen. Although the patient denies using drugs it is obvious that he still does I did counseling center director him on the need to stop. It is likely that the patient's cardiomyopathy and reduced ejection fraction is secondary to his abuse of methamphetamine and heroin. Stable (5) KATIE on CPAP Conclusion/Plan: Patient has a history of obstructive sleep apnea and is on CPAP but has been noncompliant recently. The patient can be continued on his CPAP machine. Stable (6) Elevated LFTs Conclusion/Plan: Likely secondary to liver congestion from right-sided heart failure. Improving (7) Hyponatremia Conclusion/Plan: Resolved - Current Meds Current Meds: Current Medications Generic Name Dose Route Start Last Admin Trade Name Freq PRN Reason Stop Dose Admin Enoxaparin Sodium 40 mg 06/24/18 23:00 06/25/18 00:05 Lovenox SUBQ 40 mg BID DEBORAH Administration Famotidine 20 mg 06/24/18 21:00 06/24/18 21:45 Pepcid PO 20 mg BID DEBORAH Administration Furosemide 40 mg 06/24/18 21:00 06/24/18 19:53 Lasix Inj 40 Mg Vial IVP 40 mg BID DEBORAH Administration Diltiazem HCl 125 mg/ Dextrose 125 mls @ 5 mls/hr 06/24/18 17:00 06/25/18 07:40 IV 2.5 mg/hr .Q25H DEBORAH 2.5 mls/hr Titration Protocol 5 MG/HR Metoprolol Succinate 50 mg 06/24/18 23:00 06/25/18 00:05 Toprol Xl PO 50 mg BID DEBORAH Administration Sodium Chloride 10 ml 06/24/18 17:00 06/24/18 19:53 Normal Saline Flush 0.9% IVP 10 ml 0100,0900,1700 DEBORAH Administration - Lab Result Lab results reviewed: Yes Fish Bone Diagrams: 06/25/18 03:31 06/25/18 03:31 - Diagnostic Imaging Results Diagnostic Imaging Results: Final report reviewed - Additional Planning Condition/Complexity: Improved My Orders: My Active Orders 06/24/18 16:26 Activity Orders [RC] Routine Daily Weight [RC] 0600 IO [RC] Q1HR Initiate Bowel Care Protocol [RC] QSHIFT Initiate Flu Vaccine Screening [RC] ONCE Initiate ICU Electrolyte Prot. [RC] .protocol Initiate Line Care Protocol [RC] .protocol Initiate Personal Care Protoco [RC] .protocol Initiate Pneumonia Vaccine Scr [RC] ONCE Vital Signs [RC] Q1HR Acetaminophen [Tylenol] 650 mg PO Q4HR PRN Ibuprofen [Motrin] 600 mg PO Q6HR PRN Ondansetron Inj [Zofran Inj] 4 mg IVP Q6HR PRN Prochlorperazine Inj [Compazine Inj] 10 mg IVP Q6HR PRN Promethazine Inj [Phenergan Inj] 25 mg IM Q6HR PRN Sodium Chloride Flush 0.9% [Normal Saline Flush 0.9%] 10 ml IVP PRN PRN oxyCODONE [Roxicodone] 10 mg PO Q4HR PRN oxyCODONE [Roxicodone] 5 mg PO Q4HR PRN Code Status [OTHERS] Routine Condition of Patient [OTHERS] Routine DVT Prophylaxis [OTHERS] Routine 06/24/18 16:28 Home CPAP/BiPAP [RC] Routine Telemetry- [RC] Routine 06/24/18 16:30 Social Work Consult [CONS] Routine 06/24/18 17:00 Dextrose 5% [D5w] 100 ml diltiaZEM INJ [Cardizem Inj] 125 mg IV 5 mg/hr Sodium Chloride Flush 0.9% [Normal Saline Flush 0.9%] 10 ml IVP 0100,0900,1700 06/24/18 18:25 Nutrition Consult [CONS] Routine 06/24/18 21:00 FUROSEMIDE INJ 40mg VIAL [LASIX INJ 40 mg VIAL] 40 mg IVP BID Famotidine [Pepcid] 20 mg PO BID 06/25/18 08:00 Potassium Chloride [K-Dur] 20 meq PO DAILYWM 06/25/18 09:00 Aspirin EC [Ecotrin] 81 mg PO DAILY Polyethylene Glycol 3350 [Miralax] 17 gm PO DAILY 06/25/18 14:00 Warfarin [Coumadin] 5 mg PO QDWARFARIN 06/25/18 Breakfast Regular Diet [DIET] 06/26/18 05:00 BNP - B-NATRIURETIC PEPTIDE [IAI] DAILYLAB CBC - COMP BLD CT W/AUTO DIFF [HEME] DAILYLAB COMPREHENSIVE METABOLIC PANEL [CHEM] DAILYLAB MAGNESIUM [CHEM] DAILYLAB PHOSPHORUS [CHEM] DAILYLAB 06/27/18 05:00 BNP - B-NATRIURETIC PEPTIDE [IAI] DAILYLAB CBC - COMP BLD CT W/AUTO DIFF [HEME] DAILYLAB COMPREHENSIVE METABOLIC PANEL [CHEM] DAILYLAB MAGNESIUM [CHEM] DAILYLAB PHOSPHORUS [CHEM] DAILYLAB 06/28/18 05:00 BNP - B-NATRIURETIC PEPTIDE [IAI] DAILYLAB CBC - COMP BLD CT W/AUTO DIFF [HEME] DAILYLAB COMPREHENSIVE METABOLIC PANEL [CHEM] DAILYLAB MAGNESIUM [CHEM] DAILYLAB PHOSPHORUS [CHEM] DAILYLAB 06/29/18 05:00 BNP - B-NATRIURETIC PEPTIDE [IAI] DAILYLAB CBC - COMP BLD CT W/AUTO DIFF [HEME] DAILYLAB COMPREHENSIVE METABOLIC PANEL [CHEM] DAILYLAB MAGNESIUM [CHEM] DAILYLAB PHOSPHORUS [CHEM] DAILYLAB Plan Discussed with:: Patient Time Spent: 31-60 minutes Subjective - Subjective Patient Reports: Resting Comfortably, Shortness of Breath (Improved), Other (No fevers, chills or cough.) Nursing Reports: No Complaints Objective Vital Signs: Vital Signs - 24 hr 06/24/18 06/24/18 06/24/18 14:01 14:30 15:00 Temperature 36.9 C Heart Rate 78 119 H 98 Heart Rate [ Monitoring electrodes] Respiratory 20 18 Rate Blood Pressure 121/94 H 121/94 H 134/94 H Blood Pressure [Right Brachial artery] O2 Saturation 97 96 95 06/24/18 06/24/18 06/24/18 16:50 16:56 17:03 Temperature Heart Rate 127 H 104 H 101 H Heart Rate [ Monitoring electrodes] Respiratory 17 17 18 Rate Blood Pressure 106/90 H 118/87 H 139/87 H Blood Pressure [Right Brachial artery] O2 Saturation 98 96 99 06/24/18 06/24/18 06/24/18 18:00 18:35 19:00 Temperature 37.6 C H Heart Rate Heart Rate [ 108 H 110 H Monitoring electrodes] Respiratory 16 13 Rate Blood Pressure 129/91 H Blood Pressure 108/82 H 129/107 H [Right Brachial artery] O2 Saturation 95 95 06/24/18 06/24/18 06/24/18 20:00 20:06 20:10 Temperature 37.2 C Heart Rate Heart Rate [ 107 H 121 H 108 H Monitoring electrodes] Respiratory 16 Rate Blood Pressure Blood Pressure 129/93 H 142/105 H 148/119 H [Right Brachial artery] O2 Saturation 92 06/24/18 06/24/18 06/24/18 20:15 20:30 20:45 Temperature Heart Rate Heart Rate [ 138 H 124 H 108 H Monitoring electrodes] Respiratory Rate Blood Pressure Blood Pressure 152/101 H 128/96 H 112/84 H [Right Brachial artery] O2 Saturation 06/24/18 06/24/18 06/24/18 21:00 21:35 21:40 Temperature Heart Rate Heart Rate [ 106 H 107 H 105 H Monitoring electrodes] Respiratory 20 Rate Blood Pressure Blood Pressure 134/100 H 137/106 H 135/101 H [Right Brachial artery] O2 Saturation 94 06/24/18 06/24/18 06/24/18 21:45 21:48 22:00 Temperature 37.3 C Heart Rate Heart Rate [ 104 H 100 Monitoring electrodes] Respiratory 19 Rate Blood Pressure Blood Pressure 119/88 H 113/75 [Right Brachial artery] O2 Saturation 97 06/24/18 06/24/18 06/25/18 22:15 23:00 00:00 Temperature 36.8 C Heart Rate Heart Rate [ 93 89 94 Monitoring electrodes] Respiratory 18 17 Rate Blood Pressure Blood Pressure 129/82 H 105/72 127/96 H [Right Brachial artery] O2 Saturation 97 99 06/25/18 06/25/18 06/25/18 01:00 02:00 03:00 Temperature Heart Rate Heart Rate [ 90 80 80 Monitoring electrodes] Respiratory 17 17 17 Rate Blood Pressure Blood Pressure 112/84 H 108/72 131/90 H [Right Brachial artery] O2 Saturation 94 94 100 06/25/18 06/25/18 06/25/18 03:39 04:00 05:00 Temperature 37.6 C H Heart Rate Heart Rate [ 78 87 Monitoring electrodes] Respiratory 19 16 Rate Blood Pressure Blood Pressure 121/41 L 123/79 [Right Brachial artery] O2 Saturation 94 99 06/25/18 06/25/18 06:00 07:00 Temperature Heart Rate Heart Rate [ 80 95 Monitoring electrodes] Respiratory 18 22 Rate Blood Pressure Blood Pressure 119/78 109/83 H [Right Brachial artery] O2 Saturation 97 94 Oxygen O2 Source Room air I&O (Last 24 Hrs): Intake and Output Totals x24h 06/23/18 06/24/18 06/25/18 23:59 23:59 23:59 Intake Total 295.416 388.833 Output Total 3650 1325 Balance -3354.584 -936.167 General: Alert, Oriented x3, Cooperative, No acute distress HEENT: Atraumatic, PERRLA, EOMI, Mucous membr. moist/pink Neck: Supple, No JVD, No thyromegaly, +2 carotid pulse wo bruit, No LAD Lymphatic: no adenopathy Neuro: Alert, Non Focal, CN 2-12 Grossly Intact, Oriented Times 3 Cardiovascular: Other (Irregular) Respiratory: Chest non-tender, Rales (Bilateral, improved) Abdomen: Normal bowel sounds, Soft, No tenderness, No hepatospenomegaly, No masses Extremities: No clubbing, No cyanosis, No edema, Normal pulses Skin: No rashes, No breakdown - Results Results: Laboratory Results WBC 11.2 x10^3/uL (4.8-10.8) H 06/25/18 03:31 RBC 4.65 10^6/uL (4.70-6.10) L 06/25/18 03:31 Hgb 14.0 g/dL (14.0-18.0) 06/25/18 03:31 Hct 41.2 % (42.0-52.0) L 06/25/18 03:31 MCV 88.7 fL (80.0-94.0) 06/25/18 03:31 MCH 30.2 pg (27.0-31.0) 06/25/18 03:31 MCHC 34.0 g/dL (32.0-36.0) 06/25/18 03:31 RDW 14.9 % (12.0-15.0) 06/25/18 03:31 Plt Count 315 10^3/uL (130-450) 06/25/18 03:31 MPV 9.1 fL (7.4-11.4) 06/25/18 03:31 Neut # (Auto) 9.5 10^3/uL (1.5-6.6) H 06/25/18 03:31 Lymph # (Auto) 1.0 10^3/uL (1.5-3.5) L 06/25/18 03:31 [place] # (Auto) 0.8 10^3/uL (0.0-1.0) 06/25/18 03:31 Eos # (Auto) 0.0 10^3/uL (0.0-0.7) 06/25/18 03:31 Baso # (Auto) 0.0 10^3/uL (0.0-0.1) 06/25/18 03:31 Absolute Nucleated RBC 0.00 x10^3/uL 06/25/18 03:31 Nucleated RBC % 0.0 /100WBC 06/25/18 03:31 PT 19.4 secs (9.9-12.6) H 06/25/18 03:31 INR 1.7 (0.8-1.2) H 06/25/18 03:31 D-Dimer 622.6 ng/mL (200.0-255.0) H 06/25/18 03:31 Sodium 137 mmol/L (135-145) 06/25/18 03:31 Potassium 3.6 mmol/L (3.5-5.0) 06/25/18 03:31 Chloride 99 mmol/L (101-111) L 06/25/18 03:31 Carbon Dioxide 28 mmol/L (21-32) 06/25/18 03:31 Anion Gap 10.0 (6-13) 06/25/18 03:31 BUN 20 mg/dL (6-20) 06/25/18 03:31 Creatinine 0.9 mg/dL (0.6-1.2) 06/25/18 03:31 Estimated GFR (MDRD) 84 (>89) L 06/25/18 03:31 Glucose 106 mg/dL (70-100) H 06/25/18 03:31 Calcium 8.6 mg/dL (8.5-10.3) 06/25/18 03:31 Phosphorus 3.9 mg/dL (2.5-4.6) 06/25/18 03:31 Magnesium 2.0 mg/dL (1.7-2.8) 06/25/18 03:31 Total Bilirubin 1.9 mg/dL (0.2-1.0) H 06/25/18 03:31 AST 153 IU/L (10-42) H 06/25/18 03:31 ALT 215 IU/L (10-60) H 06/25/18 03:31 Alkaline Phosphatase 152 IU/L (42-121) H 06/25/18 03:31 Troponin I < 0.04 ng/mL (<0.49) 06/25/18 03:31 B-Natriuretic Peptide 663 pg/mL (5-100) H 06/25/18 03:31 Total Protein 7.4 g/dL (6.7-8.2) 06/25/18 03:31 Albumin 3.8 g/dL (3.2-5.5) 06/25/18 03:31 Globulin 3.6 g/dL (2.1-4.2) 06/25/18 03:31 Albumin/Globulin Ratio 1.1 (1.0-2.2) 06/25/18 03:31 Lipase 29 U/L (22-51) 06/24/18 14:43 TSH 2.62 uIU/mL (0.34-5.60) 06/24/18 14:43 Urine Opiates Screen NEGATIVE (NEGATIVE) 06/24/18 17:00 Ur Oxycodone Screen NEGATIVE (NEGATIVE) 06/24/18 17:00 Urine Methadone Screen NEGATIVE (NEGATIVE) 06/24/18 17:00 Ur Propoxyphene Screen NEGATIVE (NEGATIVE) 06/24/18 17:00 Ur Barbiturates Screen NEGATIVE (NEGATIVE) 06/24/18 17:00 Ur Tricyclics Screen NEGATIVE (NEGATIVE) 06/24/18 17:00 Ur Phencyclidine Scrn NEGATIVE (NEGATIVE) 06/24/18 17:00 Ur Amphetamine Screen POSITIVE (NEGATIVE) H 06/24/18 17:00 U Methamphetamines Scrn POSITIVE (NEGATIVE) H 06/24/18 17:00 U Benzodiazepines Scrn POSITIVE (NEGATIVE) H 06/24/18 17:00 Urine Cocaine Screen NEGATIVE (NEGATIVE) 06/24/18 17:00 U Cannabinoids Screen POSITIVE (NEGATIVE) H 06/24/18 17:00 - Procedures Procedures: Procedures DRAINAGE OF LEFT PLEURAL CAVITY, PERCUTANEOUS APPROACH (12/29/17) EXCISION OF NECK SKIN, EXTERNAL APPROACH (06/03/15) EXCISION OF RECTUM, ENDO, DIAGN (06/03/15) EXCISION OF RIGHT UPPER ARM SKIN, EXTERNAL APPROACH (06/03/15) INSPECTION OF LEFT PLEURAL CAVITY, OPEN APPROACH (12/29/17) TRANSFUSE NONAUT FROZEN PLASMA IN PERIPH VEIN, PERC (12/29/17) ABX Reporting Has patient been on IV antibiotics over the past 48 hours?: No Current Medications - Current Medications Current Medications: Active Medications Acetaminophen (Tylenol) 650 mg PO Q4HR PRN PRN Reason: Pain 1 to 4 Aspirin (Ecotrin) 81 mg PO DAILY [facility] Last Admin: 06/25/18 08:56 Dose: 81 mg Enoxaparin Sodium (Lovenox) 40 mg SUBQ BID [facility] Last Admin: 06/25/18 08:53 Dose: 40 mg Famotidine (Pepcid) 20 mg PO BID [facility] Last Admin: 06/25/18 08:57 Dose: 20 mg Furosemide (Lasix Inj 40 Mg Vial) 40 mg IVP BID [facility] Last Admin: 06/25/18 08:52 Dose: 40 mg Diltiazem HCl 125 mg/ Dextrose 125 mls @ 5 mls/hr IV .Q25H [facility]; Protocol Last Titration: 06/25/18 10:40 Dose: 0 mg/hr, 0 mls/hr Ibuprofen (Motrin) 600 mg PO Q6HR PRN PRN Reason: Pain 1 to 4 Lisinopril (Zestril) 2.5 mg PO DAILY [facility] Last Admin: 06/25/18 09:55 Dose: 2.5 mg Metoprolol Succinate (Toprol Xl) 50 mg PO BID [facility] Last Admin: 06/25/18 08:56 Dose: 50 mg Ondansetron HCl (Zofran Inj) 4 mg IVP Q6HR PRN PRN Reason: Nausea / Vomiting Oxycodone HCl (Roxicodone) 5 mg PO Q4HR PRN PRN Reason: Pain 5 to 7 Oxycodone HCl (Roxicodone) 10 mg PO Q4HR PRN PRN Reason: Pain 8 to 10 Polyethylene Glycol (Miralax) 17 gm PO DAILY [facility] Last Admin: 06/25/18 08:57 Dose: 17 gm Potassium Chloride (K-Dur) 20 meq PO DAILYWM [facility] Last Admin: 06/25/18 08:55 Dose: 20 meq Prochlorperazine Edisylate (Compazine Inj) 10 mg IVP Q6HR PRN PRN Reason: Nausea / Vomiting Last Admin: 06/25/18 11:31 Dose: 10 mg Promethazine HCl (Phenergan Inj) 25 mg IM Q6HR PRN PRN Reason: Nausea / Vomiting Sodium Chloride (Normal Saline Flush 0.9%) 10 ml IVP 0100,0900,1700 [facility] Last Admin: 06/25/18 08:52 Dose: 10 ml Sodium Chloride (Normal Saline Flush 0.9%) 10 ml IVP PRN PRN PRN Reason: NEEDED PER PROVIDER ORDERS Last Admin: 06/25/18 11:32 Dose: 10 ml Spironolactone (Aldactone) 25 mg PO DAILY [facility] Last Admin: 06/25/18 08:56 Dose: 25 mg Warfarin Sodium (Coumadin) 5 mg PO QDWARFARIN [facility] Last Admin: 06/25/18 14:51 Dose: 5 mg Albuterol Sulfate [Proair Hfa Inhaler] 2 puffs INH Q4H PRN 06/24/18
[2018-06-25] MEDS: SODIUM CHLORIDE FLUSH 0.9% 10 ML SYRINGE IVP SCH ×2 (08:52→16:35)
[2018-06-25] MEDS: FUROSEMIDE 40 MG/4 ML VIAL IVP SCH ×2 (08:52→20:18)
[2018-06-25] MEDS: SODIUM CHLORIDE FLUSH 0.9% 10 ML SYRINGE IVP PRN ×4 (08:55→20:18)
[2018-06-25] MEDS: POTASSIUM CHLORIDE 20 MEQ TABLET PO SCH (08:55)
[2018-06-25] MEDS: ASPIRIN EC 81 MG TABLET PO SCH (08:56)
[2018-06-25] MEDS: SPIRONOLACTONE 25 MG TABLET PO SCH (08:56)
[2018-06-25] MEDS: FAMOTIDINE 20 MG TABLET PO SCH ×2 (08:57→20:18)
[2018-06-25] MEDS: POLYETHYLENE GLYCOL 3350 17 GM PACKET PO SCH (08:57)
[2018-06-25] MEDS ORDERED: METOPROLOL TARTRATE 50 MG TABLET PO SCH (09:00)
[2018-06-25] MEDS ORDERED: LISINOPRIL 5 MG TABLET PO SCH (09:00)
[2018-06-25] MEDS ORDERED: ENOXAPARIN 40 MG/0.4 ML SYRINGE SUBQ SCH (09:00)
[2018-06-25] MEDS: LISINOPRIL 5 MG TABLET PO SCH (09:55)
[2018-06-25] MEDS: diltiaZEM INJ 125 MG in DEXTROSE 5% 100 ML IV SCH (09:56)
[2018-06-25] MEDS: PROCHLORPERAZINE 10 MG/2 ML VIAL IVP PRN (11:31)
[2018-06-25] MEDS ORDERED: WARFARIN 1 MG TABLET PO SCH (14:00)
[2018-06-25] MEDS: WARFARIN 5 MG TABLET PO SCH (14:51)
[2018-06-25] MEDS ORDERED: PNEUMOCOCCAL 13-VALENT CONJ 0.5 ML SYRINGE IM ONE (16:50)
[2018-06-26] MEDS: SODIUM CHLORIDE FLUSH 0.9% 10 ML SYRINGE IVP SCH ×3 (00:56→16:55)
[2018-06-26 06:14] LABS: BASOPHILS # (AUTO) 0.1 10^3/uL (0.0-0.1); BASOPHILS % (AUTO) 0.8 %; EOSINOPHILS # (AUTO) 0.1 10^3/uL (0.0-0.7); EOSINOPHILS % (AUTO) 0.9 %; HGB - HEMOGLOBIN 15.6 g/dL (14.0-18.0); LYMPHOCYTES # (AUTO) 1.4 10^3/uL (1.5-3.5); LYMPHOCYTES % (AUTO) 15.7 %; MEAN CORPUSCULAR HEMOGLOBIN 30.2 pg (27.0-31.0); MEAN CORPUSCULAR HGB CONC 33.6 g/dL (32.0-36.0); MEAN CORPUSCULAR VOLUME 89.8 fL (80.0-94.0); MEAN PLATELET VOLUME 9.1 fL (7.4-11.4); MONOCYTES # (AUTO) 1.1 10^3/uL (0.0-1.0); MONOCYTES % (AUTO) 11.6 %; NEUTROPHILS # (AUTO) 6.4 10^3/uL (1.5-6.6); PLT - PLATELET COUNT 277 10^3/uL (130-450); RED BLOOD COUNT 5.18 10^6/uL (4.70-6.10); RED CELL DISTRIBUTION WIDTH 14.8 % (12.0-15.0); WHITE BLOOD COUNT 9.1 x10^3/uL (4.8-10.8)
[2018-06-26 06:27] LABS: ALBUMIN 3.6 g/dL (3.2-5.5); BILIRUBIN,TOTAL 1.3 mg/dL (0.2-1.0); CALCIUM 8.8 mg/dL (8.5-10.3); CREATININE 0.9 mg/dL (0.6-1.2); MAGNESIUM 2.2 mg/dL (1.7-2.8); TOTAL PROTEIN 7.1 g/dL (6.7-8.2)
[2018-06-26] MEDS: POTASSIUM CHLORIDE 20 MEQ TABLET PO SCH (09:22)
[2018-06-26] MEDS: FAMOTIDINE 20 MG TABLET PO SCH ×2 (09:23→21:58)
[2018-06-26] MEDS: ASPIRIN EC 81 MG TABLET PO SCH (09:23)
[2018-06-26] MEDS: LISINOPRIL 5 MG TABLET PO SCH (09:24)
[2018-06-26] MEDS: METOPROLOL SUCCINATE 50 MG TABLET PO SCH ×2 (09:25→22:00)
[2018-06-26] MEDS: SPIRONOLACTONE 25 MG TABLET PO SCH (09:26)
[2018-06-26] MEDS: POLYETHYLENE GLYCOL 3350 17 GM PACKET PO SCH (09:27)
[2018-06-26] MEDS: ENOXAPARIN 40 MG/0.4 ML SYRINGE SUBQ SCH (09:28)
[2018-06-26] MEDS: POTASSIUM CHLOR 10 MEQ/100 ML 10 MEQ/100 ML BAG IV SCH ×4 (09:59→15:02)
[2018-06-26] MEDS: WARFARIN 5 MG TABLET PO SCH (13:58)
[2018-06-26] MEDS: SODIUM CHLORIDE FLUSH 0.9% 10 ML SYRINGE IVP PRN (13:59)
[2018-06-26] MEDS ORDERED: WARFARIN 5 MG TABLET PO SCH (14:00)
[2018-06-26] MEDS ORDERED: POTASSIUM CHLORIDE 20 MEQ TABLET PO SCH (14:07)
[2018-06-26] MEDS: PROCHLORPERAZINE 10 MG/2 ML VIAL IVP PRN (16:55)
[2018-06-26] MEDS ORDERED: RIVAROXABAN 10 MG TABLET PO SCH (17:00)
--- NOTE | 2018-06-26 17:08 | PROVIDER PROGRESS NOTE ---
Assessment/Plan - Problem List (1) Atrial fibrillation with RVR Assessment/Plan: Resolved HR is controlled with BB Start xarelto for anticoagulation today Patient was off medication for 4 months which caused a fib rvr and CHF exacerbation (2) CHF exacerbation Conclusion/Plan: Improving -5.9 L since admission and BNP 861 down from 1039 Continue IV Lasix twice daily 40 mg Fluid restriction 2 L Strict I's and O's Metoprolol and lisinopril Daily weights Telemetry monitoring Monitor BNP daily Qualifiers: Heart failure type: systolic Qualified Code(s): I50.23 - Acute on chronic systolic (congestive) heart failure (3) COPD (chronic obstructive pulmonary disease) Conclusion/Plan: Patient is a history of COPD and is on albuterol inhaler at home. Patient has been noncompliant with treatment. Patient does not appear to be in a COPD exacerbation rather he appears to be in CHF exacerbation at this time. Patient will be continued on nebulizers as needed. Stable Qualifiers: COPD type: emphysema (4) Polysubstance abuse Conclusion/Plan: Patient has a history of crack cocaine, methamphetamine and heroin abuse. The patient states he does not do these drugs anymore but has recently been hos pitalized for heroin overdose and does have positive methamphetamine in his urine tox screen. Although the patient denies using drugs it is obvious that he still does I did pastoral counselor him on the need to stop. It is likely that the patient's cardiomyopathy and reduced ejection fraction is secondary to his abuse of methamphetamine and heroin. Stable (5) KATIE on CPAP Conclusion/Plan: Patient has a history of obstructive sleep apnea and is on CPAP but has been noncompliant recently. The patient can be continued on his CPAP machine. Stable (6) Elevated LFTs Conclusion/Plan: Likely secondary to liver congestion from right-sided heart failure. Improving (7) Hyponatremia Conclusion/Plan: Resolved - Current Meds Current Meds: Current Medications Generic Name Dose Route Start Last Admin Trade Name Freq PRN Reason Stop Dose Admin Aspirin 81 mg 06/25/18 09:00 06/26/18 09:23 Ecotrin PO 81 mg DAILY DEBORAH Administration Enoxaparin Sodium 40 mg 06/24/18 23:00 06/26/18 09:28 Lovenox SUBQ 40 mg BID DEBORAH Administration Famotidine 20 mg 06/24/18 21:00 12/23/18 09:23 Pepcid PO 20 mg BID DEBORAH Administration Lisinopril 2.5 mg 06/25/18 09:00 06/26/18 09:24 Zestril PO 2.5 mg DAILY DEBORAH Administration Metoprolol Succinate 50 mg 06/24/18 23:00 06/26/18 09:25 Toprol Xl PO 50 mg BID DEBORAH Administration Ondansetron HCl 4 mg 06/24/18 16:26 06/26/18 13:58 Zofran Inj IVP 4 mg Q6HR PRN Administration Nausea / Vomiting Polyethylene Glycol 17 gm 06/25/18 09:00 06/26/18 09:27 Miralax PO Not Given DAILY DEBORAH Potassium Chloride 20 meq 06/25/18 08:00 06/26/18 09:22 K-Dur PO 20 meq DAILYWM DEBORAH Administration Prochlorperazine Edisylate 10 mg 06/24/18 16:26 06/25/18 11:31 Compazine Inj IVP 10 mg Q6HR PRN Administration Nausea / Vomiting Sodium Chloride 10 ml 06/24/18 17:00 06/26/18 09:58 Normal Saline Flush 0.9% IVP 10 ml 0100,0900,1700 DEBORAH Administration Sodium Chloride 10 ml 06/24/18 16:26 06/26/18 13:59 Normal Saline Flush 0.9% IVP 10 ml PRN PRN Administration NEEDED PER PROVIDER ORDERS Spironolactone 25 mg 06/25/18 09:00 06/26/18 09:26 Aldactone PO 25 mg DAILY DEBORAH Administration Warfarin Sodium 5 mg 06/25/18 14:00 06/26/18 13:58 Coumadin PO 5 mg QDWARFARIN DEBORAH Administration - Lab Result Lab results reviewed: Yes Fish Bone Diagrams: 06/27/18 05:26 06/27/18 05:26 - Diagnostic Imaging Results Diagnostic Imaging Results: Final report reviewed - Additional Planning Condition/Complexity: Improved My Orders: My Active Orders 06/27/18 05:00 BNP - B-NATRIURETIC PEPTIDE [IAI] DAILYLAB CBC - COMP BLD CT W/AUTO DIFF [HEME] DAILYLAB COMPREHENSIVE METABOLIC PANEL [CHEM] DAILYLAB MAGNESIUM [CHEM] DAILYLAB PHOSPHORUS [CHEM] DAILYLAB 06/28/18 05:00 BNP - B-NATRIURETIC PEPTIDE [IAI] DAILYLAB CBC - COMP BLD CT W/AUTO DIFF [HEME] DAILYLAB COMPREHENSIVE METABOLIC PANEL [CHEM] DAILYLAB MAGNESIUM [CHEM] DAILYLAB PHOSPHORUS [CHEM] DAILYLAB 06/29/18 05:00 BNP - B-NATRIURETIC PEPTIDE [IAI] DAILYLAB CBC - COMP BLD CT W/AUTO DIFF [HEME] DAILYLAB COMPREHENSIVE METABOLIC PANEL [CHEM] DAILYLAB MAGNESIUM [CHEM] DAILYLAB PHOSPHORUS [CHEM] DAILYLAB Plan Discussed with:: Patient Time Spent: 31-60 minutes Subjective - Subjective Patient Reports: Feeling Better, Resting Comfortably, Shortness of Breath (Improved), Other (No fevers or chills. Feels very fatigued and not back to baseline yet.) Objective Vital Signs: Vital Signs - 24 hr 06/25/18 06/25/18 06/26/18 19:01 20:19 00:53 Temperature 37.1 C 36.7 C 36.5 C Heart Rate [ 98 96 Brachial] Heart Rate [ 82 Monitoring electrodes] Respiratory 14 18 16 Rate Blood Pressure [Left Brachial artery] Blood Pressure 105/77 122/85 H 119/78 [Right Brachial artery] O2 Saturation 95 96 99 06/26/18 06/26/18 06/26/18 05:00 07:32 12:31 Temperature 36.7 C 36.4 C L 36.8 C Heart Rate [ 103 H 55 L 61 Brachial] Heart Rate [ Monitoring electrodes] Respiratory 16 16 16 Rate Blood Pressure [Left Brachial artery] Blood Pressure 127/83 H 115/86 H 137/99 H [Right Brachial artery] O2 Saturation 99 98 100 06/26/18 16:01 Temperature 36.5 C Heart Rate [ 56 L Brachial] Heart Rate [ Monitoring electrodes] Respiratory 16 Rate Blood Pressure 114/84 H [Left Brachial artery] Blood Pressure [Right Brachial artery] O2 Saturation 97 Oxygen O2 Source Room air I&O (Last 24 Hrs): Intake and Output Totals x24h 06/24/18 06/25/18 06/26/18 23:59 23:59 23:59 Intake Total 052.344 6195.584 821.667 Output Total 3650 4375 450 Balance -3354.584 -2581.416 371.667 General: Alert, Oriented x3, Cooperative, No acute distress HEENT: Atraumatic, PERRLA, EOMI, Mucous membr. moist/pink Neck: Supple, No JVD, No thyromegaly, +2 carotid pulse wo bruit, No LAD Lymphatic: no adenopathy Neuro: Alert, Non Focal, CN 2-12 Grossly Intact, Oriented Times 3 Cardiovascular: Other (Irregularly irregular) Respiratory: Chest non-tender, No respiratory distress, Rales (Bases) Abdomen: Normal bowel sounds, No tenderness, No hepatospenomegaly, No masses Extremities: No clubbing, No cyanosis, Normal pulses, Other (LE edema mild) Skin: No rashes, No breakdown - Results Results: Laboratory Results WBC 9.1 x10^3/uL (4.8-10.8) 06/26/18 05:25 RBC 5.18 10^6/uL (4.70-6.10) 06/26/18 05:25 Hgb 15.6 g/dL (14.0-18.0) 06/26/18 05:25 Hct 46.5 % (42.0-52.0) 06/26/18 05:25 MCV 89.8 fL (80.0-94.0) 06/26/18 05:25 MCH 30.2 pg (27.0-31.0) 06/26/18 05:25 MCHC 33.6 g/dL (32.0-36.0) 06/26/18 05:25 RDW 14.8 % (12.0-15.0) 06/26/18 05:25 Plt Count 277 10^3/uL (130-450) 06/26/18 05:25 MPV 9.1 fL (7.4-11.4) 06/26/18 05:25 Neut # (Auto) 6.4 10^3/uL (1.5-6.6) 06/26/18 05:25 Lymph # (Auto) 1.4 10^3/uL (1.5-3.5) L 06/26/18 05:25 Stanley # (Auto) 1.1 10^3/uL (0.0-1.0) H 06/26/18 05:25 Eos # (Auto) 0.1 10^3/uL (0.0-0.7) 06/26/18 05:25 Baso # (Auto) 0.1 10^3/uL (0.0-0.1) 06/26/18 05:25 Absolute Nucleated RBC 0.00 x10^3/uL 06/26/18 05:25 Nucleated RBC % 0.1 /100WBC 06/26/18 05:25 PT 19.4 secs (9.9-12.6) H 06/25/18 03:31 INR 1.7 (0.8-1.2) H 06/25/18 03:31 D-Dimer 622.6 ng/mL (200.0-255.0) H 06/25/18 03:31 Sodium 137 mmol/L (135-145) 06/26/18 05:25 Potassium 3.0 mmol/L (3.5-5.0) L 06/26/18 05:25 Chloride 96 mmol/L (101-111) L 06/26/18 05:25 Carbon Dioxide 28 mmol/L (21-32) 06/26/18 05:25 Anion Gap 13.0 (6-13) 06/26/18 05:25 BUN 26 mg/dL (6-20) H 06/26/18 05:25 Creatinine 0.9 mg/dL (0.6-1.2) 06/26/18 05:25 Estimated GFR (MDRD) 84 (>89) L 06/26/18 05:25 Glucose 88 mg/dL (70-100) 06/26/18 05:25 Calcium 8.8 mg/dL (8.5-10.3) 06/26/18 05:25 Phosphorus 4.0 mg/dL (2.5-4.6) 06/26/18 05:25 Magnesium 2.2 mg/dL (1.7-2.8) 06/26/18 05:25 Total Bilirubin 1.3 mg/dL (0.2-1.0) H 06/26/18 05:25 AST 173 IU/L (10-42) H 06/26/18 05:25 ALT 225 IU/L (10-60) H 06/26/18 05:25 Alkaline Phosphatase 152 IU/L (42-121) H 06/26/18 05:25 Troponin I < 0.04 ng/mL (<0.49) 06/25/18 03:31 B-Natriuretic Peptide 861 pg/mL (5-100) H 06/26/18 05:25 Total Protein 7.1 g/dL (6.7-8.2) 06/26/18 05:25 Albumin 3.6 g/dL (3.2-5.5) 06/26/18 05:25 Globulin 3.5 g/dL (2.1-4.2) 06/26/18 05:25 Albumin/Globulin Ratio 1.0 (1.0-2.2) 06/26/18 05:25 Lipase 29 U/L (22-51) 06/24/18 14:43 TSH 2.62 uIU/mL (0.34-5.60) 06/24/18 14:43 Urine Opiates Screen NEGATIVE (NEGATIVE) 06/24/18 17:00 Ur Oxycodone Screen NEGATIVE (NEGATIVE) 06/24/18 17:00 Urine Methadone Screen NEGATIVE (NEGATIVE) 06/24/18 17:00 Ur Propoxyphene Screen NEGATIVE (NEGATIVE) 06/24/18 17:00 Ur Barbiturates Screen NEGATIVE (NEGATIVE) 06/24/18 17:00 Ur Tricyclics Screen NEGATIVE (NEGATIVE) 06/24/18 17:00 Ur Phencyclidine Scrn NEGATIVE (NEGATIVE) 06/24/18 17:00 Ur Amphetamine Screen POSITIVE (NEGATIVE) H 06/24/18 17:00 U Methamphetamines Scrn POSITIVE (NEGATIVE) H 06/24/18 17:00 U Benzodiazepines Scrn POSITIVE (NEGATIVE) H 06/24/18 17:00 Urine Cocaine Screen NEGATIVE (NEGATIVE) 06/24/18 17:00 U Cannabinoids Screen POSITIVE (NEGATIVE) H 06/24/18 17:00 - Procedures Procedures: Procedures DRAINAGE OF LEFT PLEURAL CAVITY, PERCUTANEOUS APPROACH (12/29/17) EXCISION OF NECK SKIN, EXTERNAL APPROACH (06/03/15) EXCISION OF RECTUM, ENDO, DIAGN (06/03/15) EXCISION OF RIGHT UPPER ARM SKIN, EXTERNAL APPROACH (06/03/15) INSPECTION OF LEFT PLEURAL CAVITY, OPEN APPROACH (12/29/17) TRANSFUSE NONAUT FROZEN PLASMA IN PERIPH VEIN, PERC (12/29/17) ABX Reporting Has patient been on IV antibiotics over the past 48 hours?: No Current Medications - Current Medications Current Medications: Active Medications Generic Name Dose Route Start Last Admin Trade Name Freq PRN Reason Stop Dose Admin Acetaminophen 650 mg 06/24/18 16:26 Tylenol PO Q4HR PRN Pain 1 to 4 Aspirin 81 mg 06/25/18 09:00 06/26/18 09:23 Ecotrin PO 81 mg DAILY [facility] Administration Docusate Sodium 250 - 500 mg 06/27/18 09:00 Colace 250mg Capsule PO DAILY [facility] Famotidine 20 mg 06/24/18 21:00 06/26/18 21:58 Pepcid PO 20 mg BID DEBORAH Administration Ibuprofen 600 mg 06/24/18 16:26 Motrin PO Q6HR PRN Pain 1 to 4 Lisinopril 2.5 mg 06/25/18 09:00 06/26/18 09:24 Zestril PO 2.5 mg DAILY [facility] Administration Metoprolol Succinate 50 mg 06/24/18 23:00 06/26/18 22:00 Toprol Xl PO 50 mg BID [facility] Administration Ondansetron HCl 4 mg 06/24/18 16:26 06/26/18 13:58 Zofran Inj IVP 4 mg Q6HR PRN Administration Nausea / Vomiting Oxycodone HCl 5 mg 06/24/18 16:26 Roxicodone PO Q4HR PRN Pain 5 to 7 Oxycodone HCl 10 mg 06/24/18 16:26 Roxicodone PO Q4HR PRN Pain 8 to 10 Polyethylene Glycol 17 gm 06/25/18 09:00 06/26/18 09:27 Miralax PO Not Given DAILY [facility] Potassium Chloride 20 meq 06/25/18 08:00 06/26/18 09:22 K-Dur PO 20 meq DAILYWM [facility] Administration Prochlorperazine Edisylate 10 mg 06/24/18 16:26 06/26/18 16:55 Compazine Inj IVP 10 mg Q6HR PRN Administration Nausea / Vomiting Promethazine HCl 25 mg 06/24/18 16:26 Phenergan Inj IM Q6HR PRN Nausea / Vomiting Rivaroxaban 20 mg 06/26/18 17:00 06/26/18 17:40 Xarelto PO 20 mg 1700 [facility] Administration Senna 8.6 - 17.2 mg 06/27/18 09:00 Senokot PO DAILY [facility] Sodium Chloride 10 ml 06/24/18 17:00 06/27/18 00:11 Normal Saline Flush 0.9% IVP Not Given 0100,0900,1700 [facility] Sodium Chloride 10 ml 06/24/18 16:26 06/26/18 13:59 Normal Saline Flush 0.9% IVP 10 ml PRN PRN Administration NEEDED PER PROVIDER ORDERS Spironolactone 25 mg 06/25/18 09:00 06/26/18 09:26 Aldactone PO 25 mg DAILY DEBORAH Administration Albuterol Sulfate [Proair Hfa Inhaler] 2 puffs INH Q4H PRN 06/24/18
[2018-06-27] MEDS: SODIUM CHLORIDE FLUSH 0.9% 10 ML SYRINGE IVP SCH ×2 (00:11→09:00)
[2018-06-27 06:03] LABS: BASOPHILS # (AUTO) 0.1 10^3/uL (0.0-0.1); BASOPHILS % (AUTO) 0.9 %; EOSINOPHILS # (AUTO) 0.1 10^3/uL (0.0-0.7); EOSINOPHILS % (AUTO) 1.3 %; HGB - HEMOGLOBIN 15.7 g/dL (14.0-18.0); LYMPHOCYTES # (AUTO) 1.6 10^3/uL (1.5-3.5); LYMPHOCYTES % (AUTO) 17.9 %; MEAN CORPUSCULAR HEMOGLOBIN 29.6 pg (27.0-31.0); MEAN CORPUSCULAR HGB CONC 32.9 g/dL (32.0-36.0); MEAN CORPUSCULAR VOLUME 89.8 fL (80.0-94.0); MEAN PLATELET VOLUME 9.1 fL (7.4-11.4); MONOCYTES % (AUTO) 11.4 %; NEUTROPHILS # (AUTO) 6.3 10^3/uL (1.5-6.6); NEUTROPHILS % (AUTO) 68.5 %; PLT - PLATELET COUNT 342 10^3/uL (130-450); RED BLOOD COUNT 5.32 10^6/uL (4.70-6.10); RED CELL DISTRIBUTION WIDTH 14.8 % (12.0-15.0); WHITE BLOOD COUNT 9.2 x10^3/uL (4.8-10.8)
[2018-06-27 06:11] LABS: ALBUMIN 3.5 g/dL (3.2-5.5); CALCIUM 8.9 mg/dL (8.5-10.3); MAGNESIUM 2.1 mg/dL (1.7-2.8); PHOSPHORUS 3.4 mg/dL (2.5-4.6); TOTAL PROTEIN 6.9 g/dL (6.7-8.2)
[2018-06-27 08:04] VITALS: BP 114/92
[2018-06-27] MEDS: FAMOTIDINE 20 MG TABLET PO SCH (08:59)
[2018-06-27] MEDS: POTASSIUM CHLORIDE 20 MEQ TABLET PO SCH (08:59)
[2018-06-27] MEDS: ASPIRIN EC 81 MG TABLET PO SCH (08:59)
[2018-06-27] MEDS: METOPROLOL SUCCINATE 50 MG TABLET PO SCH (08:59)
[2018-06-27] MEDS: SPIRONOLACTONE 25 MG TABLET PO SCH (08:59)
[2018-06-27] MEDS ORDERED: DOCUSATE SODIUM 250 MG CAPSULE PO SCH (09:00)
[2018-06-27] MEDS: LISINOPRIL 5 MG TABLET PO SCH (09:00)
[2018-06-27] MEDS ORDERED: SENNA 8.6 MG TABLET PO SCH (09:00)
[2018-06-27] MEDS: POLYETHYLENE GLYCOL 3350 17 GM PACKET PO SCH (09:00)
--- NOTE | 2018-06-27 11:18 | Discharge Plan ---
Discharge Plan Disposition: 01 Home, Self Care Condition: Fair Prescriptions: Aspirin [Aspirin EC] 81 mg PO DAILY #60 tablet. Lisinopril [Zestril] 2.5 mg PO DAILY #60 tablet Metoprolol Succinate [Toprol Xl] 50 mg PO BID #60 tablet Rivaroxaban [Xarelto] 20 mg PO 1700 #60 tablet Spironolactone [Aldactone] 25 mg PO DAILY #60 tablet Diet: Low Sodium (Restrict to no more than 2L of fluid a day) Activity Restrictions: Activity as Tolerated Shower Restrictions: No Driving Restrictions: No Weight Bearing: Full Weight Additional Instructions or Follow Up instructions: You presented to the emergency department with shortness of breath. He was found to have atrial fibrillation with a rapid ventricular rate and your having a congestive heart failure exacerbation as you had too much fluid in your lungs. You were treated with medication to control your heart rate and with water pills for your congestive heart failure exacerbation. It appears that you are now stable and much improved from the breathing standpoint. You are not requiring any oxygen and you were able to walk the halls with little difficulties. The reason for your decompensation was that you were not taking your medications for the last 4 months. We have prescribed you medications for your ingestive heart failure and your atrial fibrillation and sent them to the pharmacy please take these medications as they will keep you from needing to come back to the hospital. You should follow-up with your primary care physician as soon as possible. No Smoking: If you smoke, Please STOP! Call for help. Follow-up with: Letty Geronimo ARNP [Provider Admit Priv/Credential] -
--- NOTE | 2018-06-27 11:24 | DISCHARGE SUMMARY ---
Discharge Summary Admit Date: 06/24/18 Discharge Date: 06/27/18 Discharging Provider: Robles Palua MD Primary Care Provider: Letty DIAZ Code Status: Attempt Resuscitation Condition at Discharge: Fair Discharge Disposition: 01 Home, Self Care - DIAGNOSES Admission Diagnoses: 1. Atrial fibrillation with rapid ventricular rate 2. CHF exacerbation 3. COPD 4. Polysubstance abuse 5. Obstructive sleep apnea on CPAP 6. Elevated LFTs 7. Hyponatremia Discharge Diagnoses with Status of Each Condition: 1. Atrial fibrillation with rapid ventricular rate: Resolved 2. Acute on chronic systolic congestive heart failure: Improved 3. COPD: Stable 4. Polysubstance abuse: Stable 5. Obstructive sleep apnea on CPAP: Stable 6. Elevated LFTs: Improved 7. Hyponatremia: Resolved - HPI History of Present Illness: Patient is a 68-year-old gentleman with a past medical history significant for nonischemic cardiomyopathy with an ejection fraction of 25% and moderate right heart failure, atrial fibrillation, COPD, obstructive sleep apnea on CPAP, hyperlipidemia, chronic deafness, tobacco abuse, polysubstance abuse including crack cocaine, heroin and methamphetamines, with history of recurrent pneumonia with previous hospitalizations for Empyema requiring left thoracotomy with decortication on 01/04/[address] [facility] who presented to the emergency department with a chief complaint of shortness of breath. The patient states that he has been having shortness of breath over the last week. He states that that his symptoms have been progressing to where he now feels short of breath just at rest. The patient states that he did come to the emergency department 2 days ago because he was having severe shortness of breath with exertion. He was seen at that time and thought to have a COPD exacerbation. He was treated with nebulizers in the emergency department and steroids. He was discharged home. The patient states that he felt as though he should not have been discharged home at that time. He states that even when he got up to walk out of the emergency department he was extremely short of breath. He states that when he returned home the symptoms continue to worsen and today he was short of breath just at rest. He also states that he has been having orthopnea. He does also complain of right leg and left hip pain. The patient denies any increasing lower extremity edema. He does state that he feels more short of breath when he lays on his left side which is the side that he had his radius empyema and VATS procedure. He states that he is stopped smoking cigarettes 8 years ago and stopped using meth and heroin a long time ago. However the patient does have positive methamphetamines in his urine tox screen and also has had a recent emergency room visit for heroin overdose. The patient admits to having stopped taking his meds about 4 months ago including his metoprolol and he has not taken a blood thinner for more than a year. The patient does also state that he has been having some chest tightness. He denies any wheezing. Denies any fevers or chills. He denies any worsening cough. Patient denies any headaches, blurred vision, runny nose, sore throat, nasal congestion, difficulty swallowing, palpitations, abdominal pain, nausea, vomiting, diarrhea, constipation, urinary urgency, urinary frequency, dysuria, recent unintentional weight loss or weight gain. Patient also denies any polyuria, polydipsia, dizziness, lightheadedness, skin rashes, skin changes, joint swelling, muscle aches, back pain, neck stiffness or any focal neurologic deficits. On presentation to the emergency department the patient is afebrile and ini tially his heart rate was 78 with a normal blood pressure although he was slightly tachypneic he was saturating well on room air. The patient then went into atrial fibrillation with a rapid ventricular rate while he was in the emergency department. The patient's heart rate jumped into the 130s. The patient required 2 doses of IV diltiazem 10 mg and then 20 mg. With this the patient's heart rate did come down to the 100s but then quickly shot back up. The patient was admitted to the intensive care unit for a diltiazem drip and close cardiac monitoring. Patient's lab work did reveal an elevated BNP of 1039. The patient also underwent an EKG which did not reveal any ST elevations or acute ischemic changes. It did reveal atrial fibrillation with a rapid ventricular rate. The patient's chest x-ray was positive for increasing right pleural effusion and increased right basilar density likely worsening edema. The patient did appear short of breath at rest and with any minimal exertion. The patient also had elevated LFTs which are thought to likely be secondary to congestion of his liver from his congestive heart failure. The patient was admitted to the intensive care unit for CHF exacerbation and atrial fibrillation with rapid ventricular rate. - HOSPITAL COURSE Hospital Course: Patient presented to the emergency department with shortness of breath and was found to be in atrial fibrillation with a rapid ventricular rate. He also had acute on chronic congestive heart failure exacerbation. The patient underwent an echocardiogram which showed that his ejection fraction was 25% with moderate right heart failure. The patient was admitted to the ICU and treated with a diltiazem drip for his A. fib RVR and IV Lasix for his congestive heart failure. The patient had good response to the diltiazem drip and was able to be weaned o ff once he was started on oral metoprolol. The patient stated he had not taken his medications for 4 months which is likely the cause of his exacerbation. The patient was placed on optimal medication for systolic heart failure with metoprolol, lisinopril and spironolactone. The patient was also placed on anticoagulation with Xarelto for his atrial fibrillation. The patient was -5 L throughout the hospitalization and had significant improvement in his breathing and overall symptoms. The patient was in stable condition at the time of discharge. The patient was counseled on noncompliance to medication. The patient was given prescriptions for all the above medications and states that he will take them at home. He will need to follow-up with his primary care physician as an outpatient. - ALLERGIES Allergies/Adverse Reactions: Allergies Allergy/AdvReac Type Severity Reaction Status Date / Time No Known Drug Allergies Allergy Verified 03/27/18 02:53 - MEDICATIONS Home Medications: Ambulatory Orders Medication Instructions Recorded Confirmed Albuterol Sulfate [Proair Hfa 2 puffs INH Q4H PRN 06/24/18 06/24/18 Inhaler] Aspirin [Aspirin EC] 81 mg PO DAILY #60 tablet.dr 06/27/18 Lisinopril [Zestril] 2.5 mg PO DAILY #60 tablet 06/27/18 Metoprolol Succinate [Toprol Xl] 50 mg PO BID #60 tablet 06/27/18 Rivaroxaban [Xarelto] 20 mg PO 1700 #60 tablet 06/27/18 Spironolactone [Aldactone] 25 mg PO DAILY #60 tablet 06/27/18 - PHYSICAL EXAM AT DISCHARGE General Appearance: positive: No acute distress, Alert Eyes Bilateral: positive: Normal inspection, PERRL, EOMI, No lid inflammation, Conjunctivae nml, No scleral icterus ENT: positive: ENT inspection nml, Pharynx nml, No signs of dehydration. negative: Purulent nasal drainage, Pharyngeal erythema, Oral lesions Neck: positive: Nml inspection, Thyroid nml, No JVD, Trachea midline. negative: Thyromegaly, Lymphadenopathy (R), Lymphadenopathy (L), Stiff neck Respiratory: positive: Chest non-tender, No respiratory distress, Rales (Improved at bases). negative: Wheezes, Rhonchi Cardiovascular: positive: No murmur, No gallop, Irregularly irregular Peripheral Pulses: positive: 2+ Abdomen: positive: Non-tender, No organomegaly, Nml bowel sounds, No distention. negative: Guarding, Rebound, Hepatomegaly Back: positive: Nml inspection. negative: CVA tenderness (R), CVA tenderness (L) Skin: positive: Color nml, No rash, Warm. negative: Cyanosis, Diaphoresis, Pallor Extremities: positive: Non-tender, Full ROM, Nml appearance, Pedal edema (Improved) Neurologic/Psychiatric: positive: Oriented x3, CN's nml (2-12), Motor nml, Sensation nml, Mood/affect nml - LABS Result Diagrams: 06/27/18 05:26 06/27/18 05:26 Other Lab Results: Laboratory Results WBC 9.2 x10^3/uL (4.8-10.8) 06/27/18 05:26 RBC 5.32 10^6/uL (4.70-6.10) 06/27/18 05:26 Hgb 15.7 g/dL (14.0-18.0) 06/27/18 05:26 Hct 47.8 % (42.0-52.0) 06/27/18 05:26 MCV 89.8 fL (80.0-94.0) 06/27/18 05:26 MCH 29.6 pg (27.0-31.0) 06/27/18 05:26 MCHC 32.9 g/dL (32.0-36.0) 06/27/18 05:26 RDW 14.8 % (12.0-15.0) 06/27/18 05:26 Plt Count 342 10^3/uL (130-450) 06/27/18 05:26 MPV 9.1 fL (7.4-11.4) 06/27/18 05:26 Neut # (Auto) 6.3 10^3/uL (1.5-6.6) 06/27/18 05:26 Lymph # (Auto) 1.6 10^3/uL (1.5-3.5) 06/27/18 05:26 [place] # (Auto) 1.0 10^3/uL (0.0-1.0) 06/27/18 05:26 Eos # (Auto) 0.1 10^3/uL (0.0-0.7) 06/27/18 05:26 Baso # (Auto) 0.1 10^3/uL (0.0-0.1) 06/27/18 05:26 Absolute Nucleated RBC 0.01 x10^3/uL 06/27/18 05:26 Nucleated RBC % 0.1 /100WBC 06/27/18 05:26 PT 19.4 secs (9.9-12.6) H 06/25/18 03:31 INR 1.7 (0.8-1.2) H 06/25/18 03:31 D-Dimer 622.6 ng/mL (200.0-255.0) H 06/25/18 03:31 Sodium 135 mmol/L (135-145) 06/27/18 05:26 Potassium 3.6 mmol/L (3.5-5.0) 06/27/18 05:26 Chloride 99 mmol/L (101-111) L 06/27/18 05:26 Carbon Dioxide 29 mmol/L (21-32) 06/27/18 05:26 Anion Gap 7.0 (6-13) 06/27/18 05:26 BUN 27 mg/dL (6-20) H 06/27/18 05:26 Creatinine 1.0 mg/dL (0.6-1.2) 06/27/18 05:26 Estimated GFR (MDRD) 75 (>89) L 06/27/18 05:26 Glucose 119 mg/dL (70-100) H 06/27/18 05:26 Calcium 8.9 mg/dL (8.5-10.3) 06/27/18 05:26 Phosphorus 3.4 mg/dL (2.5-4.6) 06/27/18 05:26 Magnesium 2.1 mg/dL (1.7-2.8) 06/27/18 05:26 Total Bilirubin 1.0 mg/dL (0.2-1.0) 06/27/18 05:26 AST 157 IU/L (10-42) H 06/27/18 05:26 ALT 225 IU/L (10-60) H 06/27/18 05:26 Alkaline Phosphatase 141 IU/L (42-121) H 06/27/18 05:26 Troponin I < 0.04 ng/mL (<0.49) 06/25/18 03:31 B-Natriuretic Peptide 929 pg/mL (5-100) H 06/27/18 05:26 Total Protein 6.9 g/dL (6.7-8.2) 06/27/18 05:26 Albumin 3.5 g/dL (3.2-5.5) 06/27/18 05:26 Globulin 3.4 g/dL (2.1-4.2) 06/27/18 05:26 Albumin/Globulin Ratio 1.0 (1.0-2.2) 06/27/18 05:26 Lipase 29 U/L (22-51) 06/24/18 14:43 TSH 2.62 uIU/mL (0.34-5.60) 06/24/18 14:43 Urine Opiates Screen NEGATIVE (NEGATIVE) 06/24/18 17:00 Ur Oxycodone Screen NEGATIVE (NEGATIVE) 06/24/18 17:00 Urine Methadone Screen NEGATIVE (NEGATIVE) 06/24/18 17:00 Ur Propoxyphene Screen NEGATIVE (NEGATIVE) 06/24/18 17:00 Ur Barbiturates Screen NEGATIVE (NEGATIVE) 06/24/18 17:00 Ur Tricyclics Screen NEGATIVE (NEGATIVE) 06/24/18 17:00 Ur Phencyclidine Scrn NEGATIVE (NEGATIVE) 06/24/18 17:00 Ur Amphetamine Screen POSITIVE (NEGATIVE) H 06/24/18 17:00 U Methamphetamines Scrn POSITIVE (NEGATIVE) H 06/24/18 17:00 U Benzodiazepines Scrn POSITIVE (NEGATIVE) H 06/24/18 17:00 Urine Cocaine Screen NEGATIVE (NEGATIVE) 06/24/18 17:00 U Cannabinoids Screen POSITIVE (NEGATIVE) H 06/24/18 17:00 - DIAGNOSTIC IMAGING Diagnostic Imaging Results: Final report reviewed Diagnostic Imaging Results Comments: Chest x-ray Impression: 1. Small right pleural effusion has increased in size since 2 days earlier. 2. Increasing right basilar density, question worsening edema, para organizing pneumonia or increasing atelectasis. 3. 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 Echocardiogram Impression: Left ventricular wall thickness is normal. Overall left ventricular systolic function is severely impaired with an ejection fraction of 20-25%. There is severe global hypokinesis of left ventricular contractility. Indeterminate left ventricular filling pattern due to atrial fibrillation. Severe right ventricular enlargement. The right ventricular systolic function is moderately impaired. Severe increase in left atrial volume index. Severe right atrial enlargement. The aortic valve is trileaflet. There is mild aortic valve sclerosis. There is no evidence of aortic stenosis. There is no evidence of aortic regurgitation. There is thickening of the mitral valve leaflets. No mitral stenosis noted. There is moderate mitral regurgitation. Tricuspid valve appears structurally normal. No tricuspid stenosis noted. Moderate tricuspid regurgitation. Moderately abnormal right heart pressures. Right ventricular systolic pressure at rest of 50 mmHg. The pulmonic valve is normal. Mild pulmonic regurgitation. There is no pulmonic stenosis noted. There is no pericardial effusion. There is evidence of patent ibrahim ovale versus atrial septal defect with left to right shunting. The pulmonary artery is normal. No mass or thrombus identified. There is no pleural effusion noted. - FOLLOW UP Follow Up: Patient was admitted with atrial fibrillation with RVR and CHF exacerbation. The patient was placed on optimal medication for both while he was hospitalized. The patient did require a diltiazem drip when he was initially admitted. He also was given IV Lasix. The patient had good output and had improvement of his heart rate. The cause of the patient's presentation was noncompliance to medication for the last 4 months. The patient was prescribed metoprolol, lisinopril, spironolactone and Xarelto to take as an outpatient. The patient will follow up with his primary care physician. The patient was counseled on need to stop using drugs. - TIME SPENT Time Spent in Discharge (Minutes): 45
== END 2018-06-27 15:27 | disposition home or self-care (01) | DRG 308 ==
LOC: EDUNIT# → ED 13:56 → ICU 16:26 → MS2 06-25 18:38
PROVIDERS: ADMIT Internal Medicine; ATTEND Internal Medicine
PROC: 3E0234Z Introduction of Serum, Toxoid and Vaccine into Muscle, Percutaneous Approach (ICD-10-PCS; principal; 2018-06-25)
DX: J44.1 Chronic obstructive pulmonary disease with (acute) exacerbation (principal); I48.91 Unspecified atrial fibrillation; F11.10 Opioid abuse, uncomplicated; I50.9 Heart failure, unspecified; I48.2 Chronic atrial fibrillation; I50.23 Acute on chronic systolic (congestive) heart failure; F15.20 Other stimulant dependence, uncomplicated; J44.9 Chronic obstructive pulmonary disease, unspecified; I11.0 Hypertensive heart disease with heart failure; G47.33 Obstructive sleep apnea (adult) (pediatric); E78.5 Hyperlipidemia, unspecified; E78.00 Pure hypercholesterolemia, unspecified; K76.1 Chronic passive congestion of liver; H91.90 Unspecified hearing loss, unspecified ear; Z87.891 Personal history of nicotine dependence; Z91.14 Patient's other noncompliance with medication regimen; Z23 Encounter for immunization
CPT/HCPCS: 36415; 71046; 80048; 80053; 80306; 83690; 83735; 83880; 84100; 84443; 84484; 85025; 85379; 85610; 87150; 90670; 93005; 93306; 96374; 99284; 99285

== ENCOUNTER 2018-07-12 14:47 | Outpatient (CLI) | payer MEDICARE, OTHER, MEDICAID | END 2018-07-12 14:48 | disposition home or self-care (01) | LOC: RT.S 14:47 | PROVIDERS: ATTEND Nurse Practitioner Family | DX: I48.0 Paroxysmal atrial fibrillation (principal) | CPT/HCPCS: 93005 ==

== ENCOUNTER 2018-08-17 11:01 | Outpatient (CLI) | payer MEDICARE, OTHER, MEDICAID | END 2018-08-17 11:02 | disposition home or self-care (01) | LOC: RT.S 11:01 | PROVIDERS: ATTEND Nurse Practitioner Family | DX: I42.0 Dilated cardiomyopathy (principal) | CPT/HCPCS: 93005 ==

== ENCOUNTER 2018-10-13 08:00 | Outpatient (CLI) | payer MEDICARE, OTHER, MEDICAID ==
[2018-10-13 18:25] LABS: PSA SCREEN (Z12.5) 0.76 ng/mL (0.000-2.000)
== END 2018-10-13 23:59 | disposition home or self-care (01) ==
LOC: LAB.F 08:00
PROVIDERS: ATTEND Nurse Practitioner Family
DX: Z12.5 Encounter for screening for malignant neoplasm of prostate (principal); N52.9 Male erectile dysfunction, unspecified
CPT/HCPCS: 36415; 84403; G0103; 84153

== ENCOUNTER 2019-01-14 17:22 | Outpatient (CLI) | payer MEDICARE, OTHER, MEDICAID | END 2019-01-14 17:23 | disposition critical access hospital (66) | LOC: EMS 17:22 | PROVIDERS: ATTEND Surgery | DX: R41.82 Altered mental status, unspecified (principal) | CPT/HCPCS: A0425; A0427 ==

== ENCOUNTER 2019-01-14 17:45 | Observation (INO) | payer MEDICARE, OTHER, MEDICAID ==
[2019-01-14] MEDS ORDERED: diltiaZEM INJ 5 MG/ML VIAL IVP STA ×2 (17:56→18:39)
--- NOTE | 2019-01-14 17:59 | ED Physician Documentation ---
PD HPI ALTERED MENTAL STATUS - Stated complaint Stated Complaint: ALOC - Chief complaint Chief Complaint: Neuro - History obtained from History obtained from: Patient, EMS - History of Present Illness Timing - onset: Today (This is a 68-year-old gentleman with history of nonischemic cardiomyopathy, atrial fibrillation, COPD, deafness and polysubstance abuse who was passed out in his van. A [employer] called 911 and he was difficult to arouse for paramedics, although that seemed to improve on the way here. He admits to using heroin and methamphetamines including recently. He says he is been short of breath for the last 3 weeks, he says he has been taking his prescription medications including his blood thinner. He had an empyema last year that required thoracotomy. He was not administered Narcan on the way here.) Review of Systems Ten Systems: 10 systems reviewed and negative Constitutional: denies: Fever, Chills Cardiac: reports: Pedal edema (Chronic). denies: Chest pain / pressure, Palpitations Respiratory: reports: Dyspnea. denies: Cough PD PAST MEDICAL HISTORY - Past Medical History Cardiovascular: Congestive heart failure, Hypertension, High cholesterol, Atrial fibrillation Respiratory: COPD, Pneumonia, Sleep apnea, CPAP use Neuro: None Endocrine/Autoimmune: None GI: None : None HEENT: Chronic hearing loss Psych: None Musculoskeletal: None Derm: Other - Past Surgical History Past Surgical History: Yes Ortho: Other Cardiovascular: Other - Present Medications Home Medications: Ambulatory Orders Medication Instructions Recorded Confirmed Albuterol Sulfate [Proair Hfa 2 puffs INH Q4H PRN 06/24/18 06/24/18 Inhaler] Aspirin [Aspirin EC] 81 mg PO DAILY #60 tablet. 06/27/18 Lisinopril [Zestril] 2.5 mg PO DAILY #60 tablet 06/27/18 Metoprolol Succinate [Toprol Xl] 50 mg PO BID #60 tablet 06/27/18 Rivaroxaban [Xarelto] 20 mg PO 1700 #60 tablet 06/27/18 Spironolactone [Aldactone] 25 mg PO DAILY #60 tablet 06/27/18 - Allergies Allergies/Adverse Reactions: Allergies Allergy/AdvReac Type Severity Reaction Status Date / Time No Known Drug Allergies Allergy Verified 01/14/19 17:50 - Social History Does the pt smoke?: No Smoking Status: Never smoker Does the pt drink ETOH?: No Does the pt have substance abuse?: Yes - Immunizations Immunizations are current?: Yes - POLST Patient has POLST: No POLST Status: Full Code PD ED PE NORMAL - Vitals Vital signs reviewed: Yes - General General: Other (Sleepy but easily arousable, slightly twitchy. Tachycardic to the 150s) - HEENT HEENT: Other (Small pupils) - Neck Neck: Supple, no meningeal sign, No bony TTP - Cardiac Cardiac: Other (Tachycardic and irregular without obvious murmur) - Respiratory Respiratory: No respiratory distress, Clear bilaterally - Abdomen Abdomen: Soft, Non tender - Back Back: No CVA TTP, No spinal TTP - Derm Derm: Normal color, No rash, Other (No track morris on the arms) - Neuro Neuro: Alert and oriented X 3 Eye Opening: To Voice Motor: Obeys Commands Verbal: Oriented GCS Score: 14 - Psych Psych: Normal mood, Normal affect Results - Vitals Vitals: Vital Signs - 24 hr 01/14/19 01/14/19 01/14/19 17:45 18:04 18:30 Temperature 36.7 C Heart Rate 63 152 H 126 H Respiratory 20 12 10 L Rate Blood Pressure 140/98 H 119/90 H 118/99 H O2 Saturation 156 H 100 100 01/14/19 01/14/19 01/14/19 19:00 19:14 19:30 Temperature 37.9 C H Heart Rate 108 H 106 H 113 H Respiratory 12 12 14 Rate Blood Pressure 124/87 H 115/89 H 124/112 H O2 Saturation 100 100 100 01/14/19 20:00 Temperature Heart Rate 119 H Respiratory 12 Rate Blood Pressure 149/68 H O2 Saturation Oxygen O2 Source Room air - EKG (time done) 1750 Rate: Rate (enter#) (144) Rhythm: Atrial fibrillation Intervals: RBBB, Other (LAFB) Ischemia: No: ST elevation c/w ischemia Computer interpretation: Agree with computer - Labs Labs: Laboratory Tests 01/14/19 01/14/19 01/14/19 18:05 18:05 18:05 WBC 12.8 H RBC 4.54 L Hgb 13.9 L Hct 42.2 MCV 93.0 MCH 30.6 MCHC 32.9 RDW 13.0 Plt Count 218 MPV 10.9 Neut # (Auto) Not Reportable Lymph # (Auto) Not Reportable [place] # (Auto) Not Reportable Eos # (Auto) Not Reportable Baso # (Auto) Not Reportable Absolute Nucleated RBC Not Reportable Total Counted 100 Band Neuts % (Manual) 5 Abnorm Lymph % (Manual) 0 Nucleated RBC % Not Reportable Neutrophils # (Manual) 9.5 H Lymphocytes # (Manual) 2.2 Monocytes # (Manual) 1.2 H Eosinophils # (Manual) 0.0 Basophils # (Manual) 0.0 Differential Comment MANUAL DIFFERENTIAL Platelet Estimate NORMAL (130-450,000) Platelet Morphology NORMAL APPEARANCE RBC Morph Micro Appear NORMAL APPEARANCE Sodium 132 L Potassium 4.4 Chloride 94 L Carbon Dioxide 23 Anion Gap 15.0 H BUN 50 H Creatinine 1.7 H Estimated GFR (MDRD) 40 L Glucose 92 Calcium 8.9 Magnesium 1.9 Total Bilirubin 3.1 H AST 1272 H ALT 1056 H Alkaline Phosphatase 137 H Lactate Dehydrogenase Total Creatine Kinase 681 H CK-MB (CK-2) 22.5 H Troponin I 0.04 B-Natriuretic Peptide Total Protein 6.9 Albumin 3.6 Globulin 3.3 Albumin/Globulin Ratio 1.1 Lipase 29 Urine Opiates Screen Ur Oxycodone Screen Urine Methadone Screen Ur Propoxyphene Screen Acetaminophen Ur Barbiturates Screen Ur Tricyclics Screen Ur Phencyclidine Scrn Ur Amphetamine Screen U Methamphetamines Scrn U Benzodiazepines Scrn Urine Cocaine Screen U Cannabinoids Screen 01/14/19 01/14/19 01/14/19 18:05 18:05 18:05 WBC RBC Hgb Hct MCV MCH MCHC RDW Plt Count MPV Neut # (Auto) Lymph # (Auto) [place] # (Auto) Eos # (Auto) Baso # (Auto) Absolute Nucleated RBC Total Counted Band Neuts % (Manual) Abnorm Lymph % (Manual) Nucleated RBC % Neutrophils # (Manual) Lymphocytes # (Manual) Monocytes # (Manual) Eosinophils # (Manual) Basophils # (Manual) Differential Comment Platelet Estimate Platelet Morphology RBC Morph Micro Appear Sodium Potassium Chloride Carbon Dioxide Anion Gap BUN Creatinine Estimated GFR (MDRD) Glucose Calcium Magnesium Total Bilirubin AST ALT Alkaline Phosphatase Lactate Dehydrogenase 588 H Total Creatine Kinase CK-MB (CK-2) Troponin I B-Natriuretic Peptide 610 H Total Protein Albumin Globulin Albumin/Globulin Ratio Lipase Urine Opiates Screen Ur Oxycodone Screen Urine Methadone Screen Ur Propoxyphene Screen Acetaminophen < 10 L Ur Barbiturates Screen Ur Tricyclics Screen Ur Phencyclidine Scrn Ur Amphetamine Screen U Methamphetamines Scrn U Benzodiazepines Scrn Urine Cocaine Screen U Cannabinoids Screen 01/14/19 19:45 WBC RBC Hgb Hct MCV MCH MCHC RDW Plt Count MPV Neut # (Auto) Lymph # (Auto) [place] # (Auto) Eos # (Auto) Baso # (Auto) Absolute Nucleated RBC Total Counted Band Neuts % (Manual) Abnorm Lymph % (Manual) Nucleated RBC % Neutrophils # (Manual) Lymphocytes # (Manual) Monocytes # (Manual) Eosinophils # (Manual) Basophils # (Manual) Differential Comment Platelet Estimate Platelet Morphology RBC Morph Micro Appear Sodium Potassium Chloride Carbon Dioxide Anion Gap BUN Creatinine Estimated GFR (MDRD) Glucose Calcium Magnesium Total Bilirubin AST ALT Alkaline Phosphatase Lactate Dehydrogenase Total Creatine Kinase CK-MB (CK-2) Troponin I B-Natriuretic Peptide Total Protein Albumin Globulin Albumin/Globulin Ratio Lipase Urine Opiates Screen POSITIVE H Ur Oxycodone Screen NEGATIVE Urine Methadone Screen NEGATIVE Ur Propoxyphene Screen NEGATIVE Acetaminophen Ur Barbiturates Screen NEGATIVE Ur Tricyclics Screen NEGATIVE Ur Phencyclidine Scrn NEGATIVE Ur Amphetamine Screen POSITIVE H U Methamphetamines Scrn POSITIVE H U Benzodiazepines Scrn NEGATIVE Urine Cocaine Screen NEGATIVE U Cannabinoids Screen POSITIVE H - Rads (name of study) 1v chest Radiology: EMP read contemporaneously (Cardiomegaly with poss mild pulm edema.) PD MEDICAL DECISION MAKING - ED course ED course: 68-year-old gentleman with history of polysubstance abuse, nonischemic cardiomyopathy presents by ambulance altered likely from drug overdose, but complicated by signs of CHF and atrial fibrillation with rapid ventricular response. Couple of doses of IV diltiazem resulted in rate control and then he was also administered diuretics. Labs noted and as shown with a significant hepatic injury pattern possibly from cardiac congestion, positive for methamphetamines and opiates, negative troponin. Pulmonary edema on x-ray. Spoke with Dr. Sweet for admission for continued management of decompensated heart disease in the setting of ongoing illicit drug use. Departure - Departure Disposition: ED Place in Observation Clinical Impression: Chronic systolic (congestive) heart failure, Full code status, Atrial fibrillation with RVR, Elevated LFTs, Polysubstance abuse CHF exacerbation Qualifiers: Heart failure type: unspecified Qualified Code(s): I50.9 - Heart failure, unspecified Condition: Serious
[2019-01-14 18:19] LABS: BASOPHILS % (AUTO) 0.4 %; EOSINOPHILS % (AUTO) 0.2 %; HGB - HEMOGLOBIN 13.9 g/dL (14.0-18.0); LYMPHOCYTES % (AUTO) 13.8 %; MEAN CORPUSCULAR HEMOGLOBIN 30.6 pg (27.0-31.0); MEAN CORPUSCULAR HGB CONC 32.9 g/dL (32.0-36.0); MEAN PLATELET VOLUME 10.9 fL (7.4-11.4); MONOCYTES % (AUTO) 14.4 %; NEUTROPHILS % (AUTO) 70.8 %; PLT - PLATELET COUNT 218 10^3/uL (130-450); RED BLOOD COUNT 4.54 10^6/uL (4.70-6.10); WHITE BLOOD COUNT 12.8 x10^3/uL (4.8-10.8)
[2019-01-14 18:23] LABS: ABNORMAL LYMPHS % (MANUAL) 0 %
[2019-01-14 18:35] LABS: ALBUMIN 3.6 g/dL (3.2-5.5); ALBUMIN/GLOBULIN RATIO 1.1 (1.0-2.2); BILIRUBIN,TOTAL 3.1 mg/dL (0.2-1.0); CALCIUM 8.9 mg/dL (8.5-10.3); CREATININE 1.7 mg/dL (0.6-1.2); MAGNESIUM 1.9 mg/dL (1.7-2.8); TOTAL PROTEIN 6.9 g/dL (6.7-8.2); TROPONIN I 0.04 ng/mL (<0.49)
[2019-01-14 18:37] LABS: CREATINE KINASE MB 22.5 ng/mL (0.6-6.3)
--- NOTE | 2019-01-14 18:45 | XRAY Report ---
Reason: dyspnea Procedure Date: 01/14/2019 Accession Number: [id number] / [id number] Procedure: XR - Chest 1 View X-Ray CPT Code: 42188 FULL RESULT: EXAM: CHEST RADIOGRAPHY EXAM DATE: 01/14/2019 06:27 PM. CLINICAL HISTORY: Dyspnea. COMPARISON: XR CHEST 1 VIEW AP/PA 08/21/2018 8:26 AM. TECHNIQUE: 1 view. FINDINGS: Lungs/Pleura: Mild haziness in the lower lungs, increased over prior exam. No focal opacities evident. No pleural effusion. No pneumothorax. Mediastinum: Large heart. Other: None. IMPRESSION: Cardiomegaly, with increased haziness in the lower lungs concerning for pulmonary edema. RADIA
[2019-01-14] MEDS ORDERED: FUROSEMIDE 40 MG/4 ML VIAL IVP STA (19:08)
[2019-01-14 19:18] LABS: BAND NEUTROPHILS % (MANUAL) 5 %; LYMPHOCYTES # (MANUAL) 2.2 10^3/uL (1.5-3.5); LYMPHOCYTES % (MANUAL) 17 %; MONOCYTES # (MANUAL) 1.2 10^3/uL (0.0-1.0)
[2019-01-14 19:19] LABS: DIFFERENTIAL COMMENT MANUAL DIFFERENTIAL; PLATELET ESTIMATE, MANUAL NORMAL (130-450,000) (NORMAL); PLATELET MORPHOLOGY NORMAL APPEARANCE (NORMAL); RBC MORPHOLOGY (MULTIPLE) NORMAL APPEARANCE (NORMAL)
[2019-01-14 19:47] LABS: MUDS CUTOFF CONCENTRATIONS CUTOFF CONC BELOW:
[2019-01-14 20:02] LABS: AMPHETAMINE SCREEN,URINE POSITIVE (NEGATIVE); BENZODIAZEPINES SCREEN, URINE NEGATIVE (NEGATIVE); COCAINE SCREEN URINE NEGATIVE (NEGATIVE); METHADONE SCREEN, URINE NEGATIVE (NEGATIVE); METHAMPHETAMINES SCREEN, URINE POSITIVE (NEGATIVE); OPIATE SCREEN, URINE POSITIVE (NEGATIVE); OXYCODONE SCREEN, URINE NEGATIVE (NEGATIVE); PROPOXYPHENE SCREEN, URINE NEGATIVE (NEGATIVE); TRICYCLIC ANTIDEPRESSANT,URINE NEGATIVE (NEGATIVE)
[2019-01-14 20:22] LABS: PT - PROTHROMBIN TIME 33.7 secs (9.9-12.6)
[2019-01-14 21:14] LABS: BILIRUBIN,URINE NEGATIVE (NEGATIVE); GLUCOSE, URINE (UA) NEGATIVE (NEGATIVE); KETONES,URINE (UA) NEGATIVE (NEGATIVE); LEUKOCYTE ESTERASE, URINE NEGATIVE (NEGATIVE); NITRITE,URINE NEGATIVE (NEGATIVE); OCCULT BLOOD,URINE NEGATIVE (NEGATIVE); PROTEIN,URINE TRACE mg/dL (NEGATIVE); UROBILINOGEN,URINE 1 (NORMAL) E.U./dL (NORMAL)
[2019-01-14 21:17] LABS: CLARITY,URINE CLEAR (CLEAR)
[2019-01-14] MEDS ORDERED: SODIUM CHLORIDE 0.9% 500 ML IV ONE (21:34)
[2019-01-14 21:45] LABS: AMORPHOUS SEDIMENT,UR Few /LPF; BACTERIA,URINE Few /HPF (None Seen); CASTS, URINE 3-5 Hyaline Casts /LPF; RBC,URINE 0-5 /HPF (0-5); SQUAMOUS EPITHELIAL CELL,UR FEW Squamous (<= Few)
--- NOTE | 2019-01-14 21:51 | HISTORY & PHYSICAL EXAMINATION ---
Chief Complaint - Chief Complaint Chief Complaint: I did drugs History of Present Illness - Admitted From Admitted From:: Home - History Obtained From Records Reviewed: Yes History obtained from: Patient, ER Physician, EMR Exam Limitations: Patient's mental status - History of Present Illness HPI Comment/Other: This is a 68 year old male with a past medical history significant for nonischemic cardiomyopathy (EF 25%), atrial fibrillation (on Xarelto), and substance abuse who presents today via EMS after he was found passed out in his vehicle. History is limited from the patient as he does not answer questions appropriately although a component of this may be that he is very heard of hearing. The patient admits to doing amphetamines today with his last use being 5 hours ago. He has been using daily for the psat few days. He denies chest pain and dyspnea. He believes he is in the hospital because he did drugs again. He reports being intermittently compliant with his medications. He told the ER physician he takes them daily but he told me that he only takes some and not every day. He reports no palpitations, fevers, nausea, abdominal pain. He does not believe his lower extremities are more edematous than usual. In the emergency department, he was found to be tachycardic and in atrial fibrillation with heart rates in the 140's. He received a couple doses of IV Cardizem with improvement into the 110's. He was not hypoxic. Chest x-ray revealed cardiomegaly with possible pulmonary edema. He was given Lasix 40mg IV. Labs were pertinent for AST/ALT in the low 1000's, creatinine of 1.7, and CK of 681. I was not able to discuss code status with the patient due to his inattention and altered mental status and therefore he will be full code. History - Past Medical History Cardiovascular: reports: Congestive heart failure, Hypertension, High c holesterol, Atrial fibrillation Respiratory: reports: COPD, Pneumonia Neuro: reports: None Endocrine/Autoimmune: reports: None GI: reports: None : reports: None HEENT: reports: Chronic hearing loss Psych: reports: None Musculoskeletal: reports: None Derm: reports: Other MRSA Hx?: Yes - Past Surgical History Cardiovascular: reports: Other - Family & Social History Family History: Father: CAD (Father had heart attack and in his 50s, grandfather had a heart attack and in his 50s, sister had a heart attack in her 50s.), Sister: CAD, Other family: CAD Social History Notes: Lives in [place], [place]. Admits to prior history of smoking and currently uses amphetamines and marijuana. Has used cocaine in the past. - Substance History Use: Uses substance without health or social issues: Tobacco Abuse: Recurrent use of substance despite neg consequences: Amphetamine, Cannabis Abuse Issues: Intoxication - POLST Patient has POLST: No POLST Status: Full Code Meds/Allgy - Home Medications Home Medications: Ambulatory Orders Medication Instructions Recorded Confirmed Albuterol Sulfate [Proair Hfa 2 puffs INH Q4H PRN 06/24/18 06/24/18 Inhaler] Aspirin [Aspirin EC] 81 mg PO DAILY #60 tablet.dr 06/27/18 Lisinopril [Zestril] 2.5 mg PO DAILY #60 tablet 06/27/18 Metoprolol Succinate [Toprol Xl] 50 mg PO BID #60 tablet 06/27/18 Rivaroxaban [Xarelto] 20 mg PO 1700 #60 tablet 06/27/18 Spironolactone [Aldactone] 25 mg PO DAILY #60 tablet 06/27/18 - Allergies Allergies/Adverse Reactions: Allergies Allergy/AdvReac Type Severity Reaction Status Date / Time No Known Drug Allergies Allergy Verified 01/14/19 17:50 Review of Systems - Constitutional Constitutional: reports: Fatigue, Weakness - Ears, Nose & Throat Ears, Nose & Throat: reports: Hearing loss - Cardiovascular Cariovascular: reports: Edema. denies: Palpitations, Chest pain - Respiratory Respiratory: denies: SOB at rest - Gastrointestinal Gastrointestinal: denies: Abdominal pain, Nausea, Vomiting - Neurological Neurological: reports: General weakness. denies: Focal weakness - Psychiatric Psychiatric: reports: Other (Substance abuse) - All Other Systems All Other Systems: reports: Reviewed and negative Prior Level of Functionality: Independent with ADL's. Exam - Vital Signs Reviewed Vital Signs: Yes Vital Signs: Vital Signs x48h Temp Pulse Pulse Resp BP BP Pulse Ox 01/14/19 21:18 36.9 C 63 16 97/80 97 01/14/19 20:30 120 H 11 L 104/73 100 01/14/19 20:00 119 H 12 149/68 H 01/14/19 19:30 113 H 14 124/112 H 100 01/14/19 19:14 37.9 C H 106 H 12 115/89 H 01/14/19 19:00 108 H 12 124/87 H 01/14/19 18:30 126 H 10 L 118/99 H 01/14/19 18:04 152 H 12 119/90 H 01/14/19 17:45 36.7 C 63 20 140/98 H 156 H - Physical Exam General Appearance: positive: No acute distress, Lethargic Eyes Bilateral: positive: Normal inspection. negative: No scleral icterus ENT: positive: Dry mucous membranes Neck: positive: Nml inspection Respiratory: positive: No respiratory distress, Breath sounds nml Cardiovascular: positive: No murmur, Irregularly irregular, Tachycardia. negative: Systolic murmur Abdomen: positive: Non-tender, Nml bowel sounds, No distention. negative: Guarding, Rebound Skin: positive: No rash, Warm, Dry. negative: Embolic lesions Extremities: positive: Pedal edema (Trace to +1 edema in lower extremities) Neurologic/Psychiatric: positive: Motor nml, Disoriented to place, Disoriented to time Conclusion/Plan - Problem List (1) Atrial fibrillation with RVR Conclusion/Plan: He has history of atrial fibrillation for which he takes Toprol and Xarelto. Presented in RVR with rates in the 140's. Improved to 110's with Cardizem IV. Initial troponin negative. Suspect that his drug abuse and dehydration triggered the rapid ventricular response. - Resume home Metoprolol - Trend troponin - Monitor on telemetry (2) Transaminitis Conclusion/Plan: He does have history of elevated LFT's in the past but they were in the 200's. Now they are in the low 1000's with an elevated T bili of 3.1. He does have scleral icterus on exam. Tylenol and alcohol levels negative. His last echocardiogram did reveal severe right ventricle enlargement and severe tricuspid regurgitation so a component of this may be congestive hepatopathy considering these findings and his lower extremity edema. His drug overdose is likely contributing as well and I wonder if he may have been hypotensive for a period of time which could cause ischemic hepatitis. His INR is elevated at 3.0 but this may be due to his Xarelto and not fulminant liver failure. - Although there may be component of congestive hepatopahy, he appears dry on exam and his acute kidney injury along with elevated CK's therefore I will gen tly hydrate him with small boluses. - Will check hepatitis panel given his drug use - Will obtain liver ultrasound - Check Ammonia level - Trend LFT's (3) Non-ischemic cardiomyopathy Conclusion/Plan: His last EF was 25% and he had dilated left ventricle. Suspect the etiology of his cardiomyopathy is his substance abuse. His BNP is elevated in the 600's but this actually appears to be better than his prior BNP's. His chest x-ray showed cardiomegaly with possible pulmonary edema although it appears mild if there is edema. He did receive IV Lasix in the ED but I'm concerned that he is dry given his renal function and elevated CK's. He also reports decreased oral intake. - Will hold off on further diuresis at this time and gently hydrate him with small boluses - Will hold his Lisinopril and Aldactone in setting of JEOVANY - Will obtain blood cultures given his history of drug abuse - Monitor respiratory status (4) Overdose Conclusion/Plan: His urine drug screen is positive for amphetamines, marijuana, and opiates. He does have history of polysubstance abuse and this is not the first occurrence. He was found minimally response by EMS but never required Narcan. - Social work consult to assist with rehab options Qualifiers: Injury intent: accidental or unintentional Qualified Code(s): T50.901A - Poisoning by unspecified drugs, medicaments and biological substances, accidental (unintentional), initial encounter (5) Altered mental status Conclusion/Plan: Suspect this secondary to his drug overdose. Oriented to self and knows he is in [place] but not that he is in the hospital. Urine drug screen positive for many substances. Alcohol negative. - IV hydration - Check ammonia level Qualifiers: Altered mental status type: unspecified Qualified Code(s): R41.82 - Altered mental status, unspecified (6) Acute kidney injury Conclusion/Plan: This may be multifactorial but suspect the primary cause is dehydration causing a pre-renal injury. I do not believe that is cardiorenal given he appears dry on exam and his BNP is not elevated compared to baseline. Although CK's are elevated, they are only minimally elevated so I do not believe that this is pigment nephropathy. - Will hydrate gently with IV fluids - If no improvement, will obtain urine lytes - Monitor renal function and urine output (7) Elevated CK Conclusion/Plan: His CK's are mildly elevated secondary to his drug overdose and him being down for a period of time. - Gentle IV hydration - Monitor CK's (8) Hyponatremia Conclusion/Plan: Suspect that this is hypovolemic hyponatremia as he appears dehydrated. Although he does not lower extremity edema, I do not think this is hypervolemic hyponatremia due to heart failure. - Gentle IV hydration - Monitor BMP - Lab Results Fish Bones: 01/14/19 18:05 01/14/19 18:05 - Diagnostic Imaging Results Diagnostic Imaging Results: positive: Final report reviewed, Read independently - EKG Results EKG Interpreted Independently: Yes EKG Findings: EKG showed Afib w/ RVR and rates in the 140's. There is a RBBB which is not new compared to prior EKG. Core Measures - Anticipated LOS I expect patient to be DC'd or transferred within 96 hours.: Yes - Issues Hospital Issues and Management Plan: Atrial fibrillation with RVR requiring IV rate control. Abnormal LFT's. - DVT/VTE - Prophylaxis VTE/DVT Device ordered at admit?: Yes VTE/DVT Prophylaxis med ordered at admit?: No Not Ordered - Medical Reason: Not indicated (Already anticoagulated.)
[2019-01-14] MEDS: SODIUM CHLORIDE FLUSH 0.9% 10 ML SYRINGE IVP PRN (22:26)
[2019-01-14] MEDS: METOPROLOL SUCCINATE 50 MG TABLET PO SCH (22:26)
[2019-01-15] MEDS: SODIUM CHLORIDE FLUSH 0.9% 10 ML SYRINGE IVP SCH ×3 (00:03→17:29)
[2019-01-15 00:12] LABS: CALCIUM 8.6 mg/dL (8.5-10.3); CREATININE 1.8 mg/dL (0.6-1.2)
[2019-01-15] MEDS ORDERED: SODIUM CHLORIDE 0.9% 500 ML IV ONE (00:25)
[2019-01-15] MEDS: SODIUM CHLORIDE FLUSH 0.9% 10 ML SYRINGE IVP PRN (01:41)
[2019-01-15] MEDS: SODIUM CHLORIDE 0.9% 1,000 ML IV SCH ×2 (02:49→13:38)
[2019-01-15] MEDS: METOPROLOL SUCCINATE 50 MG TABLET PO SCH ×3 (08:05→20:41)
[2019-01-15 09:06] LABS: ALBUMIN 3.2 g/dL (3.2-5.5); ALBUMIN/GLOBULIN RATIO 1.2 (1.0-2.2); BILIRUBIN,TOTAL 3.1 mg/dL (0.2-1.0); CALCIUM 8.1 mg/dL (8.5-10.3); CREATININE 1.2 mg/dL (0.6-1.2); TOTAL PROTEIN 5.9 g/dL (6.7-8.2)
[2019-01-15 09:18] LABS: BASOPHILS # (AUTO) 0.1 10^3/uL (0.0-0.1); BASOPHILS % (AUTO) 0.5 %; EOSINOPHILS % (AUTO) 0.2 %; LYMPHOCYTES # (AUTO) 1.3 10^3/uL (1.5-3.5); LYMPHOCYTES % (AUTO) 11.5 %; MEAN CORPUSCULAR HEMOGLOBIN 31.6 pg (27.0-31.0); MEAN CORPUSCULAR HGB CONC 34.4 g/dL (32.0-36.0); MEAN PLATELET VOLUME 10.5 fL (7.4-11.4); MONOCYTES # (AUTO) 1.4 10^3/uL (0.0-1.0); MONOCYTES % (AUTO) 12.8 %; NEUTROPHILS # (AUTO) 8.3 10^3/uL (1.5-6.6); NEUTROPHILS % (AUTO) 74.4 %; PLT - PLATELET COUNT 183 10^3/uL (130-450); RED BLOOD COUNT 4.11 10^6/uL (4.70-6.10); RED CELL DISTRIBUTION WIDTH 12.9 % (12.0-15.0); WHITE BLOOD COUNT 11.1 x10^3/uL (4.8-10.8)
[2019-01-15 09:21] LABS: BILIRUBIN,DIRECT 1.4 mg/dL (0.1-0.5)
--- NOTE | 2019-01-15 14:36 | Ultrasound Report ---
Reason: Elevated LFT's Procedure Date: 01/15/2019 Accession Number: [id number] / [id number] Procedure: US - Abdomen Limited CPT Code: FULL RESULT: EXAM: ABDOMEN ULTRASOUND LIMITED, RUQ EXAM DATE: 01/15/2019 10:01 AM. CLINICAL HISTORY: Elevated LFTs. COMPARISON: None. TECHNIQUE: Real-time scanning was performed with static images obtained. FINDINGS: Liver: Normal in size. Coarse echotexture with punctate microcalcifications. 14.5 cm. Main portal vein flow: Hepatopetal. Gallbladder: Thick edematous wall without increased vascularity. No stones identified. Nontender. Biliary System: CBD measures 6 mm. The visualized pancreas is unremarkable. Mild ascites. No right hydronephrosis, noting a few small cysts. Other: None. IMPRESSION: 1 . Coarse hepatic echotexture compatible with hepatocellular disease. 2. Thickened edematous gallbladder wall with no stones, tenderness, or dilated ducts. 3. Mild ascites. [facility]
--- NOTE | 2019-01-15 15:45 | PROVIDER PROGRESS NOTE ---
Subjective - Prog Note Date Prog Note Date: 01/15/19 - Subjective Pt reports feeling: Improved Subjective: pt is alert and oriented self, location and time today. Pt feel better and ask for breakfast. 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 Current Medications - Current Medications Current Medications: Active Medications Apixaban (Eliquis) 5 mg PO BID [facility] Aspirin (Ecotrin) 81 mg PO DAILY [facility] Digoxin (Lanoxin) 125 mcg PO DAILY [facility] Metoprolol Succinate (Toprol Xl) 50 mg PO BID [facility] Last Admin: 01/15/19 10:17 Dose: 50 mg Sodium Chloride (Normal Saline Flush 0.9%) 10 ml IVP PRN PRN PRN Reason: NEEDED PER PROVIDER ORDERS Last Admin: 01/15/19 01:41 Dose: 10 ml Sodium Chloride (Normal Saline Flush 0.9%) 10 ml IVP 0100,0900,1700 [facility] Last Admin: 01/15/19 08:06 Dose: Not Given Albuterol Sulfate [Proair Hfa Inhaler] 2 puffs INH Q4H PRN 06/24/18 Apixaban [Eliquis] 5 mg PO BID 01/15/19 Digoxin 125 mcg PO DAILY 01/15/19 Furosemide 40 mg PO BIDDIURETIC 01/15/19 Sildenafil Citrate 50 - 100 mg PO ONCE PRN 01/15/19 Objective - Vital Signs/Intake & Output Reviewed Vital Signs: Yes Vital Signs: Vital Signs x48h Temp Pulse Resp BP Pulse Ox 01/15/19 13:51 36.8 C 93 18 112/76 93 01/15/19 10:17 105 H 129/79 01/15/19 07:59 37.0 C 100 18 102/69 100 Intake & Output: Intake & Output 01/12/19 01/13/19 01/14/19 01/15/19 23:59 23:59 23:59 23:59 Intake Total 950 2101.385 Output Total 750 400 Balance 200 1701.385 - Objective General Appearance: positive: No acute distress, Alert. negative: Lethargic Eyes Bilateral: positive: Normal inspection, PERRL, No lid inflammation, Conjunctivae nml ENT: positive: ENT inspection nml, Pharynx nml, No signs of dehydration. ne gative: Purulent nasal drainage, Pharyngeal erythema, Oral lesions Neck: positive: Nml inspection, Thyroid nml, No JVD, Trachea midline. negative: Thyromegaly, Lymphadenopathy (R), Lymphadenopathy (L), Stiff neck, Swelling/bruising, Tracheal deviation Respiratory: positive: Chest non-tender, No respiratory distress, Breath sounds nml. negative: Wheezes, Rales, Rhonchi Cardiovascular: positive: Regular rate & rhythm, No gallop, Irregularly irregular, Systolic murmur, Diastolic murmur. negative: Extrasystoles, Tachycar fred, Bradycardia, JVD present Peripheral Pulses: 2+ Radial (R), 2+ Radial (L), 2+ Dorsalis pedis (R), 2+ Dorsalis pedis (L) Abdomen: positive: Non-tender, No organomegaly, Nml bowel sounds, No distention. negative: Tenderness, Guarding, Rebound Back: positive: Nml inspection. negative: CVA tenderness (R), CVA tenderness ( L) Skin: positive: Color nml, No rash, Warm, Dry. negative: Cyanosis, Diaphoresis, Pallor Extremities: positive: Non-tender, Full ROM, Nml appearance. negative: Calf tenderness, Joint swelling, Dolly's sign/cords Neurologic/Psychiatric: positive: Oriented x3, Motor nml, Sensation nml. negative: Weakness, Sensory loss, Facial droop, Slurred/abnml speech, Depressed mood/affect - Lab Results Fish Bones: 01/15/19 09:15 01/15/19 08:37 Other Labs: Lab Results x24hrs 01/15/19 01/15/19 01/15/19 Range/Units 09:15 08:37 08:37 WBC 11.1 H (4.8-10.8) x10^3/uL RBC 4.11 L (4.70-6.10) 10^6/uL Hgb 13.0 L (14.0-18.0) g/dL Hct 37.8 L (42.0-52.0) % MCV 92.0 (80.0-94.0) fL MCH 31.6 H (27.0-31.0) pg MCHC 34.4 (32.0-36.0) g/dL RDW 12.9 (12.0-15.0) % Plt Count 183 (130-450) 10^3/uL MPV 10.5 (7.4-11.4) fL Neut # (Auto) 8.3 H Lymph # (Auto) 1.3 L [place] # (Auto) 1.4 H Eos # (Auto) 0.0 Baso # (Auto) 0.1 Absolute Nucleated RBC 0.00 Total Counted Band Neuts % (Manual) (0 - 10) % Abnorm Lymph % (Manual) % Nucleated RBC % 0.0 Neutrophils # (Manual) (1.5-6.6) 10^3/uL Lymphocytes # (Manual) (1.5-3.5) 10^3/uL Monocytes # (Manual) (0.0-1.0) 10^3/uL Eosinophils # (Manual) (0-0.7) 10^3/uL Basophils # (Manual) (0-0.1) 10^3/uL Differential Comment Platelet Estimate (NORMAL) Platelet Morphology (NORMAL) RBC Morph Micro Appear (NORMAL) PT (9.9-12.6) secs INR (0.8-1.2) Sodium 134 L (135-145) mmol/L Potassium 3.7 (3.5-5.0) mmol/L Chloride 96 L (101-111) mmol/L Carbon Dioxide 24 (21-32) mmol/L Anion Gap 14.0 H (6-13) BUN 40 H (6-20) mg/dL Creatinine 1.2 (0.6-1.2) mg/dL Estimated GFR (MDRD) 60 L (>89) Glucose 103 H (70-100) mg/dL Calcium 8.1 L (8.5-10.3) mg/dL Phosphorus (2.5-4.6) mg/dL Magnesium (1.7-2.8) mg/dL Total Bilirubin 3.1 H (0.2-1.0) mg/dL Direct Bilirubin (0.1-0.5) mg/dL AST 794 H (10-42) IU/L ALT 819 H (10-60) IU/L Alkaline Phosphatase 110 (42-121) IU/L Ammonia (7-35) umol/L Lactate Dehydrogenase (91-225) IU/L Total Creatine Kinase (22-269) IU/L CK-MB (CK-2) (0.6-6.3) ng/mL Troponin I < 0.04 (<0.49) ng/mL B-Natriuretic Peptide (5-100) pg/mL Total Protein 5.9 L (6.7-8.2) g/dL Albumin 3.2 (3.2-5.5) g/dL Globulin 2.7 (2.1-4.2) g/dL Albumin/Globulin Ratio 1.2 (1.0-2.2) Lipase (22-51) U/L Urine Color Urine Clarity (CLEAR) Urine pH (5.0-7.5) PH Ur Specific [place] (1.002-1.030) Urine Protein (NEGATIVE) mg/dL Urine Glucose (UA) (NEGATIVE) mg/dL Urine Ketones (NEGATIVE) mg/dL Urine Occult Blood (NEGATIVE) Urine Nitrite (NEGATIVE) Urine Bilirubin (NEGATIVE) Urine Urobilinogen (NORMAL) E.U./dL Ur Leukocyte Esterase (NEGATIVE) Urine RBC (0-5) /HPF Urine WBC (0-3) /HPF Ur Squamous Epith Cells (<= Few) Amorphous Sediment /LPF Urine Bacteria (None Seen) /HPF Urine Casts /LPF Nasal Screen MRSA (PCR) (NEGATIVE) Urine Opiates Screen (NEGATIVE) Ur Oxycodone Screen (NEGATIVE) Urine Methadone Screen (NEGATIVE) Ur Propoxyphene Screen (NEGATIVE) Acetaminophen (10-30) ug/mL Ur Barbiturates Screen (NEGATIVE) Ur Tricyclics Screen (NEGATIVE) Ur Phencyclidine Scrn (NEGATIVE) Ur Amphetamine Screen (NEGATIVE) U Methamphetamines Scrn (NEGATIVE) U Benzodiazepines Scrn (NEGATIVE) Urine Cocaine Screen (NEGATIVE) U Cannabinoids Screen (NEGATIVE) Ethyl Alcohol mg/dL 01/15/19 01/15/19 01/15/19 Range/Units 08:37 05:30 05:30 WBC (4.8-10.8) x10^3/uL RBC (4.70-6.10) 10^6/uL Hgb (14.0-18.0) g/dL Hct (42.0-52.0) % MCV (80.0-94.0) fL MCH (27.0-31.0) pg MCHC (32.0-36.0) g/dL RDW (12.0-15.0) % Plt Count (130-450) 10^3/uL MPV (7.4-11.4) fL Neut # (Auto) Lymph # (Auto) [place] # (Auto) Eos # (Auto) Baso # (Auto) Absolute Nucleated RBC Total Counted Band Neuts % (Manual) (0 - 10) % Abnorm Lymph % (Manual) % Nucleated RBC % Neutrophils # (Manual) (1.5-6.6) 10^3/uL Lymphocytes # (Manual) (1.5-3.5) 10^3/uL Monocytes # (Manual) (0.0-1.0) 10^3/uL Eosinophils # (Manual) (0-0.7) 10^3/uL Basophils # (Manual) (0-0.1) 10^3/uL Differential Comment Platelet Estimate (NORMAL) Platelet Morphology (NORMAL) RBC Morph Micro Appear (NORMAL) PT (9.9-12.6) secs INR (0.8-1.2) Sodium (135-145) mmol/L Potassium (3.5-5.0) mmol/L Chloride (101-111) mmol/L Carbon Dioxide (21-32) mmol/L Anion Gap (6-13) BUN (6-20) mg/dL Creatinine (0.6-1.2) mg/dL Estimated GFR (MDRD) (>89) Glucose (70-100) mg/dL Calcium (8.5-10.3) mg/dL Phosphorus 3.0 (2.5-4.6) mg/dL Magnesium 1.9 (1.7-2.8) mg/dL Total Bilirubin (0.2-1.0) mg/dL Direct Bilirubin 1.4 H (0.1-0.5) mg/dL AST (10-42) IU/L ALT (10-60) IU/L Alkaline Phosphatase (42-121) IU/L Ammonia (7-35) umol/L Lactate Dehydrogenase (91-225) IU/L Total Creatine Kinase (22-269) IU/L CK-MB (CK-2) (0.6-6.3) ng/mL Troponin I 0.07 (<0.49) ng/mL B-Natriuretic Peptide (5-100) pg/mL Total Protein (6.7-8.2) g/dL Albumin (3.2-5.5) g/dL Globulin (2.1-4.2) g/dL Albumin/Globulin Ratio (1.0-2.2) Lipase (22-51) U/L Urine Color Urine Clarity (CLEAR) Urine pH (5.0-7.5) PH Ur Specific [place] (1.002-1.030) Urine Protein (NEGATIVE) mg/dL Urine Glucose (UA) (NEGATIVE) mg/dL Urine Ketones (NEGATIVE) mg/dL Urine Occult Blood (NEGATIVE) Urine Nitrite (NEGATIVE) Urine Bilirubin (NEGATIVE) Urine Urobilinogen (NORMAL) E.U./dL Ur Leukocyte Esterase (NEGATIVE) Urine RBC (0-5) /HPF Urine WBC (0-3) /HPF Ur Squamous Epith Cells (<= Few) Amorphous Sediment /LPF Urine Bacteria (None Seen) /HPF Urine Casts /LPF Nasal Screen MRSA (PCR) (NEGATIVE) Urine Opiates Screen (NEGATIVE) Ur Oxycodone Screen (NEGATIVE) Urine Methadone Screen (NEGATIVE) Ur Propoxyphene Screen (NEGATIVE) Acetaminophen (10-30) ug/mL Ur Barbiturates Screen (NEGATIVE) Ur Tricyclics Screen (NEGATIVE) Ur Phencyclidine Scrn (NEGATIVE) Ur Amphetamine Screen (NEGATIVE) U Methamphetamines Scrn (NEGATIVE) U Benzodiazepines Scrn (NEGATIVE) Urine Cocaine Screen (NEGATIVE) U Cannabinoids Screen (NEGATIVE) Ethyl Alcohol mg/dL 01/15/19 01/15/19 01/15/19 Range/Units 05:11 00:00 00:00 WBC (4.8-10.8) x10^3/uL RBC (4.70-6.10) 10^6/uL Hgb (14.0-18.0) g/dL Hct (42.0-52.0) % MCV (80.0-94.0) fL MCH (27.0-31.0) pg MCHC (32.0-36.0) g/dL RDW (12.0-15.0) % Plt Count (130-450) 10^3/uL MPV (7.4-11.4) fL Neut # (Auto) Lymph # (Auto) [place] # (Auto) Eos # (Auto) Baso # (Auto) Absolute Nucleated RBC Total Counted Band Neuts % (Manual) (0 - 10) % Abnorm Lymph % (Manual) % Nucleated RBC % Neutrophils # (Manual) (1.5-6.6) 10^3/uL Lymphocytes # (Manual) (1.5-3.5) 10^3/uL Monocytes # (Manual) (0.0-1.0) 10^3/uL Eosinophils # (Manual) (0-0.7) 10^3/uL Basophils # (Manual) (0-0.1) 10^3/uL Differential Comment Platelet Estimate (NORMAL) Platelet Morphology (NORMAL) RBC Morph Micro Appear (NORMAL) PT (9.9-12.6) secs INR (0.8-1.2) Sodium 131 L (135-145) mmol/L Potassium 4.3 (3.5-5.0) mmol/L Chloride 92 L (101-111) mmol/L Carbon Dioxide 24 (21-32) mmol/L Anion Gap 15.0 H (6-13) BUN 49 H (6-20) mg/dL Creatinine 1.8 H (0.6-1.2) mg/dL Estimated GFR (MDRD) 38 L (>89) Glucose 110 H (70-100) mg/dL Calcium 8.6 (8.5-10.3) mg/dL Phosphorus (2.5-4.6) mg/dL Magnesium (1.7-2.8) mg/dL Total Bilirubin (0.2-1.0) mg/dL Direct Bilirubin (0.1-0.5) mg/dL AST (10-42) IU/L ALT (10-60) IU/L Alkaline Phosphatase (42-121) IU/L Ammonia (7-35) umol/L Lactate Dehydrogenase (91-225) IU/L Total Creatine Kinase 661 H (22-269) IU/L CK-MB (CK-2) (0.6-6.3) ng/mL Troponin I < 0.04 (<0.49) ng/mL B-Natriuretic Peptide (5-100) pg/mL Total Protein (6.7-8.2) g/dL Albumin (3.2-5.5) g/dL Globulin (2.1-4.2) g/dL Albumin/Globulin Ratio (1.0-2.2) Lipase (22-51) U/L Urine Color Urine Clarity (CLEAR) Urine pH (5.0-7.5) PH Ur Specific [place] (1.002-1.030) Urine Protein (NEGATIVE) mg/dL Urine Glucose (UA) (NEGATIVE) mg/dL Urine Ketones (NEGATIVE) mg/dL Urine Occult Blood (NEGATIVE) Urine Nitrite (NEGATIVE) Urine Bilirubin (NEGATIVE) Urine Urobilinogen (NORMAL) E.U./dL Ur Leukocyte Esterase (NEGATIVE) Urine RBC (0-5) /HPF Urine WBC (0-3) /HPF Ur Squamous Epith Cells (<= Few) Amorphous Sediment /LPF Urine Bacteria (None Seen) /HPF Urine Casts /LPF Nasal Screen MRSA (PCR) POSITIVE A* (NEGATIVE) Urine Opiates Screen (NEGATIVE) Ur Oxycodone Screen (NEGATIVE) Urine Methadone Screen (NEGATIVE) Ur Propoxyphene Screen (NEGATIVE) Acetaminophen (10-30) ug/mL Ur Barbiturates Screen (NEGATIVE) Ur Tricyclics Screen (NEGATIVE) Ur Phencyclidine Scrn (NEGATIVE) Ur Amphetamine Screen (NEGATIVE) U Methamphetamines Scrn (NEGATIVE) U Benzodiazepines Scrn (NEGATIVE) Urine Cocaine Screen (NEGATIVE) U Cannabinoids Screen (NEGATIVE) Ethyl Alcohol mg/dL 01/14/19 01/14/19 01/14/19 Range/Units 22:10 19:45 19:45 WBC (4.8-10.8) x10^3/uL RBC (4.70-6.10) 10^6/uL Hgb (14.0-18.0) g/dL Hct (42.0-52.0) % MCV (80.0-94.0) fL MCH (27.0-31.0) pg MCHC (32.0-36.0) g/dL RDW (12.0-15.0) % Plt Count (130-450) 10^3/uL MPV (7.4-11.4) fL Neut # (Auto) Lymph # (Auto) [place] # (Auto) Eos # (Auto) Baso # (Auto) Absolute Nucleated RBC Total Counted Band Neuts % (Manual) (0 - 10) % Abnorm Lymph % (Manual) % Nucleated RBC % Neutrophils # (Manual) (1.5-6.6) 10^3/uL Lymphocytes # (Manual) (1.5-3.5) 10^3/uL Monocytes # (Manual) (0.0-1.0) 10^3/uL Eosinophils # (Manual) (0-0.7) 10^3/uL Basophils # (Manual) (0-0.1) 10^3/uL Differential Comment Platelet Estimate (NORMAL) Platelet Morphology (NORMAL) RBC Morph Micro Appear (NORMAL) PT (9.9-12.6) secs INR (0.8-1.2) Sodium (135-145) mmol/L Potassium (3.5-5.0) mmol/L Chloride (101-111) mmol/L Carbon Dioxide (21-32) mmol/L Anion Gap (6-13) BUN (6-20) mg/dL Creatinine (0.6-1.2) mg/dL Estimated GFR (MDRD) (>89) Glucose (70-100) mg/dL Calcium (8.5-10.3) mg/dL Phosphorus (2.5-4.6) mg/dL Magnesium (1.7-2.8) mg/dL Total Bilirubin (0.2-1.0) mg/dL Direct Bilirubin (0.1-0.5) mg/dL AST (10-42) IU/L ALT (10-60) IU/L Alkaline Phosphatase (42-121) IU/L Ammonia 11.0 (7-35) umol/L Lactate Dehydrogenase (91-225) IU/L Total Creatine Kinase (22-269) IU/L CK-MB (CK-2) (0.6-6.3) ng/mL Troponin I (<0.49) ng/mL B-Natriuretic Peptide (5-100) pg/mL Total Protein (6.7-8.2) g/dL Albumin (3.2-5.5) g/dL Globulin (2.1-4.2) g/dL Albumin/Globulin Ratio (1.0-2.2) Lipase (22-51) U/L Urine Color DARK YELLOW Urine Clarity CLEAR (CLEAR) Urine pH 5.0 (5.0-7.5) PH Ur Specific [place] >=1.030 H (1.002-1.030) Urine Protein TRACE (NEGATIVE) mg/dL Urine Glucose (UA) NEGATIVE (NEGATIVE) mg/dL Urine Ketones NEGATIVE (NEGATIVE) mg/dL Urine Occult Blood NEGATIVE (NEGATIVE) Urine Nitrite NEGATIVE (NEGATIVE) Urine Bilirubin NEGATIVE (NEGATIVE) Urine Urobilinogen 1 (NORMAL) (NORMAL) E.U./dL Ur Leukocyte Esterase NEGATIVE (NEGATIVE) Urine RBC 0-5 (0-5) /HPF Urine WBC 0-3 (0-3) /HPF Ur Squamous Epith Cells FEW Squamous (<= Few) Amorphous Sediment Few /LPF Urine Bacteria Few (None Seen) /HPF Urine Casts 3-5 Hyaline Casts /LPF Nasal Screen MRSA (PCR) (NEGATIVE) Urine Opiates Screen POSITIVE H (NEGATIVE) Ur Oxycodone Screen NEGATIVE (NEGATIVE) Urine Methadone Screen NEGATIVE (NEGATIVE) Ur Propoxyphene Screen NEGATIVE (NEGATIVE) Acetaminophen (10-30) ug/mL Ur Barbiturates Screen NEGATIVE (NEGATIVE) Ur Tricyclics Screen NEGATIVE (NEGATIVE) Ur Phencyclidine Scrn NEGATIVE (NEGATIVE) Ur Amphetamine Screen POSITIVE H (NEGATIVE) U Methamphetamines Scrn POSITIVE H (NEGATIVE) U Benzodiazepines Scrn NEGATIVE (NEGATIVE) Urine Cocaine Screen NEGATIVE (NEGATIVE) U Cannabinoids Screen POSITIVE H (NEGATIVE) Ethyl Alcohol mg/dL 01/14/19 01/14/19 01/14/19 Range/Units 18:05 18:05 18:05 WBC (4.8-10.8) x10^3/uL RBC (4.70-6.10) 10^6/uL Hgb (14.0-18.0) g/dL Hct (42.0-52.0) % MCV (80.0-94.0) fL MCH (27.0-31.0) pg MCHC (32.0-36.0) g/dL RDW (12.0-15.0) % Plt Count (130-450) 10^3/uL MPV (7.4-11.4) fL Neut # (Auto) Lymph # (Auto) [place] # (Auto) Eos # (Auto) Baso # (Auto) Absolute Nucleated RBC Total Counted Band Neuts % (Manual) (0 - 10) % Abnorm Lymph % (Manual) % Nucleated RBC % Neutrophils # (Manual) (1.5-6.6) 10^3/uL Lymphocytes # (Manual) (1.5-3.5) 10^3/uL Monocytes # (Manual) (0.0-1.0) 10^3/uL Eosinophils # (Manual) (0-0.7) 10^3/uL Basophils # (Manual) (0-0.1) 10^3/uL Differential Comment Platelet Estimate (NORMAL) Platelet Morphology (NORMAL) RBC Morph Micro Appear (NORMAL) PT (9.9-12.6) secs INR (0.8-1.2) Sodium (135-145) mmol/L Potassium (3.5-5.0) mmol/L Chloride (101-111) mmol/L Carbon Dioxide (21-32) mmol/L Anion Gap (6-13) BUN (6-20) mg/dL Creatinine (0.6-1.2) mg/dL Estimated GFR (MDRD) (>89) Glucose (70-100) mg/dL Calcium (8.5-10.3) mg/dL Phosphorus (2.5-4.6) mg/dL Magnesium (1.7-2.8) mg/dL Total Bilirubin (0.2-1.0) mg/dL Direct Bilirubin (0.1-0.5) mg/dL AST (10-42) IU/L ALT (10-60) IU/L Alkaline Phosphatase (42-121) IU/L Ammonia (7-35) umol/L Lactate Dehydrogenase 588 H (91-225) IU/L Total Creatine Kinase (22-269) IU/L CK-MB (CK-2) (0.6-6.3) ng/mL Troponin I (<0.49) ng/mL B-Natriuretic Peptide (5-100) pg/mL Total Protein (6.7-8.2) g/dL Albumin (3.2-5.5) g/dL Globulin (2.1-4.2) g/dL Albumin/Globulin Ratio (1.0-2.2) Lipase (22-51) U/L Urine Color Urine Clarity (CLEAR) Urine pH (5.0-7.5) PH Ur Specific [place] (1.002-1.030) Urine Protein (NEGATIVE) mg/dL Urine Glucose (UA) (NEGATIVE) mg/dL Urine Ketones (NEGATIVE) mg/dL Urine Occult Blood (NEGATIVE) Urine Nitrite (NEGATIVE) Urine Bilirubin (NEGATIVE) Urine Urobilinogen (NORMAL) E.U./dL Ur Leukocyte Esterase (NEGATIVE) Urine RBC (0-5) /HPF Urine WBC (0-3) /HPF Ur Squamous Epith Cells (<= Few) Amorphous Sediment /LPF Urine Bacteria (None Seen) /HPF Urine Casts /LPF Nasal Screen MRSA (PCR) (NEGATIVE) Urine Opiates Screen (NEGATIVE) Ur Oxycodone Screen (NEGATIVE) Urine Methadone Screen (NEGATIVE) Ur Propoxyphene Screen (NEGATIVE) Acetaminophen < 10 L (10-30) ug/mL Ur Barbiturates Screen (NEGATIVE) Ur Tricyclics Screen (NEGATIVE) Ur Phencyclidine Scrn (NEGATIVE) Ur Amphetamine Screen (NEGATIVE) U Methamphetamines Scrn (NEGATIVE) U Benzodiazepines Scrn (NEGATIVE) Urine Cocaine Screen (NEGATIVE) U Cannabinoids Screen (NEGATIVE) Ethyl Alcohol < 5.0 mg/dL 01/14/19 01/14/19 01/14/19 Range/Units 18:05 18:05 18:05 WBC (4.8-10.8) x10^3/uL RBC (4.70-6.10) 10^6/uL Hgb (14.0-18.0) g/dL Hct (42.0-52.0) % MCV (80.0-94.0) fL MCH (27.0-31.0) pg MCHC (32.0-36.0) g/dL RDW (12.0-15.0) % Plt Count (130-450) 10^3/uL MPV (7.4-11.4) fL Neut # (Auto) Lymph # (Auto) [place] # (Auto) Eos # (Auto) Baso # (Auto) Absolute Nucleated RBC Total Counted Band Neuts % (Manual) (0 - 10) % Abnorm Lymph % (Manual) % Nucleated RBC % Neutrophils # (Manual) (1.5-6.6) 10^3/uL Lymphocytes # (Manual) (1.5-3.5) 10^3/uL Monocytes # (Manual) (0.0-1.0) 10^3/uL Eosinophils # (Manual) (0-0.7) 10^3/uL Basophils # (Manual) (0-0.1) 10^3/uL Differential Comment Platelet Estimate (NORMAL) Platelet Morphology (NORMAL) RBC Morph Micro Appear (NORMAL) PT 33.7 H (9.9-12.6) secs INR 3.0 H (0.8-1.2) Sodium (135-145) mmol/L Potassium (3.5-5.0) mmol/L Chloride (101-111) mmol/L Carbon Dioxide (21-32) mmol/L Anion Gap (6-13) BUN (6-20) mg/dL Creatinine (0.6-1.2) mg/dL Estimated GFR (MDRD) (>89) Glucose (70-100) mg/dL Calcium (8.5-10.3) mg/dL Phosphorus (2.5-4.6) mg/dL Magnesium (1.7-2.8) mg/dL Total Bilirubin (0.2-1.0) mg/dL Direct Bilirubin (0.1-0.5) mg/dL AST (10-42) IU/L ALT (10-60) IU/L Alkaline Phosphatase (42-121) IU/L Ammonia (7-35) umol/L Lactate Dehydrogenase (91-225) IU/L Total Creatine Kinase (22-269) IU/L CK-MB (CK-2) 22.5 H (0.6-6.3) ng/mL Troponin I 0.04 (<0.49) ng/mL B-Natriuretic Peptide 610 H (5-100) pg/mL Total Protein (6.7-8.2) g/dL Albumin (3.2-5.5) g/dL Globulin (2.1-4.2) g/dL Albumin/Globulin Ratio (1.0-2.2) Lipase (22-51) U/L Urine Color Urine Clarity (CLEAR) Urine pH (5.0-7.5) PH Ur Specific [place] (1.002-1.030) Urine Protein (NEGATIVE) mg/dL Urine Glucose (UA) (NEGATIVE) mg/dL Urine Ketones (NEGATIVE) mg/dL Urine Occult Blood (NEGATIVE) Urine Nitrite (NEGATIVE) Urine Bilirubin (NEGATIVE) Urine Urobilinogen (NORMAL) E.U./dL Ur Leukocyte Esterase (NEGATIVE) Urine RBC (0-5) /HPF Urine WBC (0-3) /HPF Ur Squamous Epith Cells (<= Few) Amorphous Sediment /LPF Urine Bacteria (None Seen) /HPF Urine Casts /LPF Nasal Screen MRSA (PCR) (NEGATIVE) Urine Opiates Screen (NEGATIVE) Ur Oxycodone Screen (NEGATIVE) Urine Methadone Screen (NEGATIVE) Ur Propoxyphene Screen (NEGATIVE) Acetaminophen (10-30) ug/mL Ur Barbiturates Screen (NEGATIVE) Ur Tricyclics Screen (NEGATIVE) Ur Phencyclidine Scrn (NEGATIVE) Ur Amphetamine Screen (NEGATIVE) U Methamphetamines Scrn (NEGATIVE) U Benzodiazepines Scrn (NEGATIVE) Urine Cocaine Screen (NEGATIVE) U Cannabinoids Screen (NEGATIVE) Ethyl Alcohol mg/dL 01/14/19 01/14/19 Range/Units 18:05 18:05 WBC 12.8 H (4.8-10.8) x10^3/uL RBC 4.54 L (4.70-6.10) 10^6/uL Hgb 13.9 L (14.0-18.0) g/dL Hct 42.2 (42.0-52.0) % MCV 93.0 (80.0-94.0) fL MCH 30.6 (27.0-31.0) pg MCHC 32.9 (32.0-36.0) g/dL RDW 13.0 (12.0-15.0) % Plt Count 218 (130-450) 10^3/uL MPV 10.9 (7.4-11.4) fL Neut # (Auto) Not Reportable Lymph # (Auto) Not Reportable [place] # (Auto) Not Reportable Eos # (Auto) Not Reportable Baso # (Auto) Not Reportable Absolute Nucleated RBC Not Reportable Total Counted 100 Band Neuts % (Manual) 5 (0 - 10) % Abnorm Lymph % (Manual) 0 % Nucleated RBC % Not Reportable Neutrophils # (Manual) 9.5 H (1.5-6.6) 10^3/uL Lymphocytes # (Manual) 2.2 (1.5-3.5) 10^3/uL Monocytes # (Manual) 1.2 H (0.0-1.0) 10^3/uL Eosinophils # (Manual) 0.0 (0-0.7) 10^3/uL Basophils # (Manual) 0.0 (0-0.1) 10^3/uL Differential Comment MANUAL DIFFERENTIAL Platelet Estimate NORMAL (130-450,000) (NORMAL) Platelet Morphology NORMAL APPEARANCE (NORMAL) RBC Morph Micro Appear NORMAL APPEARANCE (NORMAL) PT (9.9-12.6) secs INR (0.8-1.2) Sodium 132 L (135-145) mmol/L Potassium 4.4 (3.5-5.0) mmol/L Chloride 94 L (101-111) mmol/L Carbon Dioxide 23 (21-32) mmol/L Anion Gap 15.0 H (6-13) BUN 50 H (6-20) mg/dL Creatinine 1.7 H (0.6-1.2) mg/dL Estimated GFR (MDRD) 40 L (>89) Glucose 92 (70-100) mg/dL Calcium 8.9 (8.5-10.3) mg/dL Phosphorus (2.5-4.6) mg/dL Magnesium 1.9 (1.7-2.8) mg/dL Total Bilirubin 3.1 H (0.2-1.0) mg/dL Direct Bilirubin (0.1-0.5) mg/dL AST 1272 H (10-42) IU/L ALT 1056 H (10-60) IU/L Alkaline Phosphatase 137 H (42-121) IU/L Ammonia (7-35) umol/L Lactate Dehydrogenase (91-225) IU/L Total Creatine Kinase 681 H (22-269) IU/L CK-MB (CK-2) (0.6-6.3) ng/mL Troponin I (<0.49) ng/mL B-Natriuretic Peptide (5-100) pg/mL Total Protein 6.9 (6.7-8.2) g/dL Albumin 3.6 (3.2-5.5) g/dL Globulin 3.3 (2.1-4.2) g/dL Albumin/Globulin Ratio 1.1 (1.0-2.2) Lipase 29 (22-51) U/L Urine Color Urine Clarity (CLEAR) Urine pH (5.0-7.5) PH Ur Specific [place] (1.002-1.030) Urine Protein (NEGATIVE) mg/dL Urine Glucose (UA) (NEGATIVE) mg/dL Urine Ketones (NEGATIVE) mg/dL Urine Occult Blood (NEGATIVE) Urine Nitrite (NEGATIVE) Urine Bilirubin (NEGATIVE) Urine Urobilinogen (NORMAL) E.U./dL Ur Leukocyte Esterase (NEGATIVE) Urine RBC (0-5) /HPF Urine WBC (0-3) /HPF Ur Squamous Epith Cells (<= Few) Amorphous Sediment /LPF Urine Bacteria (None Seen) /HPF Urine Casts /LPF Nasal Screen MRSA (PCR) (NEGATIVE) Urine Opiates Screen (NEGATIVE) Ur Oxycodone Screen (NEGATIVE) Urine Methadone Screen (NEGATIVE) Ur Propoxyphene Screen (NEGATIVE) Acetaminophen (10-30) ug/mL Ur Barbiturates Screen (NEGATIVE) Ur Tricyclics Screen (NEGATIVE) Ur Phencyclidine Scrn (NEGATIVE) Ur Amphetamine Screen (NEGATIVE) U Methamphetamines Scrn (NEGATIVE) U Benzodiazepines Scrn (NEGATIVE) Urine Cocaine Screen (NEGATIVE) U Cannabinoids Screen (NEGATIVE) Ethyl Alcohol mg/dL ABX Reporting Has patient been on IV antibiotics over the past 48 hours?: No Sepsis Event Note (H) - Evaluation Current Stage of Sepsis: Ruled out Assessment/Plan - Problem List (1) Atrial fibrillation with RVR Impression: stable now. pt's HR is 91 now. pt report he feel much better today. reduced IVF to 50 cc/h. pt's creatinine is 1.2 now. pt's EF was 20-25% in the past. still hold Lasix and Lisinopril continue metoprolol tele and vital monitor (2) Transaminitis Conclusion/Plan: liver enzyme improved but still significant high. US of liver indicates hepatocellular disease, order CT of abdomen and order serum AFP (3) Non-ischemic cardiomyopathy Conclusion/Plan: His last EF was 20-25%. he had dilated left ventricle. Suspect the etiology of his cardiomyopathy is his substance abuse. because he has severe dehydration with worsen kidney function. continue gently hydration to pt, hold Lisinopril, Lasix and Aldactone (4) Overdose Conclusion/Plan: UDS is positive for amphetamines, marijuana, and opiates. pt has hx of substance abuse Social work consult to assist with rehab options, advise pt quit (5) Altered mental status resolved. pt's ammonia level is normal (6) Acute kidney injury significantly improved renal function, now his creatinine is 1.2, closely to his baseline 1.0 continue gently hydration with IVF of 50 cc/h (7) Elevated CK Conclusion/Plan: His CK's are mildly elevated secondary to his drug overdose and him being down for a period of time. continue gently hydration, lab monitor (8) Hyponatremia Conclusion/Plan: resolved.
[2019-01-15] MEDS ORDERED: SODIUM CHLORIDE 0.9% 1,000 ML IV SCH ×2 (15:48→18:00)
[2019-01-15] MEDS ORDERED: IOVERSOL 320 100 ML VIAL IVP ONE ×2 (18:10→18:43)
[2019-01-15] MEDS: APIXABAN 5 MG TABLET PO SCH (20:41)
--- NOTE | 2019-01-15 22:20 | CT Report ---
Reason: hepatocellular disease, elevated liver enzyme Procedure Date: 01/15/2019 Accession Number: [id number] / [id number] Procedure: CT - Abdomen/Pelvis W CPT Code: FULL RESULT: EXAM: CT ABDOMEN AND PELVIS EXAM DATE: 01/15/2019 06:38 PM. CLINICAL HISTORY: Hepatocellular disease, elevated liver enzyme. COMPARISONS: None. TECHNIQUE: Routine helical CT imaging was performed through the abdomen and pelvis. IV contrast: OPTI 320 90ML. Enteric contrast: No. Reconstructions: Coronal and sagittal. In accordance with CT protocol optimization, one or more of the following dose reduction techniques were utilized for this exam: automated exposure control, adjustment of mA and/or KV based on patient size, or use of iterative reconstructive technique. FINDINGS: Lung Bases: Bibasilar atelectasis, infiltrate, and/or pulmonary edema. Small to moderate right and small left pleural effusions. Marked cardiomegaly. Trace pericardial effusion. Liver: Possible fatty infiltration. Gallbladder/Bile Ducts: Unremarkable. Spleen: Normal. Pancreas: Normal. Adrenal Glands: Normal. Kidneys: Bilateral cysts. No masses or hydronephrosis. Peritoneal Cavity/Bowel: Mild ascites. Edema in the peritoneal and retroperitoneal fat. No free air. Colonic diverticula. No diverticulitis identified. No bowel obstruction seen. No lymphadenopathy. Appendix is not well seen. No evidence of appendicitis. Some images suggest portions of a normal appendix. Pelvic Organs: Normal. The bladder and visualized pelvic organs are within normal limits. Vasculature: Mild atherosclerosis. No aortic aneurysm. Bones: Degenerative changes in the spine. Other: Body wall edema. IMPRESSION: 1. Marked cardiomegaly with bilateral pleural effusions and bibasilar atelectasis, infiltrate, and/or pulmonary edema. 2. Mild ascites with possible fatty liver. 3. Edema in the peritoneal and retroperitoneal fat. 4. Colonic diverticula. No diverticulitis or appendicitis identified. RADIA
[2019-01-16] MEDS: SODIUM CHLORIDE FLUSH 0.9% 10 ML SYRINGE IVP SCH ×3 (00:22→17:16)
[2019-01-16 06:21] LABS: PT - PROTHROMBIN TIME 33.9 secs (9.9-12.6)
[2019-01-16 06:30] LABS: BASOPHILS % (AUTO) 0.3 %; EOSINOPHILS # (AUTO) 0.1 10^3/uL (0.0-0.7); EOSINOPHILS % (AUTO) 0.5 %; HGB - HEMOGLOBIN 14.4 g/dL (14.0-18.0); LYMPHOCYTES # (AUTO) 1.1 10^3/uL (1.5-3.5); LYMPHOCYTES % (AUTO) 11.2 %; MEAN CORPUSCULAR HEMOGLOBIN 31.6 pg (27.0-31.0); MEAN CORPUSCULAR HGB CONC 34.6 g/dL (32.0-36.0); MEAN CORPUSCULAR VOLUME 91.2 fL (80.0-94.0); MEAN PLATELET VOLUME 10.7 fL (7.4-11.4); MONOCYTES # (AUTO) 1.2 10^3/uL (0.0-1.0); MONOCYTES % (AUTO) 12.5 %; NEUTROPHILS # (AUTO) 7.3 10^3/uL (1.5-6.6); NEUTROPHILS % (AUTO) 75.1 %; PLT - PLATELET COUNT 201 10^3/uL (130-450); RED BLOOD COUNT 4.56 10^6/uL (4.70-6.10); RED CELL DISTRIBUTION WIDTH 12.8 % (12.0-15.0); WHITE BLOOD COUNT 9.7 x10^3/uL (4.8-10.8)
[2019-01-16 06:32] LABS: CALCIUM 8.2 mg/dL (8.5-10.3); CREATININE 0.9 mg/dL (0.6-1.2)
[2019-01-16 06:45] LABS: BILIRUBIN,DIRECT 1.3 mg/dL (0.1-0.5); BILIRUBIN,TOTAL 2.9 mg/dL (0.2-1.0)
[2019-01-16] MEDS: METOPROLOL SUCCINATE 50 MG TABLET PO SCH ×2 (08:26→20:42)
[2019-01-16] MEDS: APIXABAN 5 MG TABLET PO SCH ×2 (08:26→20:42)
[2019-01-16] MEDS: ASPIRIN EC 81 MG TABLET PO SCH (08:26)
[2019-01-16] MEDS: NEUTRA-PHOS 250 MG TABLET PO SCH ×3 (08:27→17:16)
[2019-01-16] MEDS: LISINOPRIL 5 MG TABLET PO SCH (08:27)
[2019-01-16] MEDS: DIGOXIN 125 MCG TABLET PO SCH (08:27)
[2019-01-16] MEDS ORDERED: SPIRONOLACTONE 25 MG TABLET PO SCH (09:00)
--- NOTE | 2019-01-16 13:29 | PROVIDER PROGRESS NOTE ---
Subjective - Prog Note Date Prog Note Date: 01/16/19 - Subjective Pt reports feeling: Improved Subjective: pt report he feel very weak today, difficult to stand up and walk. I discuss pt's cardiac conditions. His heart's EF persisted only 20-25%, if no ICD help, he could suffer from sudden . Pt report he did see his harness and bag inspector a few months ago, and discussed if put ICD for him. His harness and bag inspector did not put ICD for him. Current Medications - Current Medications Current Medications: Active Medications Apixaban (Eliquis) 5 mg PO BID [facility] Last Admin: 01/16/19 08:26 Dose: 5 mg Aspirin (Ecotrin) 81 mg PO DAILY [facility] Last Admin: 01/16/19 08:26 Dose: 81 mg Digoxin (Lanoxin) 125 mcg PO DAILY [facility] Last Admin: 01/16/19 08:27 Dose: 125 mcg Lisinopril (Zestril) 2.5 mg PO DAILY [facility] Last Admin: 01/16/19 08:27 Dose: 2.5 mg Metoprolol Succinate (Toprol Xl) 50 mg PO BID [facility] Last Admin: 01/16/19 08:26 Dose: 50 mg Sodium Chloride (Normal Saline Flush 0.9%) 10 ml IVP PRN PRN PRN Reason: NEEDED PER PROVIDER ORDERS Last Admin: 01/15/19 01:41 Dose: 10 ml Sodium Chloride (Normal Saline Flush 0.9%) 10 ml IVP 0100,0900,1700 [facility] Last Admin: 01/16/19 08:29 Dose: 10 ml Sodium Phosphate (K-Phos Neutral) 250 mg PO TIDWM [facility] Last Admin: 01/16/19 12:30 Dose: 250 mg Spironolactone (Aldactone) 12.5 mg PO DAILY [facility] Albuterol Sulfate [Proair Hfa Inhaler] 2 puffs INH Q4H PRN 06/24/18 Apixaban [Eliquis] 5 mg PO BID 01/15/19 Digoxin 125 mcg PO DAILY 01/15/19 Furosemide 40 mg PO BIDDIURETIC 01/15/19 Sildenafil Citrate 50 - 100 mg PO ONCE PRN 01/15/19 Objective - Vital Signs/Intake & Output Reviewed Vital Signs: Yes Vital Signs: Vital Signs x48h Temp Pulse Resp BP Pulse Ox 01/16/19 11:52 36.3 C L 100 16 105/86 H 97 01/16/19 08:00 37.0 C 72 20 102/68 96 Intake & Output: Intake & Output 01/13/19 01/14/19 01/15/19 01/16/19 23:59 23:59 23:59 23:59 Intake Total 950 3399.884 1127.501 Output Total 750 725 375 Balance 200 2674.884 752.501 - Objective General Appearance: positive: No acute distress, Alert. negative: Lethargic Eyes Bilateral: positive: Normal inspection, PERRL, No lid inflammation, Conjunctivae nml ENT: positive: ENT inspection nml, Pharynx nml, No signs of dehydration. negative: Purulent nasal drainage, Pharyngeal erythema, Oral lesions Neck: positive: Nml inspection, Thyroid nml, No JVD, Trachea midline. negative: Thyromegaly, Lymphadenopathy (R), Lymphadenopathy (L), Stiff neck, Swelling/bruising, Tracheal deviation Respiratory: positive: Chest non-tender, No respiratory distress, Breath sounds nml. negative: Wheezes, Rales, Rhonchi Cardiovascular: positive: Regular rate & rhythm, No gallop, Systolic murmur. negative: No murmur, Irregularly irregular, Extrasystoles, Tachycardia, Bradycardia, JVD present, Diastolic murmur Peripheral Pulses: 2+ Radial (R), 2+ Radial (L), 2+ Dorsalis pedis (R), 2+ Dorsalis pedis (L) Abdomen: positive: Non-tender, No organomegaly, Nml bowel sounds, No distention. negative: Tenderness, Guarding, Rebound Back: positive: Nml inspection. negative: CVA tenderness (R), CVA tenderness (L) Skin: positive: Color nml, No rash, Warm, Dry. negative: Cyanosis, Diaphoresis, Pallor Extremities: positive: Non-tender, Full ROM, Nml appearance. negative: Calf tenderness, Joint swelling, Dolly's sign/cords Neurologic/Psychiatric: positive: Oriented x3, Motor nml, Sensation nml, Mood/affect nml. negative: Weakness, Sensory loss, Facial droop, Slurred/abnml speech, Depressed mood/affect - Lab Results Fish Bones: 01/16/19 05:54 07/15/19 05:54 Other Labs: Lab Results x24hrs 01/16/19 01/16/19 01/16/19 Range/Units 05:54 05:54 05:54 WBC 9.7 (4.8-10.8) x10^3/uL RBC 4.56 L (4.70-6.10) 10^6/uL Hgb 14.4 (14.0-18.0) g/dL Hct 41.6 L (42.0-52.0) % MCV 91.2 (80.0-94.0) fL MCH 31.6 H (27.0-31.0) pg MCHC 34.6 (32.0-36.0) g/dL RDW 12.8 (12.0-15.0) % Plt Count 201 (130-450) 10^3/uL MPV 10.7 (7.4-11.4) fL Neut # (Auto) 7.3 H (1.5-6.6) 10^3/uL Lymph # (Auto) 1.1 L (1.5-3.5) 10^3/uL [place] # (Auto) 1.2 H (0.0-1.0) 10^3/uL Eos # (Auto) 0.1 (0.0-0.7) 10^3/uL Baso # (Auto) 0.0 (0.0-0.1) 10^3/uL Absolute Nucleated RBC 0.00 x10^3/uL Nucleated RBC % 0.0 /100WBC PT 33.9 H (9.9-12.6) secs INR 3.0 H (0.8-1.2) Sodium (135-145) mmol/L Potassium (3.5-5.0) mmol/L Chloride (101-111) mmol/L Carbon Dioxide (21-32) mmol/L Anion Gap (6-13) BUN (6-20) mg/dL Creatinine (0.6-1.2) mg/dL Estimated GFR (MDRD) (>89) Glucose (70-100) mg/dL Calcium (8.5-10.3) mg/dL Phosphorus 2.0 L (2.5-4.6) mg/dL Magnesium (1.7-2.8) mg/dL Total Bilirubin 2.9 H (0.2-1.0) mg/dL Direct Bilirubin 1.3 H (0.1-0.5) mg/dL AST 672 H (10-42) IU/L ALT 784 H (10-60) IU/L Alkaline Phosphatase 133 H (42-121) IU/L Total Protein 6.0 L (6.7-8.2) g/dL Albumin 3.0 L (3.2-5.5) g/dL Globulin 3.0 (2.1-4.2) g/dL Albumin/Globulin Ratio (1.0-2.2) 01/16/19 Range/Units 05:54 WBC (4.8-10.8) x10^3/uL RBC (4.70-6.10) 10^6/uL Hgb (14.0-18.0) g/dL Hct (42.0-52.0) % MCV (80.0-94.0) fL MCH (27.0-31.0) pg MCHC (32.0-36.0) g/dL RDW (12.0-15.0) % Plt Count (130-450) 10^3/uL MPV (7.4-11.4) fL Neut # (Auto) (1.5-6.6) 10^3/uL Lymph # (Auto) (1.5-3.5) 10^3/uL [place] # (Auto) (0.0-1.0) 10^3/uL Eos # (Auto) (0.0-0.7) 10^3/uL Baso # (Auto) (0.0-0.1) 10^3/uL Absolute Nucleated RBC x10^3/uL Nucleated RBC % /100WBC PT (9.9-12.6) secs INR (0.8-1.2) Sodium 136 (135-145) mmol/L Potassium 3.5 (3.5-5.0) mmol/L Chloride 100 L (101-111) mmol/L Carbon Dioxide 24 (21-32) mmol/L Anion Gap 12.0 (6-13) BUN 28 H (6-20) mg/dL Creatinine 0.9 (0.6-1.2) mg/dL Estimated GFR (MDRD) 84 L (>89) Glucose 101 H (70-100) mg/dL Calcium 8.2 L (8.5-10.3) mg/dL Phosphorus (2.5-4.6) mg/dL Magnesium 2.0 (1.7-2.8) mg/dL Total Bilirubin 3.0 H (0.2-1.0) mg/dL Direct Bilirubin (0.1-0.5) mg/dL AST 663 H (10-42) IU/L ALT 785 H (10-60) IU/L Alkaline Phosphatase 133 H (42-121) IU/L Total Protein 6.0 L (6.7-8.2) g/dL Albumin 3.0 L (3.2-5.5) g/dL Globulin 3.0 (2.1-4.2) g/dL Albumin/Globulin Ratio 1.0 (1.0-2.2) ABX Reporting Has patient been on IV antibiotics over the past 48 hours?: No Sepsis Event Note (H) - Evaluation Current Stage of Sepsis: Ruled out Assessment/Plan - Problem List (1) Atrial fibrillation with RVR Impression: 01/16resolved continue metoprolol tele and vital monito stable now. pt's HR is 91 now. pt report he feel much better today. reduced IVF to 50 cc/h. pt's creatinine is 1.2 now. pt's EF was 20-25% in the past. still hold Lasix and Lisinopril continue metoprolol tele and vital monitor (2) Transaminitis Conclusion/Plan: 01/16 stable. The etiology might be congestive hepatopathy from his severe impaired heart function continue lab monitor, continue cardiac management liver enzyme improved but still significant high. US of liver indicates hepatocellular disease, order CT of abdomen and order serum AFP (3) Non-ischemic cardiomyopathy Conclusion/Plan: 01/16 Then new ECHO reveals the similar result from previous, EF is 20-25% and moderate impaired right ventricle as well. his cardiomyopathy is his substance abuse. pt continue to use illicit drugs continue tele and medical management. advise pt quit illicit drug abuse His last EF was 20-25%. he had dilated left ventricle. Suspect the etiology of his cardiomyopathy is his substance abuse. because he has severe dehydration with worsen kidney function. continue gently hydration to pt, hold Lisinopril, Lasix and Aldactone (4) illicit drug Conclusion/Plan: UDS is positive for amphetamines, marijuana, and opiates. pt has hx of substance abuse Social work consult to assist with rehab options, advise pt quit (5) Altered mental status resolved. pt's ammonia level is normal (6) Acute kidney injury 01/16 pt's creatinine is 0.9 as his baseline stop IVF and reconcile his BP meds continue lab monitor significantly improved renal function, now his creatinine is 1.2, closely to his baseline 1.0 continue gently hydration with IVF of 50 cc/h (7) Elevated CK Conclusion/Plan: continue monitor CK His CK's are mildly elevated secondary to his drug overdose and him being down for a period of time. continue gently hydration, lab monitor (8) Hyponatremia Conclusion/Plan: resolved. (9) weakness pt report he is very weak, difficult to stand up and walk will consult PT, continue training
[2019-01-16 15:41] LABS: HEPATITIS A IGM NON-REACTIVE (NON-REACTIVE); HEPATITIS B SURFACE ANTIGEN NON-REACTIVE (NON-REACTIVE); HEPATITIS C ANTIBODY REACTIVE (NON-REACTIVE)
[2019-01-17] MEDS: SODIUM CHLORIDE FLUSH 0.9% 10 ML SYRINGE IVP SCH ×2 (02:01→09:18)
[2019-01-17 05:02] LABS: INR 2.5 (0.8-1.2); PT - PROTHROMBIN TIME 28.5 secs (9.9-12.6)
[2019-01-17 05:15] LABS: ALBUMIN 2.7 g/dL (3.2-5.5); ALBUMIN/GLOBULIN RATIO 0.9 (1.0-2.2); BILIRUBIN,TOTAL 2.2 mg/dL (0.2-1.0); CALCIUM 8.1 mg/dL (8.5-10.3); CREATININE 0.8 mg/dL (0.6-1.2); TOTAL PROTEIN 5.6 g/dL (6.7-8.2)
[2019-01-17] MEDS ORDERED: POTASSIUM CHLORIDE 20 MEQ TABLET PO ONE (06:18)
[2019-01-17] MEDS ORDERED: SPIRONOLACTONE 25 MG TABLET PO SCH (09:00)
[2019-01-17] MEDS: DIGOXIN 125 MCG TABLET PO SCH (09:18)
[2019-01-17] MEDS: METOPROLOL SUCCINATE 50 MG TABLET PO SCH (09:18)
[2019-01-17] MEDS: NEUTRA-PHOS 250 MG TABLET PO SCH (09:18)
[2019-01-17] MEDS: APIXABAN 5 MG TABLET PO SCH (09:19)
[2019-01-17] MEDS: ASPIRIN EC 81 MG TABLET PO SCH (09:19)
[2019-01-17] MEDS: LISINOPRIL 5 MG TABLET PO SCH (09:19)
--- NOTE | 2019-01-17 11:28 | Discharge Plan ---
Discharge Plan Problem Reviewed?: Yes Disposition: Home, Self Care Condition: Good Prescriptions: Clindamycin HCl [Clindamycin 300MG CAP] 300 mg PO QID #28 capsule Saccharomyces Boulardii [Florastor] 250 mg PO BID #60 capsule Diet: Cardiac Activity Restrictions: Activity as Tolerated Shower Restrictions: No Weight Bearing: Full Weight Instruction Topics: Metoprolol extended-release tablets Health Concerns: Elevated liver enzymes Atrial fibrillation with RVR Substance abuse Weakness Plan of Treatment: Start on antibiotics for your Right forearm cellulitis, your first dose will be given here. See your PCP within one week. Follow up with your patrol lady in the near future. Care Goals: Avoid hospital stays Avoid drugs, which will make your liver and heart function worse leading to poor level of functioning each day Cure the right arm cellulitis by taking all of your antibiotics after your hospital stay Assessment: You were admitted to the hospital and treated for your fast heart rate using IV medications You were found to have elevated liver enzymes, which have improved today Please take all of your medications as directed, and an antibiotic for your right arm cellulitis Follow-Up Care: [facility] - Cardiac No Smoking: If you smoke, Please STOP! Call for help. Follow-up with: Letty Geronimo ARNP [Primary Care Provider] -
[2019-01-17 11:46] VITALS: BP 113/76
--- NOTE | 2019-01-17 11:59 | DISCHARGE SUMMARY ---
Discharge Summary Admit Date: 01/14/19 Discharge Date: 01/17/19 Discharging Provider: JOE Krishnamurthy Primary Care Provider: Letty Geronimo Code Status: Attempt Resuscitation Condition at Discharge: Good Discharge Disposition: 01 Home, Self Care - DIAGNOSES Admission Diagnoses: Atrial fibrillation with RVR Transaminitis Non-ischemic cardiomyopathy Overdose Altered mental status Acute kidney injury Elevated CK Hyponatremia Discharge Diagnoses with Status of Each Condition: Atrial fibrillation with RVR- chronic a fib, RVR resolved Transaminitis- improved Non-ischemic cardiomyopathy- chronic, stable Overdose- resolved Altered mental status- resolved Acute kidney injury- resolved Elevated CK- improved Hyponatremia- resolved Weakness- ongoing, improved - HPI History of Present Illness: HPI per Dr. Quinteros: This is a 68 year old male with a past medical history significant for nonischemic cardiomyopathy (EF 25%), atrial fibrillation (on Xarelto), and substance abuse who presents today via EMS after he was found passed out in his vehicle. History is limited from the patient as he does not answer questions appropriately although a component of this may be that he is very heard of hearing. The patient admits to doing amphetamines today with his last use being 5 hours ago. He has been using daily for the psat few days. He denies chest pain and dyspnea. He believes he is in the hospital because he did drugs again. He reports being intermittently compliant with his medications. He told the ER physician he takes them daily but he told me that he only takes some and not every day. He reports no palpitations, fevers, nausea, abdominal pain. He does not believe his lower extremities are more edematous than usual. In the emergency department, he was found to be tachycardic and in atrial fibrillation with heart rates in the 140's. He received a couple doses of IV Cardizem with improvement into the 110's. He was not hypoxic. Chest x-ray revealed cardiomegaly with possible pulmonary edema. He was given Lasix 40mg IV. Labs were pertinent for AST/ALT in the low 1000's, creatinine of 1.7, and CK of 681. I was not able to discuss code status with the patient due to his inattention and altered mental status and therefore he will be full code. - HOSPITAL COURSE Hospital Course: (1) Atrial fibrillation with RVR- The patient has history of atrial fibrillation for which he takes Toprol and Eliquis at home and presented in RVR with rates in the 140's. This improved to heart rates ~ 110's with Cardizem IV. His initial troponin negative and reached a peak of 0.07, then back to normal with no complaints of chest pain. He was initially given IVFs for dehydration, and nephrotoxins were held including lisinopril and furosemide. The most likely cause of this abnormality is his drug abuse and dehydration triggering the rapid ventricular response. Upon discharge, his usual medications were resumed, and his rate was controlled in the 70's. (2) Transaminitis- He does have history of elevated LFT's in the past but they were in the 200's. Upon admission, he had an elevated AST at 1272 and an elevated ALT at 1056, T bili was 3.1. He did have scleral icterus on exam. Tylenol and alcohol levels were negative. His last echocardiogram did reveal severe right ventricle enlargement and severe tricuspid regurgitation so a component of this may be congestive hepatopathy considering these findings and his lower extremity edema. His drug overdose was likely contributing as well, in addition, he was thought to be hypotensive for a period of time which could cause ischemic hepatitis. His INR was elevated at 3.0. Although there may be component of congestive hepatopahy, he appears dry on exam and his acute kidney injury along with elevated CK's therefore he was gently hydrated. A liver ult rasound showed ascities, the liver showing coarse hepatic echotexture compatible with hepatocellular disease, no stones, or dilated bile ducts. (3) Non-ischemic cardiomyopathy- His last EF was 25% and he had dilated left ventricle. The most likely cause of his cardiomyopathy is from long standing substance abuse. His BNP is elevated was elevated at 610, with no further t esting. His chest x-ray showed cardiomegaly with possible pulmonary edema. He was initially treated with gentle fluids as he was thought to be mildly dehydrated and was a triggering event for his a fib with RVR. His home meds; Lisinopril and Aldactone were on hold in setting of JEOVANY. Blood cultures were negative, this condition was stable upon discharge. (4) Overdose- His urine drug screen is positive for amphetamines, marijuana, and opiates. He does have history of polysubstance abuse and this is not the first occurrence. He was found minimally response by EMS but never required Narcan. Social work was consulted to assist with rehab options, but he chose to go back to his previous situation upon discharge. (5) Altered mental status- Suspect this secondary to his drug overdose. Oriented to self and knows he is in [place] but not that he is in the hospital. Urine drug screen positive for many substances. Alcohol negative. He was treated with IV hydration, and ammonia level was insignificant. (6) Acute kidney injury- This may have been multifactorial, but the most likely cause was dehydration causing a pre-renal injury. He was re-hydrated using gentle IV fluids, and this improved (7) Elevated CK- His CK's were mildly elevated secondary to his drug overdose and an unknown amount of time of being unconscious. (8) Hyponatremia- Suspect that this is hypovolemic hyponatremia as he appears dehydrated. Although he does not lower extremity edema, I do not think this is hypervolemic hyponatremia due to heart failure. (9) illicit drug- UDS is positive for amphetamines, marijuana, and opiates. pt has hx of substance abuse. Social work consulted to assist with rehab options, advised that the patient stop using drugs. (10) weakness- pThe patient reported that his weakness was very profound, and it has been difficult to stand up and walk. (11) Right forearm cellulitis- During discharging exam, a right lesion was noted to the posterior aspect of the patient's right forearm, which had gross erythema, swelling, and was painful with palpation. He is to continue 7 days of PO antibiotic given his profound heart failure, he is at a higher risk of infection. Disposition: The patient was anxious to be discharged and was medically stable. Upon my discharge exam, there was noted to be a right forearm cellulitis with erythema, no drainage, swelling, and was painful. He was instructed to follow up with his PCP within on week. - ALLERGIES Allergies/Adverse Reactions: Allergies Allergy/AdvReac Type Severity Reaction Status Date / Time No Known Drug Allergies Allergy Verified 01/14/19 17:50 - MEDICATIONS Home Medications: Ambulatory Orders Medication Instructions Recorded Confirmed Albuterol Sulfate [Proair Hfa 2 puffs INH Q4H PRN 06/24/18 01/15/19 Inhaler] Aspirin [Aspirin EC] 81 mg PO DAILY #60 tablet. 06/27/18 01/15/19 Lisinopril [Zestril] 2.5 mg PO DAILY #60 tablet 06/27/18 01/15/19 Metoprolol Succinate [Toprol Xl] 50 mg PO BID #60 tablet 06/27/18 01/15/19 Spironolactone [Aldactone] 25 mg PO DAILY #60 tablet 06/27/18 01/15/19 Apixaban [Eliquis] 5 mg PO BID 01/15/19 01/15/19 Digoxin 125 mcg PO DAILY 01/15/19 01/15/19 Furosemide 40 mg PO BIDDIURETIC 01/15/19 01/15/19 Sildenafil Citrate 50 - 100 mg PO ONCE PRN 01/15/19 01/15/19 Clindamycin HCl [Clindamycin 300MG 300 mg PO QID #28 capsule 01/17/19 CAP] Saccharomyces Boulardii [Florastor] 250 mg PO BID #60 capsule 01/17/19 - PHYSICAL EXAM AT DISCHARGE General Appearance: positive: No acute distress, Alert Eyes Bilateral: positive: PERRL ENT: positive: Pharynx nml, No signs of dehydration Neck: positive: Thyroid nml, No JVD, Trachea midline Respiratory: positive: Chest non-tender, No respiratory distress, Other (diminished with scattered crackles, bilaterally) Cardiovascular: positive: No gallop, Irregularly irregular, Systolic murmur, Decreased pulse(s) Peripheral Pulses: positive: 1+ Abdomen: positive: Non-tender, No organomegaly, Nml bowel sounds Back: positive: Nml inspection Skin: positive: No rash, Warm, Dry Extremities: positive: Non-tender, No pedal edema, Other (erythema, swelling, pain to right posterior forearm) Neurologic/Psychiatric: positive: Oriented x3, CN's nml (2-12), Motor nml, Sensation nml, Weakness, Depressed mood/affect Reflexes: Bicep (R): 3+, Bicep (L): 3+ - LABS Result Diagrams: 01/16/19 05:54 01/17/19 04:45 - DIAGNOSTIC IMAGING Diagnostic Imaging Results: Final report reviewed Diagnostic Imaging Results Comments: EXAM: CT ABDOMEN AND PELVIS EXAM DATE: 01/15/2019 06:38 PM IMPRESSION: 1. Marked cardiomegaly with bilateral pleural effusions and bibasilar atelectasis, infiltrate, and/or pulmonary edema. 2. Mild ascites with possible fatty liver. 3. Edema in the peritoneal and retroperitoneal fat. 4. Colonic diverticula. No diverticulitis or appendicitis identified. EXAM: ABDOMEN ULTRASOUND LIMITED, RUQ EXAM DATE: 01/15/2019 10:01 AM IMPRESSION: 1 . Coarse hepatic echotexture compatible with hepatocellular disease. 2. Thickened edematous gallbladder wall with no stones, tenderness, or dilated ducts. 3. Mild ascites. - SEPSIS Current Stage of Sepsis: Ruled out - TIME SPENT Time Spent in Discharge (Minutes): 55
== END 2019-01-17 12:00 | disposition home or self-care (01) ==
LOC: ED 17:45 → MS2 20:07
PROVIDERS: ADMIT Internal Medicine; ATTEND Nurse Practitioner
DX: T40.601A Poisoning by unspecified narcotics, accidental (unintentional), initial encounter (principal); T40.7X1A Poisoning by cannabis (derivatives), accidental (unintentional), initial encounter; I48.2 Chronic atrial fibrillation; R74.0 Nonspecific elevation of levels of transaminase and lactic acid dehydrogenase [LDH]; I11.0 Hypertensive heart disease with heart failure; I50.23 Acute on chronic systolic (congestive) heart failure; N17.9 Acute kidney failure, unspecified; E86.0 Dehydration; R40.20 Unspecified coma; R40.2412 Glasgow coma scale score 13-15, at arrival to emergency department; E87.1 Hypo-osmolality and hyponatremia; R79.89 Other specified abnormal findings of blood chemistry; L03.113 Cellulitis of right upper limb; R53.1 Weakness; R18.8 Other ascites; I42.9 Cardiomyopathy, unspecified; I07.1 Rheumatic tricuspid insufficiency; J44.9 Chronic obstructive pulmonary disease, unspecified; F15.129 Other stimulant abuse with intoxication, unspecified; F12.129 Cannabis abuse with intoxication, unspecified; F11.10 Opioid abuse, uncomplicated; R93.2 Abnormal findings on diagnostic imaging of liver and biliary tract; G47.30 Sleep apnea, unspecified; H91.90 Unspecified hearing loss, unspecified ear; Z79.01 Long term (current) use of anticoagulants; Z87.09 Personal history of other diseases of the respiratory system; Z79.899 Other long term (current) drug therapy; Z79.82 Long term (current) use of aspirin; Z86.14 Personal history of Methicillin resistant Staphylococcus aureus infection; Z82.49 Family history of ischemic heart disease and other diseases of the circulatory system; Z87.891 Personal history of nicotine dependence
CPT/HCPCS: 36415; 71045; 74177; 76705; 80048; 80053; 80074; 80076; 81001; 82105; 82140; 82248; 82550; 82553; 83615; 83690; 83735; 83880; 84100; 84484; 85025; 85610; 87040; 87640; 93005; 93306; 96361; 96374; 96375; 96376; 97161; 99285; A9270; G0378; Q9967; 80306; 80307; 80320

== ENCOUNTER 2019-03-27 06:12 | Outpatient (CLI) | payer MEDICARE, OTHER, MEDICAID | END 2019-03-27 06:13 | disposition critical access hospital (66) | LOC: EMS 06:12 | PROVIDERS: ATTEND Surgery | DX: R06.02 Shortness of breath (principal); R00.0 Tachycardia, unspecified | CPT/HCPCS: A0425; A0429 ==

== ENCOUNTER 2019-03-27 06:47 | Inpatient (IN) | payer MEDICARE, OTHER, MEDICAID ==
--- NOTE | 2019-03-27 07:17 | ED Physician Documentation ---
PD HPI CHEST PAIN - Stated complaint Stated Complaint: SOA/AFIB - Chief complaint Chief Complaint: Cardiac - History obtained from History obtained from: Patient - History of Present Illness Timing - onset: How many weeks ago (1) Timing - onset during: Rest, Light activity (He has noticed increasing dyspnea on exertion and orthopnea along with leg edema progressing over the last week. He states there is been a disruption with his medications at the pharmacy and they had not had them filled a week ago except for one medicine which is not sure the name of. Otherwise he had not been on his usual medications for the past week. He had contacted his primary care and they supposedly resent the refills over but [facility] still did not have them. He states he feels that jose alvarez is in congestive failure similar to a couple of months ago.) Timing - duration: Weeks (1) Timing - details: Gradual onset, Still present Quality: Tightness. No: Aching, Sharp Location: Substernal Radiation: No: Neck, Back Improved by: Rest, Nothing (sitting upright) Worsened by: Exertion (just walking in home), Position (lying) Associated symptoms: Shortness of air, General Weakness, Palpitations. 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 He believes he had one dose change. We will try to contact his forestry laborer find the updates. The patient states he has a medication list but does not have it with him.), Admitted (January 2019, admitted to our facility with similar.) Review of Systems Constitutional: denies: Fever, Chills Nose: denies: Rhinorrhea / runny nose, Congestion Throat: denies: Sore throat Cardiac: reports: Palpitations, Pedal edema (the past week). denies: Calf pain Respiratory: reports: Dyspnea. denies: Cough, Wheezing GI: denies: Abdominal Pain, Nausea, Vomiting, Diarrhea : denies: Dysuria Neurologic: reports: Generalized weakness. denies: Focal weakness, Numbness, Near syncope PD PAST MEDICAL HISTORY - Past Medical History Cardiovascular: Congestive heart failure, Hypertension, High cholesterol, Atrial fibrillation Respiratory: COPD, Pneumonia Neuro: None Endocrine/Autoimmune: None GI: None : None HEENT: Chronic hearing loss Psych: None Musculoskeletal: None Derm: Other - Past Surgical History Past Surgical History: Yes Ortho: Other Cardiovascular: Other - Present Medications Home Medications: Ambulatory Orders Medication Instructions Recorded Confirmed Lisinopril [Zestril] 2.5 mg PO DAILY #60 tablet 06/27/18 03/27/19 Metoprolol Succinate [Toprol Xl] 50 mg PO BID #60 tablet 06/27/18 01/15/19 Spironolactone [Aldactone] 25 mg PO DAILY #60 tablet 06/27/18 03/27/19 Apixaban [Eliquis] 5 mg PO BID 01/15/19 03/27/19 Digoxin 125 mcg PO DAILY 01/15/19 01/15/19 Furosemide 40 mg PO BIDDIURETIC 01/15/19 01/15/19 Sildenafil Citrate 50 - 100 mg PO ONCE PRN 01/15/19 01/15/19 Saccharomyces Boulardii [Florastor] 250 mg PO BID #60 capsule 01/17/19 - Allergies Allergies/Adverse Reactions: Allergies Allergy/AdvReac Type Severity Reaction Status Date / Time No Known Drug Allergies Allergy Verified 01/14/19 17:50 - Social History Does the pt smoke?: No Smoking Status: Never smoker Does the pt drink ETOH?: No Does the pt have substance abuse?: Yes - Immunizations Immunizations are current?: Yes - POLST Patient has POLST: No POLST Status: Full Code PD ED PE NORMAL - Vitals Vital signs reviewed: Yes - General General: Alert and oriented X 3, Well developed/nourished, Other (some work of breathing, but able to talk in mostly complete sentences. ) - HEENT HEENT: Pharynx benign - Neck Neck: Supple, no meningeal sign, No adenopathy - Cardiac Cardiac: No: RRR (Rapid atrial fibrillation with ventricular response 150s) - Respiratory Respiratory: No: Clear bilaterally (He has fine crackles shelter up on both lung hickey. Slightly diminished on the right base. There is no wheezing nor coarse sounds heard.) - Abdomen Abdomen: Soft, Non tender - Derm Derm: Normal color, Warm and dry - Extremities Extremities: No deformity, No tenderness to palpate, Normal ROM s pain, No edema - Neuro Neuro: Alert and oriented X 3, No motor deficit, Normal speech Eye Opening: Spontaneous Motor: Obeys Commands Verbal: Oriented GCS Score: 15 - Psych Psych: Normal mood Results - Vitals Vitals: Vital Signs - 24 hr 03/27/19 03/27/19 03/27/19 07:00 07:01 07:30 Temperature 36.6 C Heart Rate 140 H 150 H 137 H Respiratory 10 L 17 Rate Blood Pressure 124/105 H 130/95 H 114/83 H Blood Pressure [Right] O2 Saturation 97 98 03/27/19 03/27/19 03/27/19 07:35 07:45 07:50 Temperature Heart Rate 137 H 124 H 115 H Respiratory Rate Blood Pressure 116/90 H 105/79 100/74 Blood Pressure [Right] O2 Saturation 03/27/19 03/27/19 03/27/19 07:55 08:00 08:05 Temperature Heart Rate 121 H 121 H 118 H Respiratory Rate Blood Pressure 100/83 H 100/83 H 95/84 H Blood Pressure [Right] O2 Saturation 03/27/19 03/27/19 03/27/19 08:10 08:15 08:20 Temperature Heart Rate 126 H 117 H 117 H Respiratory Rate Blood Pressure 109/88 H 103/82 H 108/92 H Blood Pressure [Right] O2 Saturation 03/27/19 03/27/19 03/27/19 08:25 08:30 08:52 Temperature Heart Rate 126 H 115 H Respiratory Rate Blood Pressure 123/77 115/67 Blood Pressure 122/100 H [Right] O2 Saturation Oxygen O2 Source Room air - EKG (time done) at triage Rate: Rate (enter#) (rapid) Rhythm: Atrial fibrillation (136) Intervals: Wide QRS (similar to January 2019), RBBB Ischemia: Non specific changes Compare to prior EKG: Unchanged from prior EKG - Labs Labs: Laboratory Tests 03/27/19 03/27/19 03/27/19 07:30 07:30 07:30 WBC 9.3 RBC 4.65 L Hgb 14.7 Hct 42.9 MCV 92.3 MCH 31.6 H MCHC 34.3 RDW 17.9 H Plt Count 233 MPV 11.0 Neut # (Auto) 6.3 Lymph # (Auto) 1.7 Blair # (Auto) 1.2 H Eos # (Auto) 0.1 Baso # (Auto) 0.1 Absolute Nucleated RBC 0.00 Nucleated RBC % 0.0 PT INR APTT Sodium 137 Potassium 4.1 Chloride 98 L Carbon Dioxide 26 Anion Gap 13.0 BUN 42 H Creatinine 1.3 H Estimated GFR (MDRD) 55 L Glucose 108 H Calcium 8.8 Magnesium 2.1 Total Bilirubin 2.6 H AST 323 H ALT 215 H Alkaline Phosphatase 99 Troponin I High Sens B-Natriuretic Peptide 1099 H Total Protein 6.6 L Albumin 3.5 Globulin 3.1 Albumin/Globulin Ratio 1.1 Lipase 25 Last Dose Date Last Dose Time Digoxin Ethyl Alcohol < 5.0 Serum Ketones 03/27/19 03/27/19 03/27/19 07:30 07:30 07:30 WBC RBC Hgb Hct MCV MCH MCHC RDW Plt Count MPV Neut # (Auto) Lymph # (Auto) Blair # (Auto) Eos # (Auto) Baso # (Auto) Absolute Nucleated RBC Nucleated RBC % PT 25.0 H INR 2.3 H APTT 30.1 Sodium Potassium Chloride Carbon Dioxide Anion Gap BUN Creatinine Estimated GFR (MDRD) Glucose Calcium Magnesium Total Bilirubin AST ALT Alkaline Phosphatase Troponin I High Sens 34.4 H* B-Natriuretic Peptide Total Protein Albumin Globulin Albumin/Globulin Ratio Lipase Last Dose Date Unknown Last Dose Time Unknown Digoxin < 0.2 Ethyl Alcohol Serum Ketones 03/27/19 07:30 WBC RBC Hgb Hct MCV MCH MCHC RDW Plt Count MPV Neut # (Auto) Lymph # (Auto) Blair # (Auto) Eos # (Auto) Baso # (Auto) Absolute Nucleated RBC Nucleated RBC % PT INR APTT Sodium Potassium Chloride Carbon Dioxide Anion Gap BUN Creatinine Estimated GFR (MDRD) Glucose Calcium Magnesium Total Bilirubin AST ALT Alkaline Phosphatase Troponin I High Sens B-Natriuretic Peptide Total Protein Albumin Globulin Albumin/Globulin Ratio Lipase Last Dose Date Last Dose Time Digoxin Ethyl Alcohol Serum Ketones NEGATIVE - Rads (name of study) chest Radiology: Prelim report reviewed (right effusion; congested lung hickey), See rad report PD MEDICAL DECISION MAKING - ED course Complexity details: re-evaluated patient (He initially presented with normal oxygenation. He is feeling more relaxed after some diuresis and slowing of his heart rate and is actually now somewhat hypoxic but it seems to be from hypove ntilation. His oxygenation is good when he stimulated and I will bit more awake. Still pending a urine tox screen. I will add an ammonia level.), considered differential (His heart rate is slowing and he did start diuresing with the initial dose of Lasix. His breathing seems bit more comfortable. However his heart rate is still tachycardic and fibrillation. He has been off medications for a week. His BNP is elevated above that on his prior admission. His renal function is elevated as well which poses the difficulty of diuresing without worsening kidney injury. I feel the patient needs to be more meticulously managed over the course of a day or so rather than being able to improve him enough in the ER setting.), d/w patient Departure - Departure Disposition: ED Place in Observation Clinical Impression: Atrial fibrillation with rapid ventricular response, Cardiomyopathy, nonischemic, Renal insufficiency Congestive heart failure Qualifiers: Heart failure type: combined systolic and diastolic Heart failure chronicity: acute on chronic Qualified Code(s): I50.43 - Acute on chronic combined systolic (congestive) and diastolic (congestive) heart failure Condition: Stable Record reviewed to determine appropriate education?: Yes Discharge Date/Time: 03/27/19 10:45
[2019-03-27] MEDS ORDERED: METOPROLOL 5 MG/5 ML VIAL IVP STA ×3 (07:21→08:49)
[2019-03-27] MEDS ORDERED: SODIUM CHLORIDE 0.9% 1,000 ML IV ONE (07:22)
[2019-03-27] MEDS ORDERED: FUROSEMIDE 40 MG/4 ML VIAL IVP STA (07:34)
[2019-03-27] MEDS ORDERED: ENOXAPARIN 80 MG/0.8 ML SYRINGE SUBQ STA (07:34)
[2019-03-27 07:41] LABS: BASOPHILS # (AUTO) 0.1 10^3/uL (0.0-0.1); BASOPHILS % (AUTO) 0.6 %; EOSINOPHILS # (AUTO) 0.1 10^3/uL (0.0-0.7); EOSINOPHILS % (AUTO) 0.5 %; HGB - HEMOGLOBIN 14.7 g/dL (14.0-18.0); LYMPHOCYTES # (AUTO) 1.7 10^3/uL (1.5-3.5); LYMPHOCYTES % (AUTO) 17.7 %; MEAN CORPUSCULAR HEMOGLOBIN 31.6 pg (27.0-31.0); MEAN CORPUSCULAR HGB CONC 34.3 g/dL (32.0-36.0); MEAN CORPUSCULAR VOLUME 92.3 fL (80.0-94.0); MONOCYTES # (AUTO) 1.2 10^3/uL (0.0-1.0); MONOCYTES % (AUTO) 12.9 %; NEUTROPHILS # (AUTO) 6.3 10^3/uL (1.5-6.6); PLT - PLATELET COUNT 233 10^3/uL (130-450); RED BLOOD COUNT 4.65 10^6/uL (4.70-6.10); RED CELL DISTRIBUTION WIDTH 17.9 % (12.0-15.0); WHITE BLOOD COUNT 9.3 x10^3/uL (4.8-10.8)
[2019-03-27 07:48] LABS: INR 2.3 (0.8-1.2)
[2019-03-27 07:55] LABS: PARTIAL THROMBOPLASTIN TIME 30.1 secs (24.9-33.3)
[2019-03-27 08:09] LABS: DIGOXIN < 0.2 ng/mL
--- NOTE | 2019-03-27 08:13 | XRAY Report ---
Reason: dyspnea Procedure Date: 03/27/2019 Accession Number: [id number] / [id number] Procedure: XR - Chest 1 View X-Ray CPT Code: 03379 FULL RESULT: EXAM: CHEST RADIOGRAPHY EXAM DATE: 03/27/2019 07:47 AM. CLINICAL HISTORY: Dyspnea. COMPARISON: XR CHEST 1 VIEW AP/PA 01/22/2019 1:17 PM. TECHNIQUE: 1 view. FINDINGS: Lungs/Pleura: Stable moderate right pleural fluid collection with associated consolidation. Slight interval improvement of aeration at the left lung base, without discrete pleural fluid. Slight improvement of aeration in the right upper lung. The left upper lung appears overall clear. Mediastinum: Stable moderate cardiomegaly. Other: None. IMPRESSION: Persistent moderate right pleural fluid collection. Slight improvement of aeration elsewhere. RADIA
[2019-03-27] MEDS ORDERED: DIGOXIN 500 MCG/2 ML AMP IVP STA (08:20)
[2019-03-27 08:25] LABS: ALBUMIN 3.5 g/dL (3.2-5.5); ALBUMIN/GLOBULIN RATIO 1.1 (1.0-2.2); ALKALINE PHOSPHATASE 99 IU/L (42-121); ALT ALANINE AMINOTRANSFERASE 215 IU/L (10-60); AST ASPARTATE AMINOTRANSFERASE 323 IU/L (10-42); BILIRUBIN,TOTAL 2.6 mg/dL (0.2-1.0); BUN - BLOOD UREA NITROGEN 42 mg/dL (6-20); CALCIUM 8.8 mg/dL (8.5-10.3); CARBON DIOXIDE - CO2 26 mmol/L (21-32); CHLORIDE 98 mmol/L (101-111); CREATININE 1.3 mg/dL (0.6-1.2); GFR - MDRD 55 (>89); GLUCOSE 108 mg/dL (70-100); LIPASE 25 U/L (22-51); MAGNESIUM 2.1 mg/dL (1.7-2.8); SODIUM 137 mmol/L (135-145); TOTAL PROTEIN 6.6 g/dL (6.7-8.2)
[2019-03-27] MEDS ORDERED: ONDANSETRON 4 MG/2 ML VIAL IVP PRN (09:12)
[2019-03-27] MEDS ORDERED: ACETAMINOPHEN 325 MG TABLET PO PRN (09:12)
[2019-03-27] MEDS ORDERED: IPRATROPIUM/ALBUTEROL 3 ML NEB INH PRN (09:22)
[2019-03-27] MEDS ORDERED: ALBUTEROL NEB 2.5 MG/3 ML INH PRN (09:22)
[2019-03-27] MEDS ORDERED: METOPROLOL SUCCINATE 50 MG TABLET PO SCH (10:00)
[2019-03-27] MEDS ORDERED: ASPIRIN CHEW 81 MG TABLET PO SCH (10:00)
--- NOTE | 2019-03-27 10:22 | HISTORY & PHYSICAL EXAMINATION ---
Chief Complaint - Chief Complaint Chief Complaint: shortness of breath History of Present Illness - History of Present Illness HPI Comment/Other: is a 68-year-old gentleman with a past medical history significant for nonischemic cardiomyopathy with an ejection fraction of 20-25% and moderate right heart failure, atrial fibrillation, COPD, obstructive sleep apnea on CPAP, hyperlipidemia, chronic deafness, tobacco abuse, polysubstance abuse including crack cocaine, heroin and methamphetamines, Hepatitis C, with history of recurrent pneumonia with previous hospitalizations for Empyema requiring left thoracotomy with decortication on 01/04/2018 At [facility] who presented to the emergency department with a chief complaint of shortness of breath. pt repot he has been no home meds except Eilquis for one week. Pt report before his last medication pill, he called his PCP to refill, unfortunate he could not get refill his home meds as far. He report in the last couple of days, he felt fatigue, shortness of breath, can not stand up from his bed. He sleep on his bed for two days, but he also report he can not fall into sleep. he also report he felt his lung was "filled up". He denies chest pain, fever, chill. Lab study reveals BNP 1100 increased from previous BNP 600 at the admission at 01/20, creatinine increased to 1.3 from previous 0.8. pt had slight elevated troponin at 34.4. pt is afebrile, and pt had afib with RVR at HR 140 in ER. pt is admitted in observation unit now for above medical reason History - Past Medical History Cardiovascular: reports: Congestive heart failure, Hypertension, High cholesterol, Atrial fibrillation Respiratory: reports: COPD, Pneumonia Neuro: reports: None Endocrine/Autoimmune: reports: None GI: reports: None : reports: None HEENT: reports: Chronic hearing loss Psych: reports: None Musculoskeletal: reports: None Derm: reports: Other MRSA Hx?: Yes - Past Surgical History Ortho: reports: Other Cardiovascular: reports: Other - Family & Social History Family History: Father: CAD (Father had heart attack and in his 50s, grandfather had a heart attack and in his 50s, sister had a heart attack in her 50s.), Sister: CAD, Other family: CAD Family History Comment/Other: pt is living [facility], single with girlfriend. Pt is working for [employer]. Social History Notes: Lives in [place], [place]. Admits to prior history of smoking and currently uses amphetamines and marijuana. Has used cocaine in the past. - Substance History Use: Uses substance without health or social issues: Tobacco - POLST Patient has POLST: No POLST Status: Full Code Meds/Allgy - Home Medications Home Medications: Ambulatory Orders Medication Instructions Recorded Confirmed Albuterol Sulfate [Proair Hfa 2 puffs INH Q4H PRN 06/24/18 01/15/19 Inhaler] Aspirin [Aspirin EC] 81 mg PO DAILY #60 tablet. 06/27/18 01/15/19 Lisinopril [Zestril] 2.5 mg PO DAILY #60 tablet 06/27/18 01/15/19 Metoprolol Succinate [Toprol Xl] 50 mg PO BID #60 tablet 06/27/18 01/15/19 Spironolactone [Aldactone] 25 mg PO DAILY #60 tablet 06/27/18 01/15/19 Apixaban [Eliquis] 5 mg PO BID 01/15/19 01/15/19 Digoxin 125 mcg PO DAILY 01/15/19 01/15/19 Furosemide 40 mg PO BIDDIURETIC 01/15/19 01/15/19 Sildenafil Citrate 50 - 100 mg PO ONCE PRN 01/15/19 01/15/19 Clindamycin HCl [Clindamycin 300MG 300 mg PO QID #28 capsule 01/17/19 CAP] Saccharomyces Boulardii [Florastor] 250 mg PO BID #60 capsule 01/17/19 - Allergies Allergies/Adverse Reactions: Allergies Allergy/AdvReac Type Severity Reaction Status Date / Time No Known Drug Allergies Allergy Verified 01/14/19 17:50 Review of Systems - Constitutional Constitutional: reports: Fatigue. denies: Fever, Chills, Malaise, Weakness, Poor appetite, Diaphoresis, Night sweats - Eyes Eyes: denies: Pain, Irritation, Amaurosis, Blurred vision, Spots in vision, Field loss, Vision loss, Dipolpia - Ears, Nose & Throat Ears, Nose & Throat: denies: Ear pain, Hearing loss, Hearing aids, Tinnitus, V ertigo, Nasal pain, Nasal discharge, Nosebleeds, Nasal obstruction, Nasal congestion, Postnasal drainage, Dentures, Sore throat, Hoarseness, Mouth lesions, Bleeding gums - Cardiovascular Cariovascular: denies: Irregular heart rate, Palpitations, Chest pain, Edema, Lightheadedness, Syncope, Exertional dyspnea, Decr. exercise tolerance - Respiratory Respiratory: reports: SOB with exertion. denies: Cough, Sputum production, Wheezing, Snoring, Hemoptysis, Orthopnea, SOB at rest, Apnea, Stridor - Gastrointestinal Gastrointestinal: denies: Abdominal pain, Abdominal distention, Constipation, Diarrhea, Change in bowel habits, Rectal bleeding, Black stools, Bloody stools, Nausea, Vomiting, Sukhdeep blood emesis, Coffee grounds emesis - Genitourinary Genitourinary: denies: Dysuria, Frequency, Urgency, Hematuria, Incontinence, Flank pain - Musculoskeletal Musculoskeletal: denies: Muscle pain, Back pain, Muscle aches, Stiffness, Limited range of motion, Muscle weakness, Gout, Joint pain - Integumentary Integumentary: denies: Rash, Pruritis, Lesions, Dryness, Lumps, Acne, Pigment changes, Nail changes - Neurological Neurological: denies: General weakness, Focal weakness, Headache, Dizziness, Numbness, Memory problems, Pre-existing deficit, Abnormal gait, Seizures, Incoordination, Slurred speech - Psychiatric Psychiatric: denies: Depression, Anxiety, Suicidal, Delusions, Hallucinations, Homicidal - Endocrine Endocrine: denies: Polyuria, Polydypsia, Polyphagia, Intolerance to cold - Hematologic/Lymphatic Hematologic/Lymphatic: denies: Anemia, Bruising, Petechiae, Blood clots, Lymphadenopathy, Bleeding tendencies Exam - Vital Signs Reviewed Vital Signs: Yes Vital Signs: Vital Signs x48h Temp Pulse Resp BP BP Pulse Ox 03/27/19 10:00 101 H 15 122/88 H 92 03/27/19 09:30 83 12 107/87 H 91 L 03/27/19 09:17 113 H 24 114/86 H 94 03/27/19 08:52 122/100 H 03/27/19 08:30 115 H 115/67 03/27/19 08:25 126 H 123/77 03/27/19 08:20 117 H 108/92 H 03/27/19 08:15 117 H 103/82 H 03/27/19 08:10 126 H 109/88 H 03/27/19 08:05 118 H 95/84 H 03/27/19 08:00 121 H 100/83 H 03/27/19 07:55 121 H 100/83 H 03/27/19 07:50 115 H 100/74 03/27/19 07:45 124 H 105/79 03/27/19 07:35 137 H 116/90 H 03/27/19 07:30 137 H 114/83 H 03/27/19 07:01 36.6 C 150 H 17 130/95 H 98 03/27/19 07:00 140 H 10 L 124/105 H 97 - Physical Exam General Appearance: positive: No acute distress, Alert. negative: Lethargic Eyes Bilateral: positive: Normal inspection, PERRL, No lid inflammation, Conjunctivae nml ENT: positive: ENT inspection nml, Pharynx nml, No signs of dehydration. negative: Purulent nasal drainage, Pharyngeal erythema, Oral lesions Neck: positive: Nml inspection, Thyroid nml, No JVD, Trachea midline. negative: Thyromegaly, Lymphadenopathy (R), Lymphadenopathy (L), Stiff neck, Swelling/bruising, Tracheal deviation Respiratory: positive: Chest non-tender, No respiratory distress. negative: Wheezes, Rales, Rhonchi Cardiovascular: positive: Regular rate & rhythm, No murmur, No gallop. negative: Irregularly irregular, Extrasystoles, Tachycardia, Bradycardia, JVD present, Systolic murmur, Diastolic murmur Peripheral Pulses: positive: 2+ Abdomen: positive: Non-tender, No organomegaly, Nml bowel sounds, No distention. negative: Tenderness, Guarding, Rebound Back: positive: Nml inspection. negative: CVA tenderness (R), CVA tenderness (L) Skin: positive: Color nml, No rash, Warm, Dry. negative: Cyanosis, Diaphoresis, Pallor Extremities: positive: Non-tender, Full ROM, Nml appearance. negative: Calf tenderness, Joint swelling, Dolly's sign/cords Neurologic/Psychiatric: positive: Oriented x3, Motor nml, Sensation nml, Mood/affect nml. negative: Weakness, Sensory loss, Facial droop, Slurred/abnml speech, Depressed mood/affect Sepsis Event Note (H) - Evaluation Current Stage of Sepsis: Ruled out Conclusion/Plan - Problem List (1) CHF exacerbation Conclusion/Plan: pt present SOB, orthopnea, pt did not take his Lasix, metoprolol and other meds because his medications were not available. BNP is 1100. pt has hx of 20-25% EF with nonischemic cardiomyopathy. reconcile is home meds IV of Lasix, metoprolol and spironolactone lab monitor tele and vital monitor Qualifiers: Heart failure type: unspecified Qualified Code(s): I50.9 - Heart failure, unspecified (2) Medical non-compliance Conclusion/Plan: advise pt as least one week before his medication was out, saw his PCP (3) Non-ischemic cardiomyopathy Conclusion/Plan: pt has hx of non-ischemic cardiomyopathy, likely from his hx of alcohol abuse, multiple illicit drug abuse. order ECHO, check the status reconcile of home meds to manage tele and vital monitor (4) Atrial fibrillation with RVR Conclusion/Plan: pt's HR was upto 140. pt was give 3 times of iVof Metoprolol. pt also was given IV of digoxin. pt's HR seems in good controlled now at 85. reconcile home Metoprolol, PO Digoxin tele monitor (5) Acute kidney injury Conclusion/Plan: pt's creatinine is 1.3 today. pt had 0.8 creatinine about 3 months ago. However pt is required to have diuretics for his CHF exacerbation. hold nephrotoxical agent, daily lab monitor (6) Transaminitis Conclusion/Plan: pt has hx of Hepatitis C. it is likely chronic infection to cause chronic e levated liver enzyme continue lab monitor, and nurse support (7) History of COPD Conclusion/Plan: pt has hx of COPD. pt has no cough, fever, chill. PRN albuterol and Duoneb for pt (8) Do not intubate, cardiopulmonary resuscitation (CPR)-only code status Conclusion/Plan: pt clearly request DNR/DNI - Lab Results Fish Bones: 03/27/19 07:30 03/27/19 07:30 Core Measures - Anticipated LOS I expect patient to be DC'd or transferred within 96 hours.: Yes - DVT/VTE - Prophylaxis VTE/DVT Device ordered at admit?: Yes VTE/DVT Prophylaxis med ordered at admit?: Yes
[2019-03-27 12:16] LABS: MUDS CUTOFF CONCENTRATIONS CUTOFF CONC BELOW:
[2019-03-27 12:29] LABS: BILIRUBIN,URINE NEGATIVE (NEGATIVE); GLUCOSE, URINE (UA) NEGATIVE (NEGATIVE); KETONES,URINE (UA) NEGATIVE (NEGATIVE); LEUKOCYTE ESTERASE, URINE NEGATIVE (NEGATIVE); NITRITE,URINE NEGATIVE (NEGATIVE); OCCULT BLOOD,URINE NEGATIVE (NEGATIVE); PROTEIN,URINE NEGATIVE (NEGATIVE); UROBILINOGEN,URINE 0.2 (NORMAL) E.U./dL (NORMAL)
[2019-03-27 12:32] LABS: CLARITY,URINE CLEAR (CLEAR)
[2019-03-27 12:36] LABS: AMPHETAMINE SCREEN,URINE NEGATIVE (NEGATIVE); BENZODIAZEPINES SCREEN, URINE NEGATIVE (NEGATIVE); COCAINE SCREEN URINE NEGATIVE (NEGATIVE); METHADONE SCREEN, URINE NEGATIVE (NEGATIVE); METHAMPHETAMINES SCREEN, URINE NEGATIVE (NEGATIVE); OPIATE SCREEN, URINE POSITIVE (NEGATIVE); OXYCODONE SCREEN, URINE NEGATIVE (NEGATIVE); PROPOXYPHENE SCREEN, URINE NEGATIVE (NEGATIVE); TRICYCLIC ANTIDEPRESSANT,URINE NEGATIVE (NEGATIVE)
[2019-03-27] MEDS: SPIRONOLACTONE 25 MG TABLET PO SCH (13:35)
[2019-03-27] MEDS: SODIUM CHLORIDE FLUSH 0.9% 10 ML SYRINGE IVP PRN (14:19)
[2019-03-27] MEDS: FUROSEMIDE 40 MG/4 ML VIAL IVP SCH (14:19)
[2019-03-27] MEDS: SODIUM CHLORIDE FLUSH 0.9% 10 ML SYRINGE IVP SCH ×2 (17:39→23:52)
[2019-03-27] MEDS: APIXABAN 5 MG TABLET PO SCH (20:52)
[2019-03-27] MEDS: FAMOTIDINE 20 MG TABLET PO SCH (20:52)
[2019-03-27] MEDS: METOPROLOL SUCCINATE 50 MG TABLET PO SCH (20:52)
[2019-03-28 05:50] LABS: BASOPHILS % (AUTO) 0.5 %; EOSINOPHILS # (AUTO) 0.1 10^3/uL (0.0-0.7); HGB - HEMOGLOBIN 12.9 g/dL (14.0-18.0); LYMPHOCYTES # (AUTO) 1.8 10^3/uL (1.5-3.5); LYMPHOCYTES % (AUTO) 22.7 %; MEAN CORPUSCULAR HEMOGLOBIN 30.3 pg (27.0-31.0); MEAN CORPUSCULAR HGB CONC 33.2 g/dL (32.0-36.0); MEAN CORPUSCULAR VOLUME 91.1 fL (80.0-94.0); MEAN PLATELET VOLUME 10.8 fL (7.4-11.4); MONOCYTES % (AUTO) 12.7 %; NEUTROPHILS % (AUTO) 62.8 %; PLT - PLATELET COUNT 209 10^3/uL (130-450); RED BLOOD COUNT 4.26 10^6/uL (4.70-6.10); RED CELL DISTRIBUTION WIDTH 17.3 % (12.0-15.0); WHITE BLOOD COUNT 7.9 x10^3/uL (4.8-10.8)
[2019-03-28 06:01] LABS: ALBUMIN 2.9 g/dL (3.2-5.5); ALBUMIN/GLOBULIN RATIO 1.1 (1.0-2.2); BILIRUBIN,TOTAL 2.7 mg/dL (0.2-1.0); CALCIUM 8.4 mg/dL (8.5-10.3); CREATININE 1.3 mg/dL (0.6-1.2); TOTAL PROTEIN 5.5 g/dL (6.7-8.2)
[2019-03-28] MEDS: SODIUM CHLORIDE FLUSH 0.9% 10 ML SYRINGE IVP PRN (06:02)
[2019-03-28] MEDS: FUROSEMIDE 40 MG/4 ML VIAL IVP SCH ×2 (06:02→13:27)
[2019-03-28] MEDS: SPIRONOLACTONE 25 MG TABLET PO SCH (09:47)
[2019-03-28] MEDS: APIXABAN 5 MG TABLET PO SCH ×2 (09:47→20:08)
[2019-03-28] MEDS: POLYETHYLENE GLYCOL 3350 17 GM PACKET PO SCH (09:47)
[2019-03-28] MEDS: METOPROLOL SUCCINATE 50 MG TABLET PO SCH (09:47)
[2019-03-28] MEDS: SODIUM CHLORIDE FLUSH 0.9% 10 ML SYRINGE IVP SCH ×3 (09:47→23:44)
[2019-03-28] MEDS: FAMOTIDINE 20 MG TABLET PO SCH ×2 (09:47→20:08)
[2019-03-28] MEDS ORDERED: POTASSIUM CHLORIDE 20 MEQ TABLET PO ONE (14:20)
[2019-03-28] MEDS ORDERED: ISOSORBIDE MONONITRATE ER 30 MG TABLET PO SCH (15:02)
--- NOTE | 2019-03-28 15:11 | PROVIDER PROGRESS NOTE ---
Subjective - Prog Note Date Prog Note Date: 03/28/19 Prog Note Time: 15:11 - Subjective Pt reports feeling: No change Subjective: Chai states that he is supposed to be getting an ICD at [facility] in the near future. He denies chest pain, dizziness, headaches, nausea, vomiting, a rash, confusion, a productive cough, fever, chills, or new pain. He does admit to occasion chest pressure that is accompanied by SOB and when his breathing improves the pressure goes away. Current Medications - Current Medications Current Medications: Active Medications: Apixaban (Eliquis) 5 mg PO BID DEBORAH Famotidine (Pepcid) 20 mg PO BID DEBORAH Furosemide (Lasix Inj 40 Mg Vial) 40 mg IVP BIDDIURETIC DEBORAH Hydralazine HCl (Apresoline) 10 mg PO TIDWM DEBORAH Levalbuterol HCl (Xopenex) 1.25 mg INH Q4H PRN Metoprolol Succinate (Toprol Xl) 75 mg PO BIDWM DEBORAH Ondansetron HCl (Zofran Inj) 4 mg IVP Q6HR PRN Polyethylene Glycol (Miralax) 17 gm PO DAILY DEBORAH Spironolactone (Aldactone) 25 mg PO DAILY [facility] meds: Apixaban [Eliquis] 5 mg PO BID 01/15/19 Digoxin 125 mcg PO UD 01/15/19 Furosemide 20 mg PO DAILY 01/15/19 Metoprolol Tartrate 75 mg PO BID 03/28/19 Objective - Vital Signs/Intake & Output Reviewed Vital Signs: Yes Vital Signs: Vital Signs x48h Temp Pulse Pulse Pulse Resp BP Pulse Ox 03/28/19 12:09 36.3 C L 86 20 120/66 94 03/28/19 11:00 78 14 03/28/19 09:46 78 118/79 03/28/19 08:13 36.4 C L 97 16 108/79 92 03/28/19 08:04 16 Intake & Output: Intake & Output 03/25/19 03/26/19 03/27/19 03/28/19 23:59 23:59 23:59 23:59 Intake Total 1697 960 Output Total 1500 2550 Balance 197 -1590 - Objective General Appearance: positive: No acute distress, Alert Eyes Bilateral: positive: PERRL ENT: positive: Pharynx nml, Dry mucous membranes Neck: positive: Thyroid nml, No JVD (mild to scant) Respiratory: positive: Chest non-tender, Rhonchi Cardiovascular: positive: Irregularly irregular, Tachycardia, Systolic murmur, Diastolic murmur, Gallop/S3 Peripheral Pulses: 1+ Radial (R), 1+ Radial (L) Abdomen: positive: Non-tender, Nml bowel sounds, Hepatomegaly Back: positive: Nml inspection Skin: positive: No rash, Warm, Dry, Cyanosis (fingertips, ear lobes, nose), Pallor Neurologic/Psychiatric: positive: Oriented x3, CN's nml (2-12), Weakness, Sens ory loss, Slurred/abnml speech (sluggish speech, unable to speak in full sentances without taking a breath), Depressed mood/affect Reflexes: Bicep (R): 3+, Bicep (L): 3+ - Lab Results Fish Bones: 03/28/19 05:18 03/28/19 05:18 Other Labs: Lab Results x24hrs 03/28/19 03/28/19 03/28/19 Range/Units 09:20 05:18 05:18 WBC (4.8-10.8) x10^3/uL RBC (4.70-6.10) 10^6/uL Hgb (14.0-18.0) g/dL Hct (42.0-52.0) % MCV (80.0-94.0) fL MCH (27.0-31.0) pg MCHC (32.0-36.0) g/dL RDW (12.0-15.0) % Plt Count (130-450) 10^3/uL MPV (7.4-11.4) fL Neut # (Auto) (1.5-6.6) 10^3/uL Lymph # (Auto) (1.5-3.5) 10^3/uL Polk # (Auto) (0.0-1.0) 10^3/uL Eos # (Auto) (0.0-0.7) 10^3/uL Baso # (Auto) (0.0-0.1) 10^3/uL Absolute Nucleated RBC x10^3/uL Nucleated RBC % /100WBC Sodium (135-145) mmol/L Potassium (3.5-5.0) mmol/L Chloride (101-111) mmol/L Carbon Dioxide (21-32) mmol/L Anion Gap (6-13) BUN (6-20) mg/dL Creatinine (0.6-1.2) mg/dL Estimated GFR (MDRD) (>89) Glucose (70-100) mg/dL Calcium (8.5-10.3) mg/dL Magnesium 1.9 (1.7-2.8) mg/dL Total Bilirubin (0.2-1.0) mg/dL AST (10-42) IU/L ALT (10-60) IU/L Alkaline Phosphatase (42-121) IU/L Troponin I High Sens 31.7 H* (2.3-19.7) pg/mL B-Natriuretic Peptide 1503 H (5-100) pg/mL Total Protein (6.7-8.2) g/dL Albumin (3.2-5.5) g/dL Globulin (2.1-4.2) g/dL Albumin/Globulin Ratio (1.0-2.2) 03/28/19 03/28/19 Range/Units 05:18 05:18 WBC 7.9 (4.8-10.8) x10^3/uL RBC 4.26 L (4.70-6.10) 10^6/uL Hgb 12.9 L (14.0-18.0) g/dL Hct 38.8 L (42.0-52.0) % MCV 91.1 (80.0-94.0) fL MCH 30.3 (27.0-31.0) pg MCHC 33.2 (32.0-36.0) g/dL RDW 17.3 H (12.0-15.0) % Plt Count 209 (130-450) 10^3/uL MPV 10.8 (7.4-11.4) fL Neut # (Auto) 5.0 (1.5-6.6) 10^3/uL Lymph # (Auto) 1.8 (1.5-3.5) 10^3/uL Polk # (Auto) 1.0 (0.0-1.0) 10^3/uL Eos # (Auto) 0.1 (0.0-0.7) 10^3/uL Baso # (Auto) 0.0 (0.0-0.1) 10^3/uL Absolute Nucleated RBC 0.00 x10^3/uL Nucleated RBC % 0.0 /100WBC Sodium 140 (135-145) mmol/L Potassium 3.4 L (3.5-5.0) mmol/L Chloride 102 (101-111) mmol/L Carbon Dioxide 29 (21-32) mmol/L Anion Gap 9.0 (6-13) BUN 34 H (6-20) mg/dL Creatinine 1.3 H (0.6-1.2) mg/dL Estimated GFR (MDRD) 55 L (>89) Glucose 89 (70-100) mg/dL Calcium 8.4 L (8.5-10.3) mg/dL Magnesium (1.7-2.8) mg/dL Total Bilirubin 2.7 H (0.2-1.0) mg/dL AST 209 H (10-42) IU/L ALT 161 H (10-60) IU/L Alkaline Phosphatase 88 (42-121) IU/L Troponin I High Sens (2.3-19.7) pg/mL B-Natriuretic Peptide (5-100) pg/mL Total Protein 5.5 L (6.7-8.2) g/dL Albumin 2.9 L (3.2-5.5) g/dL Globulin 2.6 (2.1-4.2) g/dL Albumin/Globulin Ratio 1.1 (1.0-2.2) ABX Reporting Has patient been on IV antibiotics over the past 48 hours?: No Assessment/Plan - Problem List (1) Acute on chronic HFrEF (heart failure with reduced ejection fraction) Impression: Acute on chronic combined systolic and diastolic CHF exacerbation -Most likely caused by noncompliance with medications as he admits to fighting with [facility] and could not get his usual cardiac medications -Imaging shows; a right effusion; congested lung hickey -Takes Lisinopril, Lasix, spironolactone, metoprolol, digoxin and Eliquis at home -Echocardiogram from 03/27 shows preliminary results of a reduced EF from his last admission just 2 months earlier (January 2019), now less than 20% -Admission BNP was elevated at 1039, now greater than 1500, with a baseline BNP of 200 -Scattered crackles, profound S3 gallop, + murmur on exam, abdominal edema, scant + JVD, and peripheral edema. Evidence of poor perfusion, difficult to complete one full sentence without taking a breath, sluggish capillary refill, peripheral ischemia, cool, and cyanotic extremities -Secondary to this exacerbation, the patient has hepatic congestion with an elevated bilirubin of 2.7, AST 209, ALT 161 and alk phos is normal -Admission criteria have exceeded an observation stay since having elevated troponin levels (flat but ongoing), cardiac arrhythmias of a-fib, JEOVANY, orthopnea, oxygen requirement, and prolonged progressive weakness -Blood pressure ok today; 102/76, heart rates 80-90s atrial fibrillation -Patient denies chest pain, but explains that when he has shortness of breath, he does feel chest pressure that goes away after rest Plan: Continue to provide 1-2L oxygen to keep oxygen greater than 94% and/or for symptoms of SOB, IV Lasix 40 mg BID, Fluid restriction 2 L, low sodium diet, strict I's and O's, continue metoprolol, spironolactone, HOLD Lisinopril, added hydralazine today, daily weights, telemetry monitoring, serial troponins, routine labs Elevated troponin -Somewhat expected phenomenon with the patients current CHF exacerbation -Remaining flat with a high sensitivity troponin of 34,22,31 -Unchanged EKG (stable atrial fibrillation, R BBB, QRS 162) -No chest pain on exam -Admits to times of chest pressure that resolves when SOB resolves -No new dizziness, diaphoresis, confusion, hypotension or radiation occurs Plan: Continue telemetry, AM troponin, EKG for acute CP Cardiomyopathy -Preliminary EF on 03/27/2019 is <20%, moderate LV enlargement, systolic function is severely impaired, RV systolic function is moderately impaired, severe increase in LA, severe RA enlargement, severe mitral regurg, severe tricuspid regurg and a trivial effusion -The last EF was 25% from January 2019 -The most likely cause of his cardiomyopathy is from long standing substance abuse, and medical noncompliance -BNP continues to be elevated at greater than 1500 today, with a baseline BNP ~200 -Imaging shows cardiomegaly with a right pleural fluid collection -Sees cardiology at [facility], Dr. Johnson who has been speaking about: possible upcoming ICD placement Plan: Continue to treat CHF exacerbation, [facility] f or a patient transfer [facility] -Preliminary echo from 03/27 shows severe RA and RV enlargement, moderately impaired RV systolic function, RVSP of 65 mmHg, all worse than previous echo in January 2019 -Status post pulmonary emboli, polysubstance abuse, inhalants, COPD, and longstanding non-compliance with KATIE -Prescribed home diuretics, no nebulizers, no Jessie, no LABAs or rescue inhaler use -+ orthopnea, no home oxygen Plan: Continue to encourage home CPAP, continue spironolactone/Lasix, daily weights, Eliquis, and provide oxygen Chronic atrial fibrillation -The patient was found to be in uncontrolled atrial fibrillation upon presentation to ED with heart rates in the 120s -On exam today, he denies chest pain, palpitations, pre-syncope/syncope -Is prescribed Eliquis, BB, and digoxin at home -Metoprolol PO was increased later today given the elevated troponins and to maximize his medical guided CHF -TSH was normal back in the fall, now re-ordered for the AM Plan: Continue metoprolol, monitor on telemetry, serial troponins, continue home Eliquis Acute kidney injury -Baseline creatinine is ~ 1.0 -Now elevated to 1.3, GFR is 55, likely due to cardio-renal causes -No change in value since starting diuretics -Urine output has been 3250 mL in the past 24 hours -Some amounts have not been charted, no prior order for daily weights Plan: Strict I/Os, daily weights, and routine labs Elevated LFTs -Likely secondary to liver congestion from right-sided heart failure (hepatic congestion) -LFTs remain elevated with a bilirubin of 2.7, AST 209, ALT 161 and is alk phos is normal Plan: Stop Tylenol, continue to monitor LFTs, continue CHF exacerbation treatments, avoid hepato-toxins, consider statin upon discharge Hyperlipidemia -No lipid panel has been obtained since August 2017, no statins on home med list -Statins are contraindicated at this time due to elevated LFTs Plan: Consider starting statin to be prescribed upon discharge home, new lipid panel given the elevated troponins Polysubstance abuse -Prominent history of crack cocaine, methamphetamine and heroin abuse -MUDDs screen shows only opiates on this admission -Pt denied any current drug use and stated that he has been sober for two months -Status post hospitalizations for heroin overdoses -Consequently the patient has profound cardiomyopathy with reduced ejection fraction thought to be in part caused by his prolonged misuse/abuse of methamphetamine, crack cocaine, and heroin Plan: Social work is following, encouraged compliance KATIE on CPAP -Longstanding pulmonary HTN with current RVSP at rest of 65 mmHg, which has increased from the last echo in January 2019 -Prescribed spironolactone at home, continues here to improve EF and attempt to reduce PA pressures -Patients home CPAP is at his bedside and he has been utilizing this -RT is managing this -Unclear if the patient has been compliant due to reports of living in his car lately (homelessness) Plan: Continue to use home unit with necessary oxygen bleed in while sleeping, continue nebulizers, and Xopenex as needed COPD -Patient as a remote history of several inhalants including; tobacco, marijuana and crack cocaine use -Patient demonstrates evidence of poor circulation, non-productive cough and the need for supplemental O2 -No home inhalers are prescribed -Medical non-compliance and ongoing inhalants Plan: RT per home CPAP management and nebulizer treatments using Xopenex as needed Homelessness -Collaboration of events leading to prolonged, unresolved drug use, poor life choices and a lack of intermediate at this time -Social work notes state: the patient reported that he does not have a place to live upon discharge -Reports that his relationship with his sister who also lives on [facility] is strained due to his past drug use -Pt denied any current drug use and stated that he has been sober for two months -Pt left his van and cell phone with his friend Kayy who, according to the patient, is actively using drugs -Pt is unsure on where his van and cell phone are at this time but is confident that he can locate Kayy and his items upon d/c -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 -Pt plans to explore relocating to [place] where he grew up or [facility] where he also has friends -Pt requested and was provided resources for housing including [employer], [employer], [employer], [facility] [employer], and [employer] from social work team Plan: Continue to treat acute illness, social work support Medical noncompliance -Patient admits to not filling his prescription on time, creating a situation in which he could not get a refill on his necessary cardiac medications -Polysubstance abuse history exacerbates his noncompliance -Poor overall prognosis with his new and worsened reduced EF -Currently remains homeless, making it impossible for him to use his home CPAP appropriately Plan: Encourage to provide support, social work is following
[2019-03-28] MEDS: hydrALAZINE 10 MG TABLET PO SCH (16:54)
[2019-03-28] MEDS: METOPROLOL SUCCINATE 25 MG TABLET PO SCH (16:55)
[2019-03-28] MEDS ORDERED: LEVALBUTEROL 1.25 MG/3 ML NEB INH PRN (17:24)
[2019-03-28 19:33] LABS: CALCIUM 8.2 mg/dL (8.5-10.3); CREATININE 1.3 mg/dL (0.6-1.2); MAGNESIUM 1.9 mg/dL (1.7-2.8); PHOSPHORUS 2.3 mg/dL (2.5-4.6)
[2019-03-29 05:29] LABS: BASOPHILS % (AUTO) 0.6 %; EOSINOPHILS # (AUTO) 0.1 10^3/uL (0.0-0.7); EOSINOPHILS % (AUTO) 1.3 %; HGB - HEMOGLOBIN 12.9 g/dL (14.0-18.0); LYMPHOCYTES # (AUTO) 1.9 10^3/uL (1.5-3.5); LYMPHOCYTES % (AUTO) 27.8 %; MEAN CORPUSCULAR HEMOGLOBIN 29.9 pg (27.0-31.0); MEAN CORPUSCULAR HGB CONC 32.9 g/dL (32.0-36.0); MEAN CORPUSCULAR VOLUME 90.7 fL (80.0-94.0); MEAN PLATELET VOLUME 10.4 fL (7.4-11.4); MONOCYTES # (AUTO) 0.8 10^3/uL (0.0-1.0); MONOCYTES % (AUTO) 11.7 %; NEUTROPHILS % (AUTO) 58.3 %; PLT - PLATELET COUNT 209 10^3/uL (130-450); RED BLOOD COUNT 4.32 10^6/uL (4.70-6.10); WHITE BLOOD COUNT 6.9 x10^3/uL (4.8-10.8)
[2019-03-29 05:41] LABS: ALBUMIN 2.8 g/dL (3.2-5.5); BILIRUBIN,TOTAL 1.8 mg/dL (0.2-1.0); CALCIUM 8.1 mg/dL (8.5-10.3); CREATININE 1.2 mg/dL (0.6-1.2); TOTAL PROTEIN 5.6 g/dL (6.7-8.2)
[2019-03-29] MEDS: FUROSEMIDE 40 MG/4 ML VIAL IVP SCH ×2 (05:59→13:45)
[2019-03-29] MEDS: SODIUM CHLORIDE FLUSH 0.9% 10 ML SYRINGE IVP PRN ×2 (05:59→13:45)
[2019-03-29] MEDS: METOPROLOL SUCCINATE 25 MG TABLET PO SCH (08:03)
[2019-03-29] MEDS: hydrALAZINE 10 MG TABLET PO SCH ×2 (08:10→11:58)
[2019-03-29] MEDS: APIXABAN 5 MG TABLET PO SCH ×2 (08:10→21:00)
[2019-03-29] MEDS: FAMOTIDINE 20 MG TABLET PO SCH ×2 (08:10→21:00)
[2019-03-29] MEDS: SPIRONOLACTONE 25 MG TABLET PO SCH (08:10)
[2019-03-29] MEDS: POLYETHYLENE GLYCOL 3350 17 GM PACKET PO SCH (08:11)
[2019-03-29] MEDS: SODIUM CHLORIDE FLUSH 0.9% 10 ML SYRINGE IVP SCH ×2 (08:11→16:49)
[2019-03-29] MEDS ORDERED: POTASSIUM CHLORIDE 20 MEQ TABLET PO ONE (14:38)
--- NOTE | 2019-03-29 15:44 | PROVIDER PROGRESS NOTE ---
Subjective - Prog Note Date Prog Note Date: 03/29/19 Prog Note Time: 15:45 - Subjective Pt reports feeling: Improved Subjective: Chai admits to an overall improvement and states that he took a walk around the unit looking for his friend who was supposed to drop off his van and his cell phone on Wednesday. He states that he has not been sleeping well. He denies chest pain, nausea, vomiting, a new rash, a new cough or increased work of breathing. He has his usual orthopnea. Current Medications - Current Medications Current Medications: Active Medications: Apixaban (Eliquis) 5 mg PO BID DEBORAH Famotidine (Pepcid) 20 mg PO BID DEBORAH Furosemide (Lasix Inj 40 Mg Vial) 40 mg IVP BIDDIURETIC DEBORAH Hydralazine HCl (Apresoline) 10 mg PO TIDWM DEBORAH Levalbuterol HCl (Xopenex) 1.25 mg INH Q4H PRN Metoprolol Succinate (Toprol Xl) 75 mg PO BIDWM DEBORAH Ondansetron HCl (Zofran Inj) 4 mg IVP Q6HR PRN Polyethylene Glycol (Miralax) 17 gm PO DAILY DEBORAH Spironolactone (Aldactone) 25 mg PO DAILY DEBORAH Potassium chloride 40 Meq PO x1 HOME meds: Apixaban [Eliquis] 5 mg PO BID 01/15/19 Digoxin 125 mcg PO UD 01/15/19 Furosemide 20 mg PO DAILY 01/15/19 Metoprolol succinate 50 mg PO BID 03/28/19 Objective - Vital Signs/Intake & Output Reviewed Vital Signs: Yes Vital Signs: Vital Signs x48h Temp Pulse Resp BP Pulse Ox 03/29/19 12:00 36.4 C L 59 L 16 97/72 97 03/29/19 08:00 36.8 C 51 L 16 121/83 H 99 Intake & Output: Intake & Output 03/26/19 03/27/19 03/28/19 03/29/19 23:59 23:59 23:59 23:59 Intake Total 1697 1766 820 Output Total 4976 4649 0881 Balance 028 -8215 -0654 - Objective General Appearance: positive: No acute distress, Alert Eyes Bilateral: positive: Normal inspection, PERRL Eyes: OU Conjunctivae pale ENT: positive: Pharynx nml, No signs of dehydration, Other (profound [place]) Neck: positive: Thyroid nml, No JVD, Trachea midline, Stiff neck Respiratory: positive: Chest non-tender, No respiratory distress, Breath sounds nml, Other (scattered crackles, diminished at low bases bilaterally) Cardiovascular: positive: Irregularly irregular, Extrasystoles (midsystolic cl ick appreciated), Systolic murmur, Decreased pulse(s) Peripheral Pulses: 1+ Radial (R), 1+ Radial (L) Abdomen: positive: Non-tender, Nml bowel sounds, Hepatomegaly Back: positive: Nml inspection Skin: positive: No rash, Warm, Dry, Pallor Extremities: positive: Non-tender, Full ROM, Pedal edema (only trace BLE edema, abdominal edema) Neurologic/Psychiatric: positive: Oriented x3, CN's nml (2-12), Motor nml, Mood/affect nml, Weakness, Sensory loss, Slurred/abnml speech (times of garbled speech), Depressed mood/affect Reflexes: Bicep (R): 2+, Bicep (L): 2+ - Lab Results Fish Bones: 03/29/19 05:15 03/29/19 05:15 Other Labs: Lab Results x24hrs 03/29/19 03/29/19 03/29/19 Range/Units 05:15 05:15 05:15 WBC (4.8-10.8) x10^3/uL RBC (4.70-6.10) 10^6/uL Hgb (14.0-18.0) g/dL Hct (42.0-52.0) % MCV (80.0-94.0) fL MCH (27.0-31.0) pg MCHC (32.0-36.0) g/dL RDW (12.0-15.0) % Plt Count (130-450) 10^3/uL MPV (7.4-11.4) fL Neut # (Auto) (1.5-6.6) 10^3/uL Lymph # (Auto) (1.5-3.5) 10^3/uL Frio # (Auto) (0.0-1.0) 10^3/uL Eos # (Auto) (0.0-0.7) 10^3/uL Baso # (Auto) (0.0-0.1) 10^3/uL Absolute Nucleated RBC x10^3/uL Nucleated RBC % /100WBC Sodium 137 (135-145) mmol/L Potassium 3.3 L (3.5-5.0) mmol/L Chloride 98 L (101-111) mmol/L Carbon Dioxide 30 (21-32) mmol/L Anion Gap 9.0 (6-13) BUN 28 H (6-20) mg/dL Creatinine 1.2 (0.6-1.2) mg/dL Estimated GFR (MDRD) 60 L (>89) Glucose 96 (70-100) mg/dL Calcium 8.1 L (8.5-10.3) mg/dL Phosphorus (2.5-4.6) mg/dL Magnesium (1.7-2.8) mg/dL Total Bilirubin 1.8 H (0.2-1.0) mg/dL AST 143 H (10-42) IU/L ALT 130 H (10-60) IU/L Alkaline Phosphatase 95 (42-121) IU/L Troponin I High Sens (2.3-19.7) pg/mL B-Natriuretic Peptide 1085 H (5-100) pg/mL Total Protein 5.6 L (6.7-8.2) g/dL Albumin 2.8 L (3.2-5.5) g/dL Globulin 2.8 (2.1-4.2) g/dL Albumin/Globulin Ratio 1.0 (1.0-2.2) TSH 2.91 (0.34-5.60) uIU/mL 03/29/19 03/28/19 03/28/19 Range/Units 05:15 19:18 19:18 WBC 6.9 (4.8-10.8) x10^3/uL RBC 4.32 L (4.70-6.10) 10^6/uL Hgb 12.9 L (14.0-18.0) g/dL Hct 39.2 L (42.0-52.0) % MCV 90.7 (80.0-94.0) fL MCH 29.9 (27.0-31.0) pg MCHC 32.9 (32.0-36.0) g/dL RDW 17.0 H (12.0-15.0) % Plt Count 209 (130-450) 10^3/uL MPV 10.4 (7.4-11.4) fL Neut # (Auto) 4.0 (1.5-6.6) 10^3/uL Lymph # (Auto) 1.9 (1.5-3.5) 10^3/uL Frio # (Auto) 0.8 (0.0-1.0) 10^3/uL Eos # (Auto) 0.1 (0.0-0.7) 10^3/uL Baso # (Auto) 0.0 (0.0-0.1) 10^3/uL Absolute Nucleated RBC 0.00 x10^3/uL Nucleated RBC % 0.0 /100WBC Sodium 138 (135-145) mmol/L Potassium 3.8 (3.5-5.0) mmol/L Chloride 95 L (101-111) mmol/L Carbon Dioxide 33 H (21-32) mmol/L Anion Gap 10.0 (6-13) BUN 31 H (6-20) mg/dL Creatinine 1.3 H (0.6-1.2) mg/dL Estimated GFR (MDRD) 55 L (>89) Glucose 101 H (70-100) mg/dL Calcium 8.2 L (8.5-10.3) mg/dL Phosphorus 2.3 L (2.5-4.6) mg/dL Magnesium 1.9 (1.7-2.8) mg/dL Total Bilirubin (0.2-1.0) mg/dL AST (10-42) IU/L ALT (10-60) IU/L Alkaline Phosphatase (42-121) IU/L Troponin I High Sens 27.4 H* (2.3-19.7) pg/mL B-Natriuretic Peptide (5-100) pg/mL Total Protein (6.7-8.2) g/dL Albumin (3.2-5.5) g/dL Globulin (2.1-4.2) g/dL Albumin/Globulin Ratio (1.0-2.2) TSH (0.34-5.60) uIU/mL ABX Reporting Has patient been on IV antibiotics over the past 48 hours?: No Assessment/Plan - Problem List (1) Acute on chronic HFrEF (heart failure with reduced ejection fraction) Impression: -Most likely caused by noncompliance with medications as he admits to fighting with [facility] [employer] and could not get his usual cardiac medications -Imaging shows; a right effusion; congested lung hickey -Takes Lisinopril, Lasix, spironolactone, metoprolol, digoxin and Eliquis at home -Echocardiogram from 03/27 shows preliminary results of a reduced EF from his last admission just 2 months earlier (January 2019), now less than 20% -Admission BNP was elevated at 1039, now nearly the same at 1085, with a baseline BNP of 200 -Scattered crackles, S3 gallop, + murmur on exam with a mid-systolic click, abdominal edema, and trace peripheral edema. Evidence of decreased perfusion, less difficulty with completing sentences today, improved capillary refill, peripheral ischemia, cool, and less cyanotic extremities -Secondary to this exacerbation, the patient has hepatic congestion with an el evated bilirubin of 2.7, AST 209, ALT 161 and alk phos is normal -Admission criteria have exceeded an observation stay since having elevated troponin levels (flat but ongoing), cardiac arrhythmias of a-fib, JEOVANY, orthopnea, oxygen requirement, and prolonged progressive weakness -Blood pressure ok today; 99/65, heart rates 80-110s atrial fibrillation (per tele review), nursing has been charting 50s, but not accurate -Patient denies chest pain, but explains that when he has shortness of breath, h e does feel chest pressure that goes away after rest -I spoke with Dr. Johnson, [facility] who confirmed that he did see Chai on 03/13/2019 to evaluate for upcoming ICD and a possible mitral clip procedure -Dr. Johnson confirmed that he sent prescriptions to [facility] to ensure the patient would have an adequate supply to maximize medical guided therapies in treating CHF Plan: Continue to provide 1-2L oxygen to keep oxygen greater than 94% and/or for symptoms of SOB, IV Lasix 40 mg BID, Fluid restriction 2 L, low sodium diet, strict I's and O's, continue metoprolol, spironolactone, HOLD Lisinopril, reduced hydralazine, daily weights, telemetry monitoring, serial troponins, routine labs, resume digoxin today using an IV bolus and pill form in the AM Elevated troponin -Somewhat expected phenomenon with the patients current CHF exacerbation -Remaining flat with a high sensitivity troponin of 34,22,31 -Unchanged EKG (stable atrial fibrillation, R BBB, QRS 162) -No chest pain on exam -Admits to times of chest pressure that resolves when SOB resolves -No new dizziness, diaphoresis, confusion, hypotension or radiation occurs Plan: Continue telemetry, AM troponin, EKG for acute CP Cardiomyopathy -Preliminary EF on 03/27/2019 is <20%, moderate LV enlargement, systolic function is severely impaired, RV systolic function is moderately impaired, severe increase in LA, severe RA enlargement, severe mitral regurg, severe tricuspid regurg and a trivial effusion -The last EF was 25% from January 2019 -The most likely cause of his cardiomyopathy is from long standing substance abuse, and medical noncompliance -BNP continues to be elevated at greater than 1500 today, with a baseline BNP ~200 -Imaging shows cardiomegaly with a right pleural fluid collection -Spoke with cardiology at [facility], Dr. Johnson who has been speaking about: possible upcoming ICD placement - Dr. Johnson states that unless the patient becomes compliant with taking his medications, insurance may not cover any further cardiac procedures Plan: Continue to treat CHF exacerbation, contact [facility] on 03/29 to evaluate for a patient transfer Cor Pulmonale -Preliminary echo from 03/27 shows severe RA and RV enlargement, moderately impaired RV systolic function, RVSP of 65 mmHg, all worse than previous echo in January 2019 -Status post pulmonary emboli, polysubstance abuse, inhalants, COPD, and longstanding non-compliance with KATIE -Prescribed home diuretics, no nebulizers, no Jessie, no LABAs or rescue inhaler use -+ orthopnea, no home oxygen Plan: Continue to encourage home CPAP, continue spironolactone/Lasix, daily weights, Eliquis, and provide oxygen Chronic atrial fibrillation -The patient was found to be in uncontrolled atrial fibrillation upon presentation to ED with heart rates in the 120s -On exam today, he denies chest pain, palpitations, pre-syncope/syncope -Is prescribed Eliquis, BB, and digoxin at home - As per telemetry review, heart rates are uncontrolled with rates 80-110's - AM dose of BB was held, unfortunately not aware, so resuming digoxin with IV bolus tonight -Metoprolol PO was increased later today given the elevated troponins and to maximize his medical guided CHF -TSH was normal Plan: Continue metoprolol, monitor on telemetry, serial troponins, continue home Eliquis Acute kidney injury -Baseline creatinine is ~ 1.0 -Now elevated to 1.3, GFR is 55, likely due to cardio-renal causes -Creatinine now 1.2, BUN 28 -Urine output has been 4525 mL in the past 24 hours -Some amounts have not been charted, no prior order for daily weights Plan: Strict I/Os, daily weights, and routine labs Elevated LFTs -Likely secondary to liver congestion from right-sided heart failure (hepatic congestion) -LFTs remain elevated with a bilirubin of 2.7, AST 209, ALT 161 and is alk phos is normal Plan: Stop Tylenol, continue to monitor LFTs, continue CHF exacerbation treatments, avoid hepato-toxins, consider statin upon discharge Hyperlipidemia -No lipid panel has been obtained since August 2017, no statins on home med list -Statins are contraindicated at this time due to elevated LFTs Plan: Consider starting statin to be prescribed upon discharge home, new lipid panel given the elevated troponins Polysubstance abuse -Prominent history of crack cocaine, methamphetamine and heroin abuse -MUDDs screen shows only opiates on this admission -Pt denied any current drug use and stated that he has been sober for two months -Status post hospitalizations for heroin overdoses -Consequently the patient has profound cardiomyopathy with reduced ejection fraction thought to be in part caused by his prolonged misuse/abuse of methamphetamine, crack cocaine, and heroin Plan: Social work is following, encouraged compliance KATIE on CPAP -Longstanding pulmonary HTN with current RVSP at rest of 65 mmHg, which has increased from the last echo in January 2019 -Prescribed spironolactone at home, continues here to improve EF and attempt to reduce PA pressures -Patients home CPAP is at his bedside and he has been utilizing this -RT is managing this -Unclear if the patient has been compliant due to reports of living in his car lately (homelessness) Plan: Continue to use home unit with necessary oxygen bleed in while sleeping, continue nebulizers, and Xopenex as needed COPD -Patient as a remote history of several inhalants including; tobacco, marijuana and crack cocaine use -Patient demonstrates evidence of poor circulation, non-productive cough and the need for supplemental O2 -No home inhalers are prescribed -Medical non-compliance and ongoing inhalants Plan: RT per home CPAP management and nebulizer treatments using Xopenex as needed Homelessness -Collaboration of events leading to prolonged, unresolved drug use, poor life choices and a lack of group home at this time -Social work notes state: the patient reported that he does not have a place to live upon discharge -Reports that his relationship with his sister who also lives on [facility] is strained due to his past drug use -Pt denied any current drug use and stated that he has been sober for two months -Pt left his van and cell phone with his friend Kayy who, according to the patient, is actively using drugs -Pt is unsure on where his van and cell phone are at this time but is confident that he can locate Kayy and his items upon d/c -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 -Pt plans to explore relocating to [place] where he grew up or [facility] where he also has friends -Pt requested and was provided resources for housing including [facility], [employer], [employer], [facility], and [facility] from social work team Plan: Continue to treat acute illness, social work support Medical noncompliance -Patient admits to not filling his prescription on time, creating a situation in which he could not get a refill on his necessary cardiac medications -Polysubstance abuse history exacerbates his noncompliance -Poor overall prognosis with his new and worsened reduced EF -Currently remains homeless, making it impossible for him to use his home CPAP appropriately Plan: Encourage to provide support, social work is following
[2019-03-29] MEDS ORDERED: DIGOXIN 500 MCG/2 ML AMP IVP ONE (16:15)
[2019-03-29] MEDS: METOPROLOL SUCCINATE 50 MG TABLET PO SCH (16:49)
[2019-03-29] MEDS ORDERED: DIGOXIN 125 MCG TABLET PO SCH (17:00)
[2019-03-29] MEDS ORDERED: METOPROLOL SUCCINATE 50 MG TABLET PO SCH ×2 (17:00)
[2019-03-30] MEDS: SODIUM CHLORIDE FLUSH 0.9% 10 ML SYRINGE IVP SCH ×2 (05:11→08:23)
[2019-03-30 05:28] LABS: BASOPHILS # (AUTO) 0.1 10^3/uL (0.0-0.1); BASOPHILS % (AUTO) 0.8 %; EOSINOPHILS # (AUTO) 0.1 10^3/uL (0.0-0.7); EOSINOPHILS % (AUTO) 2.1 %; HGB - HEMOGLOBIN 13.4 g/dL (14.0-18.0); LYMPHOCYTES # (AUTO) 1.9 10^3/uL (1.5-3.5); LYMPHOCYTES % (AUTO) 28.5 %; MEAN CORPUSCULAR HGB CONC 33.2 g/dL (32.0-36.0); MEAN CORPUSCULAR VOLUME 90.6 fL (80.0-94.0); MONOCYTES # (AUTO) 0.7 10^3/uL (0.0-1.0); NEUTROPHILS # (AUTO) 3.7 10^3/uL (1.5-6.6); NEUTROPHILS % (AUTO) 57.1 %; PLT - PLATELET COUNT 209 10^3/uL (130-450); RED BLOOD COUNT 4.46 10^6/uL (4.70-6.10); RED CELL DISTRIBUTION WIDTH 16.6 % (12.0-15.0); WHITE BLOOD COUNT 6.6 x10^3/uL (4.8-10.8)
[2019-03-30 05:38] LABS: ALBUMIN 2.9 g/dL (3.2-5.5); BILIRUBIN,TOTAL 1.6 mg/dL (0.2-1.0); CALCIUM 8.5 mg/dL (8.5-10.3); TOTAL PROTEIN 5.7 g/dL (6.7-8.2)
[2019-03-30] MEDS: FUROSEMIDE 40 MG/4 ML VIAL IVP SCH ×2 (05:56→13:04)
[2019-03-30] MEDS ORDERED: POTASSIUM CHLORIDE 20 MEQ TABLET PO SCH (07:16)
[2019-03-30] MEDS: APIXABAN 5 MG TABLET PO SCH (08:23)
[2019-03-30] MEDS: METOPROLOL SUCCINATE 50 MG TABLET PO SCH (08:23)
[2019-03-30] MEDS: POLYETHYLENE GLYCOL 3350 17 GM PACKET PO SCH (08:23)
[2019-03-30] MEDS: hydrALAZINE 10 MG TABLET PO SCH ×2 (08:23→12:34)
[2019-03-30] MEDS: SPIRONOLACTONE 25 MG TABLET PO SCH (08:23)
[2019-03-30] MEDS: FAMOTIDINE 20 MG TABLET PO SCH (08:23)
[2019-03-30] MEDS ORDERED: DIGOXIN 125 MCG TABLET PO SCH (09:30)
[2019-03-30] MEDS: SODIUM CHLORIDE FLUSH 0.9% 10 ML SYRINGE IVP PRN (13:04)
[2019-03-30 13:28] VITALS: BP 96/77
--- NOTE | 2019-03-30 13:29 | Discharge Plan ---
Discharge Plan Problem Reviewed?: Yes Disposition: Home, Self Care Condition: Poor Diet: Cardiac Activity Restrictions: Activity as Tolerated Shower Restrictions: No (fall precaution) Health Concerns: medical non-compliance, diastolic heart failure Plan of Treatment: it is critical for you to have medical compliance, your medications are prescribed for one month. please keep your medical compliance. Please followup your PCP and your preparation supervisor freezing for further medical management. Your preparation supervisor freezing Dr. Johnson was called by my colleague, your doctor is well known your conditions. Care Goals: stabilization and improvement of your medical conditions Assessment: assessment as the above Additional Instructions or Follow Up instructions: you may followup your PCP in one week and followup your preparation supervisor freezing in one to two weeks. should your symptoms return or worsen, you may present ER or call 911 for help Follow-Up Care: [facility] - [facility] No Smoking: If you smoke, Please STOP! Call for help. Follow-up with: KINGSTON VASQUEZ ARNP [Primary Care Provider] -
--- NOTE | 2019-03-30 13:45 | DISCHARGE SUMMARY ---
Discharge Summary Discharge Date: 03/30/19 Discharging Provider: LEI Condition at Discharge: Poor Discharge Disposition: 01 Home, Self Care Discharge Facility Name: home - DIAGNOSES Admission Diagnoses: (1) CHF exacerbation (2) Medical non-compliance (3) Non-ischemic cardiomyopathy (4) Atrial fibrillation with RVR (5) Acute kidney injury (6) Transaminitis (7) History of COPD Discharge Diagnoses with Status of Each Condition: (1) CHF exacerbation stable. pt report he felt "it is my strongest day." pt state he will do medical compliance (2) Medical non-compliance pt was educated for medical compliance. pt state he will do medical compliance. pt was prescribed his home meds for a month. (3) Non-ischemic cardiomyopathy stable. 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 Johnson was called for his appointment. advise pt followup his heating element builder as soon as he made his medical compliance per his heating element builder required. pt's new ECHO reveals pt has less than 20% EF (4) Atrial fibrillation with RVR stable, continue home meds (5) Acute kidney injury resolved (6) Transaminitis improved. pt has hx of Hepatitis C (7) History of COPD stable (8) hx of polysubstance abuse advise pt avoid (9) homeless status pt state he is living at his sister home now. pt is prescribed one month home meds. pt state he did not have any home meds now, hope I prescribe him for one month. (10) slight elevated troponin stable. pt denies chest pain. EKG revealed by ER was unchanged from previous. - HPI History of Present Illness: is a 68-year-old gentleman with a past medical history significant for nonischemic cardiomyopathy with an ejection fraction of 20-25% and moderate right heart failure, atrial fibrillation, COPD, obstructive sleep apnea on CPAP, hyperlipidemia, chronic deafness, tobacco abuse, polysubstance abuse including crack cocaine, heroin and methamphetamines, Hepatitis C, with history of recurrent pneumonia with previous hospitalizations for Empyema requiring left thoracotomy with decortication on 01/04/2018 At [facility] who presented to the emergency department with a chief complaint of shortness of breath. pt repot he has been no home meds except Eilquis for one week. Pt report before his last medication pill, he called his PCP to refill, unfortunate he could not get refill his home meds as far. He report in the last couple of days, he felt fatigue, shortness of breath, can not stand up from his bed. He sleep on his bed for two days, but he also report he can not fall into sleep. he also report he felt his lung was "filled up". He denies chest pain, fever, chill. Lab study reveals BNP 1100 increased from previous BNP 600 at the admission at 01/20, creatinine increased to 1.3 from previous 0.8. pt had slight elevated troponin at 34.4. pt is afebrile, and pt had afib with RVR at HR 140 in ER. pt is admitted in observation unit now for above medical reason - HOSPITAL COURSE Hospital Course: pt was admitted for a chief complaint of shortness of breath. pt report he has been no home meds for one week. pt was found to have fluid overload. pt was liliana gloria with IV of lasix, reconcile his home meds as well. after treatment, pt report it was his strongest status. pt's heating element builder was called for his next appointment. pt's ECHO reveals slight worsening condition compared the previous, EF is less than 20%. it is likely caused from his medical non-compliance. The detail hospital course is as the below. (1) CHF exacerbation stable. pt report he felt "it is my strongest day." pt state he will do medical compliance (2) Medical non-compliance pt was educated for medical compliance. pt state he will do medical compliance. pt was prescribed his home meds for a month. (3) Non-ischemic cardiomyopathy stable. 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 Johnson was called for his appointment. advise pt followup his heating element builder as soon as he made his medical compliance per his heating element builder required. pt's new ECHO reveals pt has less than 20% EF. (4) Atrial fibrillation with RVR stable, continue home meds (5) Acute kidney injury resolved (6) Transaminitis improved. pt has hx of Hepatitis C (7) History of COPD stable (8) hx of polysubstance abuse advise pt avoid (9) homeless status pt state he is living at his sister home now. pt is prescribed one month home meds. pt state he did not have any home meds now, hope I prescribe him for one month. (10) slight elevated troponin stable. pt denies chest pain. EKG revealed by ER was unchanged from previous. - ALLERGIES Allergies/Adverse Reactions: Allergies Allergy/AdvReac Type Severity Reaction Status Date / Time No Known Drug Allergies Allergy Verified 01/14/19 17:50 - MEDICATIONS Home Medications: Ambulatory Orders Medication Instructions Recorded Confirmed Lisinopril [Zestril] 2.5 mg PO DAILY #60 tablet 06/27/18 03/27/19 Spironolactone [Aldactone] 25 mg PO DAILY #60 tablet 06/27/18 03/27/19 Apixaban [Eliquis] 5 mg PO BID 01/15/19 03/27/19 Digoxin 125 mcg PO DAILY 01/15/19 03/29/19 Furosemide 20 mg PO DAILY 01/15/19 03/28/19 Saccharomyces Boulardii [Florastor] 250 mg PO BID #60 capsule 01/17/19 03/28/19 Metoprolol Tartrate 75 mg PO BID 03/28/19 03/28/19 - PHYSICAL EXAM AT DISCHARGE General Appearance: positive: No acute distress, Alert. negative: Lethargic Eyes Bilateral: positive: Normal inspection, PERRL, No lid inflammation, Conjunctivae nml ENT: positive: ENT inspection nml, Pharynx nml, No signs of dehydration. negative: Purulent nasal drainage, Pharyngeal erythema, Oral lesions Neck: positive: Nml inspection, Thyroid nml, No JVD, Trachea midline. negative: Thyromegaly, Lymphadenopathy (R), Lymphadenopathy (L), Stiff neck, Swelling/bruising, Tracheal deviation Respiratory: positive: Chest non-tender, No respiratory distress, Breath sounds nml. negative: Wheezes, Rales, Rhonchi Cardiovascular: positive: Regular rate & rhythm, No gallop, Irregularly irregular, Systolic murmur. negative: Extrasystoles, Tachycardia, Bradycardia, JVD present, Diastolic murmur Peripheral Pulses: positive: 2+ Abdomen: positive: Non-tender, No organomegaly, Nml bowel sounds, No distention. negative: Tenderness, Guarding, Rebound Back: positive: Nml inspection. negative: CVA tenderness (R), CVA tenderness (L) Skin: positive: Color nml, No rash, Warm, Dry. negative: Cyanosis, Diaphoresis, Pallor Extremities: positive: Non-tender, Full ROM, Nml appearance. negative: Calf tenderness, Joint swelling, Dolly's sign/cords Neurologic/Psychiatric: positive: Oriented x3, Motor nml, Sensation nml, Mood/affect nml. negative: Weakness, Sensory loss, Facial droop, Slurred/abnml speech, Depressed mood/affect - LABS Result Diagrams: 03/30/19 05:10 03/30/19 05:10 - SEPSIS Current Stage of Sepsis: Ruled out - FOLLOW UP Follow Up: it is critical for you to have medical compliance, your medications are prescribed for one month. please keep your medical compliance. Please followup your PCP and your heating element builder for further medical management. Your heating element builder Dr. Johnson was called by my colleague, your doctor is well known your conditions. you may followup your PCP in one week and followup your heating element builder in one to two weeks. should your symptoms return or worsen, you may present ER or call 911 for help - TIME SPENT Time Spent in Discharge (Minutes): 55
== END 2019-03-30 14:30 | disposition home or self-care (01) | DRG 292 ==
LOC: EDUNIT# → ED 06:47 → MS2 09:12 → OBSVTOIN 03-28 14:55
PROVIDERS: ADMIT Nurse Practitioner Gerontology; ATTEND Nurse Practitioner Gerontology
DX: I11.0 Hypertensive heart disease with heart failure (principal); N17.9 Acute kidney failure, unspecified; I50.43 Acute on chronic combined systolic (congestive) and diastolic (congestive) heart failure; I48.2 Chronic atrial fibrillation; J44.9 Chronic obstructive pulmonary disease, unspecified; G47.33 Obstructive sleep apnea (adult) (pediatric); I27.23 Pulmonary hypertension due to lung diseases and hypoxia; F14.10 Cocaine abuse, uncomplicated; F15.10 Other stimulant abuse, uncomplicated; F11.10 Opioid abuse, uncomplicated; I42.6 Alcoholic cardiomyopathy; F10.10 Alcohol abuse, uncomplicated; I42.7 Cardiomyopathy due to drug and external agent; T43.621S Poisoning by amphetamines, accidental (unintentional), sequela; T40.1X Poisoning by and adverse effect of heroin; B18.2 Chronic viral hepatitis C; E78.5 Hyperlipidemia, unspecified; R74.0 Nonspecific elevation of levels of transaminase and lactic acid dehydrogenase [LDH]; F17.200 Nicotine dependence, unspecified, uncomplicated; I08.1 Rheumatic disorders of both mitral and tricuspid valves; R79.89 Other specified abnormal findings of blood chemistry; H91.90 Unspecified hearing loss, unspecified ear; Z66 Do not resuscitate; Z91.14 Patient's other noncompliance with medication regimen; Z91.19 Patient's noncompliance with other medical treatment and regimen; Z79.51 Long term (current) use of inhaled steroids; Z79.82 Long term (current) use of aspirin; Z79.01 Long term (current) use of anticoagulants; Z59.0 Homelessness; Z82.49 Family history of ischemic heart disease and other diseases of the circulatory system; Z86.711 Personal history of pulmonary embolism; Z87.01 Personal history of pneumonia (recurrent)
CPT/HCPCS: 36415; 71045; 80048; 80053; 80162; 81003; 82009; 82140; 83690; 83735; 83880; 84100; 84443; 84484; 85025; 85610; 85730; 87640; 93005; 93306; 96361; 96374; 96375; 96376; 99284; 99285; A9270; G0378; J1650; 80306; 80320; 81001; 87086

== ENCOUNTER 2019-07-17 15:39 | Outpatient (CLI) | payer MEDICARE, OTHER, MEDICAID ==
--- NOTE | 2019-07-17 18:27 | SLEEP CARE CONSULTATION ---
Information from patient questionnaire entered by Cyndi Ruano. I have reviewed and concur with the information entered by Cyndi Ruano. This document represents the service I personally performed and the decisions made by me, Silvia Lopez, RN, MSN, SITE PROMOTION AGENT. History of Present Illness Reason for Visit: New patient, Previously diagnosed sleep apnea (AHI 21.8), sleep apnea on CPAP therapy, Re-establish care (stopped using CPAP 6 months ago due to mask not fitting. Last supplies about 2 years ago. He restarted a last month for 15 days and felt more rested with use. ) Chief Complaint: reports: Observed pauses in breathing, Fatigue, Frequent awakenings at night, Other (thorasic surgery 2018) Duration of Symptoms: 10 years Usual bedtime: 2100 Time it takes to fall asleep: if tired, immediately Snores at night: Yes Observed to quit breathing while asleep: Yes Sleeps alone due to snoring: No Number of times waking at night: 3 Reasons for waking at night: reports: Bathroom Toss, Turn, or Twitch while sleeping: No Recalls having dreams: Yes Usually gets out of bed at: [id number] Feels refreshed in the morning: No (He felt more refreshed when used CPAP last month ) Morning headache: No Sleepy or fatigued during the day: Yes Ever fallen asleep while driving: Yes (no accident - occurred after "over working") Takes day naps: Yes (sometimes - 1 time a week for about an hour) Dreams during day naps: No Prior sleep studies: Yes Year and Where: 2010 [facility] Symptoms Ever been unable to move upon waking from sleep: No Walks in sleep: No Talks in sleep: No Ever felt weak in the knees when startled or emotional: No Bothered by creepy, crawly, restless sensations in legs: No Problems with memory or concentration: No CPAP Compliance Data - Data Reviewed with Patient Average duration of nightly device use: 5.5 Compliance rate %: 5.6 (180 days / 15 days of use ) Current pressure setting (cmH2O): 15-20 Humidity setting: variable Average residual AHI: 4.1 Central apnea: 0 Obstructive apnea: 3.4 Hypopnea: 0.7 Subjective Initial [place] Sleepiness Scale score: 18 Past Medical History Past Medical History: reports: Congestive Heart Failure, Arrythmia, Emphysema, Other (hearing loss / 2018 thoracotomy for lung infection ) Social History The patient's occupation is retired. Patient is Single and lives in [place]. Cigarettes per day (20/pack): 20 Years of smokin Quit date: 11/07/09 Smoking Pack Years: 30.0 Alcohol use: No Caffeine use: Yes Caffeine amount and frequency: 2-3 cups/morning Family History Family history of sleep disordered breathing: No Allergies and Home Medications Known drug allergies: No Home medication list reviewed: Yes (stopped metolprolol 50mg bid and aspirin) Allergy and home medication list: Eliquis 5mg po bid lisinopril 2.5mg daily spironloacone 25mg daily furosemide 40mg daily digoxin 125mcg daily Review of Systems Review of systems same as previous: No Weight loss over past 5 years: 30 Cardiovascular: reports: irregular heart rate or pulse Respiratory: reports: shortness of breath Urinary: reports: frequency Neurological: reports: gait or balance problems (only when vertigo intermittently ) Psychiatric: reports: depression Ear/Nose/Throat: reports: nasal congestion, sinus problems Endocrine: reports: sluggishness, increased urination Musculoskeletal: reports: joint pain (chronic muscle and joint pain. ), neck pain, muscle pain or cramping, mobility problems Immunologic: reports: sneezing Physical Exam Blood Pressure: 100/60 Cuff size: regular Heart Rate: 100 (apical initially 120 then 100-110 and 90 at end of visit) O2 Saturation: 98 Height: 6 ft 5 in Weight: 177 lb Weight change since last visit: lost 20 pounds Body Mass Index: 20.9 BMI Classification: Healthy weight HEENT: No craniofacial malformation Nostrils: partially obstructed Turbinates: swollen Septum: midline Mouth and throat: narrow oropharynx Soft palate: long Hard palate: normal Uvula: normal Uvula visualization: 25% Mallampati Class III Tongue: normal in size Tonsils: small Chin and jaw: normal size and position Neck: normal w/o lymphadenopathy or thyromegaly Heart: irregular rhythm Lungs: clear bilaterally Abdomen: soft Extremities: no edema or clubbing Neurologic: intact (grossly intact) Impression and Plan 1. 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 He reports he has been using CPAP intermittently prior year. However, he retried use of CPAP last month for a couple of weeks and felt more rested with use even with a poor fitting mask. Current symptoms without CPAP include from loud and irregular snoring, observed cessation of breath while asleep, frequent awakening during the night, unrefreshed sleep, and excessive daytime sleepiness. Narrow oropharynx and obesity are common predisposing factors for obstructive sleep apnea-hypopnea syndrome. He has lost 20 pounds since last seen and is 3o pounds less then when first diagnosed in 2010. Because of significant break in CPAP use, weight loss and new to Medicare, I recommend proceeding to polysomnography to confirm the diagnosis and to assess severity. He is instructed not to use the CPAP the night before test due to lasting benefit of CPAP pressure. If the patient has significant sleep disordered breathing, a manual CPAP titration study will also be performed to find the optimal treatment pressure. I informed the patient of what the sleep studies involve and after some discussion, obtained agreement to proceed. The pathophysiology of obstructive sleep apnea- hypopnea syndrome was discussed with the patient and health risks of cardiovascular and cerebrovascular disease if not treated. Risks of drowsy driving discussed in detail and patient advised to avoid long distance driving and to rack puller at the first sign of drowsiness. Patient agreed to plan. Because of patient history of arrhythmia and benefit stated with using CPAP, I fitted him with a Dreamwear full face mask to use until his sleep study and he can have Medicare cover supplies. 2.tachycardia, heart rate irregular - irregular rate of 80-130 per pulse oximetry today. Apical heart rate 120 over one minute. Patient states he has been treated for years for atrial fibrillation with variable heart rate. I notified my spanish medical interpreter Dr. Paulino and he placed his Iphone watch on patient and it showed atrial fibrillation at 111 beats per minute. Apical pulse similar of 100- 11o when rechecked and pulse oximetry with heart rate of 90 at end of visit. Patient denies chest pain or shortness of breath. Patient evidently stopped his metoprolol after it was lost in travel with his back pack a few months ago and did not restart due to the fatigue it caused. He did not report this to his PCP when seen 07/14/19. I explained rationale for use of the medication to control his arrhythmia and rate. I explained the importance of notifying his prescriber if unable to take medication prescribed or has side effects that are affecting life quality. He is advised to restart his medication and contact his PCP. He can belt picker his medication on way home from pharmacy. Patient agreed with plan. * Schedule polysomnography * Do not use CPAP the night before sleep study. * Avoid long distance driving or driving when feeling sleepy. * Avoid alcohol, sedative and muscle relaxant around bedtime. * Attempt to lose weight. * Review instructions provided by trained office staff on how to prepare for the sleep study. * Inform PCP that stopped metoprolol due to loss of medication while traveling and fatigue * Return for follow-up after sleep study completed. Time Spent with Patient (minutes): 60 I spent 100% of this visit face to face with the patient with greater than 50% of this was spent time counseling the patient and coordination of care. Extra time taken due to patient hearing deficit. He does not have hearing aids and reads lips only.
[2019-07-18 15:24] VITALS: BP 100/60
== END 2019-07-17 15:40 | disposition home or self-care (01) ==
LOC: SC 15:39
PROVIDERS: ATTEND Nurse Practitioner Family
DX: G47.33 Obstructive sleep apnea (adult) (pediatric) (principal); R00.0 Tachycardia, unspecified
CPT/HCPCS: 99205; G0463; 99212

== ENCOUNTER 2019-07-26 19:49 | Outpatient (CLI) | payer MEDICARE, OTHER, MEDICAID | END 2019-07-26 19:50 | disposition home or self-care (01) | LOC: SC 19:49 | PROVIDERS: ATTEND Nurse Practitioner Family | DX: Z53.9 Procedure and treatment not carried out, unspecified reason (principal) ==

== ENCOUNTER 2019-07-26 20:34 | Outpatient (CLI) | payer MEDICARE, OTHER, MEDICAID | END 2019-07-26 23:59 | disposition critical access hospital (66) | LOC: EMS 20:34 | PROVIDERS: ATTEND Surgery | DX: R06.02 Shortness of breath (principal); R00.0 Tachycardia, unspecified; R53.1 Weakness | CPT/HCPCS: A0425; A0429 ==

== ENCOUNTER 2019-07-26 20:52 | Observation (INO) | payer MEDICARE, OTHER, MEDICAID ==
[2019-07-26] MEDS ORDERED: diltiaZEM INJ 5 MG/ML VIAL IVP STA (21:04)
[2019-07-26] MEDS ORDERED: SODIUM CHLORIDE 0.9% 1,000 ML IV ONE (21:07)
--- NOTE | 2019-07-26 21:10 | ED Physician Documentation ---
PD HPI CHEST PAIN - Stated complaint Stated Complaint: IRREG HR - History obtained from History obtained from: Patient - History of Present Illness Timing - onset: Today (Patient is a very pleasant 69-year-old male with a chief complaint of chest pain and shortness of breath. The patient tonight was scheduled to go to a sleep study test upon arrival to checked his vital signs and he was complained of chest pain and shortness of breath he noticed that his heart rate was in the 140s to 150s the patient does report a significant and complicated past medical history to include what sounds like a pulmonary embolus as well as left sided empyema with thoracotomy and drainage. He reports he is anticoagulated with Eliquis for a known history of pulmonary embolism.He does report a known history of atrial fibrillation he is been on different types of medication to include digoxin as well as a beta-roger and he reports he has been unable to take his metoprolol recently.) Timing - onset during: Rest Timing - duration: Days Review of Systems Ten Systems: 10 systems reviewed and negative Constitutional: reports: Reviewed and negative Eyes: reports: Reviewed and negative Ears: reports: Reviewed and negative Nose: reports: Reviewed and negative Throat: reports: Reviewed and negative Cardiac: reports: Chest pain / pressure, Reviewed and negative Respiratory: reports: Dyspnea, Reviewed and negative GI: reports: Reviewed and negative : reports: Reviewed and negative Skin: reports: Reviewed and negative Musculoskeletal: reports: Reviewed and negative Neurologic: reports: Reviewed and negative Psychiatric: reports: Reviewed and negative Endocrine: reports: Reviewed and negative Immunocompromised: reports: Reviewed and negative PD PAST MEDICAL HISTORY - Past Medical History Past Medical History: Yes Cardiovascular: Congestive heart failure, Hypertension, High cholesterol, Pulmonary embolism, Atrial fibrillation Respiratory: COPD, Pneumonia Neuro: None Endocrine/Autoimmune: None GI: None : None HEENT: Chronic hearing loss Psych: None Musculoskeletal: None Derm: Other - Past Surgical History Past Surgical History: Yes Ortho: Other Cardiovascular: Other - Present Medications Home Medications: Ambulatory Orders Medication Instructions Recorded Confirmed Spironolactone [Aldactone] 25 mg PO DAILY #60 tablet 06/27/18 03/27/19 lisinopriL [Zestril] 2.5 mg PO DAILY #60 tablet 06/27/18 03/27/19 Apixaban [Eliquis] 5 mg PO BID 01/15/19 03/27/19 Digoxin 125 mcg PO DAILY 01/15/19 03/29/19 Furosemide 20 mg PO DAILY 01/15/19 03/28/19 Saccharomyces Boulardii [Florastor] 250 mg PO BID #60 capsule 01/17/19 03/28/19 Metoprolol Tartrate 75 mg PO BID 03/28/19 03/28/19 - Allergies Allergies/Adverse Reactions: Allergies Allergy/AdvReac Type Severity Reaction Status Date / Time No Known Drug Allergies Allergy Verified 01/14/19 17:50 - Social History Does the pt smoke?: No Smoking Status: Never smoker Does the pt drink ETOH?: No Does the pt have substance abuse?: Yes - Immunizations Immunizations are current?: Yes - POLST Patient has POLST: No POLST Status: Full Code PD ED PE NORMAL - Cardiac Cardiac: Other (Tachycardic and irregularly irregular) Results - Vitals Vitals: Vital Signs - 24 hr 07/26/19 07/26/19 07/26/19 21:07 21:13 22:01 Temperature 36.6 C Heart Rate 129 H 115 H 96 Respiratory 18 14 11 L Rate Blood Pressure 106/72 106/72 96/74 O2 Saturation 98 98 94 07/26/19 22:02 Temperature Heart Rate 103 H Respiratory 11 L Rate Blood Pressure 80/66 L O2 Saturation 98 Oxygen O2 Source Room air - Labs Labs: Laboratory Tests 07/26/19 07/26/19 07/26/19 21:17 21:17 21:17 WBC 7.2 RBC 4.43 L Hgb 13.7 L Hct 40.1 L MCV 90.5 MCH 30.9 MCHC 34.2 RDW 15.7 H Plt Count 197 MPV 10.5 Neut # (Auto) 4.5 Lymph # (Auto) 1.7 [place] # (Auto) 0.8 Eos # (Auto) 0.2 Baso # (Auto) 0.1 Absolute Nucleated RBC 0.00 Nucleated RBC % 0.0 PT 20.0 H INR 1.8 H APTT 32.3 Sodium 135 Potassium 4.0 Chloride 99 L Carbon Dioxide 23 Anion Gap 13.0 BUN 36 H Creatinine 1.4 H Estimated GFR (MDRD) 50 L Glucose 101 H Calcium 8.9 Total Bilirubin 1.8 H AST 44 H ALT 27 Alkaline Phosphatase 153 H Troponin I High Sens B-Natriuretic Peptide Total Protein 7.9 Albumin 3.8 Globulin 4.1 Albumin/Globulin Ratio 0.9 L Lipase 40 TSH Ethyl Alcohol < 5.0 07/26/19 07/26/19 07/26/19 21:17 21:17 21:17 WBC RBC Hgb Hct MCV MCH MCHC RDW Plt Count MPV Neut # (Auto) Lymph # (Auto) [place] # (Auto) Eos # (Auto) Baso # (Auto) Absolute Nucleated RBC Nucleated RBC % PT INR APTT Sodium Potassium Chloride Carbon Dioxide Anion Gap BUN Creatinine Estimated GFR (MDRD) Glucose Calcium Total Bilirubin AST ALT Alkaline Phosphatase Troponin I High Sens 22.1 H* B-Natriuretic Peptide 589 H Total Protein Albumin Globulin Albumin/Globulin Ratio Lipase TSH 2.57 Ethyl Alcohol Procedures - General procedure General procedure: EKG interpretation shows atrial fibrillation with rapid ventricular response, no STEMI. PD MEDICAL DECISION MAKING - ED course Complexity details: other (Patient presents in atrial fibrillation with rapid ventricular response with a heart rate in the 150s plan is for 0.25 mg/kg bolus of diltiazem and observation and reevaluate this patient.) Departure - Departure Disposition: 66 [facility] DC/Xfer Clinical Impression: Atrial fibrillation with RVR Condition: Fair Discharge Date/Time: 07/27/19 00:40
[2019-07-26 21:21] LABS: BASOPHILS # (AUTO) 0.1 10^3/uL (0.0-0.1); BASOPHILS % (AUTO) 0.7 %; EOSINOPHILS # (AUTO) 0.2 10^3/uL (0.0-0.7); EOSINOPHILS % (AUTO) 2.1 %; HGB - HEMOGLOBIN 13.7 g/dL (14.0-18.0); LYMPHOCYTES # (AUTO) 1.7 10^3/uL (1.5-3.5); LYMPHOCYTES % (AUTO) 24.1 %; MEAN CORPUSCULAR HEMOGLOBIN 30.9 pg (27.0-31.0); MEAN CORPUSCULAR HGB CONC 34.2 g/dL (32.0-36.0); MEAN CORPUSCULAR VOLUME 90.5 fL (80.0-94.0); MEAN PLATELET VOLUME 10.5 fL (7.4-11.4); MONOCYTES # (AUTO) 0.8 10^3/uL (0.0-1.0); MONOCYTES % (AUTO) 10.7 %; NEUTROPHILS # (AUTO) 4.5 10^3/uL (1.5-6.6); NEUTROPHILS % (AUTO) 62.1 %; PLT - PLATELET COUNT 197 10^3/uL (130-450); RED BLOOD COUNT 4.43 10^6/uL (4.70-6.10); RED CELL DISTRIBUTION WIDTH 15.7 % (12.0-15.0); WHITE BLOOD COUNT 7.2 x10^3/uL (4.8-10.8)
[2019-07-26 21:27] LABS: INR 1.8 (0.8-1.2)
[2019-07-26 21:34] LABS: PARTIAL THROMBOPLASTIN TIME 32.3 secs (24.9-33.3)
[2019-07-26 21:35] LABS: ALBUMIN 3.8 g/dL (3.2-5.5); ALBUMIN/GLOBULIN RATIO 0.9 (1.0-2.2); ALKALINE PHOSPHATASE 153 IU/L (42-121); ALT ALANINE AMINOTRANSFERASE 27 IU/L (10-60); AST ASPARTATE AMINOTRANSFERASE 44 IU/L (10-42); BILIRUBIN,TOTAL 1.8 mg/dL (0.2-1.0); BUN - BLOOD UREA NITROGEN 36 mg/dL (6-20); CALCIUM 8.9 mg/dL (8.5-10.3); CARBON DIOXIDE - CO2 23 mmol/L (21-32); CHLORIDE 99 mmol/L (101-111); CREATININE 1.4 mg/dL (0.6-1.2); GFR - MDRD 50 (>89); GLUCOSE 101 mg/dL (70-100); LIPASE 40 U/L (22-51); SODIUM 135 mmol/L (135-145); TOTAL PROTEIN 7.9 g/dL (6.7-8.2)
--- NOTE | 2019-07-26 21:48 | XRAY Report ---
Reason: SOB Procedure Date: 07/26/2019 Accession Number: [id number] / [id number] Procedure: XR - Chest 1 View X-Ray CPT Code: 49276 Final Report FULL RESULT: EXAM: CHEST RADIOGRAPHY EXAM DATE: 07/26/2019 09:38 PM. CLINICAL HISTORY: SOB. COMPARISON: CHEST 1 VIEW 03/27/2019 7:31 AM. TECHNIQUE: 1 view. FINDINGS: Lungs/Pleura: Mildly hyperexpanded with coarse lung markings. Probable trace pleural effusions, decreased since previous study. No consolidation. No pneumothorax. Mediastinum: Moderate to marked cardiomegaly similar to previous exam. Upper lobe vessels not distended. Azygous fullness. Other: None. IMPRESSION: Cardiomegaly. Azygous distention suggests systemic vascular fullness and can be an early sign of congestive failure. [facility]
[2019-07-26] MEDS ORDERED: ONDANSETRON 4 MG/2 ML VIAL IVP PRN (23:34)
[2019-07-26] MEDS ORDERED: ACETAMINOPHEN 325 MG TABLET PO PRN (23:34)
[2019-07-26] MEDS ORDERED: SODIUM CHLORIDE FLUSH 0.9% 10 ML SYRINGE IVP PRN (23:34)
[2019-07-26] MEDS ORDERED: ONDANSETRON ODT 4 MG TABLET TL PRN (23:34)
[2019-07-26] MEDS ORDERED: oxyCODONE 5 MG TABLET PO PRN (23:34)
[2019-07-26] MEDS ORDERED: APIXABAN 5 MG TABLET PO STA (23:37)
[2019-07-26] MEDS ORDERED: METOPROLOL SUCCINATE 50 MG TABLET PO SCH ×2 (23:38→23:49)
[2019-07-26] MEDS ORDERED: DIGOXIN 125 MCG TABLET PO STA (23:38)
[2019-07-26] MEDS ORDERED: SODIUM CHLORIDE 0.9% 1,000 ML IV SCH (23:45)
[2019-07-26] MEDS ORDERED: FUROSEMIDE 20 MG/2 ML VIAL IVP STA (23:47)
[2019-07-27 00:06] LABS: MUDS CUTOFF CONCENTRATIONS CUTOFF CONC BELOW:
[2019-07-27 00:18] LABS: AMPHETAMINE SCREEN,URINE NEGATIVE (NEGATIVE); BENZODIAZEPINES SCREEN, URINE NEGATIVE (NEGATIVE); COCAINE SCREEN URINE NEGATIVE (NEGATIVE); METHADONE SCREEN, URINE NEGATIVE (NEGATIVE); METHAMPHETAMINES SCREEN, URINE NEGATIVE (NEGATIVE); OPIATE SCREEN, URINE NEGATIVE (NEGATIVE); OXYCODONE SCREEN, URINE NEGATIVE (NEGATIVE); PROPOXYPHENE SCREEN, URINE NEGATIVE (NEGATIVE); TRICYCLIC ANTIDEPRESSANT,URINE NEGATIVE (NEGATIVE)
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
[2019-07-27] MEDS: SODIUM CHLORIDE FLUSH 0.9% 10 ML SYRINGE IVP SCH ×2 (01:53→10:23)
[2019-07-27] MEDS ORDERED: SODIUM CHLORIDE 0.9% 1,000 ML IV SCH (08:22)
[2019-07-27] MEDS ORDERED: METOPROLOL 5 MG/5 ML VIAL IVP PRN (08:23)
[2019-07-27] MEDS ORDERED: DIGOXIN 125 MCG TABLET PO STA (08:26)
[2019-07-27] MEDS ORDERED: IPRATROPIUM/ALBUTEROL 3 ML NEB INH PRN (08:33)
[2019-07-27] MEDS ORDERED: LEVALBUTEROL 1.25 MG/3 ML NEB INH PRN (08:33)
[2019-07-27] MEDS ORDERED: SACCHAROMYCES BOULARDII 250 MG CAPSULE PO SCH ×2 (09:00→17:00)
[2019-07-27 09:29] LABS: BASOPHILS % (AUTO) 0.5 %; EOSINOPHILS # (AUTO) 0.1 10^3/uL (0.0-0.7); EOSINOPHILS % (AUTO) 1.5 %; HGB - HEMOGLOBIN 13.6 g/dL (14.0-18.0); LYMPHOCYTES # (AUTO) 1.5 10^3/uL (1.5-3.5); LYMPHOCYTES % (AUTO) 20.7 %; MEAN CORPUSCULAR HEMOGLOBIN 30.1 pg (27.0-31.0); MEAN CORPUSCULAR HGB CONC 33.2 g/dL (32.0-36.0); MEAN CORPUSCULAR VOLUME 90.7 fL (80.0-94.0); MEAN PLATELET VOLUME 10.9 fL (7.4-11.4); MONOCYTES # (AUTO) 0.7 10^3/uL (0.0-1.0); MONOCYTES % (AUTO) 10.1 %; NEUTROPHILS # (AUTO) 4.9 10^3/uL (1.5-6.6); NEUTROPHILS % (AUTO) 66.8 %; PLT - PLATELET COUNT 197 10^3/uL (130-450); RED BLOOD COUNT 4.52 10^6/uL (4.70-6.10); RED CELL DISTRIBUTION WIDTH 15.9 % (12.0-15.0); WHITE BLOOD COUNT 7.3 x10^3/uL (4.8-10.8)
[2019-07-27 09:41] LABS: ALBUMIN 3.6 g/dL (3.2-5.5); BILIRUBIN,TOTAL 2.3 mg/dL (0.2-1.0); CALCIUM 8.4 mg/dL (8.5-10.3); CREATININE 1.3 mg/dL (0.6-1.2); TOTAL PROTEIN 7.2 g/dL (6.7-8.2)
[2019-07-27 09:45] LABS: DIGOXIN 0.2 ng/mL
[2019-07-27] MEDS: APIXABAN 5 MG TABLET PO SCH ×2 (10:23→16:45)
[2019-07-27] MEDS: METOPROLOL SUCCINATE 50 MG TABLET PO SCH ×2 (10:25→16:46)
--- NOTE | 2019-07-27 11:54 | PHARMACY PROGRESS NOTE ---
- Best Possible Medication History Admit Date and Time: 07/26/19 4557 Processed by: Pharmacy Medication History completed: In progress (awaiting fax for active medication hx from PCP) As the person ultimately responsible for medication therapy, providers are able to order a medication from an existing home medication list in [facility] via the "Reconcile Routine" prior to Confirmation of that medication by administrative support assoc. Such practice is discouraged except when the physician, in their clinical judgment, deems that a medical need exists for a medication without regard to previous use.
[2019-07-27 14:22] LABS: CALCIUM 8.1 mg/dL (8.5-10.3); CREATININE 1.2 mg/dL (0.6-1.2)
--- NOTE | 2019-07-27 14:30 | Discharge Plan ---
Discharge Plan Problem Reviewed?: Yes Disposition: Home, Self Care Condition: Poor Prescriptions: Apixaban [Eliquis] 5 mg PO BID #60 tablet Aspirin [Aspirin EC] 81 mg PO DAILY #30 tablet. Metoprolol Succinate 50 mg PO BID #60 tab.er.24h Spironolactone [Aldactone] 25 mg PO DAILY #30 tablet Diet: Diabetic Activity Restrictions: Activity as Tolerated Shower Restrictions: No (fall precaution) Instruction Topics: Metoprolol tablets, Heart Failure, Digoxin, Atrial Fibrillation, Apixaban oral tablets, Spironolactone tablets Health Concerns: medical non-compliance, chronic afib, Heart failure Plan of Treatment: resume your home meds as the schedule. It is critical for you to keep medical compliance. you are prescribed four meds as your home meds schedule because you state you did not have any more of this four meds, Metoprolol, Eliquis, Aspirin and spironolactone. Care Goals: stabilization and improvement of your medical conditions, and keep your medical compliance. Assessment: discussed with you about the care plan, you understood and you will followup. Additional Instructions or Follow Up instructions: you may followup your PCP in one week. Should your symptoms return or worsen, you may present ER o call [phone] for help. No Smoking: If you smoke, Please STOP! Call for help. Follow-up with: Blayne Dietz MD [Primary Care Provider] -
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
[2019-07-27 16:11] VITALS: BP 120/77
== END 2019-07-27 16:58 | disposition home or self-care (01) ==
LOC: EDUNIT# → ED 20:52 → MS3 23:34
PROVIDERS: ADMIT Specialist; ATTEND Nurse Practitioner Gerontology
DX: I48.20 Chronic atrial fibrillation, unspecified (principal); I13.0 Hypertensive heart and chronic kidney disease with heart failure and stage 1 through stage 4 chronic kidney disease, or unspecified chronic kidney disease; I50.23 Acute on chronic systolic (congestive) heart failure; N18.2 Chronic kidney disease, stage 2 (mild); T50.906A Underdosing of unspecified drugs, medicaments and biological substances, initial encounter; Z91.120 Patient's intentional underdosing of medication regimen due to financial hardship; G47.33 Obstructive sleep apnea (adult) (pediatric); J44.9 Chronic obstructive pulmonary disease, unspecified; N17.9 Acute kidney failure, unspecified; B18.2 Chronic viral hepatitis C; H91.90 Unspecified hearing loss, unspecified ear; Z86.711 Personal history of pulmonary embolism; Z79.01 Long term (current) use of anticoagulants; Z87.01 Personal history of pneumonia (recurrent); Z87.891 Personal history of nicotine dependence; Z82.49 Family history of ischemic heart disease and other diseases of the circulatory system
CPT/HCPCS: 36415; 71045; 80048; 80053; 80162; 83690; 83735; 83880; 84443; 84484; 85025; 85610; 85730; 93005; 94640; 96361; 96374; 96375; 99281; 99285; A9270; G0378; 80306; 80320

== ENCOUNTER 2019-07-27 19:24 | Inpatient (IN) | payer MEDICARE, OTHER, MEDICAID ==
[2019-07-27] MEDS ORDERED: NALOXONE 0.4 MG/ML VIAL ONE (20:16)
--- NOTE | 2019-07-27 20:20 | ED Physician Documentation ---
PD HPI DYSPNEA - Stated complaint Stated Complaint: SOA - Chief complaint Chief Complaint: Resp - History obtained from History obtained from: Patient (Patient is a 69-year-old male who was admitted to the hospital yesterday from the emergency department by myself for atrial fibrillation with rapid ventricular response he was discharged today and now presents with acute shortness of breath the patient's denying any ingestion such as any controlled substances and reports that he just does not feel well.) Review of Systems Unable to obtain: AMS PD PAST MEDICAL HISTORY - Past Medical History Cardiovascular: Congestive heart failure, Hypertension, High cholesterol, Pulmonary embolism, Atrial fibrillation Respiratory: COPD, Pneumonia, Sleep apnea, Other Neuro: Other Endocrine/Autoimmune: None GI: Colon polyps, Hepatitis, Cirrhosis : None HEENT: Chronic hearing loss Psych: Anxiety Musculoskeletal: Osteoarthritis Derm: Other - Past Surgical History Past Surgical History: Yes General: Other Ortho: Other Cardiovascular: Cardiac catheterization - Present Medications Home Medications: Ambulatory Orders Medication Instructions Recorded Confirmed Digoxin 125 mcg PO DAILY 01/15/19 07/27/19 Furosemide 40 mg PO BID 01/15/19 07/27/19 Apixaban [Eliquis] 5 mg PO BID #60 tablet 07/27/19 Aspirin [Aspirin EC] 81 mg PO DAILY #30 tablet.dr 07/27/19 Metoprolol Succinate 50 mg PO BID #60 tab.er.24h 07/27/19 Spironolactone [Aldactone] 25 mg PO DAILY #30 tablet 07/27/19 - Allergies Allergies/Adverse Reactions: Allergies Allergy/AdvReac Type Severity Reaction Status Date / Time No Known Drug Allergies Allergy Verified 01/14/19 17:50 - Social History Does the pt smoke?: No Smoking Status: Never smoker Does the pt drink ETOH?: No Does the pt have substance abuse?: Yes - Immunizations Immunizations are current?: Yes - POLST Patient has POLST: No POLST Status: Full Code PD ED PE NORMAL - Vitals Vital signs reviewed: Yes - General General: Other (The patient is confused and he is hypoxic on arrival) - HEENT HEENT: PERRL, EOMI, Pharynx benign - Neck Neck: Supple, no meningeal sign, No JVD, No bruit - Cardiac Cardiac: Other (Irregularly irregular and tachycardic) - Respiratory Respiratory: Other (Patient has diffuse and mild crackles at the bases bilaterally but he is in no respiratory distress currently however he does appear to be hypoxic) - Abdomen Abdomen: Normal bowel sounds, Soft, Non tender, Non distended - Derm Derm: Other (Mild cyanosis of the fingers and the lips) - Extremities Extremities: No deformity - Neuro Neuro: Other (The patient's not alert to time he is alert to place and personThere is no acute new neurological deficit there is no unilateral weakness.) - Psych Psych: Other (The patient's confused and altered currently) Results - Vitals Vitals: Vital Signs - 24 hr 07/27/19 07/27/19 07/27/19 19:28 20:03 20:39 Temperature 36.7 C Heart Rate 71 101 H 104 H Respiratory 22 20 16 Rate Blood Pressure 170/109 H 96/83 H 97/76 O2 Saturation 84 L 96 99 07/27/19 07/27/19 07/27/19 21:02 21:48 22:08 Temperature Heart Rate 104 H 109 H 111 H Respiratory 16 19 19 Rate Blood Pressure 97/76 123/85 H 97/82 H O2 Saturation 93 91 L 90 L 07/27/19 07/27/19 07/27/19 22:22 22:40 23:16 Temperature 37.0 C Heart Rate 103 H 103 H 106 H Respiratory 12 11 L 26 H Rate Blood Pressure 97/82 H 102/85 H 99/81 H O2 Saturation 93 96 94 07/27/19 07/28/19 07/28/19 23:45 00:00 00:30 Temperature Heart Rate 111 H 109 H 117 H Respiratory 24 16 23 Rate Blood Pressure 112/93 H 96/76 98/74 O2 Saturation 96 90 L 90 L 07/28/19 01:00 Temperature Heart Rate 124 H Respiratory 13 Rate Blood Pressure 98/76 O2 Saturation 95 Oxygen O2 Source Simple Mask Oxygen Flow Rate 6 - EKG (time done) No standard instances Rate: Other (EKG reviewed by myself it shows atrial fibrillation with rapid ventricular response there is no acute ST segment elevation there is no STEMI.) - Labs Labs: Laboratory Tests 07/27/19 07/27/19 07/27/19 19:50 19:50 19:50 WBC 8.3 RBC 4.87 Hgb 14.6 Hct 45.8 MCV 94.0 MCH 30.0 MCHC 31.9 L RDW 16.0 H Plt Count 223 MPV 11.1 Neut # (Auto) 5.7 Lymph # (Auto) 1.7 [place] # (Auto) 0.8 Eos # (Auto) 0.1 Baso # (Auto) 0.1 Absolute Nucleated RBC 0.00 Nucleated RBC % 0.0 PT 36.6 H INR 3.4 H APTT 36.8 H VBG pH VBG pCO2 VBG pO2 VBG HCO3 VBG Total CO2 VBG O2 Saturation VBG Base Excess Sodium 135 Potassium 4.4 Chloride 97 L Carbon Dioxide 23 Anion Gap 15.0 H BUN 37 H Creatinine 1.4 H Estimated GFR (MDRD) 50 L Glucose 114 H Lactic Acid Calcium 8.8 Total Bilirubin 2.0 H AST 52 H ALT 26 Alkaline Phosphatase 156 H Total Creatine Kinase 128 CK-MB (CK-2) Troponin I High Sens B-Natriuretic Peptide Total Protein 8.1 Albumin 3.9 Globulin 4.2 Albumin/Globulin Ratio 0.9 L Lipase 40 TSH Urine Color Urine Clarity Urine pH Ur Specific [place] Urine Protein Urine Glucose (UA) Urine Ketones Urine Occult Blood Urine Nitrite Urine Bilirubin Urine Urobilinogen Ur Leukocyte Esterase Ur Microscopic Review Urine Culture Comments Last Dose Date UNKNOWN Last Dose Time UNKNOWN Digoxin 0.2 Salicylates < 6.0 Urine Opiates Screen Ur Oxycodone Screen Urine Methadone Screen Ur Propoxyphene Screen Acetaminophen < 10 L Ur Barbiturates Screen Ur Tricyclics Screen Ur Phencyclidine Scrn Ur Amphetamine Screen U Methamphetamines Scrn U Benzodiazepines Scrn Urine Cocaine Screen U Cannabinoids Screen Ethyl Alcohol < 5.0 07/27/19 07/27/19 07/27/19 19:50 19:50 19:50 WBC RBC Hgb Hct MCV MCH MCHC RDW Plt Count MPV Neut # (Auto) Lymph # (Auto) [place] # (Auto) Eos # (Auto) Baso # (Auto) Absolute Nucleated RBC Nucleated RBC % PT INR APTT VBG pH VBG pCO2 VBG pO2 VBG HCO3 VBG Total CO2 VBG O2 Saturation VBG Base Excess Sodium Potassium Chloride Carbon Dioxide Anion Gap BUN Creatinine Estimated GFR (MDRD) Glucose Lactic Acid Calcium Total Bilirubin AST ALT Alkaline Phosphatase Total Creatine Kinase CK-MB (CK-2) 5.2 Troponin I High Sens B-Natriuretic Peptide 640 H Total Protein Albumin Globulin Albumin/Globulin Ratio Lipase TSH 3.17 Urine Color Urine Clarity Urine pH Ur Specific [place] Urine Protein Urine Glucose (UA) Urine Ketones Urine Occult Blood Urine Nitrite Urine Bilirubin Urine Urobilinogen Ur Leukocyte Esterase Ur Microscopic Review Urine Culture Comments Last Dose Date Last Dose Time Digoxin Salicylates Urine Opiates Screen Ur Oxycodone Screen Urine Methadone Screen Ur Propoxyphene Screen Acetaminophen Ur Barbiturates Screen Ur Tricyclics Screen Ur Phencyclidine Scrn Ur Amphetamine Screen U Methamphetamines Scrn U Benzodiazepines Scrn Urine Cocaine Screen U Cannabinoids Screen Ethyl Alcohol 07/27/19 07/27/19 07/27/19 19:50 20:46 20:46 WBC RBC Hgb Hct MCV MCH MCHC RDW Plt Count MPV Neut # (Auto) Lymph # (Auto) [place] # (Auto) Eos # (Auto) Baso # (Auto) Absolute Nucleated RBC Nucleated RBC % PT INR APTT VBG pH 7.343 VBG pCO2 44.8 VBG pO2 18.6 L VBG HCO3 23.8 VBG Total CO2 25.2 VBG O2 Saturation 23.7 L VBG Base Excess -2.1 L Sodium Potassium Chloride Carbon Dioxide Anion Gap BUN Creatinine Estimated GFR (MDRD) Glucose Lactic Acid 2.8 H Calcium Total Bilirubin AST ALT Alkaline Phosphatase Total Creatine Kinase CK-MB (CK-2) Troponin I High Sens 18.2 B-Natriuretic Peptide Total Protein Albumin Globulin Albumin/Globulin Ratio Lipase TSH Urine Color Urine Clarity Urine pH Ur Specific [place] Urine Protein Urine Glucose (UA) Urine Ketones Urine Occult Blood Urine Nitrite Urine Bilirubin Urine Urobilinogen Ur Leukocyte Esterase Ur Microscopic Review Urine Culture Comments Last Dose Date Last Dose Time Digoxin Salicylates Urine Opiates Screen Ur Oxycodone Screen Urine Methadone Screen Ur Propoxyphene Screen Acetaminophen Ur Barbiturates Screen Ur Tricyclics Screen Ur Phencyclidine Scrn Ur Amphetamine Screen U Methamphetamines Scrn U Benzodiazepines Scrn Urine Cocaine Screen U Cannabinoids Screen Ethyl Alcohol 07/28/19 00:35 WBC RBC Hgb Hct MCV MCH MCHC RDW Plt Count MPV Neut # (Auto) Lymph # (Auto) [place] # (Auto) Eos # (Auto) Baso # (Auto) Absolute Nucleated RBC Nucleated RBC % PT INR APTT VBG pH VBG pCO2 VBG pO2 VBG HCO3 VBG Total CO2 VBG O2 Saturation VBG Base Excess Sodium Potassium Chloride Carbon Dioxide Anion Gap BUN Creatinine Estimated GFR (MDRD) Glucose Lactic Acid Calcium Total Bilirubin AST ALT Alkaline Phosphatase Total Creatine Kinase CK-MB (CK-2) Troponin I High Sens B-Natriuretic Peptide Total Protein Albumin Globulin Albumin/Globulin Ratio Lipase TSH Urine Color DARK YELLOW Urine Clarity CLEAR Urine pH 5.5 Ur Specific [place] 1.020 Urine Protein TRACE Urine Glucose (UA) NEGATIVE Urine Ketones NEGATIVE Urine Occult Blood NEGATIVE Urine Nitrite NEGATIVE Urine Bilirubin NEGATIVE Urine Urobilinogen 2 H Ur Leukocyte Esterase NEGATIVE Ur Microscopic Review NOT INDICATED Urine Culture Comments NOT INDICATED Last Dose Date Last Dose Time Digoxin Salicylates Urine Opiates Screen NEGATIVE Ur Oxycodone Screen NEGATIVE Urine Methadone Screen NEGATIVE Ur Propoxyphene Screen NEGATIVE Acetaminophen Ur Barbiturates Screen NEGATIVE Ur Tricyclics Screen NEGATIVE Ur Phencyclidine Scrn NEGATIVE Ur Amphetamine Screen NEGATIVE U Methamphetamines Scrn NEGATIVE U Benzodiazepines Scrn NEGATIVE Urine Cocaine Screen NEGATIVE U Cannabinoids Screen NEGATIVE Ethyl Alcohol PD MEDICAL DECISION MAKING - ED course Complexity details: other (Olmedo patient was observed for an extensive period of time in the emergency department he continues to have periods of hypoxia and altered mental status and confusion I did consult with the hospitalist Dr. Gely Vargas Who agreed to admit this patient for further observation.) Departure - Departure Disposition: ED Place in Observation Clinical Impression: Hypoxia, Atrial fibrillation with RVR AMS (altered mental status) Qualifiers: Altered mental status type: disorientation Qualified Code(s): R41.0 - Disorientation, unspecified Condition: Critical Discharge Date/Time: 07/28/19 02:06
[2019-07-27 20:38] LABS: BASOPHILS # (AUTO) 0.1 10^3/uL (0.0-0.1); BASOPHILS % (AUTO) 0.7 %; EOSINOPHILS # (AUTO) 0.1 10^3/uL (0.0-0.7); EOSINOPHILS % (AUTO) 1.4 %; HGB - HEMOGLOBIN 14.6 g/dL (14.0-18.0); LYMPHOCYTES # (AUTO) 1.7 10^3/uL (1.5-3.5); LYMPHOCYTES % (AUTO) 19.9 %; MEAN CORPUSCULAR HGB CONC 31.9 g/dL (32.0-36.0); MEAN PLATELET VOLUME 11.1 fL (7.4-11.4); MONOCYTES # (AUTO) 0.8 10^3/uL (0.0-1.0); NEUTROPHILS # (AUTO) 5.7 10^3/uL (1.5-6.6); NEUTROPHILS % (AUTO) 68.6 %; PLT - PLATELET COUNT 223 10^3/uL (130-450); RED BLOOD COUNT 4.87 10^6/uL (4.70-6.10); WHITE BLOOD COUNT 8.3 x10^3/uL (4.8-10.8)
[2019-07-27 20:41] LABS: ACETAMINOPHEN < 10 ug/mL (10-30); ALBUMIN 3.9 g/dL (3.2-5.5); ALBUMIN/GLOBULIN RATIO 0.9 (1.0-2.2); ALKALINE PHOSPHATASE 156 IU/L (42-121); ALT ALANINE AMINOTRANSFERASE 26 IU/L (10-60); AST ASPARTATE AMINOTRANSFERASE 52 IU/L (10-42); BUN - BLOOD UREA NITROGEN 37 mg/dL (6-20); CALCIUM 8.8 mg/dL (8.5-10.3); CARBON DIOXIDE - CO2 23 mmol/L (21-32); CHLORIDE 97 mmol/L (101-111); CK- CREATINE KINASE 128 IU/L (22-269); CREATININE 1.4 mg/dL (0.6-1.2); DIGOXIN 0.2 ng/mL; GFR - MDRD 50 (>89); GLUCOSE 114 mg/dL (70-100); LIPASE 40 U/L (22-51); SALICYLATE < 6.0 mg/dL; SODIUM 135 mmol/L (135-145); TOTAL PROTEIN 8.1 g/dL (6.7-8.2)
[2019-07-27 20:45] LABS: INR 3.4 (0.8-1.2); PT - PROTHROMBIN TIME 36.6 secs (9.9-12.6)
[2019-07-27] MEDS ORDERED: IOVERSOL 320 100 ML VIAL IVP ONE ×2 (20:46→21:46)
[2019-07-27 20:50] LABS: VBG BASE EXCESS -2.1 mmol/L (-2 - +2); VBG PCO2 44.8 mmHg (41-51); VBG PH 7.343 (7.31-7.41); VBG PO2 18.6 mmHg (25-47); VBG TOTAL CO2 25.2 mmol/L (24-29)
[2019-07-27 20:53] LABS: PARTIAL THROMBOPLASTIN TIME 36.8 secs (24.9-33.3)
--- NOTE | 2019-07-27 20:55 | XRAY Report ---
Reason: HYPOXIA Procedure Date: 07/27/2019 Accession Number: [id number] / [id number] Procedure: XR - Chest 1 View X-Ray CPT Code: 82850 Final Report FULL RESULT: EXAM: CHEST RADIOGRAPHY EXAM DATE: 07/27/2019 08:41 PM. CLINICAL HISTORY: HYPOXIA. COMPARISON: CHEST 1 VIEW 07/26/2019 9:21 PM. TECHNIQUE: 1 view. FINDINGS: Lungs/Pleura: Prominent reticular markings in the lung bases, unchanged compared to the prior exam. Trace bilateral pleural effusions, possibly slightly increased. Mediastinum: Enlarged heart. Other: None. IMPRESSION: Cardiomegaly. Interstitial prominence in the lung bases and trace bilateral effusions suggest CHF. Unchanged to slightly worse compared to July 26. RADIA
--- NOTE | 2019-07-27 22:08 | CT Report ---
Reason: PE SOB Procedure Date: 07/27/2019 Accession Number: [id number] / [id number] Procedure: CT - ANGIO CHEST W/WO CPT Code: Final Report FULL RESULT: EXAM: CT ANGIOGRAM CHEST EXAM DATE: 07/27/2019 09:41 PM. CLINICAL HISTORY: PE SOB. COMPARISON: CHEST ANGIO 06/22/2018 9:38 PM. TECHNIQUE: Routine helical imaging was performed through the chest in the pulmonary arterial phase. IV Contrast: OPTI 320 80ML. Reconstructions: Coronal 3-D MIP reconstructions.Sagittal and coronal. In accordance with CT protocol optimization, one or more of the following dose reduction techniques were utilized for this exam: automated exposure control, adjustment of mA and/or KV based on patient size, or use of iterative reconstructive technique. FINDINGS: Pulmonary Arteries: Diagnostic quality: Adequate through the segmental arteries. No evidence for acute or chronic pulmonary emboli. RV/LV is within normal limits. There is no interventricular septal bowing. There is no reflux of contrast material in the IVC. Lungs/Pleura: There are persistent bilateral noncalcified pleural nodules or plaques. These findings are similar to the prior study although the partially loculated right-sided pleural effusion has diminished in size. There are no parenchymal infiltrates. Mediastinum: The heart is globally enlarged similar to the prior study. No pericardial effusions. There is a persistent slightly prominent left hilar lymph node and there is a persistent enlarged subcarinal lymph noted 25 mm. Thoracic Aorta: Unremarkable. Upper Abdomen: Unremarkable. Other: There is a small amount of perihepatic ascites. This is slightly progressive compared to the prior study. IMPRESSION: 1. No evidence for pulmonary emboli. 2. Persistent bilateral noncalcified pleural nodules/plaques. 3. The previous noted right-sided pleural effusion has diminished in size compared to the prior study. 4. The prominent lymph nodes in the mediastinum and left hilum are stable. 5. Slightly greater amount of ascites contiguous with the liver. RADIA
[2019-07-28 00:40] LABS: MUDS CUTOFF CONCENTRATIONS CUTOFF CONC BELOW:
[2019-07-28 00:47] LABS: BILIRUBIN,URINE NEGATIVE (NEGATIVE); GLUCOSE, URINE (UA) NEGATIVE (NEGATIVE); KETONES,URINE (UA) NEGATIVE (NEGATIVE); LEUKOCYTE ESTERASE, URINE NEGATIVE (NEGATIVE); NITRITE,URINE NEGATIVE (NEGATIVE); OCCULT BLOOD,URINE NEGATIVE (NEGATIVE); PH,URINE 5.5 PH (5.0-7.5); PROTEIN,URINE TRACE mg/dL (NEGATIVE); UROBILINOGEN,URINE 2 E.U./dL (NORMAL)
[2019-07-28 00:48] LABS: CLARITY,URINE CLEAR (CLEAR)
[2019-07-28 00:59] LABS: AMPHETAMINE SCREEN,URINE NEGATIVE (NEGATIVE); COCAINE SCREEN URINE NEGATIVE (NEGATIVE); METHAMPHETAMINES SCREEN, URINE NEGATIVE (NEGATIVE); OPIATE SCREEN, URINE NEGATIVE (NEGATIVE)
[2019-07-28 01:00] LABS: BENZODIAZEPINES SCREEN, URINE NEGATIVE (NEGATIVE); METHADONE SCREEN, URINE NEGATIVE (NEGATIVE); OXYCODONE SCREEN, URINE NEGATIVE (NEGATIVE); PROPOXYPHENE SCREEN, URINE NEGATIVE (NEGATIVE); TRICYCLIC ANTIDEPRESSANT,URINE NEGATIVE (NEGATIVE)
[2019-07-28] MEDS ORDERED: ONDANSETRON ODT 4 MG TABLET TL PRN (01:24)
[2019-07-28] MEDS ORDERED: SODIUM CHLORIDE FLUSH 0.9% 10 ML SYRINGE IVP PRN (01:24)
[2019-07-28] MEDS ORDERED: ACETAMINOPHEN 325 MG TABLET PO PRN (01:24)
[2019-07-28] MEDS ORDERED: ONDANSETRON 4 MG/2 ML VIAL IVP PRN (01:24)
[2019-07-28] MEDS ORDERED: IOVERSOL 320 100 ML VIAL IVP ONE (01:25)
[2019-07-28] MEDS ORDERED: FUROSEMIDE 20 MG/2 ML VIAL IVP STA (01:29)
[2019-07-28] MEDS ORDERED: ALBUTEROL NEB 2.5 MG/3 ML INH PRN (01:33)
[2019-07-28] MEDS ORDERED: METOPROLOL 5 MG/5 ML VIAL IVP STA (01:34)
--- NOTE | 2019-07-28 01:54 | HISTORY & PHYSICAL EXAMINATION ---
Chief Complaint - Chief Complaint Chief Complaint: Shortness of breath <Destiny Perez - Last Filed: 07/28/19 03:22> History of Present Illness - Admitted From Admitted From:: ER - History Obtained From Records Reviewed: Yes History obtained from: Chart and patient Exam Limitations: Patient short of breath <Destiny Perez - Last Filed: 07/28/19 03:22> - History of Present Illness HPI Comment/Other: Mr. Chai Hoffman a 69 yo male, returned to the ER after about 6 hours. Patient was discharged from an overnight observation stay at approximately 07/27/2019 1530. He was picked up by a friend and driven to [place] to get his truck from the Sleep lab. He found himself having a really hard time "catching his breath". This occurred so many times and so severely that returned to the ER. Upon arrival, the patient was hypoxic with O2 sats in the 70s. Patient had odd breat rossana pattern with significant breath holding. He would then become somnulent and dropping his head to his chest. His oxygen saturation falling in to the 70s. He feels extremely sleep and is repeatedly taking off his oxygen mask. Patient lips, nose and fingers cyanotic. CT PE negative for PE. Urine toxicology negative for all substances including tylenol, salicylates, and ethanol alcohol. Chest CT showed no evidence of pleural effusions. BNP in the 600s. Troponin I 18. Patient in atrial fibrillation with rates in the 110s. Stat head CT ordered. Observation orders written. (Destiny Perez) History - Past Medical History Cardiovascular: reports: Congestive heart failure (LVEF 20-25%), Hypertension, High cholesterol, Pulmonary embolism (Historically), Atrial fibrillation (Patient prescribed eliquis, metoprolol, lisinopril, digoxin, spirololactone, but not always compliant with medications.) Respiratory: reports: COPD, Pneumonia (Historically patient get PNA about once a year.), Sleep apnea, Other Neuro: reports: Other Endocrine/Autoimmune: reports: None GI: reports: Colon polyps, Hepatitis, Cirrhosis : reports: None HEENT: reports: Chronic hearing loss Psych: reports: Anxiety Musculoskeletal: reports: Osteoarthritis Derm: reports: Other MRSA Hx?: No - Past Surgical History General: reports: Other Ortho: reports: Other Cardiovascular: reports: Cardiac catheterization - Family & Social History Family History: Mother: , Alcoholism, Father: , Alcoholism, CAD (Father had heart attack and in his 50s, grandfather had a heart attack and in his 50s, sister had a heart attack in her 50s.), Sister: Alive and Well, CAD, Other family: CAD Family History Comment/Other: Mom at age 77 of complications of alcoholism. Dad at age 57 of complications of alcoholism. Of his siblings, 2 sisters. One is a twin. One is had a stroke. The other one has had a myocardial infarction. He has no children Social History Notes: born in [place] but grew up in [place] with his mom and stepfather after mom dad age 5. 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 He states recently he has not been able to participate much in painting due to his illness. He states that he has been living on [facility] for the last 8 years. He has never been ma rried and does not have any children. Patient states his twin sister also lives on [facility]. The patient smoked cigarettes for 37 years. He states he smoked about a pack a day. He states that he does drink beer occasionally but is not a heavy drinker. He states that for 15 years he used crack cocaine and quit in 2009 but subsequent drug testing here has been positive. He also did use heroin in the past, last use 2017 and seen in ER for overdose. He states that he was also a heavy user of marijuana but has quit using all illicit drugs. - Substance History Use: Uses substance without health or social issues: Tobacco - POLST Patient has POLST: No POLST Status: Full Code <Destiny Perez - Last Filed: 07/28/19 03:22> Meds/Allgy <Destiny Perez - Last Filed: 07/28/19 03:22> <Gely Vargas - Last Filed: 08/01/19 02:05> - Home Medications Home Medications: Ambulatory Orders Medication Instructions Recorded Confirmed Digoxin 125 mcg PO DAILY 01/15/19 07/29/19 Furosemide 40 mg PO BID 01/15/19 07/29/19 Apixaban [Eliquis] 5 mg PO BID #60 tablet 07/27/19 07/29/19 Aspirin [Aspirin EC] 81 mg PO DAILY #30 tablet. 07/27/19 07/29/19 Metoprolol Succinate 50 mg PO BID #60 tab.er.24h 07/27/19 07/29/19 Spironolactone [Aldactone] 25 mg PO DAILY #30 tablet 07/27/19 07/29/19 - Allergies Allergies/Adverse Reactions: Allergies Allergy/AdvReac Type Severity Reaction Status Date / Time metoprolol AdvReac Severe Respiratory Verified 07/28/19 12:11 Review of Systems - Constitutional Constitutional: reports: Fatigue, Weakness - Eyes Eyes: reports: Corrective lenses. denies: Blurred vision, Dipolpia - Ears, Nose & Throat Ears, Nose & Throat: reports: Hearing aids. denies: Nasal pain, Nasal discharge, Sore throat - Cardiovascular Cariovascular: reports: Irregular heart rate, Palpitations, Chest pain. denies: Edema - Respiratory Respiratory: reports: SOB at rest. denies: Cough, Sputum production, Hemoptysis - Gastrointestinal Gastrointestinal: denies: Abdominal pain, Change in bowel habits - Genitourinary Genitourinary: reports: Incontinence (Patient had episode of incontinence between discharge and returning to the ER. He said this usually do not happen to him.) - Integumentary Integumentary: denies: Rash, Pruritis - Neurological Neurological: reports: General weakness - Endocrine Endocrine: denies: Polyuria, Polydypsia - Hematologic/Lymphatic Hematologic/Lymphatic: reports: Blood clots (PE historically.) - All Other Systems All Other Systems: reports: Reviewed and negative <Destiny Perez - Last Filed: 07/28/19 03:22> <Destiny Perez - Last Filed: 07/28/19 03:22> Prior Level of Functionality: Patient drives, shops and cooks for himself. He lives independently and is able to perform ADLs. (Destiny Perez) Exam - Vital Signs Reviewed Vital Signs: Yes - Physical Exam General Appearance: positive: Moderate distress Eyes Bilateral: positive: PERRL, EOMI ENT: positive: ENT inspection nml, No signs of dehydration Neck: positive: Nml inspection, Thyroid nml Respiratory: positive: Chest non-tender, Breath sounds nml. negative: No respiratory distress Cardiovascular: positive: Irregularly irregular, Tachycardia. negative: No murmur, No gallop, JVD present Peripheral Pulses: positive: 1+ Abdomen: positive: Nml bowel sounds, Hepatomegaly. negative: Non-tender, No distention, Tenderness Back: positive: Nml inspection Skin: positive: Cyanosis (To lips, nose and finger tips.) Extremities: positive: Non-tender, Nml appearance, No pedal edema Neurologic/Psychiatric: positive: Disoriented to place (Has since become oriented, but in the ER the patient was altered and not oriented.), Disoriented to time, Weakness <Destiny Perez - Last Filed: 07/28/19 03:22> - Vital Signs Vital Signs: Vital Signs x48h Temp Pulse Resp BP Pulse Ox 07/28/19 01:32 116 H 16 96/76 88 L 07/28/19 01:26 122 H 16 96/76 91 L 07/28/19 01:00 124 H 13 98/76 95 07/28/19 00:30 117 H 23 98/74 90 L 07/28/19 00:00 109 H 16 96/76 90 L 07/27/19 23:45 111 H 24 112/93 H 96 07/27/19 23:16 106 H 26 H 99/81 H 94 07/27/19 22:40 103 H 11 L 102/85 H 96 07/27/19 22:22 37.0 C 103 H 12 97/82 H 93 07/27/19 22:08 111 H 19 97/82 H 90 L 07/27/19 21:48 109 H 19 123/85 H 91 L 07/27/19 21:02 104 H 16 97/76 93 07/27/19 20:39 104 H 16 97/76 99 07/27/19 20:03 101 H 20 96/83 H 96 07/27/19 19:28 36.7 C 71 22 170/109 H 84 L Conclusion/Plan - Problem List (1) Hypoxia Conclusion/Plan: When patient was discharged this afternoon, he was sating 97% on room air. Six hours later, the patient has experienced multiple attacks of trouble breathing that he says were similar to when he his CHF exacerbations. He was cyanotic and sating in the 70s on room air. He has required 3-6L to keep his sats 90% or above. He has been noted to have a strange respiratory pattern with breath holding. He has been noted to desaturate when he falls asleep or becomes obtunded. He has been noted to sit up on the stretcher in the ER in a tripod- like way to aid his breathing. Urine toxicology negative ruling out drug ingestion. VBG in the ER with pH 7.343. CT PE negative. Troponin I 18. Head CT to evaluated for a neurological cause. BNP [address] chest negative for fluid accumulation. CBC within normal limits ruling out infection. Ammonia 34.3. 1. Patient on telemetry and pulse oximetry. 2. Awaiting results of head CT. 3. Giving IV and po metoprolol to rate control patient atrial fibrillation. 4. BiPAP when sleeping with home settings. 5. Oxygen to keep patient O2 sats 90%. - Lab Results Johny Bradley: 07/27/19 19:50 07/27/19 19:50 <Destiny Perez - Last Filed: 07/28/19 03:22> - Problem List (2) AMS (altered mental status) Qualifiers: Altered mental status type: transient alteration of awareness Qualified Code(s): R40.4 - Transient alteration of awareness (5) COPD (chronic obstructive pulmonary disease) Qualifiers: COPD type: emphysema Emphysema type: unspecified Qualified Code(s): J43.9 - Emphysema, unspecified - Lab Results Lab results reviewed: Yes Johny Bones: 07/29/19 04:48 07/29/19 04:48 <Gely Vargas - Last Filed: 08/01/19 02:05> Core Measures - Anticipated LOS I expect patient to be DC'd or transferred within 96 hours.: Yes - DVT/VTE - Prophylaxis VTE/DVT Device ordered at admit?: Yes <Gely Vargas - Last Filed: 08/01/19 02:05>
[2019-07-28] MEDS ORDERED: SODIUM CHLORIDE 0.9% 1,000 ML IV SCH (02:00)
--- NOTE | 2019-07-28 02:31 | CT Report ---
Reason: AMS Procedure Date: 07/28/2019 Accession Number: [id number] / [id number] Procedure: CT - HEAD WO CPT Code: Final Report FULL RESULT: EXAM: CT HEAD EXAM DATE: 07/28/2019 02:07 AM. CLINICAL HISTORY: AMS. COMPARISON: CT HEAD W/O 01/29/2018 10:31 PM. TECHNIQUE: Multiaxial CT images were obtained from the foramen magnum to the vertex. Reformats: Sagittal and coronal. IV contrast: None. In accordance with CT protocol optimization, one or more of the following dose reduction techniques were utilized for this exam: automated exposure control, adjustment of mA and/or KV based on patient size, or use of iterative reconstructive technique. FINDINGS: Parenchyma: No intraparenchymal hemorrhage. No evidence of mass, midline shift, or CT findings of infarction. Chun-white differentiation is distinct. There is mild chronic microvascular change in the deep white matter. Extraaxial Spaces: Normal for age. No subdural or epidural collections identified. Ventricles: Normal in size and position. Sinuses and Orbits: Imaged paranasal sinuses, orbits, and mastoids show no significant abnormality. Bones: No evidence of fracture or calvarial defect. Other: None. IMPRESSION: 1. No acute intracranial abnormality. No significant change compared to 01/29/2018. 2. No intracranial mass, mass-effect, or hydrocephalus. [facility]
--- NOTE | 2019-07-28 02:58 | PROVIDER PROGRESS NOTE ---
Subjective - Prog Note Date Prog Note Date: 07/28/19 Prog Note Time: 02:51 - Subjective Subjective: This is an interval note since the patient was discharged less than 24 hours ago. The patient was admitted July 26 to be discharged July 27 after obs ervation status for shortness of breath. We attributed his shortness of breath to be from combined causes. The first being noncompliance with medication resulting in uncontrolled atrial fibrillation. That in turn resulted in mild congestive heart failure. He was resumed on his usual medications. Given prescriptions for his medications. Nevertheless, on his drive to [place] to picker his medicines, and coming back to [place], he began having episodes where "I cannot breathe". He has a history of heroin and methamphetamine abuse but is adamant he has not used in the last few weeks. Other than his noncompliance with medications he has nothing new to offer. He denies fever, chills. No abdominal pain. No urgency frequency dysuria. He does have a history of pulmonary embolus from DVT dating to 2018. But he has been taking his Eliquis. He changes his story so many times, however, I am not sure if he has been taking his Eliquis. He now presents with continued shortness of breath that is episodic. He has been in the emergency room several hours with no clear indication that he needed to be readmitted. He was intermittently hypoxic to 70's sat on RA then he would be put on O2, improve, and then be 94% on room air. There is no specific treatment in the emergency room other than oxygen therapy. While there he continued to have episodes of apnea, cyanosis, hypoxia. Although this would be severe enough that his head would fall forward on his chest and he be sleeping for moment to then wake up when you should come or spoke to him. His cyanosis was evident over his nose, lips, fingers at times. But then when he would awaken his respiratory rate would get higher, and his oxygen saturation would improve. Pulse would be in the 70s and ratchet up to the 130s. In working up the causes of his sleepiness and hypoxia, CT of the head was done it was negative. Urinalysis was negative for infection. CBC was normal. CMP was relatively normal other than for elevated liver enzymes which are attributed to cirrhosis. Lactic acid was 2.8. Urine tox screen was negative. Alcohol and acetaminophen and salicylate levels were undetectable. BNP was not severely calixto vated and his troponins were unchanged from yesterday and the day before. It is unclear why this patient is having intermittent obtundation, followed by hypoxia. What is definite is a change in mental status. Yesterday he was in an alert historian, lucid speech. Today his status is changed and that he is not oriented. He does not remember meeting me on the nor does he remember the [facility] student that met him as well. He is increasingly belligerent. But this alternates with cooperative calm behavior. Current Medications - Current Medications Current Medications: Active Medications Acetaminophen (Tylenol) 650 mg PO Q4HR PRN PRN Reason: Pain 1 to 4 Albuterol () 2.5 mg INH RTQ4H PRN PRN Reason: Wheezing Sodium Chloride (Normal Saline 0.9%) 1,000 mls @ 85 mls/hr IV .[id number] DEBORAH Lisinopril (Zestril) 2.5 mg PO DAILY DEBORAH Metoprolol Tartrate (Lopressor) 50 mg PO BID DEBORAH Ondansetron HCl (Zofran Inj) 4 mg IVP Q6HR PRN PRN Reason: Nausea / Vomiting Ondansetron HCl (Zofran Odt) 4 mg TL Q6HR PRN PRN Reason: Nausea / Vomiting Sodium Chloride (Normal Saline Flush 0.9%) 10 ml IVP PRN PRN PRN Reason: NEEDED PER PROVIDER ORDERS Sodium Chloride (Normal Saline Flush 0.9%) 10 ml IVP 0100,0900,1700 [facility] Spironolactone (Aldactone) 25 mg PO DAILY DEBORAH Digoxin 125 mcg PO DAILY 01/15/19 Furosemide 40 mg PO BID 01/15/19 Objective - Vital Signs/Intake & Output Reviewed Vital Signs: Yes Vital Signs: Vital Signs x48h Temp Pulse Pulse Resp BP BP Pulse Ox 07/28/19 02:30 109 H 18 104/78 100 07/28/19 01:32 116 H 16 96/76 88 L 07/28/19 01:26 122 H 16 96/76 91 L 07/28/19 01:00 124 H 13 98/76 95 07/28/19 00:30 117 H 23 98/74 90 L 07/28/19 00:00 109 H 16 96/76 90 L 07/27/19 23:45 111 H 24 112/93 H 96 07/27/19 23:16 106 H 26 H 99/81 H 94 07/27/19 22:40 103 H 11 L 102/85 H 96 07/27/19 22:22 37.0 C 103 H 12 97/82 H 93 07/27/19 22:08 111 H 19 97/82 H 90 L 07/27/19 21:48 109 H 19 123/85 H 91 L 07/27/19 21:02 104 H 16 97/76 93 07/27/19 20:39 104 H 16 97/76 99 07/27/19 20:03 101 H 20 96/83 H 96 07/27/19 19:28 36.7 C 71 22 170/109 H 84 L - Objective General Appearance: positive: No acute distress, Other (Alertness alternates between episodes of kirk sleepiness while he would lean forward into the bed and his chin will drop on his anterior chest. He states he has been without sleep for 2 days. Lips, nose, fingers, toes cyanotic.) Eyes Bilateral: positive: PERRL, EOMI ENT: positive: Other (His nose is cyanotic, lips are cyanotic but oral mucosa is moist. No evidence of dehydration) Neck: positive: No JVD. negative: Carotid bruit Respiratory: positive: Chest non-tender, No respiratory distress, Other (He keeps on complaining of a sensation of that he is "full" in his chest.). negative: Wheezes, Rales, Rhonchi Cardiovascular: positive: Irregularly irregular, Tachycardia. negative: Gallop/S4, Friction rub Abdomen: positive: Non-tender, No organomegaly, Nml bowel sounds, No distention, Hepatomegaly. negative: Guarding, Rebound Skin: positive: Warm, Dry Neurologic/Psychiatric: positive: CN's nml (2-12), Motor nml, Other ( The service what changes from moment to moment is his mentation with regards to orientation, and alertness.) - Lab Results Fish Bones: 07/28/19 05:15 07/28/19 05:15 Other Labs: Lab Results x24hrs 07/28/19 07/28/19 07/27/19 Range/Units 01:40 00:35 20:46 WBC (4.8-10.8) x10^3/uL RBC (4.70-6.10) 10^6/uL Hgb (14.0-18.0) g/dL Hct (42.0-52.0) % MCV (80.0-94.0) fL MCH (27.0-31.0) pg MCHC (32.0-36.0) g/dL RDW (12.0-15.0) % Plt Count (130-450) 10^3/uL MPV (7.4-11.4) fL Neut # (Auto) (1.5-6.6) 10^3/uL Lymph # (Auto) (1.5-3.5) 10^3/uL [place] # (Auto) (0.0-1.0) 10^3/uL Eos # (Auto) (0.0-0.7) 10^3/uL Baso # (Auto) (0.0-0.1) 10^3/uL Absolute Nucleated RBC x10^3/uL Nucleated RBC % /100WBC PT (9.9-12.6) secs INR (0.8-1.2) APTT (24.9-33.3) secs VBG pH 7.343 (7.31-7.41) VBG pCO2 44.8 (41-51) mmHg VBG pO2 18.6 L (25-47) mmHg VBG HCO3 23.8 (23-28) mmol/L VBG Total CO2 25.2 (24-29) mmol/L VBG O2 Saturation 23.7 L (60-80) % VBG Base Excess -2.1 L (-2 - +2) mmol/L Sodium (135-145) mmol/L Potassium (3.5-5.0) mmol/L Chloride (101-111) mmol/L Carbon Dioxide (21-32) mmol/L Anion Gap (6-13) BUN (6-20) mg/dL Creatinine (0.6-1.2) mg/dL Estimated GFR (MDRD) (>89) Glucose (70-100) mg/dL Lactic Acid (0.5-2.2) mmol/L Calcium (8.5-10.3) mg/dL Total Bilirubin (0.2-1.0) mg/dL AST (10-42) IU/L ALT (10-60) IU/L Alkaline Phosphatase (42-121) IU/L Ammonia 34.4 (7-35) umol/L Total Creatine Kinase (22-269) IU/L CK-MB (CK-2) (0.6-6.3) ng/mL Troponin I High Sens (2.3-19.7) ng/L B-Natriuretic Peptide (5-100) pg/mL Total Protein (6.7-8.2) g/dL Albumin (3.2-5.5) g/dL Globulin (2.1-4.2) g/dL Albumin/Globulin Ratio (1.0-2.2) Lipase (22-51) U/L TSH (0.34-5.60) uIU/mL Urine Color DARK YELLOW Urine Clarity CLEAR (CLEAR) Urine pH 5.5 (5.0-7.5) PH Ur Specific [place] 1.020 (1.002-1.030) Urine Protein TRACE (NEGATIVE) mg/dL Urine Glucose (UA) NEGATIVE (NEGATIVE) mg/dL Urine Ketones NEGATIVE (NEGATIVE) mg/dL Urine Occult Blood NEGATIVE (NEGATIVE) Urine Nitrite NEGATIVE (NEGATIVE) Urine Bilirubin NEGATIVE (NEGATIVE) Urine Urobilinogen 2 H (NORMAL) E.U./dL Ur Leukocyte Esterase NEGATIVE (NEGATIVE) Ur Microscopic Review NOT INDICATED Urine Culture Comments NOT INDICATED Last Dose Date Last Dose Time Digoxin ng/mL Salicylates mg/dL Urine Opiates Screen NEGATIVE (NEGATIVE) Ur Oxycodone Screen NEGATIVE (NEGATIVE) Urine Methadone Screen NEGATIVE (NEGATIVE) Ur Propoxyphene Screen NEGATIVE (NEGATIVE) Acetaminophen (10-30) ug/mL Ur Barbiturates Screen NEGATIVE (NEGATIVE) Ur Tricyclics Screen NEGATIVE (NEGATIVE) Ur Phencyclidine Scrn NEGATIVE (NEGATIVE) Ur Amphetamine Screen NEGATIVE (NEGATIVE) U Methamphetamines Scrn NEGATIVE (NEGATIVE) U Benzodiazepines Scrn NEGATIVE (NEGATIVE) Urine Cocaine Screen NEGATIVE (NEGATIVE) U Cannabinoids Screen NEGATIVE (NEGATIVE) Ethyl Alcohol mg/dL 07/27/19 07/27/19 07/27/19 Range/Units 20:46 19:50 19:50 WBC (4.8-10.8) x10^3/uL RBC (4.70-6.10) 10^6/uL Hgb (14.0-18.0) g/dL Hct (42.0-52.0) % MCV (80.0-94.0) fL MCH (27.0-31.0) pg MCHC (32.0-36.0) g/dL RDW (12.0-15.0) % Plt Count (130-450) 10^3/uL MPV (7.4-11.4) fL Neut # (Auto) (1.5-6.6) 10^3/uL Lymph # (Auto) (1.5-3.5) 10^3/uL [place] # (Auto) (0.0-1.0) 10^3/uL Eos # (Auto) (0.0-0.7) 10^3/uL Baso # (Auto) (0.0-0.1) 10^3/uL Absolute Nucleated RBC x10^3/uL Nucleated RBC % /100WBC PT (9.9-12.6) secs INR (0.8-1.2) APTT (24.9-33.3) secs VBG pH (7.31-7.41) VBG pCO2 (41-51) mmHg VBG pO2 (25-47) mmHg VBG HCO3 (23-28) mmol/L VBG Total CO2 (24-29) mmol/L VBG O2 Saturation (60-80) % VBG Base Excess (-2 - +2) mmol/L Sodium (135-145) mmol/L Potassium (3.5-5.0) mmol/L Chloride (101-111) mmol/L Carbon Dioxide (21-32) mmol/L Anion Gap (6-13) BUN (6-20) mg/dL Creatinine (0.6-1.2) mg/dL Estimated GFR (MDRD) (>89) Glucose (70-100) mg/dL Lactic Acid 2.8 H (0.5-2.2) mmol/L Calcium (8.5-10.3) mg/dL Total Bilirubin (0.2-1.0) mg/dL AST (10-42) IU/L ALT (10-60) IU/L Alkaline Phosphatase (42-121) IU/L Ammonia (7-35) umol/L Total Creatine Kinase (22-269) IU/L CK-MB (CK-2) (0.6-6.3) ng/mL Troponin I High Sens 18.2 (2.3-19.7) ng/L B-Natriuretic Peptide (5-100) pg/mL Total Protein (6.7-8.2) g/dL Albumin (3.2-5.5) g/dL Globulin (2.1-4.2) g/dL Albumin/Globulin Ratio (1.0-2.2) Lipase (22-51) U/L TSH 3.17 (0.34-5.60) uIU/mL Urine Color Urine Clarity (CLEAR) Urine pH (5.0-7.5) PH Ur Specific [place] (1.002-1.030) Urine Protein (NEGATIVE) mg/dL Urine Glucose (UA) (NEGATIVE) mg/dL Urine Ketones (NEGATIVE) mg/dL Urine Occult Blood (NEGATIVE) Urine Nitrite (NEGATIVE) Urine Bilirubin (NEGATIVE) Urine Urobilinogen (NORMAL) E.U./dL Ur Leukocyte Esterase (NEGATIVE) Ur Microscopic Review Urine Culture Comments Last Dose Date Last Dose Time Digoxin ng/mL Salicylates mg/dL Urine Opiates Screen (NEGATIVE) Ur Oxycodone Screen (NEGATIVE) Urine Methadone Screen (NEGATIVE) Ur Propoxyphene Screen (NEGATIVE) Acetaminophen (10-30) ug/mL Ur Barbiturates Screen (NEGATIVE) Ur Tricyclics Screen (NEGATIVE) Ur Phencyclidine Scrn (NEGATIVE) Ur Amphetamine Screen (NEGATIVE) U Methamphetamines Scrn (NEGATIVE) U Benzodiazepines Scrn (NEGATIVE) Urine Cocaine Screen (NEGATIVE) U Cannabinoids Screen (NEGATIVE) Ethyl Alcohol mg/dL 07/27/19 07/27/19 07/27/19 Range/Units 19:50 19:50 19:50 WBC (4.8-10.8) x10^3/uL RBC (4.70-6.10) 10^6/uL Hgb (14.0-18.0) g/dL Hct (42.0-52.0) % MCV (80.0-94.0) fL MCH (27.0-31.0) pg MCHC (32.0-36.0) g/dL RDW (12.0-15.0) % Plt Count (130-450) 10^3/uL MPV (7.4-11.4) fL Neut # (Auto) (1.5-6.6) 10^3/uL Lymph # (Auto) (1.5-3.5) 10^3/uL [place] # (Auto) (0.0-1.0) 10^3/uL Eos # (Auto) (0.0-0.7) 10^3/uL Baso # (Auto) (0.0-0.1) 10^3/uL Absolute Nucleated RBC x10^3/uL Nucleated RBC % /100WBC PT 36.6 H (9.9-12.6) secs INR 3.4 H (0.8-1.2) APTT 36.8 H (24.9-33.3) secs VBG pH (7.31-7.41) VBG pCO2 (41-51) mmHg VBG pO2 (25-47) mmHg VBG HCO3 (23-28) mmol/L VBG Total CO2 (24-29) mmol/L VBG O2 Saturation (60-80) % VBG Base Excess (-2 - +2) mmol/L Sodium (135-145) mmol/L Potassium (3.5-5.0) mmol/L Chloride (101-111) mmol/L Carbon Dioxide (21-32) mmol/L Anion Gap (6-13) BUN (6-20) mg/dL Creatinine (0.6-1.2) mg/dL Estimated GFR (MDRD) (>89) Glucose (70-100) mg/dL Lactic Acid (0.5-2.2) mmol/L Calcium (8.5-10.3) mg/dL Total Bilirubin (0.2-1.0) mg/dL AST (10-42) IU/L ALT (10-60) IU/L Alkaline Phosphatase (42-121) IU/L Ammonia (7-35) umol/L Total Creatine Kinase (22-269) IU/L CK-MB (CK-2) 5.2 (0.6-6.3) ng/mL Troponin I High Sens (2.3-19.7) ng/L B-Natriuretic Peptide 640 H (5-100) pg/mL Total Protein (6.7-8.2) g/dL Albumin (3.2-5.5) g/dL Globulin (2.1-4.2) g/dL Albumin/Globulin Ratio (1.0-2.2) Lipase (22-51) U/L TSH (0.34-5.60) uIU/mL Urine Color Urine Clarity (CLEAR) Urine pH (5.0-7.5) PH Ur Specific [place] (1.002-1.030) Urine Protein (NEGATIVE) mg/dL Urine Glucose (UA) (NEGATIVE) mg/dL Urine Ketones (NEGATIVE) mg/dL Urine Occult Blood (NEGATIVE) Urine Nitrite (NEGATIVE) Urine Bilirubin (NEGATIVE) Urine Urobilinogen (NORMAL) E.U./dL Ur Leukocyte Esterase (NEGATIVE) Ur Microscopic Review Urine Culture Comments Last Dose Date Last Dose Time Digoxin ng/mL Salicylates mg/dL Urine Opiates Screen (NEGATIVE) Ur Oxycodone Screen (NEGATIVE) Urine Methadone Screen (NEGATIVE) Ur Propoxyphene Screen (NEGATIVE) Acetaminophen (10-30) ug/mL Ur Barbiturates Screen (NEGATIVE) Ur Tricyclics Screen (NEGATIVE) Ur Phencyclidine Scrn (NEGATIVE) Ur Amphetamine Screen (NEGATIVE) U Methamphetamines Scrn (NEGATIVE) U Benzodiazepines Scrn (NEGATIVE) Urine Cocaine Screen (NEGATIVE) U Cannabinoids Screen (NEGATIVE) Ethyl Alcohol mg/dL 07/27/19 07/27/19 Range/Units 19:50 19:50 WBC 8.3 (4.8-10.8) x10^3/uL RBC 4.87 (4.70-6.10) 10^6/uL Hgb 14.6 (14.0-18.0) g/dL Hct 45.8 (42.0-52.0) % MCV 94.0 (80.0-94.0) fL MCH 30.0 (27.0-31.0) pg MCHC 31.9 L (32.0-36.0) g/dL RDW 16.0 H (12.0-15.0) % Plt Count 223 (130-450) 10^3/uL MPV 11.1 (7.4-11.4) fL Neut # (Auto) 5.7 (1.5-6.6) 10^3/uL Lymph # (Auto) 1.7 (1.5-3.5) 10^3/uL [place] # (Auto) 0.8 (0.0-1.0) 10^3/uL Eos # (Auto) 0.1 (0.0-0.7) 10^3/uL Baso # (Auto) 0.1 (0.0-0.1) 10^3/uL Absolute Nucleated RBC 0.00 x10^3/uL Nucleated RBC % 0.0 /100WBC PT (9.9-12.6) secs INR (0.8-1.2) APTT (24.9-33.3) secs VBG pH (7.31-7.41) VBG pCO2 (41-51) mmHg VBG pO2 (25-47) mmHg VBG HCO3 (23-28) mmol/L VBG Total CO2 (24-29) mmol/L VBG O2 Saturation (60-80) % VBG Base Excess (-2 - +2) mmol/L Sodium 135 (135-145) mmol/L Potassium 4.4 (3.5-5.0) mmol/L Chloride 97 L (101-111) mmol/L Carbon Dioxide 23 (21-32) mmol/L Anion Gap 15.0 H (6-13) BUN 37 H (6-20) mg/dL Creatinine 1.4 H (0.6-1.2) mg/dL Estimated GFR (MDRD) 50 L (>89) Glucose 114 H (70-100) mg/dL Lactic Acid (0.5-2.2) mmol/L Calcium 8.8 (8.5-10.3) mg/dL Total Bilirubin 2.0 H (0.2-1.0) mg/dL AST 52 H (10-42) IU/L ALT 26 (10-60) IU/L Alkaline Phosphatase 156 H (42-121) IU/L Ammonia (7-35) umol/L Total Creatine Kinase 128 (22-269) IU/L CK-MB (CK-2) (0.6-6.3) ng/mL Troponin I High Sens (2.3-19.7) ng/L B-Natriuretic Peptide (5-100) pg/mL Total Protein 8.1 (6.7-8.2) g/dL Albumin 3.9 (3.2-5.5) g/dL Globulin 4.2 (2.1-4.2) g/dL Albumin/Globulin Ratio 0.9 L (1.0-2.2) Lipase 40 (22-51) U/L TSH (0.34-5.60) uIU/mL Urine Color Urine Clarity (CLEAR) Urine pH (5.0-7.5) PH Ur Specific [place] (1.002-1.030) Urine Protein (NEGATIVE) mg/dL Urine Glucose (UA) (NEGATIVE) mg/dL Urine Ketones (NEGATIVE) mg/dL Urine Occult Blood (NEGATIVE) Urine Nitrite (NEGATIVE) Urine Bilirubin (NEGATIVE) Urine Urobilinogen (NORMAL) E.U./dL Ur Leukocyte Esterase (NEGATIVE) Ur Microscopic Review Urine Culture Comments Last Dose Date UNKNOWN Last Dose Time UNKNOWN Digoxin 0.2 ng/mL Salicylates < 6.0 mg/dL Urine Opiates Screen (NEGATIVE) Ur Oxycodone Screen (NEGATIVE) Urine Methadone Screen (NEGATIVE) Ur Propoxyphene Screen (NEGATIVE) Acetaminophen < 10 L (10-30) ug/mL Ur Barbiturates Screen (NEGATIVE) Ur Tricyclics Screen (NEGATIVE) Ur Phencyclidine Scrn (NEGATIVE) Ur Amphetamine Screen (NEGATIVE) U Methamphetamines Scrn (NEGATIVE) U Benzodiazepines Scrn (NEGATIVE) Urine Cocaine Screen (NEGATIVE) U Cannabinoids Screen (NEGATIVE) Ethyl Alcohol < 5.0 mg/dL Assessment/Plan - Problem List (1) Hypoxia Impression: Last night he was hypoxic because of combined CHF and A. fib with RVR. I am at a loss to explain what is going on with him today. I have looked for neurological disease such as subdural hematoma, congestive heart failure, A. fib with RVR, hepatic encephalopathy, substance abuse. I am looking for because it would alter sensorium to then make him hypoxic. I am not finding anything at this time. Plan: I am going to resume his medications for all of his current medical problems. Placement observation. Resume CPAP. And hopefully eliminate the cause of his current change in status. (2) AMS (altered mental status) Impression: waxes and wanes. CT of head neg. attributed to hypoxia that can, at time, be severe with sats in the 70's. But then bumps up to 90's w O2. urine tox screen neg for recreational substances. Qualifiers: Altered mental status type: transient alteration of awareness Qualified Code(s): R40.4 - Transient alteration of awareness (3) Lactic acidosis Impression: causes such as hypoxia or cirrhosis are present but not to the severity that I feel saying these are the causes. Other causes such as neoplasm, drug, toxins, uncontrolled DM, alcohol, short bowel syndrome, sepsis/infection do not appear to be present. plan on close monitoring until cause delineated. (4) Atrial fibrillation with RVR Impression: rate will have bursts of tachycardia. No PE on CTA. he has been on eliquis. will resume beta roger for rate control. Troponin negative. (5) COPD (chronic obstructive pulmonary disease) Impression: no exacerbation on exam. will use prn albuterol for now. Qualifiers: COPD type: emphysema Emphysema type: unspecified Qualified Code(s): J43.9 - Emphysema, unspecified (6) Chronic systolic (congestive) heart failure Impression: while he does have an elevated BNP, he doesn't have JVD, edema. The BNP is usually elevated. I will hold off on lasix for now. But he will get aldactone (he also has ascites), start lisinopril, and continue betablocker. (7) Elevated INR Impression: he is on eliquis not on coumadin. He does have Hep C with ascites and liver dysfunction could be the cause. I did wonder about subdural but CT of head is negative.
[2019-07-28] MEDS: SODIUM CHLORIDE FLUSH 0.9% 10 ML SYRINGE IVP SCH ×2 (03:00→18:51)
[2019-07-28] MEDS: SPIRONOLACTONE 25 MG TABLET PO SCH ×2 (03:13→09:40)
[2019-07-28] MEDS: METOPROLOL TARTRATE 50 MG TABLET PO SCH ×2 (03:28→08:56)
[2019-07-28 05:31] LABS: BASOPHILS % (AUTO) 0.4 %; EOSINOPHILS % (AUTO) 0.1 %; HGB - HEMOGLOBIN 14.1 g/dL (14.0-18.0); LYMPHOCYTES # (AUTO) 1.4 10^3/uL (1.5-3.5); LYMPHOCYTES % (AUTO) 13.7 %; MEAN CORPUSCULAR HEMOGLOBIN 30.1 pg (27.0-31.0); MEAN CORPUSCULAR HGB CONC 32.8 g/dL (32.0-36.0); MEAN CORPUSCULAR VOLUME 91.9 fL (80.0-94.0); MEAN PLATELET VOLUME 10.7 fL (7.4-11.4); MONOCYTES # (AUTO) 1.1 10^3/uL (0.0-1.0); MONOCYTES % (AUTO) 11.3 %; NEUTROPHILS # (AUTO) 7.3 10^3/uL (1.5-6.6); NEUTROPHILS % (AUTO) 74.2 %; PLT - PLATELET COUNT 215 10^3/uL (130-450); RED BLOOD COUNT 4.68 10^6/uL (4.70-6.10); RED CELL DISTRIBUTION WIDTH 16.2 % (12.0-15.0); WHITE BLOOD COUNT 9.9 x10^3/uL (4.8-10.8)
[2019-07-28 05:38] LABS: CALCIUM 8.5 mg/dL (8.5-10.3); CREATININE 1.4 mg/dL (0.6-1.2)
[2019-07-28] MEDS: lisinopriL 5 MG TABLET PO SCH (08:56)
[2019-07-28] MEDS ORDERED: FUROSEMIDE 20 MG/2 ML VIAL IVP SCH (09:00)
--- NOTE | 2019-07-28 18:08 | PROVIDER PROGRESS NOTE ---
Hospitalist Cross-cover Note - Cross-Cover Note Cross-Cover Note: Patient's morning reported feeling well and he was saturating 90% on room air. He went for a walk around the hallways and felt well. At around 10 AM, he stated he had another episode where he felt severely short of breath. He was not hypoxic during the episode. His heart rate was in the 110s. He believes it occurred after he took his metoprolol and that he believes metoprolol may be causing the symptoms. I discussed with him that he had been on metoprolol in the past and did not have such symptoms but he believes because he has been off of it for a few weeks that restarting it may have caused this problem. We discussed other therapies given his heart failure and we agreed to change his metoprolol to carvedilol despite his history of COPD and metoprolol being a selective beta-roger. His blood pressure is also on the lower side and there is concerned that carvedilol may drop his blood pressure a little more than metoprolol but we will closely monitor this. We also ordered an echocardiogram to be obtained given he not had one since March and his ejection fraction was less than 20% at that time. His lactic acidosis has resolved and so we discontinued his IV fluids as he appears euvolemic at the moment. We will observe him overnight given the change in his medication. If he has no further episodes of hypoxia, we will likely discharge him in the morning on carvedilol instead of metoprolol.
[2019-07-28] MEDS ORDERED: AMIODARONE 150 MG/100 ML 100 ML IV ONE (19:45)
[2019-07-28] MEDS ORDERED: SODIUM CHLORIDE 0.9% 500 ML IV ONE (19:46)
[2019-07-28] MEDS ORDERED: AMIODARONE 360 MG/200 ML 200 ML IV ONE (19:54)
[2019-07-28] MEDS ORDERED: SODIUM CHLORIDE 0.9% 500 ML ONE (20:35)
--- NOTE | 2019-07-28 20:44 | PROVIDER PROGRESS NOTE ---
Hospitalist Cross-cover Note - Cross-Cover Note Cross-Cover Note: 19:43 called by RN for sudden sob. he's been walking in the hallways. doing well with afib. O2 sats nml off of O2. now w sob and no cp, no JVD Tele shows him to have Vtach. He tells me that his Metoprolol is the reason. He is unhappy that he has been getting a beta-roger here. He has been off beta-roger for about 6 weeks he thinks, and then we resumed it in the last few days since he is been in observation twice. I have ordered amiodarone. He initially refuses it. It took me 5 minutes of bedside conversation and cajoling to get him to understand what was going on. I showed him his telemetry strips of what atrial fibrillation with RVR looks like. Then I showed him his telemetry strips of what it looks like to go into V. tach. These are his telemetry strips. We note that he has an ejection fraction of less than 20% from 2018 as well as admission in the last 24 hours. 19:50 Agrees to the amiodarone drip and transfer to ICU 20:[address] Perez, [facility] pension agent. Usually, the patient should be on a stable medical regimen for at least a few months, preferably 6 months, before they get an AICD. This patient has been noncompliant with his medications. While he has a history of substance abuse, he has been adamant that he has not used heroin or met amphetamines for a year. His urine tox readings here confirm that he is not using recreational substances. Knowing that he is an active V. tach, and symptomatic, Dr. Perez feels that the patient should get an urgent pacer before he leaves hospitalization.I explained to the patient that we may be transferring him to [place]. That is when he shares with me that he has a religion instructor and forgot to tell us. He pulls out a business card for Sharon Mclain MD who is Pulmonology disease and CCU medicine at [facility]. But has been seen by Dr. Joaquin Johnson, Cardiology. Dr. Johnson explained to the patient that he should have an AICD as most recently as last summer. The issue was brought up again with his doctor appointment in March. When I asked the patient why he did not get an AICD, he states "I am a single man, I live alone, I do not have a woman to take care of me". He says that it is too logistically difficult and overwhelming for him to make these appointments. So he never followed through. So I called the Cardiology office and Dr. Beckman is pension agent at [phone]. 20:08 The religion instructor on-call, Dr. Beckman, returns my call. Dr. Beckman agrees with my management with regards to lisinopril, recommends we continue the carvedilol, and the amiodarone drip. He also reiterates that it would have been better for this patient to been on maximal medical management for minimum of 6 months. I have explained to him that the patient has been unfortunately noncompliant. He also states that this is an urgent need for an AICD. However is on strike. Many patients are being diverted to [facility] including [facility]. They do not have any beds. 20:55 Patient is grimacing in abdominal pain. Short of breath. Nauseated. Feeling hot flashes with the amiodarone drip. Telemetry shows atrial fibrillation. Lungs are clear. No JVD. O2 sats are stable on his nasal cannula. Rangel requested and ordered. HIs INR is 3.4 and nursing asks about Eliquis. DC. 21:25 re examined. Pale. Nausea resolved. just doesn't feel well but no pain. Tele w afib and RVR. no JVD and clear lungs. Greater than 40 minutes spent at bedside in direct patient care.
[2019-07-28] MEDS ORDERED: carvediloL 12.5 MG TABLET PO SCH (21:00)
[2019-07-28] MEDS: APIXABAN 5 MG TABLET PO SCH (21:12)
[2019-07-29] MEDS: AMIODARONE 360 MG/200 ML 200 ML IV SCH ×2 (02:23→14:19)
[2019-07-29 05:19] LABS: BASOPHILS # (AUTO) 0.1 10^3/uL (0.0-0.1); BASOPHILS % (AUTO) 0.5 %; EOSINOPHILS # (AUTO) 0.1 10^3/uL (0.0-0.7); EOSINOPHILS % (AUTO) 0.7 %; HGB - HEMOGLOBIN 14.6 g/dL (14.0-18.0); LYMPHOCYTES # (AUTO) 2.1 10^3/uL (1.5-3.5); LYMPHOCYTES % (AUTO) 17.4 %; MEAN CORPUSCULAR HEMOGLOBIN 30.5 pg (27.0-31.0); MEAN CORPUSCULAR HGB CONC 32.3 g/dL (32.0-36.0); MEAN CORPUSCULAR VOLUME 94.4 fL (80.0-94.0); MEAN PLATELET VOLUME 11.5 fL (7.4-11.4); MONOCYTES # (AUTO) 1.6 10^3/uL (0.0-1.0); MONOCYTES % (AUTO) 13.3 %; NEUTROPHILS # (AUTO) 8.1 10^3/uL (1.5-6.6); NEUTROPHILS % (AUTO) 67.6 %; PLT - PLATELET COUNT 251 10^3/uL (130-450); RED BLOOD COUNT 4.79 10^6/uL (4.70-6.10); RED CELL DISTRIBUTION WIDTH 16.9 % (12.0-15.0)
[2019-07-29 05:31] LABS: CALCIUM 8.7 mg/dL (8.5-10.3); CREATININE 1.5 mg/dL (0.6-1.2); MAGNESIUM 2.4 mg/dL (1.7-2.8); PHOSPHORUS 3.3 mg/dL (2.5-4.6)
[2019-07-29 06:07] LABS: DIFFERENTIAL COMMENT MANUAL=AUTO DIFF; PLATELET ESTIMATE, MANUAL NORMAL (130-450,000) (NORMAL); RBC MORPHOLOGY (MULTIPLE) NORMAL APPEARANCE (NORMAL)
[2019-07-29] MEDS: SODIUM CHLORIDE FLUSH 0.9% 10 ML SYRINGE IVP SCH ×2 (07:51→08:45)
--- NOTE | 2019-07-29 07:55 | PHARMACY PROGRESS NOTE ---
- Best Possible Medication History Admit Date and Time: 07/29/19 0221 Processed by: Pharmacy Medication History completed: Yes Patient Interview: Completed Secondary Source(s): Previous admit records As the person ultimately responsible for medication therapy, providers are able to order a medication from an existing home medication list in [facility] via the "Reconcile Routine" prior to Confirmation of that medication by software support engineer. Such practice is discouraged except when the physician, in their clinical judgment, deems that a medical need exists for a medication without regard to previous use.
[2019-07-29] MEDS: lisinopriL 5 MG TABLET PO SCH (08:43)
[2019-07-29] MEDS: SPIRONOLACTONE 25 MG TABLET PO SCH (08:46)
[2019-07-29] MEDS: APIXABAN 5 MG TABLET PO SCH (09:15)
--- NOTE | 2019-07-29 14:07 | PROVIDER PROGRESS NOTE ---
Subjective - Prog Note Date Prog Note Date: 07/29/19 - Subjective Pt reports feeling: Improved Subjective: Last night, the patient developed ventricular tachycardia and he was transferred to the intensive care unit and placed on amiodarone. He states he is initially asymptomatic but then developed shortness of breath. He states that he felt he really could not catch his breath last night but that this has since resolved. He currently reports no chest pain, dyspnea, palpitations. He is aware that we are looking to transfer him given his nonischemic cardiomyopathy and ventricular tachycardia. He is agreeable to transfer. Current Medications - Current Medications Current Medications: Active Medications Acetaminophen (Tylenol) 650 mg PO Q4HR PRN PRN Reason: Pain 1 to 4 Albuterol () 2.5 mg INH RTQ4H PRN PRN Reason: Wheezing Last Admin: 07/28/19 11:22 Dose: 2.5 mg Amiodarone HCl/Dextrose (Nexterone 360 Mg/200 Ml) 200 mls @ 16.667 mls/hr IV . Q12H DEBORAH; Protocol Last Infusion: 07/29/19 13:00 Dose: 0.5 mg/min, 16.7 mls/hr Lisinopril (Zestril) 2.5 mg PO DAILY [facility] Last Admin: 07/29/19 08:43 Dose: Not Given Ondansetron HCl (Zofran Inj) 4 mg IVP Q6HR PRN PRN Reason: Nausea / Vomiting Ondansetron HCl (Zofran Odt) 4 mg TL Q6HR PRN PRN Reason: Nausea / Vomiting Sodium Chloride (Normal Saline Flush 0.9%) 10 ml IVP PRN PRN PRN Reason: NEEDED PER PROVIDER ORDERS Last Admin: 07/28/19 12:34 Dose: 10 ml Sodium Chloride (Normal Saline Flush 0.9%) 10 ml IVP 0100,0900,1700 [facility] Last Admin: 07/29/19 08:45 Dose: Not Given Spironolactone (Aldactone) 25 mg PO DAILY [facility] Last Admin: 07/29/19 08:46 Dose: 25 mg Digoxin 125 mcg PO DAILY 01/15/19 Furosemide 40 mg PO BID 01/15/19 Objective - Vital Signs/Intake & Output Reviewed Vital Signs: Yes Vital Signs: Vital Signs x48h Temp Pulse Resp BP Pulse Ox 07/29/19 13:00 86 23 112/80 98 07/29/19 12:00 104 H 22 87/67 L 99 07/29/19 11:00 99 18 93 07/29/19 10:00 95 26 H 142/43 H 99 07/29/19 09:00 101 H 19 93/78 94 07/29/19 08:43 90 19 97/84 H 98 07/29/19 08:00 36.5 C 106 H 16 90/76 99 07/29/19 07:00 103 H 18 98/79 96 Intake & Output: Intake & Output 07/26/19 07/27/19 07/28/19 07/29/19 23:59 23:59 23:59 23:59 Intake Total 2338.888 938.258 Output Total 310 570 Balance 2028.888 368.258 - Objective General Appearance: positive: No acute distress, Alert Eyes Bilateral: positive: Normal inspection ENT: positive: ENT inspection nml Neck: positive: Nml inspection Respiratory: positive: No respiratory distress. negative: Wheezes, Rales, Rhonchi Cardiovascular: positive: Irregularly irregular, Systolic murmur. negative: Regular rate & rhythm, No murmur, Tachycardia, Bradycardia Abdomen: positive: Non-tender, No distention. negative: Tenderness Skin: positive: No rash, Warm, Dry Extremities: positive: Full ROM, No pedal edema Neurologic/Psychiatric: positive: Oriented x3. negative: Disoriented to person, Disoriented to place, Disoriented to time - Lab Results Fish Bones: 07/29/19 04:48 07/29/19 04:48 Other Labs: Lab Results x24hrs 07/29/19 07/29/19 Range/Units 04:48 04:48 WBC 12.0 H (4.8-10.8) x10^3/uL RBC 4.79 (4.70-6.10) 10^6/uL Hgb 14.6 (14.0-18.0) g/dL Hct 45.2 (42.0-52.0) % MCV 94.4 H (80.0-94.0) fL MCH 30.5 (27.0-31.0) pg MCHC 32.3 (32.0-36.0) g/dL RDW 16.9 H (12.0-15.0) % Plt Count 251 (130-450) 10^3/uL MPV 11.5 H (7.4-11.4) fL Neut # (Auto) 8.1 H (1.5-6.6) 10^3/uL Lymph # (Auto) 2.1 (1.5-3.5) 10^3/uL [place] # (Auto) 1.6 H (0.0-1.0) 10^3/uL Eos # (Auto) 0.1 (0.0-0.7) 10^3/uL Baso # (Auto) 0.1 (0.0-0.1) 10^3/uL Absolute Nucleated RBC 0.00 x10^3/uL Band Neuts % (Manual) Not Reportable Abnorm Lymph % (Manual) Not Reportable Nucleated RBC % 0.0 /100WBC Neutrophils # (Manual) Not Reportable Lymphocytes # (Manual) Not Reportable Monocytes # (Manual) Not Reportable Eosinophils # (Manual) Not Reportable Basophils # (Manual) Not Reportable Differential Comment MANUAL=AUTO DIFF Platelet Estimate NORMAL (130-450,000) (NORMAL) RBC Morph Micro Appear NORMAL APPEARANCE (NORMAL) Sodium 135 (135-145) mmol/L Potassium 4.3 (3.5-5.0) mmol/L Chloride 100 L (101-111) mmol/L Carbon Dioxide 22 (21-32) mmol/L Anion Gap 13.0 (6-13) BUN 51 H (6-20) mg/dL Creatinine 1.5 H (0.6-1.2) mg/dL Estimated GFR (MDRD) 47 L (>89) Glucose 110 H (70-100) mg/dL Calcium 8.7 (8.5-10.3) mg/dL Phosphorus 3.3 (2.5-4.6) mg/dL Magnesium 2.4 (1.7-2.8) mg/dL - Diagnostic Imaging Diagnostic Imaging Results: positive: Final report reviewed ABX Reporting Has patient been on IV antibiotics over the past 48 hours?: No Assessment/Plan - Problem List (1) Ventricular tachycardia Impression: He had approximately 30 seconds of ventricular tachycardia overnight. He was initially asymptomatic but then developed dyspnea. He never endorsed chest pain or palpitations. He was given an amiodarone bolus and started on amiodarone infusion and transferred to the intensive care unit. He is now in atrial fibrillation with rates in the 80s. He remains on amiodarone at 0.5 mg.His beta-roger was discontinued last night as he was hypotensive for a brief period of time. Patient does not want to be on metoprolol as he feels it is contributing to his episodes of dyspnea. He is agreeable to carvedilol. As his blood pressure is stable now, will restart him on low-dose carvedilol. Case was discussed with cardiology at [facility] overnight who felt that an ICD was warranted. The case was also discussed with the patient's upsetter helper at [facility] but unfortunately they do not have any beds available at the moment due to the strike at [facility] but they feel that he should have an ICD placed prior to discharge. We will look into transferring the patient to [facility] once a bed is available. Continue to hold Eliquis at the moment as he will require intervention. I attest the patient will be transferred or discharged within 96 hours. (2) Non-ischemic cardiomyopathy Impression: Cardiomyopathy is likely secondary to his history of alcohol use as well as IV drug use. He reports having an angiogram in the past with clean coronary arteries. Repeat echocardiogram was performed this hospitalization. The prelim report shows an ejection fraction less than 20% with a moderately enlarged left ventricle. He has severe right ventricular enlargement as well as severely impaired right ventricular systolic function. He also has severe mitral regurgitation which is worse compared to prior echocardiogram which was moderate to severe back in March 2019. He currently appears euvolemic at the moment. He is back on Aldactone, lisinopril. We switched his metoprolol to carvedilol as he felt the metoprolol was causing his dyspnea. (3) AMS (altered mental status) Impression: This has since resolved and was likely secondary to hypoxia. He has had no more episodes of altered mental status during this hospitalization. The CT of the head was negative. Ammonia is within normal limits. Qualifiers: Altered mental status type: transient alteration of awareness Qualified Code(s): R40.4 - Transient alteration of awareness (4) Chronic atrial fibrillation Impression: He has chronic atrial fibrillation and he was previously on metoprolol and d igoxin. We (5) Renal insufficiency Impression: His renal function is at baseline with a creatinine of 1.4. Continue lisinopril. (6) Hepatitis C Impression: His LFTs are stable. INR is elevated at 3.4. Qualifiers: Viral hepatitis chronicity: chronic (7) Lactic acidosis Impression: This has since resolved.
[2019-07-29] MEDS ORDERED: SODIUM CHLORIDE 0.9% 500 ML IV PRN (14:14)
--- NOTE | 2019-07-29 14:53 | DISCHARGE SUMMARY ---
Discharge Summary Admit Date: 07/28/19 Discharge Date: 07/29/19 Discharging Provider: Cabrera Quinteros Primary Care Provider: Blayne Dietz Code Status: Attempt Resuscitation Condition at Discharge: Stable Discharge Disposition: 02 Transfer Acute Care Hosp Dis[facility] Name: [facility] - DIAGNOSES Admission Diagnoses: Proximal Altered mental status Lactic acidosis Atrial fibrillation with RVR COPD Chronic systolic heart failure Elevated INR Discharge Diagnoses with Status of Each Condition: Ventricular tachycardia - He had approximately 30 seconds of ventricular tachycardia overnight. He was initially asymptomatic but then developed dyspnea. He never endorsed chest pain or palpitations. He was given an amiodarone bolus and started on amiodarone infusion and transferred to the [facility] unit. He is now in atrial fibrillation with rates in the 80s. He remains on amiodarone at 0.5 mg.His beta-roger was discontinued last night as he was hypotensive for a brief period of time. Patient does not want to be on metoprolol as he feels it is contributing to his episodes of dyspnea. He is agreeable to carvedilol. As his blood pressure is stable now, will restart him on low-dose carvedilol. Case was discussed with cardiology at [facility] overnight who felt that an ICD was warranted. The case was also discussed with the patient's electronic train control technician at [facility] but unfortunately they do not have any beds available at the moment due to the strike at [facility] but they feel that he should have an ICD placed prior to discharge. We will look into transferring the patient to [facility] once a bed is available. Continue to hold Eliquis at the moment as he will require intervention. Nonischemic cardiomyopathy - Cardiomyopathy is likely secondary to his history of alcohol use as well as IV drug use. He reports having an angiogram in the past with clean coronary arteries. Repeat echocardiogram was performed this hospitalization. The prelim report shows an ejection fraction less than 20% with a moderately enlarged left ventricle. He has severe right ventricular enlargement as well as severely impaired right ventricular systolic function. He also has severe mitral regurgitation which is worse compared to prior echocardiogram which was moderate to severe back in March 2019. He currently appears euvolemic at the moment. He is back on Aldactone, lisinopril. We switched his metoprolol to carvedilol as he felt the metoprolol was causing his dyspnea. Altered mental status - This has since resolved and was likely secondary to hypoxia. He has had no more episodes of altered mental status during this hospitalization. The CT of the head was negative. Ammonia is within normal limits. Chronic atrial fibrillation - He has chronic atrial fibrillation and he was previously on metoprolol and digoxin. We will switch his metoprolol to carvedilol given he feels it is causing his dyspnea. His Eliquis is also being held as he will require intervention. Renal insufficiency - His renal function is at baseline with a creatinine of 1.4. Continue lisinopril. Hepatitis C - His LFTs are stable. His INR is elevated at 3.4 but is not clear at this moment if this is due to his Eliquis or underlying liver disease. COPD - Stable. - HPI History of Present Illness: H&P per Dr. Vargas 07/28/16: The patient was admitted July 26 to be discharged July 27 after observation status for shortness of breath. We attributed his shortness of breath to be from combined causes. The first being noncompliance with medica tion resulting in uncontrolled atrial fibrillation. That in turn resulted in mild congestive heart failure. He was resumed on his usual medications. Given prescriptions for his medications. Nevertheless, on his drive to [place] to pick up attendant his medicines, and coming back to [place], he began having episodes where "I cannot breathe". He has a history of heroin and methamphetamine abuse but is adamant he has not used in the last few weeks. Other than his noncompliance with medications he has nothing new to offer. He denies fever, chills. No abdominal pain. No urgency frequency dysuria. He does have a history of pulmonary embolus from DVT dating to 2018. But he has been taking his Eliquis. He changes his story so many times, however, I am not sure if he has been taking his Eliquis. He now presents with continued shortness of breath that is episodic. He has been in the emergency room several hours with no clear indication that he needed to be readmitted. He was intermittently hypoxic to 70's sat on RA then he would be put on O2, improve, and then be 94% on room air. There is no specific treatment in the emergency room other than oxygen therapy. While there he continued to have episodes of apnea, cyanosis, hypoxia. Although this would be severe enough that his head would fall forward on his chest and he be sleeping for moment to then wake up when you should come or spoke to him. His cyanosis was evident over his nose, lips, fingers at times. But then when he would awaken his respiratory rate would get higher, and his oxygen saturation would improve. Pulse would be in the 70s and ratchet up to the 130s. In working up the causes of his sleepiness and hypoxia, CT of the head was done it was negative. Urinalysis was negative for infection. CBC was normal. CMP was relatively normal other than for elevated liver enzymes which are attributed to cirrhosis. Lactic acid was 2.8. Urine tox screen was negative. Alcohol and acetaminophen and salicylate levels were undetectable. BNP was not severely elevated and his troponins were unchanged from yesterday and the day before. It is unclear why this patient is having intermittent obtundation, followed by hypoxia. What is definite is a change in mental status. Yesterday he was in an alert historian, lucid speech. Today his status is changed and that he is not oriented. He does not remember meeting me on the nor does he remember the [facility] student that met him as well. He is increasingly belligerent. But this alternates with cooperative calm behavior. - CONSULTS | PROCEDURES Procedures: Echocardiogram July 28 showed ejection fraction less than 20% with a moderately enlarged left ventricle. He has severe right ventricular enlargement as well as severely impaired right ventricular systolic function. He also has severe mitral regurgitation which is worse compared to prior echocardiogram which was moderate to severe back in March 2019. There is also severe tricuspid regurgitation noted. - HOSPITAL COURSE Hospital Course: He was admitted to the floor for hypoxia and altered mental status. It was thought that he may have developed flash pulmonary edema secondary to his atrial fibrillation given his cardiomyopathy. He was given diuretics with improvement in his Rrespiratory status and he was weaned off of the oxygen. Hendrix that his altered mental status was secondary to hypoxia as the CT of the head was unremarkable and his ammonia was within normal limits. His urine drug screens was also negative. The patient felt that the metoprolol he was receiving was causing his shortness of breath and he declined to take it. This was despite us informing him that he had previously been on metoprolol despite being off of it for the past month and he did well with it in the past. He believes he may have developed an allergy in the meantime and continue to decline to take metoprolol. We switched him to carvedilol despite his history of COPD and the fact that his blood pressure has been borderline. He was resumed on his Aldactone and lisinopril. He was monitored during the first 24 hours when yesterday evening, he had about 30 seconds of ventricular tachycardia. He was given an amiodarone bolus and started on amiodarone IV and transferred to the intensive care unit. The case was discussed with cardiology overnight at [facility] and Siomara sidhu his electronic train control technician is at [facility]. It was felt the patient needed an ICD but unfortunately [facility] has no beds available. We discussed the case further with Siomara and Dr. Perez agreed that the patient needed an ICD prior to discharge but unfortunately no beds were available. The following day [facility] had a bed available and the patient was graciously accepted by Dr. Mckeon in transfer. He was transferred via ALS while on amiodarone at 0.5 mg a minute. - ALLERGIES Allergies/Adverse Reactions: Allergies Allergy/AdvReac Type Severity Reaction Status Date / Time metoprolol AdvReac Severe Respiratory Verified 07/28/19 12:11 - MEDICATIONS Home Medications: Ambulatory Orders Medication Instructions Recorded Confirmed Digoxin 125 mcg PO DAILY 01/15/19 07/29/19 Furosemide 40 mg PO BID 01/15/19 07/29/19 Apixaban [Eliquis] 5 mg PO BID #60 tablet 07/27/19 07/29/19 Aspirin [Aspirin EC] 81 mg PO DAILY #30 tablet. 07/27/19 07/29/19 Metoprolol Succinate 50 mg PO BID #60 tab.er.24h 07/27/19 07/29/19 Spironolactone [Aldactone] 25 mg PO DAILY #30 tablet 07/27/19 07/29/19 - PHYSICAL EXAM AT DISCHARGE General Appearance: positive: No acute distress, Alert Eyes Bilateral: positive: Normal inspection ENT: positive: ENT inspection nml Neck: positive: Nml inspection Respiratory: positive: No respiratory distress. negative: Wheezes, Rales, Rhonchi Cardiovascular: positive: Irregularly irregular, Tachycardia, Systolic murmur. negative: Regular rate & rhythm, Bradycardia Abdomen: positive: Non-tender, No distention. negative: Tenderness Skin: positive: No rash, Warm, Dry Extremities: positive: Full ROM, No pedal edema Neurologic/Psychiatric: positive: Oriented x3. negative: Disoriented to person, Disoriented to place, Disoriented to time Physical Exam Other/Comments: Vital Signs Temp Pulse Resp BP Pulse Ox 07/29/19 14:00 97 16 115/88 H 98 07/29/19 13:00 36.5 C 86 23 112/80 98 07/29/19 12:00 104 H 22 117/86 H 99 - LABS Result Diagrams: 07/29/19 04:48 07/29/19 04:48 - DIAGNOSTIC IMAGING Diagnostic Imaging Results: Final report reviewed Diagnostic Imaging Results Comments: Laboratory Tests 07/27/19 07/27/19 07/27/19 19:50 19:50 19:50 WBC 8.3 RBC 4.87 Hgb 14.6 Hct 45.8 MCV 94.0 MCH 30.0 MCHC 31.9 L RDW 16.0 H Plt Count 223 MPV 11.1 Neut # (Auto) 5.7 Lymph # (Auto) 1.7 [place] # (Auto) 0.8 Eos # (Auto) 0.1 Baso # (Auto) 0.1 Absolute Nucleated RBC 0.00 Band Neuts % (Manual) Abnorm Lymph % (Manual) Nucleated RBC % 0.0 Neutrophils # (Manual) Lymphocytes # (Manual) Monocytes # (Manual) Eosinophils # (Manual) Basophils # (Manual) Differential Comment Platelet Estimate RBC Morph Micro Appear PT 36.6 H INR 3.4 H APTT 36.8 H VBG pH VBG pCO2 VBG pO2 VBG HCO3 VBG Total CO2 VBG O2 Saturation VBG Base Excess Sodium 135 Potassium 4.4 Chloride 97 L Carbon Dioxide 23 Anion Gap 15.0 H BUN 37 H Creatinine 1.4 H Estimated GFR (MDRD) 50 L Glucose 114 H Lactic Acid Calcium 8.8 Phosphorus Magnesium Total Bilirubin 2.0 H AST 52 H ALT 26 Alkaline Phosphatase 156 H Ammonia Total Creatine Kinase 128 CK-MB (CK-2) Troponin I High Sens B-Natriuretic Peptide Total Protein 8.1 Albumin 3.9 Globulin 4.2 Albumin/Globulin Ratio 0.9 L Lipase 40 TSH Urine Color Urine Clarity Urine pH Ur Specific [place] Urine Protein Urine Glucose (UA) Urine Ketones Urine Occult Blood Urine Nitrite Urine Bilirubin Urine Urobilinogen Ur Leukocyte Esterase Ur Microscopic Review Urine Culture Comments Last Dose Date UNKNOWN Last Dose Time UNKNOWN Digoxin 0.2 Salicylates < 6.0 Urine Opiates Screen Ur Oxycodone Screen Urine Methadone Screen Ur Propoxyphene Screen Acetaminophen < 10 L Ur Barbiturates Screen Ur Tricyclics Screen Ur Phencyclidine Scrn Ur Amphetamine Screen U Methamphetamines Scrn U Benzodiazepines Scrn Urine Cocaine Screen U Cannabinoids Screen Ethyl Alcohol < 5.0 07/27/19 07/27/19 07/27/19 19:50 19:50 19:50 WBC RBC Hgb Hct MCV MCH MCHC RDW Plt Count MPV Neut # (Auto) Lymph # (Auto) [place] # (Auto) Eos # (Auto) Baso # (Auto) Absolute Nucleated RBC Band Neuts % (Manual) Abnorm Lymph % (Manual) Nucleated RBC % Neutrophils # (Manual) Lymphocytes # (Manual) Monocytes # (Manual) Eosinophils # (Manual) Basophils # (Manual) Differential Comment Platelet Estimate RBC Morph Micro Appear PT INR APTT VBG pH VBG pCO2 VBG pO2 VBG HCO3 VBG Total CO2 VBG O2 Saturation VBG Base Excess Sodium Potassium Chloride Carbon Dioxide Anion Gap BUN Creatinine Estimated GFR (MDRD) Glucose Lactic Acid Calcium Phosphorus Magnesium Total Bilirubin AST ALT Alkaline Phosphatase Ammonia Total Creatine Kinase CK-MB (CK-2) 5.2 Troponin I High Sens B-Natriuretic Peptide 640 H Total Protein Albumin Globulin Albumin/Globulin Ratio Lipase TSH 3.17 Urine Color Urine Clarity Urine pH Ur Specific [place] Urine Protein Urine Glucose (UA) Urine Ketones Urine Occult Blood Urine Nitrite Urine Bilirubin Urine Urobilinogen Ur Leukocyte Esterase Ur Microscopic Review Urine Culture Comments Last Dose Date Last Dose Time Digoxin Salicylates Urine Opiates Screen Ur Oxycodone Screen Urine Methadone Screen Ur Propoxyphene Screen Acetaminophen Ur Barbiturates Screen Ur Tricyclics Screen Ur Phencyclidine Scrn Ur Amphetamine Screen U Methamphetamines Scrn U Benzodiazepines Scrn Urine Cocaine Screen U Cannabinoids Screen Ethyl Alcohol 07/27/19 07/27/19 07/27/19 19:50 20:46 20:46 WBC RBC Hgb Hct MCV MCH MCHC RDW Plt Count MPV Neut # (Auto) Lymph # (Auto) [place] # (Auto) Eos # (Auto) Baso # (Auto) Absolute Nucleated RBC Band Neuts % (Manual) Abnorm Lymph % (Manual) Nucleated RBC % Neutrophils # (Manual) Lymphocytes # (Manual) Monocytes # (Manual) Eosinophils # (Manual) Basophils # (Manual) Differential Comment Platelet Estimate RBC Morph Micro Appear PT INR APTT VBG pH 7.343 VBG pCO2 44.8 VBG pO2 18.6 L VBG HCO3 23.8 VBG Total CO2 25.2 VBG O2 Saturation 23.7 L VBG Base Excess -2.1 L Sodium Potassium Chloride Carbon Dioxide Anion Gap BUN Creatinine Estimated GFR (MDRD) Glucose Lactic Acid 2.8 H Calcium Phosphorus Magnesium Total Bilirubin AST ALT Alkaline Phosphatase Ammonia Total Creatine Kinase CK-MB (CK-2) Troponin I High Sens 18.2 B-Natriuretic Peptide Total Protein Albumin Globulin Albumin/Globulin Ratio Lipase TSH Urine Color Urine Clarity Urine pH Ur Specific [place] Urine Protein Urine Glucose (UA) Urine Ketones Urine Occult Blood Urine Nitrite Urine Bilirubin Urine Urobilinogen Ur Leukocyte Esterase Ur Microscopic Review Urine Culture Comments Last Dose Date Last Dose Time Digoxin Salicylates Urine Opiates Screen Ur Oxycodone Screen Urine Methadone Screen Ur Propoxyphene Screen Acetaminophen Ur Barbiturates Screen Ur Tricyclics Screen Ur Phencyclidine Scrn Ur Amphetamine Screen U Methamphetamines Scrn U Benzodiazepines Scrn Urine Cocaine Screen U Cannabinoids Screen Ethyl Alcohol 07/28/19 07/28/19 07/28/19 00:35 01:40 05:15 WBC 9.9 RBC 4.68 L Hgb 14.1 Hct 43.0 MCV 91.9 MCH 30.1 MCHC 32.8 RDW 16.2 H Plt Count 215 MPV 10.7 Neut # (Auto) 7.3 H Lymph # (Auto) 1.4 L [place] # (Auto) 1.1 H Eos # (Auto) 0.0 Baso # (Auto) 0.0 Absolute Nucleated RBC 0.00 Band Neuts % (Manual) Abnorm Lymph % (Manual) Nucleated RBC % 0.0 Neutrophils # (Manual) Lymphocytes # (Manual) Monocytes # (Manual) Eosinophils # (Manual) Basophils # (Manual) Differential Comment Platelet Estimate RBC Morph Micro Appear PT INR APTT VBG pH VBG pCO2 VBG pO2 VBG HCO3 VBG Total CO2 VBG O2 Saturation VBG Base Excess Sodium Potassium Chloride Carbon Dioxide Anion Gap BUN Creatinine Estimated GFR (MDRD) Glucose Lactic Acid Calcium Phosphorus Magnesium Total Bilirubin AST ALT Alkaline Phosphatase Ammonia 34.4 Total Creatine Kinase CK-MB (CK-2) Troponin I High Sens B-Natriuretic Peptide Total Protein Albumin Globulin Albumin/Globulin Ratio Lipase TSH Urine Color DARK YELLOW Urine Clarity CLEAR Urine pH 5.5 Ur Specific [place] 1.020 Urine Protein TRACE Urine Glucose (UA) NEGATIVE Urine Ketones NEGATIVE Urine Occult Blood NEGATIVE Urine Nitrite NEGATIVE Urine Bilirubin NEGATIVE Urine Urobilinogen 2 H Ur Leukocyte Esterase NEGATIVE Ur Microscopic Review NOT INDICATED Urine Culture Comments NOT INDICATED Last Dose Date Last Dose Time Digoxin Salicylates Urine Opiates Screen NEGATIVE Ur Oxycodone Screen NEGATIVE Urine Methadone Screen NEGATIVE Ur Propoxyphene Screen NEGATIVE Acetaminophen Ur Barbiturates Screen NEGATIVE Ur Tricyclics Screen NEGATIVE Ur Phencyclidine Scrn NEGATIVE Ur Amphetamine Screen NEGATIVE U Methamphetamines Scrn NEGATIVE U Benzodiazepines Scrn NEGATIVE Urine Cocaine Screen NEGATIVE U Cannabinoids Screen NEGATIVE Ethyl Alcohol 07/28/19 07/28/19 07/28/19 05:15 05:15 05:15 WBC RBC Hgb Hct MCV MCH MCHC RDW Plt Count MPV Neut # (Auto) Lymph # (Auto) [place] # (Auto) Eos # (Auto) Baso # (Auto) Absolute Nucleated RBC Band Neuts % (Manual) Abnorm Lymph % (Manual) Nucleated RBC % Neutrophils # (Manual) Lymphocytes # (Manual) Monocytes # (Manual) Eosinophils # (Manual) Basophils # (Manual) Differential Comment Platelet Estimate RBC Morph Micro Appear PT INR APTT VBG pH VBG pCO2 VBG pO2 VBG HCO3 VBG Total CO2 VBG O2 Saturation VBG Base Excess Sodium 135 Potassium 4.8 Chloride 100 L Carbon Dioxide 22 Anion Gap 13.0 BUN 43 H Creatinine 1.4 H Estimated GFR (MDRD) 50 L Glucose 93 Lactic Acid 3.1 H* Calcium 8.5 Phosphorus Magnesium Total Bilirubin AST ALT Alkaline Phosphatase Ammonia 30.0 Total Creatine Kinase CK-MB (CK-2) Troponin I High Sens B-Natriuretic Peptide Total Protein Albumin Globulin Albumin/Globulin Ratio Lipase TSH Urine Color Urine Clarity Urine pH Ur Specific [place] Urine Protein Urine Glucose (UA) Urine Ketones Urine Occult Blood Urine Nitrite Urine Bilirubin Urine Urobilinogen Ur Leukocyte Esterase Ur Microscopic Review Urine Culture Comments Last Dose Date Last Dose Time Digoxin Salicylates Urine Opiates Screen Ur Oxycodone Screen Urine Methadone Screen Ur Propoxyphene Screen Acetaminophen Ur Barbiturates Screen Ur Tricyclics Screen Ur Phencyclidine Scrn Ur Amphetamine Screen U Methamphetamines Scrn U Benzodiazepines Scrn Urine Cocaine Screen U Cannabinoids Screen Ethyl Alcohol 07/28/19 07/29/19 07/29/19 08:59 04:48 04:48 WBC 12.0 H RBC 4.79 Hgb 14.6 Hct 45.2 MCV 94.4 H MCH 30.5 MCHC 32.3 RDW 16.9 H Plt Count 251 MPV 11.5 H Neut # (Auto) 8.1 H Lymph # (Auto) 2.1 [place] # (Auto) 1.6 H Eos # (Auto) 0.1 Baso # (Auto) 0.1 Absolute Nucleated RBC 0.00 Band Neuts % (Manual) Not Reportable Abnorm Lymph % (Manual) Not Reportable Nucleated RBC % 0.0 Neutrophils # (Manual) Not Reportable Lymphocytes # (Manual) Not Reportable Monocytes # (Manual) Not Reportable Eosinophils # (Manual) Not Reportable Basophils # (Manual) Not Reportable Differential Comment MANUAL=AUTO DIFF Platelet Estimate NORMAL (130-450,000) RBC Morph Micro Appear NORMAL APPEARANCE PT INR APTT VBG pH VBG pCO2 VBG pO2 VBG HCO3 VBG Total CO2 VBG O2 Saturation VBG Base Excess Sodium 135 Potassium 4.3 Chloride 100 L Carbon Dioxide 22 Anion Gap 13.0 BUN 51 H Creatinine 1.5 H Estimated GFR (MDRD) 47 L Glucose 110 H Lactic Acid 2.2 Calcium 8.7 Phosphorus 3.3 Magnesium 2.4 Total Bilirubin AST ALT Alkaline Phosphatase Ammonia Total Creatine Kinase CK-MB (CK-2) Troponin I High Sens B-Natriuretic Peptide Total Protein Albumin Globulin Albumin/Globulin Ratio Lipase TSH Urine Color Urine Clarity Urine pH Ur Specific [place] Urine Protein Urine Glucose (UA) Urine Ketones Urine Occult Blood Urine Nitrite Urine Bilirubin Urine Urobilinogen Ur Leukocyte Esterase Ur Microscopic Review Urine Culture Comments Last Dose Date Last Dose Time Digoxin Salicylates Urine Opiates Screen Ur Oxycodone Screen Urine Methadone Screen Ur Propoxyphene Screen Acetaminophen Ur Barbiturates Screen Ur Tricyclics Screen Ur Phencyclidine Scrn Ur Amphetamine Screen U Methamphetamines Scrn U Benzodiazepines Scrn Urine Cocaine Screen U Cannabinoids Screen Ethyl Alcohol Vital Signs Temp Pulse Resp BP Pulse Ox 07/29/19 14:00 97 16 115/88 H 98 07/29/19 13:00 36.5 C 86 23 112/80 98 07/29/19 12:00 104 H 22 117/86 H 99 - TIME SPENT Time Spent in Discharge (Minutes): 40
[2019-07-29 16:32] VITALS: BP 93/71
[2019-07-29] MEDS ORDERED: carvediloL 3.125 MG TABLET PO SCH (21:00)
== END 2019-07-29 16:50 | disposition short-term general hospital (02) | DRG 309 ==
LOC: ED 19:24 → MS3 07-28 01:24 → ICU 07-28 20:16 → OBSVTOIN 07-29 02:21
PROVIDERS: ADMIT Specialist; ATTEND Internal Medicine
DX: I47.2 Ventricular tachycardia (principal); I48.91 Unspecified atrial fibrillation; I50.22 Chronic systolic (congestive) heart failure; R40.4 Transient alteration of awareness; R18.8 Other ascites; I42.6 Alcoholic cardiomyopathy; I42.7 Cardiomyopathy due to drug and external agent; E87.2 Acidosis; F11.188 Opioid abuse with other opioid-induced disorder; T40.1X Poisoning by and adverse effect of heroin; I48.20 Chronic atrial fibrillation, unspecified; J43.9 Emphysema, unspecified; G47.30 Sleep apnea, unspecified; I11.0 Hypertensive heart disease with heart failure; R09.02 Hypoxemia; F15.11 Other stimulant abuse, in remission; I08.1 Rheumatic disorders of both mitral and tricuspid valves; B19.20 Unspecified viral hepatitis C without hepatic coma; K74.60 Unspecified cirrhosis of liver; E78.00 Pure hypercholesterolemia, unspecified; N28.9 Disorder of kidney and ureter, unspecified; R32 Unspecified urinary incontinence; M19.90 Unspecified osteoarthritis, unspecified site; H91.90 Unspecified hearing loss, unspecified ear; Z79.82 Long term (current) use of aspirin; Z79.01 Long term (current) use of anticoagulants; Z87.891 Personal history of nicotine dependence; Z86.711 Personal history of pulmonary embolism; Z82.49 Family history of ischemic heart disease and other diseases of the circulatory system; Z87.01 Personal history of pneumonia (recurrent); Z91.14 Patient's other noncompliance with medication regimen
CPT/HCPCS: 36415; 70450; 71045; 71275; 80048; 80053; 80162; 81003; 82140; 82550; 82553; 82803; 83605; 83690; 83735; 83880; 84100; 84443; 84484; 85025; 85610; 85730; 87150; 93005; 93306; 94640; 96361; 96365; 96366; 96375; 99285; A9270; G0378; J0282; Q9967; 80306; 80307; 80320; 80329; 81001; 87086

== ENCOUNTER 2019-07-29 16:32 | Outpatient (CLI) | payer MEDICARE, OTHER, MEDICAID | END 2019-07-29 16:33 | disposition short-term general hospital (02) | LOC: EMS 16:32 | PROVIDERS: ATTEND Surgery | DX: I47.2 Ventricular tachycardia (principal) | CPT/HCPCS: A0425; A0426 ==

== ENCOUNTER 2019-08-16 20:57 | Outpatient (CLI) | payer MEDICARE, OTHER, MEDICAID | END 2019-08-16 20:58 | disposition home or self-care (01) | LOC: SC 20:57 | PROVIDERS: ATTEND Internal Medicine Pulmonary Disease | DX: G47.33 Obstructive sleep apnea (adult) (pediatric) (principal); G47.61 Periodic limb movement disorder; I48.91 Unspecified atrial fibrillation | CPT/HCPCS: 95810 ==

== ENCOUNTER 2019-08-23 13:40 | Outpatient (CLI) | payer MEDICARE, OTHER, MEDICAID ==
[2019-08-23 15:09] VITALS: BP 100/70
--- NOTE | 2019-08-23 15:09 | SLEEP CARE CONSULTATION ---
Information from patient questionnaire entered by Elena Cross. I have reviewed and concur with the information entered by Elena Cross. This document represents the service I personally performed and the decisions made by me, Silvia Lopez, RN, MSN, POWER TONG OPERATOR. History of Present Illness Initial [place] Sleepiness Scale score: 18 Current [place] Sleepiness Scale score: 17 Additional HPI information: JOSE DE JESUS RODRIGUEZ returns for follow up and results of the recently performed polysomnography. I explained the pathophysiology behind obstructive sleep apnea. We then spent quite a bit of time discussing different treatment options. For mild obstructive sleep apnea, surgery and oral appliance are alternatives to nasal CPAP therapy but in moderate or severe cases, nasal CPAP is the most effective and reliable treatment. Because apnea is primarily in supine position, then positional management therapy could be effective. However, he has congestive heart failure, atrial fibrillation and COPD thus CPAP therapy is the best mode of treatment. After some discussion, the patient to continue with the nasal CPAP therapy. He has not used CPAP for a month as he lost his mask given at last visit here at the [facility] when hospitalized for congestive heart failure. Since his CPAP is over 5 years old and of reasonable use, I will update his CPAP. Nasal autoCPAP set at [id number] will be ordered with rationale explained. A manual titration study will be ordered if unable to find optimal pressure with office adjustments. I explained how CPAP machine works with sample devices Respironics Dreamstation and ResMed [id number] and what to expect when using the machine. If snoring or perceives is not getting enough air or too much air from the machine, notify this office. [facility] patient education PAP tips reviewed and given to patient. Katie woods prefers the Dreamstation autoCPAP. Patient counseled not drink alcohol less than 4 hours before bedtime as it can increase snoring and apnea. Patient does not drink alcohol. Patient was cautio gordy about risks of drowsy driving until sleepiness symptoms resolve. Patient denies drowsy driving. [facility] patient education on snoring and sleep apnea given and reviewed. Sleep Study - Results Polysomnography/Home Sleep Study results: The quality of the study is good. The patient had reduced sleep efficiency due to frequent awakenings in the first half of the night. The sleep architecture was abnormal for sleep fragmentation and reduced amount of time spent in REM and slow wave sleep (N3). Respiratory monitoring showed mild obstructive sleep apnea-hypopnea (AHI = 7.5) associated with frequent arousals, oxyhemoglobin desaturation and mild hypoxia (shabbir oxygen saturation of 83%). There were also a few central apneas. The respiratory events occurred almost exclusively during supine sleep (supine AHI = 11.4; non-supine = 1.04). Snore was light to moderate in intensity. There was severe periodic leg movement of sleep contributing to the sleep fragmentation.. Cardiac rhythm was atrial fibrillation with occasional premature ventricular contractions. No abnormal behavior (parasomnia) observed during the night. Allergies and Home Medications Known drug allergies: Yes Home medication list reviewed: Yes (reduced dose of metoprolol / lasix and added losartan) Allergy and home medication list: Losartan 25mg po daily metoprolol 25mg daily furosemide 40mg daily digoxin 125mcg daily aspirin 81mg daily apixaban 5mg bid spironalactone 25mg daily vitamin D 2000 units daily vitamin B complex 50mcg daily Potassium / magnesium supplement daily Review of Systems Review of systems same as previous: No (Hospitalized for congestive heart failure / defibrillator implant ) Physical Exam Blood Pressure: 100/70 Cuff size: regular Heart Rate: 60 (confirmed apically ) O2 Saturation: 99 Height: 6 ft 5 in Weight: 180 lb Body Mass Index: 21.3 BMI Classification: Healthy weight Impression and Plan 1. Obstructive Sleep Apnea-Hypopnea Syndrome, mild, with lowest oxygen saturation of 83%. Re- evaluation of his sleep disordered breathing shows that his apnea risk has reduced from moderate to mild probably from his weight loss since first evaluated in 2010. Probably this is the cause of the patients symptoms of unrefreshed sleep, and excessive daytime sleepiness. Consistent use of his positive pressure therapy could benefit his atrial fibrillation and congestive heart failure. As mentioned above, the patient will have his CPAP updated with pressure set at 5-18 cmH2O. A manual titration study will be completed if unable to find optimal treatment pressure with office adjustments. Compliance guidelines also reviewed. A copy of compliance guidelines will be given for reference at check out. I also gave him a sample medium Dreamwear full face mask so he could restart using his old CPAP tonight until he can be set up with a new CPAP. 2. Atrial fibrillation, occasional premature ventricular contractions. patient currently under treatment. A tracing of rhythm attached to this report. 3. Periodic limb movement, severe, that did fragment patients sleep. Periodic limb movement of sleep (PLMS) is characterized by episodes of repetitive limb movements that occur during sleep and usually involve the lower limbs. The etiology is unknown but can be associated with restless leg syndrome (RLS), neuropathy, spinal cord diseases, kidney disease, rheumatological disorders, narcolepsy, obstructive sleep apnea, and REM sleep behavior disorder. Other factors that can increase PLMS and/or RLS are heredity and iron deficiency as reflected by a low serum ferritin level below 50 to 75mcg / L. Several medications can precipitate or aggravate PLMS such as selective serotonin re- uptake inhibitor antidepressants, tricyclic antidepressants, lithium, and dopamine receptor antagonists with the exception of bupropion. Caffeine can also aggravate PLMS and should be avoided. Sleep hygiene methods can also improve sleep as well as lifestyle changes such as regular exercise. Patient was advised that further evaluation is indicated. Patient reports that he is experiencing leg cramps which could be a cause of his PLMS. He is on lasix and an over the counter potassium / magnesium supplement. He was advised to contact his PCP to evaluate if supplement adequate dose to his lasix with rationale explained. Patient agreed with plan and was to contact after this visit on way home. * Update CPAP - Dreamstation preferred * Nasal auto CPAP therapy, pressure at 5-18 cm H2O. * Attempt to lose weight. * Avoid alcohol consumption near bedtime. * Avoid supine sleep until using CPAP. * The patient is again cautioned about driving until sleepiness completely resolves. * Follow up with Dr Mirela goldberg PLMS and potassium supplement to make sure his OTC supplement is adequate with his Lasix dose. * Return one month after CPAP obtained. I will assess response to therapy and compliance at that time. Time Spent with Patient (minutes): 45 I spent 100% of this visit face to face with the patient with greater than 50% of this was spent time counseling the patient and coordination of care. Patient is hard of hearing even with hearing aid and reads lips which takes more time.
== END 2019-08-23 13:41 | disposition home or self-care (01) ==
LOC: SC 13:40
PROVIDERS: ATTEND Nurse Practitioner Family
DX: G47.33 Obstructive sleep apnea (adult) (pediatric) (principal); G47.61 Periodic limb movement disorder; I48.91 Unspecified atrial fibrillation
CPT/HCPCS: 99215; G0463; 99212

== ENCOUNTER 2020-01-02 07:31 | Outpatient (CLI) | payer MEDICARE, OTHER, MEDICAID ==
[2020-01-02 15:22] LABS: INR 1.3 (0.8-1.2); PT - PROTHROMBIN TIME 14.7 secs (9.9-12.6)
== END 2020-01-02 07:32 | disposition home or self-care (01) ==
LOC: LAB.S 07:31
PROVIDERS: ATTEND Internal Medicine
DX: Z79.01 Long term (current) use of anticoagulants (principal)
CPT/HCPCS: 36415; 85610

== ENCOUNTER 2020-01-04 13:18 | Outpatient (CLI) | payer MEDICARE, OTHER, MEDICAID | END 2020-01-04 13:19 | disposition home or self-care (01) | LOC: LAB.S 13:18 | PROVIDERS: ATTEND Internal Medicine | DX: Z79.01 Long term (current) use of anticoagulants (principal) | CPT/HCPCS: 85610 ==

== ENCOUNTER 2020-01-09 15:15 | Outpatient (CLI) | payer MEDICARE, OTHER, MEDICAID | END 2020-01-09 15:16 | disposition home or self-care (01) | LOC: LAB.S 15:15 | PROVIDERS: ATTEND Internal Medicine | DX: Z79.01 Long term (current) use of anticoagulants (principal) | CPT/HCPCS: 85610 ==

== ENCOUNTER 2020-01-12 08:00 | Outpatient (CLI) | payer MEDICARE, OTHER, MEDICAID | END 2020-01-12 08:01 | disposition home or self-care (01) | LOC: LAB.S 08:00 | PROVIDERS: ATTEND Internal Medicine | DX: Z79.01 Long term (current) use of anticoagulants (principal) | CPT/HCPCS: 85610 ==

== ENCOUNTER 2020-01-16 08:09 | Outpatient (CLI) | payer MEDICARE, OTHER, MEDICAID | END 2020-01-16 08:10 | disposition home or self-care (01) | LOC: LAB.S 08:09 | PROVIDERS: ATTEND Internal Medicine | DX: Z79.01 Long term (current) use of anticoagulants (principal) | CPT/HCPCS: 85610 ==

== ENCOUNTER 2020-01-19 08:27 | Outpatient (CLI) | payer MEDICARE, OTHER, MEDICAID | END 2020-01-19 08:28 | disposition home or self-care (01) | LOC: LAB.S 08:27 | PROVIDERS: ATTEND Internal Medicine | DX: Z79.01 Long term (current) use of anticoagulants (principal) | CPT/HCPCS: 85610 ==

== ENCOUNTER 2020-02-23 08:32 | Outpatient (CLI) | payer MEDICARE, MEDICAID | END 2020-02-23 08:33 | disposition home or self-care (01) | LOC: LAB.S 08:32 | PROVIDERS: ATTEND Internal Medicine | DX: Z79.01 Long term (current) use of anticoagulants (principal) | CPT/HCPCS: 85610 ==

== ENCOUNTER 2020-03-05 12:42 | Outpatient (CLI) | payer MEDICARE, MEDICAID | END 2020-03-05 12:43 | disposition home or self-care (01) | LOC: LAB.S 12:42 | PROVIDERS: ATTEND Internal Medicine | DX: Z79.01 Long term (current) use of anticoagulants (principal) | CPT/HCPCS: 85610 ==

== ENCOUNTER 2020-06-04 08:10 | Outpatient (CLI) | payer MEDICARE, MEDICAID | END 2020-06-04 08:11 | disposition home or self-care (01) | LOC: LAB.S 08:10 | PROVIDERS: ATTEND Internal Medicine | DX: Z79.01 Long term (current) use of anticoagulants (principal) | CPT/HCPCS: 85610 ==

== ENCOUNTER 2020-06-11 13:46 | Outpatient (CLI) | payer MEDICARE, MEDICAID | END 2020-06-11 13:47 | disposition home or self-care (01) | LOC: LAB.S 13:46 | PROVIDERS: ATTEND Internal Medicine | DX: Z79.01 Long term (current) use of anticoagulants (principal) | CPT/HCPCS: 85610 ==

== ENCOUNTER 2020-06-25 08:02 | Outpatient (CLI) | payer MEDICARE, MEDICAID | END 2020-06-25 08:03 | disposition home or self-care (01) | LOC: LAB.S 08:02 | PROVIDERS: ATTEND Internal Medicine | DX: Z79.01 Long term (current) use of anticoagulants (principal) | CPT/HCPCS: 85610 ==

== ENCOUNTER 2020-07-22 09:10 | Outpatient (CLI) | payer MEDICARE, OTHER | END 2020-07-22 09:11 | disposition home or self-care (01) | LOC: LAB.S 09:10 | PROVIDERS: ATTEND Internal Medicine | DX: Z79.01 Long term (current) use of anticoagulants (principal) | CPT/HCPCS: 85610 ==

== ENCOUNTER 2020-08-05 12:38 | Outpatient (CLI) | payer MEDICARE, OTHER | END 2020-08-05 12:39 | disposition home or self-care (01) | LOC: LAB.S 12:38 | PROVIDERS: ATTEND Internal Medicine | DX: Z79.01 Long term (current) use of anticoagulants (principal) | CPT/HCPCS: 85610 ==

== ENCOUNTER 2020-09-02 08:26 | Outpatient (CLI) | payer MEDICARE, MEDICAID ==
[2020-09-02 16:06] LABS: BASOPHILS % (AUTO) 0.6 %; EOSINOPHILS # (AUTO) 0.2 10^3/uL (0.0-0.7); EOSINOPHILS % (AUTO) 2.9 %; HCT - HEMATOCRIT 44.7 % (42.0-52.0); HGB - HEMOGLOBIN 14.8 g/dL (14.0-18.0); LYMPHOCYTES # (AUTO) 1.4 10^3/uL (1.5-3.5); LYMPHOCYTES % (AUTO) 22.6 %; MEAN CORPUSCULAR HEMOGLOBIN 32.1 pg (27.0-31.0); MEAN CORPUSCULAR HGB CONC 33.1 g/dL (32.0-36.0); MEAN PLATELET VOLUME 11.2 fL (7.4-11.4); MONOCYTES # (AUTO) 0.6 10^3/uL (0.0-1.0); MONOCYTES % (AUTO) 10.1 %; NEUTROPHILS # (AUTO) 3.9 10^3/uL (1.5-6.6); NEUTROPHILS % (AUTO) 63.5 %; PLT - PLATELET COUNT 198 10^3/uL (130-450); RED BLOOD COUNT 4.61 10^6/uL (4.70-6.10); RED CELL DISTRIBUTION WIDTH 13.5 % (12.0-15.0); WHITE BLOOD COUNT 6.2 x10^3/uL (4.8-10.8)
[2020-09-02 16:22] LABS: ALBUMIN 4.4 g/dL (3.2-5.5); ALBUMIN/GLOBULIN RATIO 1.4 (1.0-2.2); ALKALINE PHOSPHATASE 90 IU/L (42-121); ALT ALANINE AMINOTRANSFERASE 54 IU/L (10-60); AST ASPARTATE AMINOTRANSFERASE 50 IU/L (10-42); BILIRUBIN,TOTAL 1.2 mg/dL (0.2-1.0); BUN - BLOOD UREA NITROGEN 22 mg/dL (6-20); CALCIUM 9.4 mg/dL (8.5-10.3); CARBON DIOXIDE - CO2 28 mmol/L (21-32); CHLORIDE 100 mmol/L (101-111); CHOL/HDL RATIO 3.5 (<5.0); CHOLESTEROL 193 mg/dL; GFR - MDRD 74 (>89); GLUCOSE 100 mg/dL (70-100); HDL CHOLESTEROL 55 mg/dL; LDL CHOLESTEROL,CALCULATED 124 mg/dL; LDL/HDL RATIO 2.3 (<3.6); POTASSIUM 3.9 mmol/L (3.5-5.0); SODIUM 136 mmol/L (135-145); TOTAL PROTEIN 7.5 g/dL (6.7-8.2); TRIGLYCERIDES 71 mg/dL; VLDL CHOLESTEROL 14 mg/dL
[2020-09-02 16:36] LABS: INR 1.4 (0.8-1.2); PT - PROTHROMBIN TIME 14.8 secs (9.9-12.6)
== END 2020-09-02 08:27 | disposition home or self-care (01) ==
LOC: LAB.S 08:26
PROVIDERS: ATTEND Internal Medicine
DX: Z79.01 Long term (current) use of anticoagulants (principal); E78.5 Hyperlipidemia, unspecified; Z20.5 Contact with and (suspected) exposure to viral hepatitis; Z12.5 Encounter for screening for malignant neoplasm of prostate; G47.30 Sleep apnea, unspecified
CPT/HCPCS: 36415; 80053; 80061; 80074; 85025; 85610; 87522; G0103; 81599; 83721; 84153

== ENCOUNTER 2020-09-13 14:21 | Outpatient (CLI) | payer MEDICARE, MEDICAID | END 2020-09-13 14:22 | disposition home or self-care (01) | LOC: LAB.S 14:21 | PROVIDERS: ATTEND Internal Medicine | DX: Z79.01 Long term (current) use of anticoagulants (principal) | CPT/HCPCS: 85610 ==

== ENCOUNTER 2020-10-01 15:47 | Outpatient (CLI) | payer MEDICARE, MEDICAID | END 2020-10-01 15:48 | disposition home or self-care (01) | LOC: LAB.S 15:47 | PROVIDERS: ATTEND Internal Medicine | DX: Z79.01 Long term (current) use of anticoagulants (principal) | CPT/HCPCS: 85610 ==

== ENCOUNTER 2020-11-04 12:43 | Outpatient (CLI) | payer MEDICARE, MEDICAID | END 2020-11-04 12:44 | disposition home or self-care (01) | LOC: LAB.S 12:43 | PROVIDERS: ATTEND Internal Medicine | DX: Z79.01 Long term (current) use of anticoagulants (principal) | CPT/HCPCS: 36416; 85610 ==

== ENCOUNTER 2021-01-14 01:06 | Outpatient (CLI) | payer MEDICARE, MEDICAID | END 2021-01-14 01:07 | disposition critical access hospital (66) | LOC: EMS 01:06 | DX: T40.1X1A Poisoning by heroin, accidental (unintentional), initial encounter (principal) | CPT/HCPCS: A0425; A0427 ==

== ENCOUNTER 2021-01-14 01:33 | Emergency (ER) | payer MEDICARE, MEDICAID ==
--- NOTE | 2021-01-14 02:02 | ED Physician Documentation ---
PD HPI OVERDOSE - Stated complaint Stated Complaint: OD - Chief complaint Chief Complaint: Critical Care - History obtained from History obtained from: Patient, EMS - History of Present Illness Timing - onset: How many hours ago (approximately 1 hour PRE CODER) Subtance(s) ingested: Other (patient tells me he only did "meth" (per patient), but has told RN and others that he did heroin tonight. He denies heroin use when I ask him specifically about this) Contributing factors: Substance abuse Pain level max: 0 Pain level now: 0 Treatment PRE CODER: Narcan Recently seen: Not recently seen - Additional information Additional information: BIBA. Approximately 1 hour PRE CODER, patient was found by roommates unconscious and unresponsive. One of the roommates reportedly administered 4mg IM narcan and patient woke up, vomited. Patient tells me he used meth tonight but reportedly told others he used heroin. On my HPI, he has no c/o. Review of Systems Constitutional: reports: Sweats. denies: Fever, Chills Cardiac: reports: Reviewed and negative Respiratory: reports: Reviewed and negative GI: reports: Nausea (resolved en route after 4mg IV zofran given by medics), Vomiting (resolved). denies: Abdominal Pain, Constipation, Diarrhea : denies: Dysuria, Frequency Musculoskeletal: reports: Reviewed and negative Neurologic: reports: Unresponsive. denies: Generalized weakness, Focal weakness, Numbness PD PAST MEDICAL HISTORY - Past Medical History Cardiovascular: Congestive heart failure, Hypertension, High cholesterol, Pulmonary embolism, Atrial fibrillation Respiratory: COPD, Pneumonia, Sleep apnea, Other Neuro: Other Endocrine/Autoimmune: None GI: Colon polyps, Hepatitis, Cirrhosis : None HEENT: Chronic hearing loss Psych: Anxiety Musculoskeletal: Osteoarthritis Derm: Other - Past Surgical History Past Surgical History: Yes General: Other Ortho: Other Cardiovascular: Cardiac catheterization - Present Medications Home Medications: Ambulatory Orders Medication Instructions Recorded Confirmed Digoxin 125 mcg PO DAILY 01/15/19 07/29/19 Furosemide 40 mg PO BID 01/15/19 07/29/19 Apixaban [Eliquis] 5 mg PO BID #60 tablet 07/27/19 07/29/19 Aspirin [Aspirin EC] 81 mg PO DAILY #30 tablet. 07/27/19 07/29/19 Metoprolol Succinate 50 mg PO BID #60 tab.er.24h 07/27/19 07/29/19 Spironolactone [Aldactone] 25 mg PO DAILY #30 tablet 07/27/19 07/29/19 Warfarin [Coumadin] 5 mg PO DAILY #10 tablet 01/14/21 - Allergies Allergies/Adverse Reactions: Allergies Allergy/AdvReac Type Severity Reaction Status Date / Time metoprolol AdvReac Severe Respiratory Verified 01/14/21 01:56 - Social History Does the pt smoke?: No Smoking Status: Never smoker Does the pt drink ETOH?: No Does the pt have substance abuse?: Yes - Immunizations Immunizations are current?: Yes - POLST Patient has POLST: No POLST Status: Full Code PD ED PE NORMAL - Vitals Vital signs reviewed: Yes - General General: Alert and oriented X 3, No acute distress, Well developed/nourished, Other (very [place]) - HEENT HEENT: PERRL, EOMI, Moist mucous membranes - Neck Neck: Supple, no meningeal sign - Cardiac Cardiac: No murmur - Respiratory Respiratory: No respiratory distress, Clear bilaterally - Abdomen Abdomen: Soft, Non tender - Derm Derm: Normal color, Warm and dry - Extremities Extremities: No edema - Neuro Neuro: Alert and oriented X 3, recovery unit operator 2-12 intact, No motor deficit, No sensory deficit, Normal speech PD ED PE EXPANDED - Cardiac Cardiac: Regular Rate, Irregularly irregular Results - Vitals Vitals: Oxygen O2 Source Room air - EKG (time done) No standard instances Rate: Rate (enter#) (109), Tachy Rhythm: Atrial fibrillation [place]: LAD, Anterior hemiblock Intervals: RBBB Ischemia: Non specific changes (diffusely inverted/biphasic T waves) - Labs Labs: Laboratory Tests 01/14/21 01/14/21 02:35 02:35 WBC 8.1 RBC 4.40 L Hgb 14.2 Hct 41.4 L MCV 94.1 H MCH 32.3 H MCHC 34.3 RDW 13.2 Plt Count 170 MPV 10.5 Neut # (Auto) 5.8 Lymph # (Auto) 1.1 L [place] # (Auto) 1.1 H Eos # (Auto) 0.1 Baso # (Auto) 0.0 Absolute Nucleated RBC 0.00 Nucleated RBC % 0.0 Sodium 135 Potassium 3.9 Chloride 96 L Carbon Dioxide 27 Anion Gap 12.0 BUN 25 H Creatinine 1.1 Estimated GFR (MDRD) 66 L Glucose 133 H Calcium 9.0 Ethyl Alcohol < 5.0 - Rads (name of study) chest xray Radiology: Prelim report reviewed, See rad report PD MEDICAL DECISION MAKING - ED course Complexity details: reviewed old records, reviewed results, re-evaluated patient, considered differential, d/w patient ED course: observed in ED for 5 hours, remained AAOx3 during entire stay. 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 He initially was interested in staying until the morning for a social work consult to discuss options for rehab, but he eventually relented and asked to be discharged. He denies SI, HI. He has good insight into his addiction and says he will look into outpatient options for rehab. He says he has a sponsor and will recontact them, and he will also resume attending meetings. Regarding his prescription medications, he is not clear on what he is supposed to currently be taking. He says he stopped taking all prescription meds approximately 3 weeks ago because he ran out and didn't prioritize getting them refilled. He says he is supposed to be on metoprolol, but then says he stopped taking it because of dyspnea and fatigue, and it is even listed as an allergy. He says he was taking eliquis but it was too expensive and he was switched to warfarin but cannot recall his dose. I was willing to prescribe his medications but he simply cannot recall with any confidence the meds nor doses. He is in a rate-controlled atrial fibrillation during ED stay; I prescribed 5mg PO warfarin QD and he says he plans to contact both his PMD and his body designer this morning to arrange for next available follow up. Departure - Departure Disposition: Home, Self Care Clinical Impression: Opiate overdose Qualifiers: Encounter type: initial encounter Injury intent: accidental or unintentional Qualified Code(s): T40.601A - Poisoning by unspecified narcotics, accidental (unintentional), initial encounter Atrial fibrillation Qualifiers: Atrial fibrillation type: longstanding persistent Qualified Code(s): I48.11 - Longstanding persistent atrial fibrillation Condition: Good Instructions: ED Afib, ED Overdose Accidental Follow-Up: Luc Marquez MD [Primary Care Provider] - Prescriptions: Warfarin [Coumadin] 5 mg PO DAILY #10 tablet Comments: As we discussed, it is critical that you follow up with your primary care provider as well as your body designer to be restarted on your prescription medications. I have offered to write your prescriptions but you declined the metoprolol and you do not seem to be confident in what other medications you are supposed to be taking. One of the more important medications would be a blood thinner, but follow up with your doctor is absolutely essential for further testing to see if you need adjustment in your warfarin level. I am prescribing a short course of warfarin to get you started back on this medication (you have indicated to me that you were most recently on warfarin to thin your blood), but you must talk with your primary care provider/body designer regarding ongoing prescription of this, or a similarly strong, blood thinner. Discharge Date/Time: 01/14/21 06:34
[2021-01-14 02:49] LABS: BASOPHILS % (AUTO) 0.4 %; EOSINOPHILS # (AUTO) 0.1 10^3/uL (0.0-0.7); HCT - HEMATOCRIT 41.4 % (42.0-52.0); HGB - HEMOGLOBIN 14.2 g/dL (14.0-18.0); LYMPHOCYTES # (AUTO) 1.1 10^3/uL (1.5-3.5); LYMPHOCYTES % (AUTO) 13.2 %; MEAN CORPUSCULAR HEMOGLOBIN 32.3 pg (27.0-31.0); MEAN CORPUSCULAR HGB CONC 34.3 g/dL (32.0-36.0); MEAN CORPUSCULAR VOLUME 94.1 fL (80.0-94.0); MEAN PLATELET VOLUME 10.5 fL (7.4-11.4); MONOCYTES # (AUTO) 1.1 10^3/uL (0.0-1.0); MONOCYTES % (AUTO) 13.2 %; NEUTROPHILS # (AUTO) 5.8 10^3/uL (1.5-6.6); PLT - PLATELET COUNT 170 10^3/uL (130-450); RED CELL DISTRIBUTION WIDTH 13.2 % (12.0-15.0); WHITE BLOOD COUNT 8.1 x10^3/uL (4.8-10.8)
[2021-01-14 02:58] LABS: BUN - BLOOD UREA NITROGEN 25 mg/dL (6-20); CARBON DIOXIDE - CO2 27 mmol/L (21-32); CHLORIDE 96 mmol/L (101-111); CREATININE 1.1 mg/dL (0.6-1.2); ETOH - ETHANOL < 5.0 mg/dL; GFR - MDRD 66 (>89); GLUCOSE 133 mg/dL (70-100); POTASSIUM 3.9 mmol/L (3.5-5.0); SODIUM 135 mmol/L (135-145)
[2021-01-14] MEDS: SODIUM CHLORIDE 0.9% 1,000 ML IV STA (03:08)
[2021-01-14 06:30] VITALS: BP 152/97
--- NOTE | 2021-01-14 07:11 | XRAY Report ---
PROCEDURE: Chest 2 View X-Ray INDICATIONS: OD, possible aspiration TECHNIQUE: 2 view(s) of the chest. COMPARISON: CT angiogram 07/27/2019. FINDINGS: Surgical changes and devices: Left chest wall single lead cardiac pacing device. Lungs and pleura: No pleural effusions or pneumothorax. Chronic pleural and subpleural airspace opac ities in both apical regions, right and left, similar to CT angiogram 07/27/2019. Lungs otherwise demo nstrate no acute or new airspace opacity. Mediastinum: Mediastinal contours are normal. Heart size is enlarged. Bones and chest wall: No suspicious bony abnormalities. Soft tissues appear unremarkable. IMPRESSION: No acute cardiopulmonary process demonstrated. Multifocal pleural and subpleural parenchymal opacities are similar, most notable in the right apical region. These are not significantly changed from the comparison angiogram. Cardiomegaly. Reviewed by: Adam Gallardo MD on 01/14/2021 7:10 AM PDT Approved by: Adam Gallardo MD on 01/14/2021 7:10 AM PDT Station ID: [id number]
== END 2021-01-14 06:34 | disposition home or self-care (01) ==
LOC: EDUNIT# → SUPCPDRO 01:33 → ED 01:33
DX: T40.1X1A Poisoning by heroin, accidental (unintentional), initial encounter (principal); I48.11 Longstanding persistent atrial fibrillation; Z79.01 Long term (current) use of anticoagulants; Z79.82 Long term (current) use of aspirin; I45.2 Bifascicular block; I10 Essential (primary) hypertension
CPT/HCPCS: 36415; 71046; 80048; 85025; 93005; 96360; 96361; 99284; G0480; 80320

== ENCOUNTER 2021-02-21 16:06 | Outpatient (CLI) | payer MEDICARE, MEDICAID | END 2021-02-21 16:07 | disposition home or self-care (01) | LOC: LAB.S 16:06 | PROVIDERS: ATTEND Internal Medicine | DX: I48.21 Permanent atrial fibrillation (principal) | CPT/HCPCS: 36416; 85610 ==

== ENCOUNTER 2021-03-11 16:04 | Outpatient (CLI) | payer MEDICARE, MEDICAID | END 2021-03-11 16:05 | disposition home or self-care (01) | LOC: LAB.S 16:04 | PROVIDERS: ATTEND Internal Medicine | DX: I48.21 Permanent atrial fibrillation (principal) | CPT/HCPCS: 36416; 85610 ==